=== PATIENT | male | born 1955 | race Caucasian/White ===

== ENCOUNTER 2023-01-27 01:03 | Outpatient (REF) | payer MEDICARE, MEDICAID, SELFPAY | END 2023-01-27 01:04 | LOC: LAB 01:03 | PROVIDERS: PCP Family Medicine | DX: E55.9 Vitamin D deficiency, unspecified (principal) | CPT/HCPCS: 36415; 82306 ==

== ENCOUNTER 2023-02-28 04:27 | Outpatient (REF) | payer MEDICARE, MEDICAID, SELFPAY | END 2023-02-28 04:28 | disposition home or self-care (01) | LOC: LAB 04:27 | PROVIDERS: PCP Family Medicine; Visit Provider Family Medicine | DX: A69.9 Spirochetal infection, unspecified (principal); A60.9 Anogenital herpesviral infection, unspecified | CPT/HCPCS: 36415; 82746 ==

== ENCOUNTER 2023-02-28 13:07 | Outpatient (OUT) | payer MEDICARE, MEDICAID, SELFPAY ==
--- NOTE | 2023-02-28 13:17 | XR_ITS ---
The [address] [address] Patient Name: LENORA TILLMAN MRN: [id number] date: 1955 Sex: M Assigned Patient Location: [facility] Current Patient Location: [facility] Accession/Order Number: [id number] Exam Date: 02/28/2023 13:18 Report Date: 02/28/2023 13:58 At the request of: YVES ORNELAS Procedure: XR lumbar spine 6V w bending EXAMINATION: XR lumbar spine 6V w bending HISTORY: Low back pain M54.5 COMPARISON: No relevant comparison available. FINDINGS: BONES: Normal alignment with no acute fracture or spondylolisthesis. Mild to moderate degenerative spondylosis and facet osteoarthropathy DISC SPACES: Normal. No significant disc height narrowing, subluxation, or endplate abnormality. PARASPINOUS: Negative. No paraspinous abnormality is seen. OTHER: No transient spondylolisthesis with flexion or extension XR/XR lumbar spine 6V w bending IMPRESSION: [id number] degenerative changes with no dynamic instability Electronically authenticated by: LAY HOPPER Date: 02/28/2023 13:58
== END 2023-02-28 13:08 | disposition home or self-care (01) ==
LOC: RAD 13:09
PROVIDERS: PCP Family Medicine; Visit Provider Psychiatry & Neurology Neurology
DX: M54.50 Low back pain, unspecified (principal); I63.50 Cerebral infarction due to unspecified occlusion or stenosis of unspecified cerebral artery; G45.8 Other transient cerebral ischemic attacks and related syndromes; Q21.12 Patent foramen ovale; I65.23 Occlusion and stenosis of bilateral carotid arteries
CPT/HCPCS: 72114

== ENCOUNTER 2023-06-11 03:52 | Outpatient (REF) | payer MEDICARE, MEDICAID, SELFPAY ==
[2023-06-11 07:41] LABS: Basophils Percent Auto 0.5 % (0.2-2.0); Eosinophils Absolute Auto 0.2 10^3/uL (0.0-0.7); Hematocrit 35.9 % (42.0-54.0); Immature Granulocytes Abs Auto 0.02 10^3/uL (0.00-0.03); Immature Granulocytes Pct Auto 0.3 % (0.0-0.5); Lymphocytes Absolute Auto 1.6 10^3/uL (1.2-3.8); Lymphocytes Percent Auto 20.6 % (20.5-60.0); Mean Corpuscular HGB Conc 33.4 g/dL (29.9-35.2); Mean Corpuscular Hemoglobin 29.8 pg (25.9-34.0); Mean Corpuscular Volume 89.1 fL (80.0-94.0); Mean Platelet Volume 9.1 fL (9.5-13.5); Monocytes Absolute Auto 0.6 10^3/uL (0.3-0.8); Monocytes Percent Auto 8.1 % (1.7-12.0); Neutrophils Absolute Auto 5.4 10^3/uL (1.4-6.5); Neutrophils Percent Auto 67.5 % (43.0-75.0); Platelet Count 230 10^3/uL (150-450); Red Blood Count 4.03 10^6/uL (4.70-6.10); Red Cell Distribution Width 12.3 % (11.0-15.0); White Blood Count 7.9 10^3/uL (4.0-11.0)
[2023-06-11 08:16] LABS: Alanine Aminotransferase 50 U/L (16-63); Albumin Globulin Ratio 0.9; Albumin Level 3.5 g/dL (3.4-5.0); Alkaline Phosphatase 72 U/L (46-116); Anion Gap 11.7; Aspartate Amino Transferase 41 U/L (15-37); BUN Creatinine Ratio 11.5; Bilirubin Total 0.5 mg/dL (0.2-1.0); Calcium 8.6 mg/dL (8.5-10.1); Chloride 103 mmol/L (98-107); Estimated GFR (African America 37 (>=60); Estimated GFR (Non-African Ame 31 (>=60); Glucose 118 mg/dL (74-106); Potassium 3.7 mmol/L (3.5-5.1); Sodium 139 mmol/L (136-145); Total Protein 7.5 g/dL (6.4-8.2)
[2023-06-11 08:38] LABS: Estimated Average Glucose 134 mg/dL; Glycohemoglobin A1C 6.3 % (4.5-6.2)
== END 2023-06-11 03:53 | disposition home or self-care (01) ==
LOC: LAB 03:52
PROVIDERS: PCP Family Medicine; Visit Provider Family Medicine
DX: E11.22 Type 2 diabetes mellitus with diabetic chronic kidney disease (principal)
CPT/HCPCS: 36415; 80053; 83036; 85025

== ENCOUNTER 2023-06-18 04:16 | Outpatient (REF) | payer MEDICARE, MEDICAID, SELFPAY ==
[2023-06-20 14:11] LABS: Alpha-1-Globulin, U 0.3 % (.); Alpha-2-Globulin, U 4.9 % (.); Beta Globulin, U 11.1 % (.); Gamma Globulin, U 16.8 % (.); M-Spike, % Not Observed % (Not Observed); Protein,Total,Urine 9.8 mg/dL (Not Estab.)
== END 2023-06-18 04:17 | disposition home or self-care (01) ==
LOC: LAB 04:16
PROVIDERS: PCP Family Medicine; Visit Provider Family Medicine
DX: G62.9 Polyneuropathy, unspecified (principal); G60.9 Hereditary and idiopathic neuropathy, unspecified
CPT/HCPCS: 36415; 83521; 84156; 84166

== ENCOUNTER 2023-06-20 00:35 | Outpatient (REF) | payer MEDICARE, MEDICAID, SELFPAY | END 2023-06-20 00:36 | disposition home or self-care (01) | LOC: LAB 00:35 | PROVIDERS: PCP Family Medicine; Visit Provider Family Medicine | DX: G62.9 Polyneuropathy, unspecified (principal); G60.9 Hereditary and idiopathic neuropathy, unspecified | CPT/HCPCS: 36415; 82746 ==

== ENCOUNTER 2023-06-22 08:10 | Outpatient (REF) | payer MEDICARE, MEDICAID, SELFPAY ==
[2023-06-23 08:43] LABS: Bilirubin Urine NEGATIVE (NEGATIVE); Blood Urine LARGE (NEGATIVE); Clarity Urine CLOUDY (CLEAR); Color Urine YELLOW (YELLOW); Glucose Urine UA 100 mg/dL (NEGATIVE); Ketones Urine NEGATIVE (NEGATIVE); Leukocyte Esterase Urine LARGE (NEGATIVE); Nitrite Urine NEGATIVE (NEGATIVE); Protein Urine >=300 mg/dL (NEG/TRACE); pH Urine >=9.0 (5.0-9.0)
[2023-06-23 08:51] LABS: Urine Microscopic Indicated YES
[2023-06-23 09:06] LABS: Bacteria Urine LARGE #/HPF (NONE SEEN); Cast Seen? NONE SEEN #/LPF (NONE SEEN); Crystals Seen? None Seen #/HPF (None Seen); Mucus Urine NONE SEEN (NONE SEEN); RBC Urine 20-50 #/HPF (0-2); Squamous Epithelial Cell Urine NONE SEEN #/LPF (NONE/RARE); Urine Culture Indicated YES; WBC Urine 20-50 #/HPF (NONE SEEN)
--- OUTSIDE RECORDS SUMMARY | 2023-07-29 17:07 | XMS_ITS | CCD ---
Author Name Unknown Address [address] [place] [address] Organization [facility] Care Team Providers Care Oleomargarine Maker Name Role Phone Antione DO Lay Wagenr Attending Provider [phone] CINDY Dow Primary Care Provider YVES ORNELAS Admitting Unavailable BERere, YVES Attending Unavailable MISC, DR FRAZIER Primary Care Unavailable REGAN, DR MCELROY Admitting Unavailable REGAN, DR MCELROY Attending Unavailable REGAN, DR MCELROY Primary Care Unavailable REGAN, DR MCELROY Consulting Unavailable REGAN, DR MCELROY Admitting Unavailable REGAN, DR MCELROY Attending Unavailable REGAN, DR MCELROY Primary Care Unavailable REGAN, DR MCELROY Consulting Unavailable TIA MERA Admitting Unavailable TIA MERA Attending Unavailable REGAN, DR MCELROY Primary Care Unavailable ZIEBER, DR RUFUS Morales Consulting Unavailable GRECHCLAUDIA .GARFIELD Consulting UnavailTIA Melendez Consulting Unavailable REGAN, DR MCELROY Primary Care Unavailable TIA MERA Admitting Unavailable TIA MERA Attending Unavailable TIA MERA Consulting Unavailable KARIME MAYES Consulting Unavailable JAC GILL Consulting Unavailable REGAN, DR MCELROY Primary Care Unavailable GRECHCLAUDIA ., GARFIELD ONAEL Consulting UnavailHERRERA Stafford Admitting Unavailable KRISTEN .HERRERA Attending Unavailable JAC GILL Consulting Unavailable LAY ROQUE Consulting Unavailable Medications Current Medications Medication Drug Class(es) Dates Sig (Normalized) Sig (Original) acetaminophen 325 mg oral tablet (1 source) Start: 03-15-2022 take 650 mg by mouth every four hours Acetaminophen Active 650 MG PO Q4H March 15, 2022 12:00am [id number] 200 actuat albuterol 0.09 mg/actuat metered dose inhaler (1 source) beta2-Adrenergic Agonist Start: 03-15-2022 take 1 puff(s) by inhalation every four hours Albuterol Sulfate Active 2 PUFF INHALATION Q4H March 15, 2022 12:00am amLODIPine 5 mg oral tablet (1 source) Dihydropyridine Calcium Channel Brenton Start: 01-21-2020 take 5 mg by mouth once daily in the morning Amlodipine Active 5 MG PO Every morning January 21, 2020 12:00am aspirin 81 mg delayed release oral tablet (1 source) Platelet Aggregation Inhibitor, Nonsteroidal Anti-inflammatory Drug Start: 03-15-2022 take 81 mg by mouth once daily Aspirin Active 81 MG PO Daily March 15, 2022 12:00am atorvastatin 10 mg oral tablet (1 source) HMG-CoA Reductase Inhibitor Start: 01-21-2020 take 10 mg by mouth once daily in the morning Atorvastatin Active 10 MG PO Every morning January 21, 2020 12:00am 24 hr buPROPion hydrochloride 300 mg extended release oral tablet (1 source) Aminoketone Start: 01-21-2020 take 300 mg by mouth once daily in the morning Bupropion Hcl Active 300 MG PO Every morning January 21, 2020 12:00am cholecalciferol 0.125 mg oral tablet (1 source) Vitamin D Start: 03-15-2022 take 1 tablet by mouth once daily Cholecalciferol (Vitamin D3) (Vitamin D3) 125 mcg (5,000 unit) Tablet Active 125 MCG PO Daily March 15, 2022 12:00am docusate sodium 100 mg oral capsule (1 source) Start: 03-15-2022 take 100 mg by mouth twice daily Docusate Sodium Active 100 MG PO Twice daily March 15, 2022 12:00am escitalopram 20 mg oral tablet (1 source) Serotonin Reuptake Inhibitor Start: 01-21-2020 take 20 mg by mouth once daily in the morning Escitalopram Oxalate Active 20 MG PO Every morning January 21, 2020 12:00am guaiFENesin 20 mg/ml oral solution (1 source) Start: 03-15-2022 take 200 mg by mouth every four hours Guaifenesin Active 200 MG PO Q4H March 15, 2022 12:00am lisinopril 10 mg oral tablet (1 source) Angiotensin Converting Enzyme Inhibitor Start: 01-21-2020 take 10 mg by mouth once daily in the morning Lisinopril Active 10 MG PO Every morning January 21, 2020 12:00am loperamide hydrochloride 2 mg oral capsule (1 source) Opioid Agonist Start: 03-15-2022 take 8 mg by mouth every twenty-four hours Loperamide Active 2 MG PO Q4H March 15, 2022 12:00am administer after each loose stool until symptoms controlled; do not exceed 8 mg per 24 hrs 24 hr metFORMIN hydrochloride 500 mg extended release oral tablet (2 sources) Biguanide Start: 01-21-2020 take 1000 mg by mouth twice daily Metformin Active 1000 MG PO Twice daily January 21, 2020 12:00am Start: 01-21-2020 End: 01-21-2020 Metformin Discontinued MG TA BLET January 21, 2020 12:00am January 21, 2020 2:59pm metoprolol tartrate 50 mg oral tablet (1 source) beta-Adrenergic Brenton Start: 01-21-2020 take 50 mg by mouth once daily in the morning Metoprolol Tartrate Active 50 MG PO Every morning January 21, 2020 12:00am polyethylene glycol 3350 17785 mg powder for oral solution (1 source) Osmotic Laxative Start: 03-15-2022 Polyethylene Glycol 3350 (Miralax) 17 gram Powder In Packet Active 17 GM PO Daily March 15, 2022 12:00am tamsulosin hydrochloride 0.4 mg oral capsule (2 sources) alpha-Adrenergic Brenton Start: 03-15-2022 take 0.4 mg by mouth once daily Tamsulosin Active 0.4 MG PO Daily March 15, 2022 12:00am Start: 01-21-2020 End: 01-21-2020 Tamsulosin Discontinued MG P O January 21, 2020 12:00am January 21, 2020 2:59pm traZODone hydrochloride 50 mg oral tablet (1 source) Serotonin Reuptake Inhibitor Start: 01-21-2020 take 50 mg by mouth once daily at bedtime Trazodone Active 50 MG PO Daily at bedtime January 21, 2020 12:00am Completed/Discontinued Medications Medication Drug Class(es) Dates Sig (Normalized) Sig (Original) SITagliptin 100 mg oral tablet (1 source) Dipeptidyl Peptidase 4 Inhibitor Start: 01-21-2020 End: 03-15-2022 take 1 tablet by mouth once daily in the morning Sitagliptin (Januvia) 100 mg tablet Discontinued 100 MG PO Every morning January 21, 2020 12:00am March 15, 2022 7:04am Problems Active Problems Problem Classification Problem Date Documented Da te Episodic/Chronic Chronic kidney disease (1 source) Chronic kidney disease, stage 2 (mild); Translations: [CHRONIC KIDNEY DISEASE STAGE 2 MILD] Onset: 12-12-2022 Chronic Diabetes mellitus with complications (4 sources) Type 2 diabetes mellitus with diabetic chronic kidney disease; Translations: [TYPE 2 DM W/DIABETIC CKD] Onset: 12-09-2022 Chronic E Codes: Fall (2 sources) Fall on same level, unspecified, initial encounter; Translations: [Unspecified fall, initial encounter] Onset: 10-04-2022 Episodic Essential hypertension (1 source) Essential (primary) hypertension; Translations: [ESSENTIAL PRIMARY HYPERTENSION] Onset: 12-12-2022 Chronic Immunizations and screening for infectious disease (1 source) Encounter for immunization; Translations: [ENCOUNTER FOR IMMUNIZATION] Onset: 10-04-2022 Episodic Open wounds of extremities (1 source) Laceration without foreign body of right wrist, initial encounter; Translations: [LACERATION W/O FB RT WRIST INITIAL] Onset: 11-05-2022 Episodic Other aftercare (1 source) lens engraver (current) use of aspirin; Translations: [FDC CURRENT USE OF ASPIRIN] Onset: 11-05-2022 Episodic Other aftercare (1 source) lens engraver (current) use of oral hypoglycemic drugs; Translations: [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 FABRICATION SUPERVISOR USE ORAL HYPOGLYCEMIC DX] Onset: 11-05-2022 Episodic Other aftercare (1 source) Other material assistant (current) drug therapy; Translations: [OTH FDC CURRENT DRUG THERAPY] Onset: 11-05-2022 Episodic Other connective tissue disease (3 sources) Other specified soft tissue disorders; Translations: [OTHER SPEC SOFT TISSUE DISORDERS] Onset: 10-02-2022 Episodic Other injuries and conditions due to external causes (4 sources) Other specified injuries of head, initial encounter; Translations: [OTH SPEC INJURIES HEAD INITIAL ENC] Onset: 11-04-2022 Episodic Other liver diseases (1 source) Unspecified cirrhosis of liver; Translations: [UNSPECIFIED CIRRHOSIS OF LIVER] Onset: 12-12-2022 Chronic Other nervous system disorders (4 sources) Polyneuropathy, unspecified; Translations: [POLYNEUROPATHY UNSPECIFIED] Onset: 11-13-2022 Chronic Other nervous system disorders (4 sources) Carpal tunnel syndrome, bilateral upper limbs; Translations: [CARPAL TUNNEL SYND MARCUS UPPER LIMBS] Onset: 06-12-2022 Chronic Other screening for suspected conditions (not mental disorders or infectious disease) (2 sources) Patient encounter status; Translations: [Encounter for screening for malignant neoplasm of colon] 03-15-2022 Episodic Skin and subcutaneous tissue infections (2 sources) Cellulitis of right finger; Translations: [Cellulitis of right upper limb] Onset: 10-04-2022 Episodic Superficial injury; contusion (3 sources) Contusion of lower back and pelvis, initial encounter; Translations: [Abrasion, right knee, initial encounter] Onset: 10-04-2022 Episodic Unclassified (3 sources) LOW BACK PAIN, UNSPECIFIED; Translations: [LOW BACK PAIN, UNSPECIFIED] Onset: 10-04-2022 Urinary tract infections (1 source) Urinary tract infection, site not specified; Translations: [UTI SITE NOT SPECIFIED] Onset: 10-04-2022 Episodic Past or Other Problems Problem Classification Problem Date Documented Da te Episodic/Chronic Unclassified (1 source) LOW BACK PAIN, UNSPECIFIED; Translations: [LOW BACK PAIN, UNSPECIFIED] Onset: 10-02-2022 Results Test Name Value Interpretation Reference Range Facil ity CBC AUTO DIFFon 12-09-2022 BASO # 0.0 103/ul Normal 0.0-0.1 [facility] Comment on above: Performed By: #### C BC ####[facility] [place] [address] [place], [place] [address]Dr. Kathya Ryan Basophils/100 WBC (Bld) 0.5 % Normal 0.2-2.0 [facility] Comment on above: Performed By: #### C BC ####[facility] [place] [address] [place] [id number]. Kathya Ryan EO # 0.3 103/ul Normal 0.0-0.7 [facility] Comment on above: Performed By: #### C BC ####[facility] [place] [address] [place], [place] [address]Dr. Kathya Ryan Eosinophils/100 WBC (Bld) 5.4 % Normal 0.9-7.0 [facility] Comment on above: Performed By: #### C BC ####[facility] [place] [address] [place] [address]Dr. Kathya Ryan Erythrocyte distribution wid th (RBC) [Ratio] 12.5 % Normal 11.0-15.0 [facility] Comment on above: Performed By: #### C BC ####[facility] [place] [address] [place], [place] [address]Dr. Kathya Ryan Hematocrit (Bld) [Volume fraction] 42.4 % Normal 4 2.0-54.0 [facility] [place] Comment on above: Performed By: #### C BC ####[facility] [place] [address] [place], [place] [address]Dr. Kathya Ryan Hemoglobin (Bld) [Mass/Vol] 14.1 g/dL Normal 14.0-18. 0 [facility] Comment on above: Performed By: #### C BC ####[facility] [place] [address] [place], [place] [address]Dr. Kathya Ryan IG # 0.02 10e3/ul Normal 0.00-0.03 [facility] Comment on above: Performed By: #### C BC ####[facility] [place] [address] [place], [place] [address]Dr. Kathay Ryan IG % 0.3 % Normal 0.0-0.5 [facility] Comment on above: Performed By: #### C BC ####[facility] [place] [address] [place], [place] [address]Dr. Kathya Ryan LYMPH # 1.3 103/ul Normal 1.2-3.8 [facility] Comment on above: Performed By: #### C BC ####[facility] [place] [address] [place], [place] [address]Dr. Kathya Ryan Lymphocytes/100 WBC (Bld) 22.4 % Normal 20.5-60.0 [facility] Comment on above: Performed By: #### C BC ####[facility] [place] [address] [place], [place] [address]Dr. Mireyajack Ryan MANUAL DIFF REQ NO Normal [facility] Comment on above: Performed By: #### C BC ####[facility] [place] [address] [place] [address]Dr. Kathya Ryan MCH (RBC) [Entitic mass] 30.5 pg Normal 25.9-34.0 [facility] Comment on above: Performed By: #### C BC ####[facility] [place] [address] [place] [address]Dr. Kathya Ryan MCHC (RBC) [Mass/Vol] 33.3 g/dL Normal 29.9-35.2 [facility] Comment on above: Performed By: #### C BC ####[facility] [place] [address] [place] [address]Dr. Kathya Ryan MCV (RBC) [Entitic vol] 91.8 fL Normal 80.0-94.0 [facility] Comment on above: Performed By: #### C BC ####[facility] [place] [address] [place], [place] [address]DrBriseyda Ryan MONO # 0.7 103/ul Normal 0.3-0.8 [facility] Comment on above: Performed By: #### C BC ####[facility] [place] [address] [place], [place] [address]DrBriseyda Ryan Monocytes/100 WBC (Bld) 12.2 % Critically high 1.7-12. 0 [facility] Comment on above: Performed By: #### C BC ####[facility] [place] [address] [place], [place] [address]DrBriseyda Ryan NEUT # 3.5 103/ul Normal 1.4-6.5 [facility] Comment on above: Performed By: #### C BC ####[facility] [place] [address] [place], [place] [address]DrBriseyda Ryan Neutrophils/100 WBC (Bld) 59.2 % Normal 43.0-75.0 [facility] [place] Comment on above: Performed By: #### C BC ####[facility] [place] [address] [place], [place] [address]DrBriseyda Ryan Platelet mean volume (Bld) [Entitic vol] 9.1 fL Critically low 9.5-13.5 The [facility] Comment on above: Performed By: #### C BC ####[facility] [place] [address] [place] [id number]. Kathya Ryan PLT 211 103/ul Normal 150-450 [facility] Comment on above: Performed By: #### C BC ####[facility] [place] [address] [place] [id number] Ryan RBC 4.62 106/ul Critically low 4.70-6.10 [facility] Comment on above: Performed By: #### C BC ####[facility] [place] [address] [place] [address]Dr. Kathya Ryan WBC 5.9 103/ul Normal 4.0-11.[address] [facility] Comment on above: Performed By: #### C BC ####[facility] [place] [address] [place] [address]Dr. Kathya Ryan GLYCOHEMOGLOBIN A1Con 2022 ADA RECOMMENDATION SEE BELOW Normal [facility] Comment on above: Result Comment: ADA RECOMMENDED LIMIT 4.0 - 6.0 ADA THERAPEUTIC TARGET < 7.0 ACTION SUGGESTED > 7.0 Performed By: #### A 1C #### [facility] [place] [facility] [address] [address] [address] Kathya Ryan Glucose [Mass/Vol] 123 mg/dL Normal [facility] Comment on above: Performed By: #### A 1C #### [facility] [place] [facility] [address] [address] [address] Kathya Ryan HbA1c (Bld) [Mass fraction] 5.9 % Normal 4.5-6.2 [facility] Comment on above: Performed By: #### A 1C #### [facility] [place] [facility] [address] [address] [address] Kathya Ryan LIPID PROFILEon 12-09-2022 CHOL-HDL RATIO NORM SEE BELOW Normal [facility] Comment on above: Result Comment: 3.3 - 4.4 LOW RISK 4.4 - 7.1 AVERAGE RISK 7.1 - 11.0 MODERATE RISK >11.0 HIGH RISK Performed By: #### L IPID, CMP #### [facility] [place] [facility] [address] [address] [address] Kathya Ryan Cholesterol [Mass/Vol] 132 mg/dL Normal <=200 [facility] Comment on above: Performed By: #### L IPID, CMP #### [facility] [place] [facility] [address] [address] [address] Kathya Ryan Cholesterol in HDL [Mass/Vol] 29 mg/dL Critically low 40 -60 [facility] Comment on above: Performed By: #### L IPID, CMP #### [facility] [place] [facility] [address] [address] [address] Kathya Ryan Cholesterol in LDL [Mass/Vol] 83.0 mg/dL Normal [facility] Comment on above: Performed By: #### L IPID, CMP #### [facility] [place] [facility] [address] [place] [address] Dr. Kathya Ryan Cholesterol.total/Cholestero l in HDL [Mass ratio] 4.6 {ratio} Normal [facility] Comment on above: Performed By: #### L IPID, CMP #### [facility] [place] [facility] [address] [place] [address] Dr. Kathya Ryan HDL NORMAL > or = 60 mg/dl - LO W CARDIOVASCULAR RISK <40 mg/dl - HIGH CARDIOVASCULAR RISK Normal [facility] Comment on above: Performed By: #### L IPID, CMP #### [facility] [place] [facility] [address] [address] [address] Kathya Ryan LDL CALC NORMAL SEE BELOW Normal [facility] Comment on above: Result Comment: <100 mg/dl OPTIMAL 100 - 129 mg/dl NEAR OR ABOVE OPTIMAL 130 - 159 mg/dl BORDERLINE HIGH 160 - 189 mg/dl HIGH >190 mg/dl VERY HIGH Performed By: #### L IPID, CMP #### [facility] [place] [facility] [address] [address] [address] Kathya Ryan Triglyceride [Mass/Vol] 102 mg/dL Normal <=150 T [facility] Comment on above: Performed By: #### L IPID, CMP #### [facility] [place] [facility] [address] [address] [address] Kathya Ryan VLDL CALC 20.4 mg/dL Normal [facility] Comment on above: Performed By: #### L IPID, CMP #### [facility] [place] [facility] [address] [address] [address] Kathya Ryan PROF 14(COMP METB)on 023 Albumin [Mass/Vol] 3.3 g/dL Critically low 3.4-5.0 [facility] Comment on above: Performed By: #### L IPID, CMP #### [facility] [place] [facility] [address] [address] [address] Kathya Ryan Albumin/Globulin [Mass ratio] 0.9 {ratio} Normal [facility] Comment on above: Performed By: #### L IPID, CMP #### [facility] [place] [facility] [address] [place] [address] Dr. Kathya Ryan ALP [Catalytic activity/Vol] 71 U/L Normal 46-116 [facility] Comment on above: Performed By: #### L IPID, CMP #### [facility] [place] [facility] [address] [address] [address] Kathya Ryan ALT [Catalytic activity/Vol] 50 U/L Normal 16-63 [facility] Comment on above: Performed By: #### L IPID, CMP #### [facility] [place] [facility] [address] [address] [address] Kathya Ryan Anion gap [Moles/Vol] 12.6 mmol/L Normal [facility] Comment on above: Performed By: #### L IPID, CMP #### [facility] [place] [facility] [address] [address] [address] Kathya Ryan AST [Catalytic activity/Vol] 34 U/L Normal 15-37 [facility] Comment on above: Performed By: #### L IPID, CMP #### [facility] [place] [facility] [address] [address] [address] Kathya Ryan Bilirubin [Mass/Vol] 0.4 mg/dL Normal 0.2-1.0 [facility] Comment on above: Performed By: #### L IPID, CMP #### [facility] [place] [facility] [address] [address] [address] Kathya Ryan Calcium [Mass/Vol] 8.9 mg/dL Normal 8.5-10.1 [facility] Comment on above: Performed By: #### L IPID, CMP #### [facility] [place] [facility] [address] [address] [address] Kathya Ryan Chloride [Moles/Vol] 106 mmol/L Normal 98-107 [facility] Comment on above: Performed By: #### L IPID, CMP #### [facility] [place] [facility] [address] [place] [address] Dr. Kathya Ryan CO2 [Moles/Vol] 27.4 mmol/L Normal 21.0-32.0 [facility] Comment on above: Performed By: #### L IPID, CMP #### [facility] [place] [facility] [address] [place] [address] Dr. Kathya Ryna Creatinine [Mass/Vol] 1.45 mg/dL Critically high 0.70-1.30 [facility] Comment on above: Performed By: #### L IPID, CMP #### [facility] [place] [facility] [address] [place] [address] Dr. Kathya Ryan EGFR-AF PARAGUAYAN 59 mL/min/1.73m2 Critically low >=60 [facility] Comment on above: Performed By: #### L IPID, CMP #### [facility] [place] [facility] [address] [place] [address] Dr. Kathya Ryan EGFR-NON AF PARAGUAYAN 49 mL/min/1.73m2 Critically low >=60 [facility] Comment on above: Performed By: #### L IPID, CMP #### [facility] [place] [facility] [address] [place] [address] Dr. Kathya Ryan Globulin (S) [Mass/Vol] 3.8 g/dL Normal [facility] Comment on above: Performed By: #### L IPID, CMP #### [facility] [place] [facility] [address] [place] [address] Dr. Kathya Ryan Glucose [Mass/Vol] 109 mg/dL Critically high 74-106 [facility] Comment on above: Performed By: #### L IPID, CMP #### [facility] [place] [facility] [address] [address] [address] Kathya Ryan Potassium [Moles/Vol] 3.9 mmol/L Normal 3.5-5.1 [facility] Comment on above: Performed By: #### L IPID, CMP #### [facility] [place] [facility] [address] [address] [address] Kathya Ryan Protein [Mass/Vol] 7.1 g/dL Normal 6.4-8.2 [facility] Comment on above: Performed By: #### L IPID, CMP #### [facility] [place] [facility] [address] [place] [address] Dr. Kathya Ryan Sodium [Moles/Vol] 142 mmol/L Normal 136-145 [facility] Comment on above: Performed By: #### L IPID, CMP #### [facility] [place] [facility] [address] [place] [address] Dr. Kathya Ryan Urea nitrogen [Mass/Vol] 17.0 mg/dL Normal 7.0-18.0 [facility] Comment on above: Performed By: #### L DANTEID, CMP #### [facility] [place] [facility] [address] [place] [address] Dr. Kathya Ryan Urea nitrogen/Creatinine [Mass ratio] 11.7 mg/mg Normal [facility] Comment on above: Performed By: #### L DANTEID, CMP #### [facility] [place] [facility] [address] [address] [address] Kathya Ryan FREE LIGHT CHAINS PLUS RATIO , URINEon 11-14-2022 Free Pierre Lt Chains,Ur 86.11 mg/L Normal 1.17-86.46 [facility] Comment on above: Performed By: #### F FIDEL ####[facility] [place] [address] [place] [address]Dr. Kathya Ryan Free Lambda Lt Chains,Ur 11.37 mg/L Normal 0.27-15.21 [facility] Comment on above: Performed By: #### F FIDEL ####[facility] [place] [address] [place], [place] [address]Ea. Kathya Ryan Pierre/ Lambda Urine Ratio 7.57 Normal 1.83-14.26 [facility] Comment on above: Performed By: #### F FIDEL ####[facility] [place] [address] [place], [place] [address]Hl. Kathya Ryan CT CSPINE WO CONon CT CSPINE WO CON EXAM: CT CSPINE WO C ON 11/03/2022 11:28 PM EDT [id number] CLINICAL STATEMENT: UNSPECIFIED INJURY OF HEAD, INITIAL ENCOUNTER COMPARISON: No prior studies are available at the time of dictation. TECHNIQUE: Helically acquired images were obtained of the cervical spine without contrast. AEC is utilized. 2D reformatted images were reviewed FINDINGS: Multilevel degenerative changes are noted. Bilateral uncovertebral hypertrophy at C3-C4, C4-C5 and C5-C6. There is no acute fracture or subluxation. There is normal anatomic alignment. There is no prevertebral soft tissue swelling. Luschka joint and facet joint hypertrophy is noted. The visualized portions of the lung apices are clear. The visualized portions of the skull base are intact. IMPRESSION: Multilevel degenerative changes without evidence of acute fracture or subluxation. Electronically authenticated by: KARIME MAYES Date: 2022-11-04 00:29 Normal [facility] CT HEAD WO CONon 11-04-2022 CT HEAD WO CON NONCONTRAST CT SCAN OF THE HEAD CT HEAD WO CON HISTORY:: UNSPECIFIED INJURY OF HEAD, INITIAL ENCOUNTER TECHNIQUE: Multiple axial images are taken from the level the vertex down to the base of the skull without the use of IV contrast. Images were then reconstructed in the sagittal and coronal planes. This exam was performed according to our departmental dose-optimization program which includes use of Automated Exposure Control, adjustment of the mA and/or kV according to patient size and/or use of iterative reconstruction technique. COMPARISON: CT head 09/14/2021 CT head 10/02/2022 FINDINGS: Brain Parenchyma: There is global, diffuse atrophy with periventricular decreased white matter attenuation.No intracranial mass. No intracranial hemorrhage. Posterior fossa: Normal. Midline shift: None Extra-axial fluid collection: None Ventricles: Normal. Mastoid air cells: Normal. Sinuses: Normal. Cranium: No depressed skull fracture. Soft tissues: Normal. Orbits: Orbits demonstrate postoperative changes from prior cataract resection with prosthetic lens implant. IMPRESSION: 1. No acute intracranial bleed, nor mass nor shift. 2. In the setting of hyperacute stroke, findings may not be readily visualized on a noncontrast CT. Please correlate clinically. If there is any clinical concern for hyperacute stroke, MRI with diffusion-weighted imaging would help better delineate. Electronically authenticated by: JAC GILL Date: 2022-11-04 00:28 Normal The [facility] CBC AUTO DIFFon 10-02-2022 BASO # 0.1 103/ul Normal 0.0-0.1 The [facility]ital Comment on above: Performed By: #### C BC ####[facility] [place] [address] [place] [address]Dr. Kathya Ryan Basophils/100 WBC (Bld) 0.5 % Normal 0.2-2.0 [facility] Comment on above: Performed By: #### C BC ####[facility] [place] [address] [place] [address]Dr. Kathya Ryan EO # 0.8 103/ul Critically high 0.0-0.7 The [facility] Comment on above: Performed By: #### C BC ####[facility] [place] [address] [place] [address]Dr. Kathya Ryan Eosinophils/100 WBC (Bld) 7.6 % Critically high 0.9-7 .0 The [facility] [place] Comment on above: Performed By: #### C BC ####[facility] [place] [address] [place] [address]Dr. Kathya Ryan Erythrocyte distribution wid th (RBC) [Ratio] 13.3 % Normal 11.0-15.0 The [facility] pithi Comment on above: Performed By: #### C BC ####[facility] [place] [address] [place] [address]Dr. Kathya Ryan Hematocrit (Bld) [Volume fraction] 39.7 % Critically low 42.0-54.0 The [facility] Comment on above: Performed By: #### C BC ####[facility] [place] [address] [place] [id number]. Kathya Ryan Hemoglobin (Bld) [Mass/Vol] 13.4 g/dL Critically low 14.0 -18.0 The [facility] [place] Comment on above: Performed By: #### C BC ####[facility] [place] [address] [place] [id number]. Kathya Ryan IG # 0.04 10e3/ul Critically high 0.00-0.03 The [facility] Comment on above: Performed By: #### C BC ####[facility] [place] [address] [place], [place] [address]Dr. Kathya Ryan IG % 0.4 % Normal 0.0-0.[address] [facility] Comment on above: Performed By: #### C BC ####[facility] [place] [address] [place], [place] [address]Dr. Kathya Ryan LYMPH # 1.6 103/ul Normal 1.2-3.[address] [facility] Comment on above: Performed By: #### C BC ####[facility] [place] [address] [place], [place] [address]Dr. Kathya Ryan Lymphocytes/100 WBC (Bld) 15.8 % Critically low 20.5-6 0.0 The [facility] [place] Comment on above: Performed By: #### C BC ####[facility] [place] [address] [place] [address]Dr. Kathya Ryan MANUAL DIFF REQ NO Normal The [facility] Comment on above: Performed By: #### C BC ####[facility] [place] [address] [place], [place] [address]Dr. Kathya Ryan MCH (RBC) [Entitic mass] 29.8 pg Normal 25.9-34.0 The [facility] [place] Comment on above: Performed By: #### C BC ####[facility] [place] [address] [place], [place] [address]Dr. Kathya Ryan MCHC (RBC) [Mass/Vol] 33.8 g/dL Normal 29.9-35.2 The [facility] [place] Comment on above: Performed By: #### C BC ####[facility] [place] [address] [place] [id number]. Kathya Ryan MCV (RBC) [Entitic vol] 88.4 fL Normal 80.0-94.0 [facility] Comment on above: Performed By: #### C BC ####[facility] [place] [address] [place] [id number]. Kathya Ryan MONO # 1.2 103/ul Critically high 0.3-0.8 The [facility] Comment on above: Performed By: #### C BC ####[facility] [place] [address] [place] [id number]. Kathya Ryan Monocytes/100 WBC (Bld) 12.1 % Critically high 1.7-12. 0 [facility] Comment on above: Performed By: #### C BC ####[facility] [place] [address] [place], [place] [address]Dr. Kathya Ryan NEUT # 6.4 103/ul Normal 1.4-6.[address] [facility] Comment on above: Performed By: #### C BC ####[facility] [place] [address] [place], [place] [address]Dr. Kathya Ryan Neutrophils/100 WBC (Bld) 63.6 % Normal 43.0-75.0 [facility] Comment on above: Performed By: #### C BC ####[facility] [place] [address] [place] [id number]. Kathya Ryan Platelet mean volume (Bld) [Entitic vol] 8.8 fL Critically low 9.5-13.5 The [facility] Comment on above: Performed By: #### C BC ####[facility] [place] [address] [place] [id number]. Kathya Ryan PLT 237 103/ul Normal 150-[address] [facility] Comment on above: Performed By: #### C BC ####[facility] [place] [address] [place], [place] [address]Dr. Kathya Ryan RBC 4.49 106/ul Critically low 4.70-6.10 The [facility] Comment on above: Performed By: #### C BC ####[facility] [place] [address] [place], [place] [address]Mr. Kathya Ryan WBC 10.1 103/ul Normal 4.0-11.0 The [facility] [place] Comment on above: Performed By: #### C BC ####[facility] [place] [address] [place], [place] [address]. [address] CT CSPINE WO CONon 3 CT CSPINE WO CON EXAMINATION: CT CSPI NE WO CON HISTORY: Unwitnessed fall COMPARISON: None. TECHNIQUE: CT Cervical spine without IV contrast. Coronal and sagittal reformations were performed. Dose reduction techniques were achieved by using automated exposure control and/or adjustment of mA and/or kV according to patient size and/or use of iterative reconstruction technique. FINDINGS: Age-indeterminate straightening of the cervical lordosis beginning at C5-C6. Vertebral body heights and alignments exhibit no fracture or listhesis. Multilevel intervertebral disc space narrowing, endplate, uncovertebral and facet arthrosis. The dens and lateral masses of C1 are symmetric. No prevertebral soft tissue edema. No gross visualized irregularity of the skull base. Moderate atherosclerosis of the left carotid bulb. The visualized airway, thoracic inlet and pulmonary apices are unremarkable IMPRESSION: Age-indeterminate straightening of the upper cervical lordosis Electronically authenticated by: LAY ROQUE Date: 2022-10-02 20:33 Normal The [facility] [place] CT HEAD WO CONon 10-02-2022 CT HEAD WO CON NONCONTRAST CT SCAN OF THE HEAD CT HEAD WO CON HISTORY:: Unspecified fall TECHNIQUE: Multiple axial images are taken from the level the vertex down to the base of the skull without the use of IV contrast. Images were then reconstructed in the sagittal and coronal planes. This exam was performed according to our departmental dose-optimization program which includes use of Automated Exposure Control, adjustment of the mA and/or kV according to patient size and/or use of iterative reconstruction technique. COMPARISON: 09/14/2021 FINDINGS: Brain Parenchyma: There is global, diffuse atrophy with periventricular decreased white matter attenuation. No intracranial mass. No intracranial hemorrhage. Posterior fossa: Normal. Midline shift: None Extra-axial fluid collection: None Ventricles: Normal. Mastoid air cells: Normal. Sinuses: Normal. Cranium: No depressed skull fracture. Soft tissues: Normal. Orbits: Orbits demonstrate postoperative changes from prior cataract resection with prosthetic lens implant. IMPRESSION: 1. Chronic small vessel ischemic change. 2. Otherwise, no CT evidence for acute pathology. 3. If symptoms continue, MRI may help better delineate. Electronically authenticated by: JAC GILL Date: 2022-10-02 20:41 Normal [facility] CULTURE URINEon 10-02-2022 CULTURE URINE Culture Observations : LIGHT GROWTH OF MIXED SKIN LUKASZ. NO POTENTIAL PATHOGENS SEEN. Normal The [facility] Comment on above: Performed By: #### U RCX ####[facility] [place] [address] [place] [address]Dr. Kathya Ryan ER URINE PROFILEon 3 Bilirubin Ql (U) Negative Normal NEGATIVE [facility] Comment on above: Performed By: #### U MICRO, ERUR #### [facility] [place] [facility] [address] [address] [address] Kathya Ryan Clarity (U) CLEAR Normal CLEAR The [facility] [place] Comment on above: Performed By: #### U MICRO, ERUR #### [facility] [place] [facility] [address] [address] [address] Kathya Ryan Color (U) YELLOW Normal YELLOW The [facility] Comment on above: Performed By: #### U MICRO, ERUR #### [facility] [place] [facility] [address] [address] [address] Kathya Ryan ERUAHD A micrscopic examina tion will be performed if indicated. Normal The [facility] l Comment on above: Performed By: #### U MICRO, ERUR #### [facility] [place] [facility] [address] [address] [address] Kathya Ryan Glucose Ql (U) 500 mg/dl Abnormal NEGATIVE The [facility] Comment on above: Performed By: #### U MICRO, ERUR #### [facility] [place] [facility] [address] [address] [address] Kathya Ryan Hemoglobin Ql (U) SMALL Abnormal NEGATIVE The [facility] Comment on above: Performed By: #### U MICRO, ERUR #### [facility] [place] [facility] [address] [address] [address] Kathya Ryan Ketones Ql (U) TRACE Abnormal NEGATIVE The [facility] Comment on above: Performed By: #### U MICRO, ERUR #### [facility] [place] [facility] [address] [place] [address] Dr. Kathya Ryan LEUKOCYTES TRACE Abnormal NEGATIVE The [facility] Comment on above: Performed By: #### U MICRO, ERUR #### [facility] [place] [facility] [address] [place] [address] Dr. Kathya Ryan Nitrite Ql (U) Negative Normal NEGATIVE The [facility] Comment on above: Performed By: #### U MICRO, ERUR #### [facility] [place] [facility] [address] [place] [address] Dr. Kathya Ryan pH (U) 5.5 [pH] Normal 5-[address] [facility] Comment on above: Performed By: #### U MICRO, ERUR #### [facility] [place] [facility] [address] [place] [address] Dr. Kathya Ryan SPEC GRAVITY >=1.030 Abnormal 1.005-<=1.025 [facility] Comment on above: Performed By: #### U MICRO, ERUR #### [facility] [place] [facility] [address] [place] [address] Dr. Kathya Ryan UA PROTEIN TRACE Normal NEGATIVE/ TRACE The [facility] Comment on above: Performed By: #### U MICRO, ERUR #### [facility] [place] [facility] [address] [place] [address] Dr. Kathya Ryan UR MICRO IND INDICATED Normal The [facility] [place] Comment on above: Performed By: #### U MICRO, ERUR #### [facility] [place] [facility] [address] [place] [address] Dr. Kathya Ryan Urobilinogen Qn (U) 2.0 {Luanne'U}/dL Abnormal 0.2 - 1. 0 [facility] Comment on above: Performed By: #### U MICRO, ERUR #### [facility] [place] [facility] [address] [place] [address] Dr. Kathya Ryan PROF 14(COMP METB)on 023 Albumin [Mass/Vol] 3.5 g/dL Normal 3.4-5.0 [facility] Comment on above: Performed By: #### H STROPN, CMP, TSH #### [facility] [place] [facility] [address] [address] [address] Kathya Ryan Albumin/Globulin [Mass ratio] 0.9 {ratio} Normal [facility] Comment on above: Performed By: #### H STROPN, CMP, TSH #### [facility] [place] [facility] [address] [address] [address] Kathya Ryan ALP [Catalytic activity/Vol] 108 U/L Normal 46-116 [facility] Comment on above: Performed By: #### H STROPN, CMP, TSH #### [facility] [place] [facility] [address] [place] [address] Dr. Kathya Ryan ALT [Catalytic activity/Vol] 38 U/L Normal 16-63 [facility] Comment on above: Performed By: #### H STROPN, CMP, TSH #### [facility] [place] [facility] [address] [address] [address] Kathya Ryan Anion gap [Moles/Vol] 11.4 mmol/L Normal [facility] Comment on above: Performed By: #### H STROPN, CMP, TSH #### [facility] [place] [facility] [address] [place] [address] Dr. Kathya Ryan AST [Catalytic activity/Vol] 28 U/L Normal 15-37 [facility] Comment on above: Performed By: #### H STROPN, CMP, TSH #### [facility] [place] [facility] [address] [address] [address] Kathya Ryan Bilirubin [Mass/Vol] 0.9 mg/dL Normal 0.2-1.0 [facility] Comment on above: Performed By: #### H STROPN, CMP, TSH #### [facility] [place] [facility] [address] [place] [address] Dr. Kathya Ryan Calcium [Mass/Vol] 9.1 mg/dL Normal 8.5-10.1 [facility] Comment on above: Performed By: #### H STROPN, CMP, TSH #### [facility] [place] [facility] [address] [address] [address] Kathya Ryan Chloride [Moles/Vol] 100 mmol/L Normal 98-107 [facility] Comment on above: Performed By: #### H STROPN, CMP, TSH #### [facility] [place] [facility] [address] [place] [address] Dr. Kathya Ryan CO2 [Moles/Vol] 27.7 mmol/L Normal 21.0-32.0 [facility] Comment on above: Performed By: #### H STROPN, CMP, TSH #### [facility] [place] [facility] [address] [place] [address] Dr. Kathya Ryan Creatinine [Mass/Vol] 1.69 mg/dL Critically high 0.70-1.30 [facility] Comment on above: Performed By: #### H STROPN, CMP, TSH #### [facility] [place] [facility] [address] [place] [address] Dr. Kathya Ryan EGFR-AF PARAGUAYAN 50 mL/min/1.73m2 Critically low >=60 [facility] Comment on above: Performed By: #### H STROPN, CMP, TSH #### [facility] [place] [facility] [address] [place] [address] Dr. Kathya Ryan EGFR-NON AF PARAGUAYAN 41 mL/min/1.73m2 Critically low >=60 [facility] Comment on above: Performed By: #### H STROPN, CMP, TSH #### [facility] [place] [facility] [address] [place] [address] Dr. Kathya Ryan Globulin (S) [Mass/Vol] 3.8 g/dL Normal [facility] Comment on above: Performed By: #### H STROPN, CMP, TSH #### [facility] [place] [facility] [address] [place] [address] Dr. Kathya Ryan Glucose [Mass/Vol] 259 mg/dL Critically high 74-106 [facility] Comment on above: Performed By: #### H STROPN, CMP, TSH #### [facility] [place] [facility] [address] [place] [address] Dr. Kathya Ryan Potassium [Moles/Vol] 4.1 mmol/L Normal 3.5-5.1 [facility] Comment on above: Performed By: #### H GILBERTO CMP, TSH #### [facility] [place] [facility] [address] [address] [address] Kathya Ryan Protein [Mass/Vol] 7.3 g/dL Normal 6.4-8.2 [facility] Comment on above: Performed By: #### H GILBERTO CMP, TSH #### [facility] [place] [facility] [address] [address] [address] Kathya Ryan Sodium [Moles/Vol] 135 mmol/L Critically low 136-145 [facility] Comment on above: Performed By: #### H GILBERTO CMP, TSH #### [facility] [place] [facility] [address] [address] [address] Kathya Ryan Urea nitrogen [Mass/Vol] 15.0 mg/dL Normal 7.0-18.0 [facility] Comment on above: Performed By: #### H GILBERTO CMP, TSH #### [facility] [place] [facility] [address] [address] [address] Kathya Ryan Urea nitrogen/Creatinine [Mass ratio] 8.9 mg/mg Normal [facility] Comment on above: Performed By: #### H FARAZ MACIAS, TSH #### [facility] [place] [facility] [address] [address] [address] Kathya Ryan PROTIMEon 10-02-2022 INR Coag (PPP) [Relative time] 1.00 {INR} Normal [facility] Comment on above: Performed By: #### P T, PTT ####[facility] [place] [address] [place] [address]Dr. Kathya Ryan INR GUIDELINES SEE BELOW Normal The [facility] Comment on above: Result Comment: JONI RED INR: 2.0 - 3.0 CONDITIONS NOT LISTED BELOW 2.5 - 3.5 FOR PROSTHETIC HEART VALVE REPLACEMENT 2.5 - 3.5 RECURRENT THROMBOSIS Performed By: #### P T, PTT ####[facility] [place] [address] [place] [address]Dr. Kathya Ryan PT Coag (PPP) [Time] 10.6 s Normal 9.0-11.6 [facility] Comment on above: Performed By: #### P T, PTT ####[facility] [place] [address] [place] [address]Dr. Kathya Ryan PTTon 10-02-2022 aPTT Coag (Bld) [Time] 26.9 s Normal 22.3-36.2 [facility] Comment on above: Performed By: #### P T, PTT ####[facility] [place] [address] [place] [address]Dr. Kathya Ryan TROPONIN, HIGH SENSITIVITYon 10-02-2022 HSTROP 4.2 pg/mL Normal 4.0-76.1 [facility] Comment on above: Result Comment: CUT- OFF POINTS HAVE BEEN ESTABLISHED BASED ON THE FOURTH UNIVERSAL DEFINITIONS OF MYOCARDIAL INFARCTION. THE UPPER REFERENCE LIMIT (URL) OF TROPONIN, DEFINED THE 99TH PERCENTILE OF cTnI DISTRIBUTION IN A REFERENCE POPULATION, HAS BEEN CONFIRMED THE DECISION THRESHOLD FOR CT DIAGNOSIS. Performed By: #### H FARAZ MACIAS, TSH ####[facility] [place] [address] [place] [address]Dr. aKthya Ryan TSHon 10-02-2022 TSH 2.502 uIU/mL Normal 0.358-3.740 [facility] Comment on above: Performed By: #### H FARAZ MACIAS, TSH ####[facility] [place] [address] [place] [address]DrBriseyda Ryan URINE MICROSCOPIC ONLYon BACTERIA MODERATE Abnormal NONE SEEN [facility] Comment on above: Performed By: #### U MICRO, ERUR #### [facility] [place] [facility] [address] [place] [address] Dr. Kathya Ryan Bacteria identified Cx Nom (U) INDICATED Normal The [facility] [place] Comment on above: Performed By: #### U MICRO, ERUR #### [facility] [place] [facility] [address] [place] [address] Dr. Kathya Ryan CAST NONE SEEN Normal NONE SEEN The [facility] Comment on above: Performed By: #### U MICRO, ERUR #### [facility] [place] [facility] [address] [place] [address] Dr. Kathya Ryan Crystals LM Nom (Urine sed) NONE SEEN Normal NONE SEE N The [facility] [place] Comment on above: Performed By: #### U MICRO, ERUR #### [facility] [place] [facility] [address] [address] [address] Kathya Ryan Epithelial cells LM Ql (Urine sed) RARE Normal N ONE SEEN /RARE The [facility] [place] Comment on above: Performed By: #### U MICRO, ERUR #### [facility] [place] [facility] [address] [address] [address] Kathya Ryan HYALINE CAST FEW Normal The [facility] [place] Comment on above: Performed By: #### U MICRO, ERUR #### [facility] [place] [facility] [address] [address] [address] Kathya Ryan MUCOUS NONE SEEN Normal NONE SEEN [facility] Comment on above: Performed By: #### U MICRO, ERUR #### [facility] [place] [facility] [address] [place] [address] Dr. Kathya Ryan RBC 10-20 Abnormal 0-2 [facility] Comment on above: Performed By: #### U MICRO, ERUR #### [facility] [place] [facility] [address] [address] [address] Kathya Ryan WBC 5-10 Abnormal NONE SEEN [facility] Comment on above: Performed By: #### U MICRO, ERUR #### [facility] [place] [facility] [address] [place] [address] Dr. Kathya Ryan XR CHEST 1 Von 10-02-2022 XR CHEST 1 V EXAMINATION: XR CHES T 1 V HISTORY: Unwitnessed fall COMPARISON: Portable chest 09/14/2021 TECHNIQUE: Portable chest FINDINGS: The lung parenchyma is free of consolidation or infiltrate. No pneumothorax or pleural effusion. The cardiac, mediastinal and hilar contours are normal. The visualized osseous structures exhibit no gross abnormality. IMPRESSION: No acute cardiopulmonary abnormality. Electronically authenticated by: LAY ROQUE Date: 2022-10-02 20:56 Normal The [facility] XR KNEE RT 4V or >on 023 XR KNEE RT 4V or > EXAM: XR KNEE RT 4V or > HISTORY: Unwitnessed fall COMPARISON: None. TECHNIQUE: 4 views FINDINGS: IMPRESSION: Poorly evaluated lucency of the lateral aspect of the patella that most likely represents bipartite morphology. The remainder of the osseous structures are normal. No visualized knee effusion or soft tissue edema. The tricompartmental joint spaces are normal. Electronically authenticated by: LAY ROQUE Date: 2022-10-02 20:59 Normal [facility] XR LSPINE 2_3 VIEWSon 2022 XR LSPINE 2_3 VIEWS EXAM: XR LSPINE 2_3 VIEWS HISTORY: Pain following fall COMPARISON: None. TECHNIQUE: 3 views of the lumbar spine and AP pelvis FINDINGS: Maintenance of the normal lumbar lordosis. Vertebral body heights and alignments exhibit no fracture or listhesis. Age-related intervertebral disc space narrowing, endplate and facet arthrosis. The sacroiliac joints, pubic symphysis and hip joints are unremarkable for patient's age. No fracture, dislocation or subluxation. IMPRESSION: No visualized acute abnormality Electronically authenticated by: LAY ROQUE Date: 2022-10-02 20:55 Normal The [facility] XR PELVIS 1_2 VIEWSon 2022 XR PELVIS 1_2 VIEWS EXAM: XR PELVIS 1_2 VIEWS HISTORY: Fall COMPARISON: None. TECHNIQUE: Single view FINDINGS: No osseous lesion, fracture, dislocation or subluxation. Joint spaces are unremarkable for patient's age. No visualized effusion. No visualized soft tissue edema. IMPRESSION: Normal x-rays Electronically authenticated by: LAY ROQUE Date: 2022-10-02 21:04 Normal The [facility] Glucose Glucometer (dC) [M ass/Vol]Ordered By: Lay Talbot on 03-15-2022 Glucose [Mass/Vol] 131 mg/dL [facility] Comment on above: Random Glucose Refer ence Range is dependent on time and content of last meal. Glucose of more than 200 mg/dL in a nonstressed, ambulatory subject supports the diagnosis of Diabetes Mellitus. Glucose Poct Glucometerson 0 03-15-2022 Glucose [Mass/Vol] 131 mg/dL Normal [facility] Comment on above: Result Comment: [place] Glucose Reference Range is dependent on time and content of last meal. Glucose of more than 200 mg/dL in a nonstressed, ambulatory subject supports the diagnosis of Diabetes Mellitus. PERFORMED BY: [facility] [place] [address] PATHOLOGIST STUDENT OUTREACH COORDINATOR CARINA HASSAN M.D. Performed By: #### G BALJIT #### Point of Care testing , PSA SCREEN (MEDICARE)on 11-09 TPSA 3.110 ng/mL Normal <4.000 [facility] Comment on above: Result Comment: PSA Test Method: ECLIA/Urvashi e 601 Performed By: #### P SA #### [facility] [address] [place], [place] [id number] Complete Blood Counton 09-20 Erythrocyte distribution wid th (RBC) [Ratio] 12.6 % Normal 11.0-15.0 [facility] Comment on above: Performed By: #### C MP, CBC, MG #### [facility] [address], [place] [id number] Hematocrit (Bld) [Volume fraction] 47.3 % Normal 38.5-50.0 [facility] Specialist Comment on above: Performed By: #### C MP, CBC, MG #### [facility] [address], [place] [id number] Hemoglobin (Bld) [Mass/Vol] 15.8 g/dL Normal 13.0-17. 1 [facility] Specialist Comment on above: Performed By: #### C MP, CBC, MG #### [facility] [address], [place] [id number] MCH (RBC) [Entitic mass] 28.6 pg Normal 27.0-33.0 [facility] Specialist Comment on above: Performed By: #### C MP, CBC, MG #### [facility] [address], [place] [id number] MCHC (RBC) [Mass/Vol] 33.4 g/dL Normal 32.0-36.0 [facility] Specialist Comment on above: Performed By: #### C MP, CBC, MG #### [facility] [address], [place] [id number] MCV (RBC) [Entitic vol] 86 fL Normal 80-100 [facility] Comment on above: Performed By: #### C MP, CBC, MG #### [facility] [address], [place] [id number] Platelet mean volume (Bld) [Entitic vol] 8.90 fL Normal 7.50-12.50 [facility] Specialist Comment on above: Performed By: #### C MP, CBC, MG #### [facility] [address], [place] [id number] Platelets (Bld) [#/Vol] 258 10*3/uL Normal 140-400 [facility] Specialist Comment on above: Performed By: #### C MP, CBC, MG #### [facility] [address], [place] [id number] RBC (Bld) [#/Vol] 5.53 10*6/uL Normal 4.20-5.[address] [facility] Specialist Comment on above: Performed By: #### C MP, CBC, MG #### [facility] [address], [place] [id number] RDW-SD 39.1 fL Normal 37.0-50.0 [facility] Specialist Comment on above: Performed By: #### C MP, CBC, MG #### [facility] [address], [place] [id number] WBC (Bld) [#/Vol] 8.2 10*3/uL Normal 3.8-11.0 [facility] Seed Expert Comment on above: Performed By: #### C MP, CBC, MG #### [facility] [address], [place] [id number] Comprehensive Metabolic Pane yun 09-20-2021 Albumin [Mass/Vol] 4.5 g/dL Normal 3.6-5.1 [facility] Seed Expert Comment on above: Performed By: #### C MP, CBC, MG #### [facility] [address], [place] [id number] Albumin/Globulin [Mass ratio] 1.6 {ratio} Normal 1.0-2 .5 [facility] Seed Expert Comment on above: Performed By: #### C MP, CBC, MG #### [facility] [address], [place] [id number] ALP [Catalytic activity/Vol] 86 U/L Normal 40-129 [facility] Comment on above: Performed By: #### C MP, CBC, MG #### [facility] [address], [place] [id number] ALT [Catalytic activity/Vol] 58 U/L High 9-46 [facility] Comment on above: Result Comment: 07/11 Female reference range changed. Performed By: #### C MP, CBC, MG #### [facility] [address], [place] [id number] Anion gap [Moles/Vol] 17 mmol/L Normal 12-20 [facility] Comment on above: Result Comment: Effe ctive 08/16/2019 reference range changed. Performed By: #### C MP, CBC, MG #### [facility] [address], [place] [id number] AST [Catalytic activity/Vol] 51 U/L High 10-40 [facility] Comment on above: Performed By: #### C MP, CBC, MG #### [facility] [address], [place] [id number] Bilirubin [Mass/Vol] 0.52 mg/dL Normal 0.30-1.20 [facility] Comment on above: Performed By: #### C MP, CBC, MG #### [facility] [address], [place] [id number] BUN/CREA 12 Ratio Normal 6-22 [facility] Comment on above: Performed By: #### C MP, CBC, MG #### [facility] [address], [place] [id number] Calcium [Mass/Vol] 9.9 mg/dL Normal 8.6-10.2 [facility] Comment on above: Performed By: #### C MP, CBC, MG #### [facility] [address], [place] [id number] Chloride [Moles/Vol] 102 mmol/L Normal 98-107 [facility] Comment on above: Performed By: #### C MP, CBC, MG #### [facility] [address], [place] [id number] CO2 [Moles/Vol] 22 mmol/L Normal 20-31 [facility] Specialist Comment on above: Performed By: #### C MP, CBC, MG #### [facility] [address], [place] [id number] Creatinine [Mass/Vol] 1.2 mg/dL Normal 0.7-1.4 [facility] Specialist Comment on above: Performed By: #### C MP, CBC, MG #### [facility] [address], [place] [id number] eGFRAA 72 mL/min/1.73m2 Normal >60 [facility] Specialist Comment on above: Performed By: #### C MP, CBC, MG #### [facility] [address], [place] [id number] eGFRNAA 59 mL/min/1.73m2 Low >60 [facility] Specialist Comment on above: Performed By: #### C MP, CBC, MG #### [facility] [address], [place] [id number] Globulin (S) [Mass/Vol] 2.9 g/dL Normal 1.9-3.7 N [facility] Specialist Comment on above: Performed By: #### C MP, CBC, MG #### [facility] [address], [place] [id number] Glucose [Mass/Vol] 117 mg/dL High 65-99 [facility] Expert Comment on above: Result Comment: For FASTING Glucose --- ADA reference ranges: Normal 65-99 mg/dl Prediabetes 100-125 Diabetes >/= 126 Performed By: #### C MP, CBC, MG #### [facility] [address], [place] [id number] Potassium [Moles/Vol] 4.5 mmol/L Normal 3.5-5.5 [facility] Specialist Comment on above: Performed By: #### C MP, CBC, MG #### [facility] [address], [place] [id number] Protein [Mass/Vol] 7.4 g/dL Normal 6.1-8.1 [facility] Comment on above: Performed By: #### C MP, CBC, MG #### [facility] [address], [place] [id number] Sodium [Moles/Vol] 137 mmol/L Normal 135-146 [facility] Comment on above: Performed By: #### C MP, CBC, MG #### [facility] [address], [place] [id number] Urea nitrogen [Mass/Vol] 15 mg/dL Normal 7-25 [facility] Specialist Comment on above: Performed By: #### C MP, CBC, MG #### [facility] [address], [place] [id number] Hemoglobin A1Con 09-20-2021 EAG 142.72 Normal [facility] Comment on above: Performed By: #### A 1C #### [facility] [address], [place] [id number] HbA1c (Bld) [Mass fraction] 6.6 % High 4.0-6.0 [facility] Comment on above: Performed By: #### A 1C #### [facility] [address], [place] [id number] Magnesiumon 09-20-2021 Magnesium [Mass/Vol] 2.0 mg/dL Normal 1.5-2.3 [facility] Comment on above: Performed By: #### C MP, CBC, MG #### [facility] [address], [place] [id number] Vital Signs Date Time Vital Sign Value Performing Clinician Anne-Marie lackey 03-15-2022 09:24-0400 Diastolic blood pressure 82 mm[Hg] DO Lay Talbot Work Phone: [facility] 03-15-2022 09:24-0400 Heart rate 72 /min DO Lay Talbot Work Phone: [facility] 03-15-2022 09:24-0400 Respiratory rate 18 /min DO Lay Talbot Work Phone: [facility] 03-15-2022 09:24-0400 SaO2% (BldA) [Mass fraction] 97 % DO Lay Talbot Work Phone: [facility] 03-15-2022 09:24-0400 Systolic blood pressure 115 mm[Hg] DO Lay Talbot Work Phone: [facility] 03-15-2022 [id number]:210400 Body height 171.45 cm DO Lay Talbot Work Phone: [facility] 03-15-2022 07:21040 Body temperature 98.5 [degF] DO Lay Talbot Work Phone: [facility] 03-15-2022 07:210400 Body weight 86.18 kg DO Lay Talbot Work Phone: [facility] Encounters Encounter Date Encounter Type Care Provider Facility Start: 12-09-2022 End: 12-09-[address] LILIBETH SPEARS Facility:[facility] Start: 11-13-2022 End: 11-13-[address] LILIBETH SPEARS Facility:[facility] Start: 11-04-2022 End: 11-04-[address] LILIBETH SPEARS Facility:[facility] Start: 10-02-2022 End: 10-03-[address] LILIBETH SPEARS Facility:[facility] Start: 10-02-2022 End: 10-02-2022 ambulatory TIA MERA Facility:[facility] Start: 06-12-2022 End: 06-13-2022 ambulatory YVES ORNELAS Facility:[facility] Start: 03-15-2022 End: 03-15-2022 Admission to same day surgery center DO Lay Talbot Work Phone: [facility] Procedures Date Procedure Procedure Detail Performing Clinician Start: 03-15-2022 Screening colonoscopy D O Lay Talbot Work Phone: Plan of Treatment Date Care Activity Detail Author Start: 03-15-2022 [facility] Work Phone: Payers Date Payer Category Payer Medicaid [id number] 1958 Medicare [id number] 1958 Medicare [id number] 1955 Unknown [id number] 2.16.84 [id number] 1955 Unknown [id number] 2.16.84 [id number] 1955 Unknown [id number] 2.16.84 [id number] 1955 Unknown [id number] 2.16.84 [id number] 1955 Unknown [id number] 2.16.84 [id number] 1955 Unknown [id number] 2.16.84 [id number] Medicaid [id number] Self-pay Self Pay [id number] Unknown [employer] [id number] Social History Date Type Detail Facility Start: 03-15-2022 Tobacco smoking stat [facility] Never smoked tobacco (finding) [facility] Start: 1955 Sex Assigned At Male F [facility] Medical Equipment Procedure Code Equipment Code Equipment Origin al Text Equipment Identifier Dates Phacoemulsification of cataract with intraocular lens implantation Posterior-chamber intraocular lens, pseudophakic ()[id number] FDA Start: 01-27-2020 Phacoemulsification of cataract with intraocular lens implantation Posterior-chamber intraocular lens, pseudophakic ()[id number] FDA Start: 02-24-2020 Goals Date Patient Goal Desired Activity /State Clinical Note 10-02-2022 Note Date & Type Note Facility 10-02-2022 Note PROCEDURE: XR FINGER MIN 2 VIEWS HISTORY: Swelling ; right hand index finger pain, swelling, and redness COMPARISON: None. FINDINGS: BONES:No fracture, acute abnormality, or significant arthropathy. SOFT TISSUES:Prominent soft tissue swelling dorsal medial to the distal interphalangeal joints, just proximal to the nail bed. No radiopaque foreign body. EFFUSION:None visible. OTHER: Negative. IMPRESSION: 1. Soft tissue swelling of distal first digit consistent with patient history. No radiopaque foreign body or bone involvement. Electronically authenticated by: RUFUS VALDEZ Date: 2022-10-02 11:10 [facility] History and physical note 03-15-2022 Note Date & Type Note Facility 03-15-2022 History and physi tara note Note Date/Time March 15, 2022 8:20am [facility] [address] [place] [address] Gastroenterology H&P Signed Patient: Lenora Tillman MR#: [id number] : 1955 Acct:[id number] Age/Sex: 66 / M Adm Date: 2 Loc: Room: Type: [facility] Attending Dr: Lay Talbot DO Copies to: Lay Talbot Jr, DO Amie Dow NP-C~ Date of Service: 03/15/2022 Gastroenterology HPI History of Present Illness HPI: Mr. Tillman is a 66 year old male for colorectal cancer screening, negative symptoms, negative family history, never had colonoscopy before. Review of Systems Review of Systems All other systems reviewed & are negative unless noted below or in HPI PMFSH Vaccinated for COVID-19?: Yes Medical History Cirrhosis Depression Diabetes mellitus, type 2 History of ETOH abuse Hypertension Mental disability Surgical History History of liver biopsy Family History Mother Stroke Diabetes mellitus, type 2 Father COPD (chronic obstructive pulmonary disease) Social History Smoking Status: Never smoker Substance Use Type: None Meds Home and Active Medications Home and Active Medications: Home Medications amlodipine 5 mg tablet 5 mg PO QAM htn 01/21/20 [History Confirmed 03/15/22] atorvastatin 10 mg tablet 10 mg PO QAM hyperlipidemia 01/21/20 [History Confirmed 03/15/22] bupropion HCl 300 mg 24 hr tablet, extended release 300 mg PO QAM depression 01/21/20 [History Confirmed 03/15/22] escitalopram oxalate 20 mg tablet 20 mg PO QAM depression 01/21/20 [History Confirmed 03/15/22] lisinopril 10 mg tablet 10 mg PO QAM htn 01/21/20 [History Confirmed 03/15/22] metformin 500 mg tablet,extended release 24 hr 1,000 mg PO BID diabetes 01/21/20[History Confirmed 03/15/22] metoprolol tartrate 50 mg tablet 50 mg PO QAM 01/21/20 [History Confirmed 03/15/22] trazodone 50 mg tablet 50 mg PO QHS insomnia 01/21/20 [History Confirmed 03/15/22] acetaminophen 325 mg tablet 650 mg PO Q4H PRN Pain 03/15/22 [History Confirmed 03/15/22] albuterol sulfate 90 mcg/actuation aerosol inhaler 2 puff inhalation Q4H PRN Shortness Of Breath 03/15/22 [History Confirmed 03/15/22] aspirin 81 mg tablet,delayed release 81 mg PO DAILY 03/15/22 [History Confirmed 03/15/22] cholecalciferol (vitamin D3) 125 mcg (5,000 unit) tablet (Vitamin D3) 125 mcg PODAILY 03/15/22 [History Confirmed 03/15/22] docusate sodium 100 mg capsule 100 mg PO BID 03/15/22 [History Confirmed 03/15/22] guaifenesin 100 mg/5 mL oral liquid 200 mg PO Q4H PRN Cough 03/15/22 [History Confirmed 03/15/22] loperamide 2 mg capsule 2 mg PO Q4H PRN Diarrhea 03/15/22 [History Confirmed 03/15/22] polyethylene glycol 3350 17 gram oral powder packet (Miralax) 17 g PO DAILY PRN Constipation 03/15/22 [History Confirmed 03/15/22] tamsulosin 0.4 mg capsule 0.4 mg PO DAILY 03/15/22 [History Confirmed 03/15/22] Active Medications Sodium Chloride (0.9% Sodium Chloride 1,000 Ml) 1,000 mls @ 20 mls/hr IV .Q24H JOAQUIM Stop: 03/15/23 07:14 Last Admin: 03/15/22 07:20 Dose: 20 mls/hr Sodium Chloride (Sodium Chloride 0.9 % 10 Ml Syringe) 0 ml IV-PUSH PRN PRN PRN Reason: Flush Stop: 03/15/23 07:11 Exam Physical Exam Vital Signs: Temp Pulse Resp BP Pulse Ox O2 Del Method 98.5 F 74 16 156/105 H 98 Room Air 03/15/22 07:21 03/15/22 07:21 03/15/22 07:21 03/15/22 07:21 03/15/22 07:21 03/15/22 07:21 Const General: no acute distress Orientation: alert and oriented x3 Resp Effort & Inspection: normal respiratory effort Auscultation: clear to auscultation bilaterally Cardio Rate: regular rate Rhythm: regular rhythm GI Palpation: soft and nontender Auscultation: normal bowel sounds Extrem General: no edema Results Labs Labs: Laboratory Results - last 24 hr 03/15/22 07:11 POC Glucose 131 A&P - Gastroenterology Assessment/Plan (1) Screening for colorectal cancer: Code(s): Z12.11 - Encounter for screening for malignant neoplasm of colon; Z12.12 - Encounter for screening for malignant neoplasm of rectum Status: Acute Plan colonoscopy for evaluation Documented By: Lay Talbot Jr, DO 03/15/22 [phone] Signed By: <Electronically signed by Lay Talbot Jr, DO> 03/15/22 0832 [facility] Work Phone: Procedure note 03-15-2022 Note Date & Type Note Facility 03-15-2022 Procedure note [facility] Evaluation note Note Date & Type Note Facility Evaluation note Diagnosis Onset Date Screening for colorectal cancer acute [facility] Work Phone: Hospital Discharge instructions Note Date & Type Note Facility Hospital Discharge instructions Additional Instructions DISCHARGE INSTRUCTIONS FOR ENDOSCOPY FOR COLONOSCOPY: -Expect a gassy or full feeling after a colonoscopy. Report any NEW abdominal pain or vomiting. -It is important to keep your appointments for follow up examinations because polyps can grow back. FOR SEDATION FOR 24 HOURS: -NO driving -Do NOT operate machinery such as power tools, lawn mowers, snow blowers, sewing machines, etc. -Avoid alcoholic beverages and drugs for allergies, nerves, or sleep. -Do NOT stay alone. Do NOT leave your child unattended. -Do NOT make important personal or business decisions or sign any legal documents. -Eat solid foods and drink liquids in smaller amounts than usual until normal appetite returns. If you should experience an upset stomach, liquids high in sugar content (soda, Eric-aid, non-acid juices) are recommended. -You can resume normal activities tomorrow. FOLLOW UP -colonoscopy recommended in 10 yrs -Notify the doctor if you have any problems. -Office number [phone] [facility] Work Phone: Summary Purpose Family History No Family History Records Found Relationship Condition Age at Onset Recorded Date/T nile Not Specified Cerebrovascular accident (CVA) Unknown Type 2 diabetes mellitus Unknown father Chronic obstructive pulmonary disease Unk nown Advance Directives No Advanced Directives Records Found Advance Directive Response Recorded Date/ Time Advance Directives No January 20 3:32pm Chief Complaint and Reason for Visit Chief Complaint Screening Reason for Visit Screening for colore ctal cancer Additional Source Comments (unrecognized sect ion and content) No Status Records FoundNo Status Records FoundNo Status Records Found INFORMATION SOURCE (unrecogn ized section and content) DATE CREATED AUTHOR 11/21/2021 [facility] dical Specialist DATE CREATED AUTHOR AUTHOR'S ORGANIZ ATION 03/16/2022 [facility] DATE CREATED AUTHOR AUTHOR'S ORGANIZ ATION 12/14/2022 [facility] Care Teams (unrecognized sec tion and content) Team Status: Inactive Member Role Status Dates Lay Talbot DO Attending Provider Active CINDY Santiago Primary Care Provider Active Team Status: Active Member Role Status Dates CINDY Santiago Primary Care Provider Active FOR RECORDS PERTAINING TO PATIENTS WHO ARE OR HAVE BEEN ENROLLED IN A CHEMICAL DEPENDENCY/SUBSTANCEABUSE PROGRAM, SOME INFORMATION MAY BE OMITTED. This clinical summary was aggregated from multiple sources. Caution should be exercised in using it in the provision of clinical care. This summary normalizes information from multiple sources, and as a consequence, information in this document may materially change the coding, format and clinical context of patient data. In addition, data may be omitted in some cases. CLINICAL DECISIONS SHOULD BE BASED ON THE PRIMARY CLINICAL RECORDS. [facility]. provides no warranty or guarantee of the accuracy or completeness of information in this document.
== END 2023-06-23 05:41 | disposition home or self-care (01) ==
LOC: LAB 08:10
PROVIDERS: PCP Family Medicine; Visit Provider Family Medicine
DX: R31.9 Hematuria, unspecified (principal)
CPT/HCPCS: 81001; 87086; 87186

== ENCOUNTER 2023-06-24 21:48 | Emergency (ER) | payer MEDICARE, MEDICAID, SELFPAY ==
[2023-06-24] VITALS (14 sets, daily range): BP systolic 157; BP diastolic 108; PULSE 49–123; RESP 13–24; TEMP 36.9; O2SAT 96–97; BMI 28.2
--- NOTE | 2023-06-24 21:54 | ECG_ITS ---
The [facility] Test Date: 2023-06-24 Pat Name: LENORA TILLMAN Department: Room: - Gender: Male [employer]: : 1955 Requested By: [id number] Order Number: [id number] Reading MD: DANIEL TOBIN Measurements Intervals [place] Rate: 106 P: 44 [place]: 172 QRS: -3 QRSD: 98 T: 14 QT: 332 QTc: 394 Interpretive Statements 1120 Sinus tachycardia 9140 abnormal rhythm ECG No previous ECG available for comparison Electronically Signed On 06-25-2023 6:58:03 EST by DANIEL TOBIN
--- NOTE | 2023-06-24 22:09 | ED.GENADUL1 ---
HPI - General Adult General Chief complaint: Altered Mental Status Stated complaint: Altered Mental Status Time Seen by Provider: 06/24/23 22:04 Source: patient Mode of arrival: ambulance Limitations: no limitations History of Present Illness HPI narrative: patient transferred from [facility]. reportedly confused at the home. States he is there because he always falls. Denies any injury. He believes he has a UTI. denies headache, abdominal pain or nausea Related Data Allergies Allergy/AdvReac Type Severity Reaction Status Date / Time No Known Drug Allergies Allergy Verified 06/24/23 21:54 Review of Systems ROS Status of ROS 10 or more systems reviewed and unremarkable except as noted in history and below Exam Constitutional Vital Signs, click to edit/add: Last Vital Signs Temp 98.4 F 06/24/23 21:50 Pulse 96 H 06/25/23 02:55 Resp 24 06/24/23 22:20 BP 160/97 H 06/25/23 02:52 Pulse Ox 94 L 06/25/23 02:55 O2 Del Method Room Air 06/24/23 21:50 Common normals: no apparent distress, average body habitus, oriented x3, no limitations, healthy appearing, alert and well nourished Eye Common normals: EOMs intact bilaterally and conjunctivae normal Respiratory Common normals: normal respiratory effort, no retractions, no use of accessory muscles and clear to auscultation bilaterally Cardio Common normals: regular rate, regular rhythm, S1 normal heart sound and S2 normal heart sound GI Common normals: Normal to inspection, nondistended, normoactive bowel sounds present, soft to palpation and non-tender Extremity Common normals: normal to inspection and full ROM Neuro Common normals: oriented x3, moves all extremities, no focal motor deficits and no sensory deficits noted Psych Appearance: grossly normal Course Vital Signs Vital signs: Vital Signs Temperature 98.4 F 06/24/23 21:50 Pulse Rate 110 H 06/24/23 21:50 Respiratory Rate 18 06/24/23 21:50 Blood Pressure 157/108 H 06/24/23 21:50 Pulse Oximetry 97 06/24/23 21:50 Oxygen Delivery Method Room Air 06/24/23 21:50 Temperature 98.4 F 06/24/23 21:50 Pulse Rate 96 H 06/25/23 02:55 Respiratory Rate 24 06/24/23 22:20 Blood Pressure 160/97 H 11/15/23 02:52 Pulse Oximetry 94 L 06/25/23 02:55 Oxygen Delivery Method Room Air 06/24/23 21:50 Medical Decision Making MDM Narrative Medical decision making narrative: patient presents from correction with reported change in mental status. Arrives to the ER AxOx3. workup finds that he does have UTI and dehydration with elevated BUN and creat. medicated and hydrated in the department. Given dose of Rocephin IVPB and then discharged back to the correction with a prescription of Bactrim ds Lab Data Labs: Lab Results 06/24/23 06/24/23 06/24/23 Range/Units 01:35 21:59 23:40 WBC 12.8 H (4.0-11.0) 10^3/uL RBC 3.93 L (4.70-6.10) 10^6/uL Hgb 11.8 L (14.0-18.0) g/dL Hct 34.7 L (42.0-54.0) % MCV 88.3 (80.0-94.0) fL MCH 30.0 (25.9-34.0) pg MCHC 34.0 (29.9-35.2) g/dL RDW 12.8 (11.0-15.0) % Plt Count 325 (150-450) 10^3/uL MPV 9.3 L (9.5-13.5) fL Neut % (Auto) 75.2 H (43.0-75.0) % Lymph % (Auto) 8.9 L (20.5-60.0) % [place] % (Auto) 14.7 H (1.7-12.0) % Eos % (Auto) 0.7 L (0.9-7.0) % Baso % (Auto) 0.2 (0.2-2.0) % Neut # (Auto) 9.6 H (1.4-6.5) 10^3/uL Lymph # (Auto) 1.1 L (1.2-3.8) 10^3/uL [place] # (Auto) 1.9 H (0.3-0.8) 10^3/uL Eos # (Auto) 0.1 (0.0-0.7) 10^3/uL Baso # (Auto) 0.0 (0.0-0.1) 10^3/uL Abs Immat Gran (auto) 0.04 H (0.00-0.03) 10^3/uL Imm/Tot Granulo (auto) 0.3 (0.0-0.5) % Sodium 136 (136-145) mmol/L Potassium 4.1 (3.5-5.1) mmol/L Chloride 98 (98-107) mmol/L Carbon Dioxide 21.4 (21.0-32.0) mmol/L Anion Gap 20.7 BUN 40.0 H (7.0-18.0) mg/dL Creatinine 2.96 H (0.70-1.30) mg/dL Est GFR ( Amer) 26 L (>=60) Est GFR (Non-Af Amer) 21 L (>=60) BUN/Creatinine Ratio 13.5 Glucose 241 H (74-106) mg/dL Lactate 3.6 H* 4.3 H* (0.4-2.0) mmol/L Calcium 8.8 (8.5-10.1) mg/dL Total Bilirubin 0.5 (0.2-1.0) mg/dL AST 33 (15-37) U/L ALT 37 (16-63) U/L Alkaline Phosphatase 80 (46-116) U/L Total Protein 7.7 (6.4-8.2) g/dL Albumin 3.1 L (3.4-5.0) g/dL Globulin 4.6 g/dL Albumin/Globulin Ratio 0.7 Urine Color Yellow (YELLOW) Urine Clarity Cloudy A (CLEAR) Urine pH >=9.0 A (5.0-9.0) Ur Specific [place] <=1.005 A (1.005-1.025) Urine Protein 100 A (NEG/TRACE) mg/dL Urine Glucose (UA) 100 A (NEGATIVE) mg/dL Urine Ketones Negative (NEGATIVE) mg/dL Urine Occult Blood Moderate A (NEGATIVE) Urine Nitrite Negative (NEGATIVE) Urine Bilirubin Negative (NEGATIVE) Urine Urobilinogen 1.0 (0.2-1.0) EU/dL Ur Leukocyte Esterase Large A (NEGATIVE) Urine RBC 10-20 A (0-2) #/HPF Urine WBC 10-20 A (NONE SEEN) #/HPF Ur Squamous Epith Cells None seen (NONE/RARE) #/LPF Urine Crystals None seen (None Seen) #/HPF Urine Bacteria Large A (NONE SEEN) #/HPF Urine Casts None seen (NONE SEEN) #/LPF Urine Mucus Large A (NONE SEEN) Ur Culture Indicated? Yes Discharge Plan Discharge Chief Complaint: Altered Mental Status Clinical Impression: Urinary tract infection, Volume depletion Patient Disposition: Home, Self-Care Instructions: Urinary Tract Infection in Men (ED) Stand Alone Forms: Portal Instructions Referrals: LILIBETH SPEARS [Primary Care Provider] - 1 week Discharge Date/Time: 06/25/23 05:20
--- NOTE | 2023-06-24 22:11 | XR_ITS ---
[address] [address] Patient Name: LENORA TILLMAN MRN: [id number] date: 1955 Sex: M Assigned Patient Location: ER Current Patient Location: ER Accession/Order Number: [id number] Exam Date: 06/24/2023 22:30 Report Date: 06/24/2023 22:49 At the request of: ABELINO WALLACE Procedure: XR chest 1V EXAMINATION: CHEST RADIOGRAPH (PORTABLE SINGLE VIEW AP) Exam Date/Time: 06/24/2023 10:30 PM EST Clinical History: cough Comparison: 10/02/2022 RESULT: Lines, tubes, and devices: None. Lungs and pleura: No focal consolidation. No pneumothorax. No pleural effusion. Cardiomediastinal silhouette: Stable cardiomediastinal silhouette. No significant atherosclerotic calcification. Other: No acute osseous process. XR/XR chest 1V IMPRESSION: No acute cardiopulmonary abnormality. Electronically authenticated by: BERTRAM WITT Date: 06/24/2023 22:49
[2023-06-24 22:18] LABS: Basophils Percent Auto 0.2 % (0.2-2.0); Eosinophils Absolute Auto 0.1 10^3/uL (0.0-0.7); Eosinophils Percent Auto 0.7 % (0.9-7.0); Hematocrit 34.7 % (42.0-54.0); Hemoglobin 11.8 g/dL (14.0-18.0); Immature Granulocytes Abs Auto 0.04 10^3/uL (0.00-0.03); Immature Granulocytes Pct Auto 0.3 % (0.0-0.5); Lymphocytes Absolute Auto 1.1 10^3/uL (1.2-3.8); Lymphocytes Percent Auto 8.9 % (20.5-60.0); Mean Corpuscular Volume 88.3 fL (80.0-94.0); Mean Platelet Volume 9.3 fL (9.5-13.5); Monocytes Absolute Auto 1.9 10^3/uL (0.3-0.8); Monocytes Percent Auto 14.7 % (1.7-12.0); Neutrophils Absolute Auto 9.6 10^3/uL (1.4-6.5); Neutrophils Percent Auto 75.2 % (43.0-75.0); Platelet Count 325 10^3/uL (150-450); Red Blood Count 3.93 10^6/uL (4.70-6.10); Red Cell Distribution Width 12.8 % (11.0-15.0); White Blood Count 12.8 10^3/uL (4.0-11.0)
[2023-06-24 22:41] LABS: Lactate/Lactic Acid 4.3 mmol/L (0.4-2.0)
[2023-06-24] MEDS: 0.9 % SODIUM CHLORIDE 1,000 ML 999 ML IV ×2 (22:43→23:55)
[2023-06-24 22:53] LABS: Alanine Aminotransferase 37 U/L (16-63); Albumin Globulin Ratio 0.7; Albumin Level 3.1 g/dL (3.4-5.0); Alkaline Phosphatase 80 U/L (46-116); Anion Gap 20.7; Aspartate Amino Transferase 33 U/L (15-37); BUN Creatinine Ratio 13.5; Bilirubin Total 0.5 mg/dL (0.2-1.0); Calcium 8.8 mg/dL (8.5-10.1); Carbon Dioxide 21.4 mmol/L (21.0-32.0); Chloride 98 mmol/L (98-107); Estimated GFR (African America 26 (>=60); Estimated GFR (Non-African Ame 21 (>=60); Globulin 4.6 g/dL; Glucose 241 mg/dL (74-106); Potassium 4.1 mmol/L (3.5-5.1); Sodium 136 mmol/L (136-145); Total Protein 7.7 g/dL (6.4-8.2)
[2023-06-25] VITALS (8 sets, daily range): BP systolic 160; BP diastolic 97; PULSE 96–119; O2SAT 94–98
[2023-06-25 00:36] LABS: Bilirubin Urine NEGATIVE (NEGATIVE); Blood Urine MODERATE (NEGATIVE); Color Urine YELLOW (YELLOW); Glucose Urine UA 100 mg/dL (NEGATIVE); Ketones Urine NEGATIVE (NEGATIVE); Leukocyte Esterase Urine LARGE (NEGATIVE); Nitrite Urine NEGATIVE (NEGATIVE); Protein Urine 100 mg/dL (NEG/TRACE); Specific Gravity Urine <=1.005 (1.005-1.025); pH Urine >=9.0 (5.0-9.0)
[2023-06-25 00:37] LABS: Urine Microscopic Indicated YES
[2023-06-25 00:38] LABS: Clarity Urine CLOUDY (CLEAR)
[2023-06-25 00:40] LABS: Bacteria Urine LARGE #/HPF (NONE SEEN); Cast Seen? NONE SEEN #/LPF (NONE SEEN); Crystals Seen? None Seen #/HPF (None Seen); Mucus Urine LARGE (NONE SEEN); Squamous Epithelial Cell Urine NONE SEEN #/LPF (NONE/RARE); Urine Culture Indicated YES
[2023-06-25] MEDS: CEFTRIAXONE 1,000 MG in 0.9 % SODIUM CHLORIDE 50 ML 100 MG IV (01:40)
[2023-06-25 02:13] LABS: Lactate/Lactic Acid 3.6 mmol/L (0.4-2.0)
--- NOTE | 2023-06-25 04:53 | PC.NURSE ---
Patient is found sitting on the floor by Dr Marquez. He is not complaining of any injuries, he is denying that he fell. He states that he scooted to the end of the bed and sat on the floor. There are no new injuries, only an abrasion to the right knee and left elbow that were present when he arrived to the ED. He is denying pain.
== END 2023-06-25 05:20 ==
PROVIDERS: Emergency Provider Internal Medicine; PCP Family Medicine
DX: N39.0 Urinary tract infection, site not specified (principal); E86.0 Dehydration; Z91.81 History of falling
CPT/HCPCS: 36415; 71045; 80053; 81001; 83605; 85025; 87086; 87186; 93005; 96361; 96365; 99285

== ENCOUNTER 2023-07-30 03:37 | Outpatient (REF) | payer MEDICARE, MEDICAID, SELFPAY ==
[2023-07-30 09:28] LABS: Estimated Average Glucose 157 mg/dL; Glycohemoglobin A1C 7.1 % (4.5-6.2)
[2023-07-30 09:32] LABS: Hematocrit 35.2 % (42.0-54.0); Hemoglobin 11.2 g/dL (14.0-18.0); Mean Corpuscular HGB Conc 31.8 g/dL (29.9-35.2); Mean Corpuscular Hemoglobin 29.9 pg (25.9-34.0); Mean Corpuscular Volume 94.1 fL (80.0-94.0); Mean Platelet Volume 9.2 fL (9.5-13.5); Platelet Count 228 10^3/uL (150-450); Red Blood Count 3.74 10^6/uL (4.70-6.10); Red Cell Distribution Width 14.8 % (11.0-15.0); White Blood Count 10.3 10^3/uL (4.0-11.0)
[2023-07-30 09:58] LABS: Alanine Aminotransferase 46 U/L (16-63); Albumin Globulin Ratio 0.7; Albumin Level 2.8 g/dL (3.4-5.0); Alkaline Phosphatase 104 U/L (46-116); Anion Gap 13.4; Aspartate Amino Transferase 34 U/L (15-37); BUN Creatinine Ratio 8.4; Bilirubin Total 0.3 mg/dL (0.2-1.0); Calcium 9.8 mg/dL (8.5-10.1); Carbon Dioxide 30.8 mmol/L (21.0-32.0); Chloride 100 mmol/L (98-107); Estimated GFR (African America 40 (>=60); Estimated GFR (Non-African Ame 33 (>=60); Globulin 3.9 g/dL; Glucose 201 mg/dL (74-106); Potassium 4.2 mmol/L (3.5-5.1); Sodium 140 mmol/L (136-145); Thyroid Stimulating Hormone 2.349 uIU/mL (0.358-3.740); Total Protein 6.7 g/dL (6.4-8.2)
[2023-07-30 10:36] LABS: Prostate Specific Antigen Dx 2.96 ng/mL (<=4.00)
[2023-07-30 11:28] LABS: Eosinophils Absolute Manual 2.06 10^3/uL (0.00-0.70); Lymphocytes Absolute Manual 2.06 10^3/uL (1.20-3.80); Monocytes Absolute Manual 0.72 10^3/uL (0.30-0.80); Segmented Neut Absolute Manual 5.56 10^3/uL (1.4-6.5)
== END 2023-07-30 03:38 | disposition home or self-care (01) ==
LOC: LAB 03:37
PROVIDERS: PCP Family Medicine; Visit Provider Nurse Practitioner Family
DX: E11.22 Type 2 diabetes mellitus with diabetic chronic kidney disease (principal); E78.5 Hyperlipidemia, unspecified
CPT/HCPCS: 36415; 80053; 83036; 83880; 84153; 84443; 85027

== ENCOUNTER 2023-08-20 01:37 | Outpatient (REF) | payer MEDICARE, MEDICAID, SELFPAY ==
--- OUTSIDE RECORDS SUMMARY | 2023-08-20 01:40 | XMS_ITS | CCD ---
Author Name Unknown Address [address] [place] [address] Organization [facility] Care Team Providers Care [address] Deputy Clerk Name Role Phone Antione DO Lay Wagner Attending Provider [phone] CINDY Dow Primary Care Provider YVES [...] Unavailable REGAN, DR MCELROY Primary Care Unavailable GIGICHCLAUDIA ., GARFIELD ONEAL Consulting UnavailHERRERA Stafford Admitting Unavailable KRISTEN .HERRERA Attending Unavailable JAC GILL Consulting Unavailable LAY ROQUE Consulting Unavailable Medications Current Medications Medication Drug Class(es) Dates Sig (Normalized) Sig (Original) acetaminophen 325 mg oral tablet (1 source) Start: 03-15-2022 take 650 mg by mouth every four hours Acetaminophen Active 650 MG PO Q4H March 15, 2022 12:00am [id number] 200 actuat albuterol 0.09 mg/actuat metered dose [...] January 21, 2020 12:00am polyethylene glycol 3350 83230 mg powder for oral solution (1 source) [...] Onset: 11-05-2022 Episodic Other aftercare (1 source) half-way (current) use of aspirin; Translations: [HALF-WAY CURRENT USE OF ASPIRIN] Onset: 11-05-2022 Episodic Other aftercare (1 source) 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 Kathya Ryan Basophils/100 WBC (Bld) 0.5 % Normal 0.2-2.0 [facility] Comment on above: Performed By: #### C BC ####[facility] [address] [place] [id number]. Kathya Ryan EO # 0.3 103/ul Normal 0.0-0.7 [facility] Comment on above: Performed By: #### C BC ####[facility] [address] [place] [address]Dr. Kathya Ryan Eosinophils/100 WBC (Bld) 5.4 % Normal 0.9-7.0 [facility] Comment on above: Performed By: #### C BC ####[facility] [address] [place] [id number]. Kathya Ryan Erythrocyte distribution width (RBC) [Ratio] 12.5 % Normal 11.0-15.0 [facility] [place] Comment on above: Performed By: #### C BC ####[facility] [address] [place] [id number]. Kathya Ryan Hematocrit (Bld) [Volume fraction] 42.4 % Normal 42.0-54.0 [facility] [place] Comment on above: Performed By: #### C BC ####[facility] [address] [place], [place] [address]Dr. Kathya Ryan Hemoglobin (Bld) [Mass/Vol] 14.1 g/dL Normal 14.0-18.0 [facility] Comment on above: Performed By: #### C BC ####[facility] [address] [place], [place] [address]Dr. Kathya Ryan IG # 0.02 10e3/ul Normal 0.00-0.03 [facility] Comment on above: Performed By: #### C BC ####[facility] [address] [place], [place] [address]Dr. Kathya Ryan IG % 0.3 % Normal 0.0-0.5 [facility] [place] Comment on above: Performed By: #### C BC ####[facility] [address] [place], [place] [address]Dr. Kathya Ryan LYMPH # 1.3 103/ul Normal 1.2-3.8 [facility] Comment on above: Performed By: #### C BC ####[facility] [address] [place], [place] [address]Dr. Kathya Ryan Lymphocytes/100 WBC (Bld) 22.4 % Normal 20.5-60.0 [facility] Comment on above: Performed By: #### C BC ####[facility] [address] [place] [id number]. Kathya Ryan MANUAL DIFF REQ NO Normal [facility] Comment on above: Performed By: #### C BC ####[facility] [address] [place] [id number]. Kathya Ryan MCH (RBC) [Entitic mass] 30.5 pg Normal 25.9-34.0 [facility] Comment on above: Performed By: #### C BC ####[facility] [address] [place] [id number]. Kathya Ryan MCHC (RBC) [Mass/Vol] 33.3 g/dL Normal 29.9-35.2 [facility] Comment on above: Performed By: #### C BC ####[facility] [address] [place] [id number]. Kathya Ryan MCV (RBC) [Entitic vol] 91.8 fL Normal 80.0-94.0 [facility] Comment on above: Performed By: #### C BC ####[facility] R[address] [place], [place] [address]Dr. Kathya Ryan MONO # 0.7 103/ul Normal 0.3-0.8 [facility] Comment on above: Performed By: #### C BC ####[facility] [address] [place] [address]Dr. Mireyajack Ryan Monocytes/100 WBC (Bld) 12.2 % Critically high 1.7-12.0 [facility] Comment on above: Performed By: #### C BC ####[facility] [address] [place], [place] [address]Dr. Kathya Ryan NEUT # 3.5 103/ul Normal 1.4-6.5 [facility] Comment on above: Performed By: #### C BC ####[facility] [address] [place], [place] [address]Dr. Mireyajack Ryan Neutrophils/100 WBC (Bld) 59.2 % Normal 43.0-75.0 [facility] Comment on above: Performed By: #### C BC ####[facility] [address] [place], [place] [address]Dr. Mireyajack Ryan Platelet mean volume (Bld) [Entitic vol] 9.1 fL Critically low 9.5-13.5 [facility] Comment on above: Performed By: #### C BC ####[facility] [address] [place], [place] [address]Vb. Kathya Ryan PLT 211 103/ul Normal 150-450 [facility] [place] Comment on above: Performed By: #### C BC ####[facility] [address] [place], [place] [address]Yv. Kathya Ryan RBC 4.62 106/ul Critically low 4.70-6.10 [facility] Comment on above: Performed By: #### C BC ####[facility] [address] [place], [place] [address]Dj. Kathya Ryan WBC 5.9 103/ul Normal 4.0-11.0 [facility] [place] Comment on above: Performed By: #### C BC ####[facility] [address] [place], [place] [address]VzBriseyda Ryan GLYCOHEMOGLOBIN A1Con 2022 ADA RECOMMENDATION SEE BELOW Normal [facility] Comment on above: Result Comment: ADA RECOMMENDED LIMIT 4.0 - 6.0 ADA THERAPEUTIC TARGET < 7.0 ACTION SUGGESTED > 7.0 Performed By: #### A 1C #### [facility] [address] [place] [address] [address] Kathya Ryan Glucose [Mass/Vol] 123 mg/dL Normal [facility] Comment on above: Performed By: #### A 1C #### [facility] [address] [place] [address] [address] Kathya Ryan HbA1c (Bld) [Mass fraction] 5.9 % Normal 4.5-6.2 [facility] [place] Comment on above: Performed By: #### A 1C #### [facility] [address] [address] [address] Kathya Ryan LIPID PROFILEon 12-09-2022 CHOL-HDL RATIO NORM SEE BELOW Normal [facility] Comment on above: Result Comment: 3.3 - 4.4 LOW RISK 4.4 - 7.1 AVERAGE RISK 7.1 - 11.0 MODERATE RISK >11.0 HIGH RISK Performed By: #### L IPID, CMP #### [facility] [address] [address] [address] Kathya Ryan Cholesterol [Mass/Vol] 132 mg/dL Normal <=200 [facility] [place] Comment on above: Performed By: #### L IPID, CMP #### [facility] [address] [address] [address] Kathya Ryan Cholesterol in HDL [Mass/Vol] 29 mg/dL Critically low 40-60 [facility] [place] Comment on above: Performed By: #### L IPID, CMP #### [facility] [address] [address] [address] Kathya Ryan Cholesterol in LDL [Mass/Vol] 83.0 mg/dL Normal [facility] [place] Comment on above: Performed By: #### L IPID, CMP #### [facility] [address] [address] [address] Kathya Ryan Cholesterol.total/Ch olesterol in HDL [Mass ratio] 4.6 {ratio} Normal [facility] [place] Comment on above: Performed By: #### L IPID, CMP #### [facility] [address] [address] [address] Kathya Ryan HDL NORMAL > or = 60 mg/dl - LO W CARDIOVASCULAR RISK <40 mg/dl - HIGH CARDIOVASCULAR RISK Normal [facility] [place] Comment on above: Performed By: #### L IPID, CMP #### [facility] [address] [address] [address] Kathya Ryan LDL CALC NORMAL SEE BELOW Normal [facility] Comment on above: Result Comment: <100 mg/dl OPTIMAL 100 - 129 mg/dl NEAR OR ABOVE OPTIMAL 130 - 159 mg/dl BORDERLINE HIGH 160 - 189 mg/dl HIGH >190 mg/dl VERY HIGH Performed By: #### L IPID, CMP #### [facility] [address] [address] [address] Kathya Ryan Triglyceride [Mass/Vol] 102 mg/dL Normal <=150 [facility] Comment on above: Performed By: #### L IPID, CMP #### [facility] [address] [address] [address] Kathya Ryan VLDL CALC 20.4 mg/dL Normal [facility] Comment on above: Performed By: #### L IPID, CMP #### [facility] [address] [address] [address] Kathya Ryan PROF 14(COMP METB)on 023 Albumin [Mass/Vol] 3.3 g/dL Critically low 3.4-5.0 [facility] Comment on above: Performed By: #### L IPID, CMP #### [facility] [address] [address] [address] Kathya Ryan Albumin/Globulin [Mass ratio] 0.9 {ratio} Normal [facility] [place] Comment on above: Performed By: #### L IPID, CMP #### [facility] [address] [place] [address] Dr. Kathya Ryan ALP [Catalytic activity/Vol] 71 U/L Normal 46-116 [facility] [place] Comment on above: Performed By: #### L IPID, CMP #### [facility] [address] [place] [address] Dr. Kathya Ryan ALT [Catalytic activity/Vol] 50 U/L Normal 16-63 [facility] [place] Comment on above: Performed By: #### L IPID, CMP #### [facility] [address] [place] [address] Dr. Kathya Ryan Anion gap [Moles/Vol] 12.6 mmol/L Normal [facility] [place] Comment on above: Performed By: #### L IPID, CMP #### [facility] [address] [address] [address] Kathya Ryan AST [Catalytic activity/Vol] 34 U/L Normal 15-37 [facility] [place] Comment on above: Performed By: #### L IPID, CMP #### [facility] [address] [place] [address] Dr. Kathya Ryan Bilirubin [Mass/Vol] 0.4 mg/dL Normal 0.2-1.0 [facility] [place] Comment on above: Performed By: #### L IPID, CMP #### [facility] [address] [place] [address] Dr. Kathya Ryan Calcium [Mass/Vol] 8.9 mg/dL Normal 8.5-10.1 [facility] Comment on above: Performed By: #### L IPID, CMP #### [facility] [address] [place] [address] Dr. Kathya Ryan Chloride [Moles/Vol] 106 mmol/L Normal 98-107 [facility] [place] Comment on above: Performed By: #### L IPID, CMP #### [facility] [address] [place] [address] Dr. Kathya Ryan CO2 [Moles/Vol] 27.4 mmol/L Normal 21.0-32.0 [facility] Comment on above: Performed By: #### L IPID, CMP #### [facility] [address] [place] [address] Dr. Kathya Ryan Creatinine [Mass/Vol] 1.45 mg/dL Critically high 0.70-1.30 [facility] [place] Comment on above: Performed By: #### L IPID, CMP #### [facility] [address] [place] [address] Dr. Kathya Ryan EGFR-AF MAURITIAN 59 mL/min/1.73m2 Critically low >=60 [facility] [place] Comment on above: Performed By: #### L IPID, CMP #### [facility] [address] [place] [address] Dr. Kathya Ryan EGFR-NON AF MAURITIAN 49 mL/min/1.73m2 Critically low >=60 [facility] [place] Comment on above: Performed By: #### L IPID, CMP #### [facility] [address] [place] [address] Dr. Kathya Ryan Globulin (S) [Mass/Vol] 3.8 g/dL Normal [facility] [place] Comment on above: Performed By: #### L IPID, CMP #### [facility] [address] [place] [address] Dr. Kathya Ryan Glucose [Mass/Vol] 109 mg/dL Critically high 74-106 [facility] Comment on above: Performed By: #### L IPID, CMP #### [facility] [address] [place] [address] [address] Kathya Ryan Potassium [Moles/Vol] 3.9 mmol/L Normal 3.5-5.1 [facility] Comment on above: Performed By: #### L IPID, CMP #### [facility] [address] [place] [address] [address] Kathya Ryan Protein [Mass/Vol] 7.1 g/dL Normal 6.4-8.2 [facility] [place] [facility] Comment on above: Performed By: #### L IPID, CMP #### [facility] [address] [place] [address] [address] Kathya Ryan Sodium [Moles/Vol] 142 mmol/L Normal 136-145 [facility] [place] [facility] Comment on above: Performed By: #### L IPID, CMP #### [facility] [address] [place] [address] [address] Kathya Ryan Urea nitrogen [Mass/Vol] 17.0 mg/dL Normal 7.0-18.0 [facility] [place] Comment on above: Performed By: #### L IPID, CMP #### [facility] [address] [place] [address] [address] Kathya Ryan Urea nitrogen/Creatinine [Mass ratio] 11.7 mg/mg Normal [facility] [place] Comment on above: Performed By: #### L IPID, CMP #### [facility] [address] [place] [address] [address] Kathya Ryan FREE LIGHT CHAINS PLUS RATIO , URINEon 11-14-2022 Free [place] Lt Chains,Ur 86.11 mg/L Normal 1.17-86.46 [facility] Comment on above: Performed By: #### F FIDEL ####[facility] [address] [place] [address]Dr. Kathya Ryan Free Lambda Lt Chains,Ur 11.37 mg/L Normal 0.27-15.21 [facility] Comment on above: Performed By: #### F FIDEL ####[facility] [address] [place] [address]Dr. Kathya Ryan [place]/ Lambda Urine Ratio 7.57 Normal 1.83-14.26 [facility] Comment on above: Performed By: #### F FIDEL ####[facility] [address] [place], [place] [address]Rt. [address] CSPINE WO CONon CT CSPINE WO CON EXAM: CT CSPINE WO CON 11/03/2022 11:28 PM EDT [place]001 CLINICAL STATEMENT: [...] KARIME MAYES Date: 2022-11-04 00:29 Normal [facility] CT HEAD WO CONon 11-04-2022 CT HEAD [...] JAC GILL Date: 2022-11-04 00:28 Normal [facility] CBC AUTO DIFFon 10-02-2022 BASO # 0.1 103/ul Normal 0.0-0.1 [facility] Comment on above: Performed By: #### C BC ####[facility] [address] [place] [id number]. Kathya Ryan Basophils/100 WBC (Bld) 0.5 % Normal 0.2-2.0 [facility] Comment on above: Performed By: #### C BC ####[facility] [address] [place], [place] [address]Dr. Kathya Ryan EO # 0.8 103/ul Critically high 0.0-0.7 [facility] Comment on above: Performed By: #### C BC ####[facility] [address] [place] [address]Dr. Kathya Ryan Eosinophils/100 WBC (Bld) 7.6 % Critically high 0.9-7.0 [facility] Comment on above: Performed By: #### C BC ####[facility] [address] [place] [id number]. Kathya Ryan Erythrocyte distribution width (RBC) [Ratio] 13.3 % Normal 11.0-15.0 [facility] Comment on above: Performed By: #### C BC ####[facility] [address] [place], [place] [address]Dr. Kathya Ryan Hematocrit (Bld) [Volume fraction] 39.7 % Critically low 42.0-54.0 [facility] Comment on above: Performed By: #### C BC ####[facility] [address] [place], [place] [address]Dr. Kathya Ryan Hemoglobin (Bld) [Mass/Vol] 13.4 g/dL Critically low 14.0-18.0 [facility] Comment on above: Performed By: #### C BC ####[facility] [address] [place] [id number]. Kathya Ryan IG # 0.04 10e3/ul Critically high 0.00-0.03 [facility] Comment on above: Performed By: #### C BC ####[facility] [address] [place] [id number]. Kathya Ryan IG % 0.4 % Normal 0.0-0.5 [facility] [place] Comment on above: Performed By: #### C BC ####[facility] [address] [place] [address]Dr. Kathya Connor LYMPH # 1.6 103/ul Normal 1.2-3.8 [facility] [place] Comment on above: Performed By: #### C BC ####[facility] [address] [place] [address]Dr. Kathya Ryan Lymphocytes/100 WBC (Bld) 15.8 % Critically low 20.5-60.0 [facility] [place] Comment on above: Performed By: #### C BC ####[facility] [address] [place] [address]Dr. Mireyajack Ryan MANUAL DIFF REQ NO Normal [facility] Comment on above: Performed By: #### C BC ####[facility] [address] [place] [address]Dr. Kathya Ryan MCH (RBC) [Entitic mass] 29.8 pg Normal 25.9-34.0 [facility] [place] Comment on above: Performed By: #### C BC ####[facility] [address] [place], [place] [address]Dr. Kathya Ryan MCHC (RBC) [Mass/Vol] 33.8 g/dL Normal 29.9-35.2 [facility] Comment on above: Performed By: #### C BC ####[facility] [address] [place] [address]Dr. Kathya Ryan MCV (RBC) [Entitic vol] 88.4 fL Normal 80.0-94.0 [facility] Comment on above: Performed By: #### C BC ####[facility] [address] [place] [id number]. Kathya Ryan MONO # 1.2 103/ul Critically high 0.3-0.8 [facility] Comment on above: Performed By: #### C BC ####[facility] [address] [place] [id number]. Kathya Ryan Monocytes/100 WBC (Bld) 12.1 % Critically high 1.7-12.0 [facility] Comment on above: Performed By: #### C BC ####[facility] [address] [place] [id number]. Kathya Ryan NEUT # 6.4 103/ul Normal 1.4-6.5 [facility] Comment on above: Performed By: #### C BC ####[facility] [address] [place] [address]Dr. Kathya Ryan Neutrophils/100 WBC (Bld) 63.6 % Normal 43.0-75.0 [facility] Comment on above: Performed By: #### C BC ####[facility] [address] [place] [id number]. Kathya Ryan Platelet mean volume (Bld) [Entitic vol] 8.8 fL Critically low 9.5-13.5 [facility] Comment on above: Performed By: #### C BC ####[facility] [address] [place] [id number]. Kathya Ryan PLT 237 103/ul Normal 150-450 [facility] Comment on above: Performed By: #### C BC ####[facility] [address] [place] [id number]. Kathya Ryan RBC 4.49 106/ul Critically low 4.70-6.10 [facility] Comment on above: Performed By: #### C BC ####[facility] [address] [place] [id number]. Kathya Ryan WBC 10.1 103/ul Normal 4.0-11.0 [facility] Comment on above: Performed By: #### C BC ####[facility] [address] [place], [place] [address]Oi. Kathya Ryan CT CSPINE WO CONon CT CSPINE WO CON EXAMINATION: CT CSPINE WO CON HISTORY: Unwitnessed fall COMPARISON: None. [...] LAY ROQUE Date: 2022-10-02 20:33 Normal [facility] CT HEAD WO CONon 10-02-2022 CT HEAD [...] JAC GILL Date: 2022-10-02 20:41 Normal [facility] CULTURE URINEon 10-02-2022 CULTURE URINE Culture Observations : LIGHT GROWTH OF MIXED SKIN LUKASZ. NO POTENTIAL PATHOGENS SEEN. Normal [facility] Comment on above: Performed By: #### U RCX ####[facility] [address] [place] [address]Dr. Kathya Ryan ER URINE PROFILEon 3 Bilirubin Ql (U) Negative Normal NEGATIVE [facility] Comment on above: Performed By: #### U MICRO, ERUR #### [facility] [address] [address] [address] Kathya Ryan Clarity (U) CLEAR Normal CLEAR [facility] [place] Comment on above: Performed By: #### U MICRO, ERUR #### [facility] [address] [place] [address] Dr. Kathya Ryan Color (U) YELLOW Normal YELLOW [facility] [place] Comment on above: Performed By: #### U MICRO, ERUR #### [facility] [address] [address] [address] Kathya MARQUEZD A micrscopic examination will be performed if indicated. Normal [facility] Comment on above: Performed By: #### U MICRO, ERUR #### [facility] [address] [address] [address] Kathya Ryan Glucose Ql (U) 500 mg/dl Abnormal NEGATIVE [facility] Comment on above: Performed By: #### U MICRO, ERUR #### [facility] [address] [address] [address] Kathya Ryan Hemoglobin Ql (U) SMALL Abnormal NEGATIVE [facility] Comment on above: Performed By: #### U MICRO, ERUR #### [facility] [address] [address] [address] Kathya Ryan Ketones Ql (U) TRACE Abnormal NEGATIVE [facility] Comment on above: Performed By: #### U MICRO, ERUR #### [facility] [address] [address] [address] Kathya Ryan LEUKOCYTES TRACE Abnormal NEGATIVE [facility] Comment on above: Performed By: #### U MICRO, ERUR #### [facility] [address] [place] [address] Dr. Kathya Ryan Nitrite Ql (U) Negative Normal NEGATIVE [facility] Comment on above: Performed By: #### U MICRO, ERUR #### [facility] [address] [address] [address] Kathya Ryan pH (U) 5.5 [pH] Normal 5-9 [facility] [place] Comment on above: Performed By: #### U MICRO, ERUR #### [facility] [address] [place] [address] Dr. Kathya Ryan SPEC GRAVITY >=1.030 Abnormal 1.005-<=1.025 [facility] Comment on above: Performed By: #### U MICRO, ERUR #### [facility] [address] [place] [address] Dr. Kathya Ryan UA PROTEIN TRACE Normal NEGATIVE/ TRACE [facility] [place] Comment on above: Performed By: #### U MICRO, ERUR #### [facility] [address] [place] [address] Dr. Kathya Ryan UR MICRO IND INDICATED Normal [facility] [place] Comment on above: Performed By: #### U MICRO, ERUR #### [facility] [address] [place] [address] Dr. Kathya Ryan Urobilinogen Qn (U) 2.0 {Luanne'U}/dL Abnormal 0.2 - 1. 0 [facility] [place] Comment on above: Performed By: #### U MICRO, ERUR #### [facility] [address] [place] [address] Dr. Kathya Ryan PROF 14(COMP METB)on 023 Albumin [Mass/Vol] 3.5 g/dL Normal 3.4-5.0 [facility] Comment on above: Performed By: #### H STROPN, CMP, TSH #### [facility] [address] [place] [address] Dr. Kathya Ryan Albumin/Globulin [Mass ratio] 0.9 {ratio} Normal [facility] [place] Comment on above: Performed By: #### H STROPN, CMP, TSH #### [facility] [address] [address] [address] Kathya Ryan ALP [Catalytic activity/Vol] 108 U/L Normal 46-116 [facility] [place] Comment on above: Performed By: #### H STROPN, CMP, TSH #### [facility] [address] [address] Dr. Kathya Ryan ALT [Catalytic activity/Vol] 38 U/L Normal 16-63 [facility] Comment on above: Performed By: #### H STROPN, CMP, TSH #### [facility] [address] [address] [address] Kathya Ryan Anion gap [Moles/Vol] 11.4 mmol/L Normal [facility] Comment on above: Performed By: #### H STROPN, CMP, TSH #### [facility] [address] [address] [address] Kathya Ryan AST [Catalytic activity/Vol] 28 U/L Normal 15-37 [facility] Comment on above: Performed By: #### H STROPN, CMP, TSH #### [facility] [address] [address] [address] Kathya Ryan Bilirubin [Mass/Vol] 0.9 mg/dL Normal 0.2-1.0 [facility] Comment on above: Performed By: #### H STROPN, CMP, TSH #### [facility] [address] [address] [address] Kathya Ryan Calcium [Mass/Vol] 9.1 mg/dL Normal 8.5-10.1 [facility] Comment on above: Performed By: #### H STROPN, CMP, TSH #### [facility] [address] [address] [address] Kathya Ryan Chloride [Moles/Vol] 100 mmol/L Normal 98-107 [facility] Comment on above: Performed By: #### H STROPN, CMP, TSH #### [facility] [address] [address] [address] Kathya Ryan CO2 [Moles/Vol] 27.7 mmol/L Normal 21.0-32.0 [facility] Comment on above: Performed By: #### H STROPN, CMP, TSH #### [facility] [address] [place] [address] Dr. Kathya Ryan Creatinine [Mass/Vol] 1.69 mg/dL Critically high 0.70-1.30 [facility] Comment on above: Performed By: #### H STROPN, CMP, TSH #### [facility] [address] [place] [address] Dr. Kathya Ryan EGFR-AF MAURITIAN 50 mL/min/1.73m2 Critically low >=60 [facility] Comment on above: Performed By: #### H STROPN, CMP, TSH #### [facility] [address] [place] [address] Dr. Kathya Ryan EGFR-NON AF MAURITIAN 41 mL/min/1.73m2 Critically low >=60 [facility] Comment on above: Performed By: #### H STROPN, CMP, TSH #### [facility] [address] [place] [address] Dr. Kathya Ryan Globulin (S) [Mass/Vol] 3.8 g/dL Normal [facility] Comment on above: Performed By: #### H STROPN, CMP, TSH #### [facility] [address] [place] [address] Dr. Kathya Ryan Glucose [Mass/Vol] 259 mg/dL Critically high 74-106 [facility] Comment on above: Performed By: #### H STROPN, CMP, TSH #### [facility] [address] [place] [address] Dr. Kathya Ryan Potassium [Moles/Vol] 4.1 mmol/L Normal 3.5-5.1 [facility] Comment on above: Performed By: #### H STROPN, CMP, TSH #### [facility] [address] [place] [address] Dr. Kathya Ryan Protein [Mass/Vol] 7.3 g/dL Normal 6.4-8.2 [facility] Comment on above: Performed By: #### H STROPN, CMP, TSH #### [facility] [address] [address] [address] Kathya Ryan Sodium [Moles/Vol] 135 mmol/L Critically low 136-145 [facility] Comment on above: Performed By: #### H FARAZ MACIAS, TSH #### [facility] [address] [address] [address] Kathya Ryan Urea nitrogen [Mass/Vol] 15.0 mg/dL Normal 7.0-18.0 [facility] Comment on above: Performed By: #### H FARAZ MACIAS, TSH #### [facility] [address] [address] [address] Kathya Ryan Urea nitrogen/Creatinine [Mass ratio] 8.9 mg/mg Normal [facility] Comment on above: Performed By: #### H FARAZ MACIAS, TSH #### [facility] [address] [address] [address] Kathya Ryan PROTIMEon 10-02-2022 INR Coag (PPP) [Relative time] 1.00 {INR} Normal [facility] Comment on above: Performed By: #### P T, PTT ####[facility] [id number] [address]Dr. Kathya Ryan INR GUIDELINES SEE BELOW Normal [facility] Comment on above: Result Comment: JONI RED INR: 2.0 - 3.0 CONDITIONS NOT LISTED BELOW 2.5 - 3.5 FOR PROSTHETIC HEART VALVE REPLACEMENT 2.5 - 3.5 RECURRENT THROMBOSIS Performed By: #### P T, PTT ####[facility] [address] [address]DrBriseyda Ryan PT Coag (PPP) [Time] 10.6 s Normal 9.0-11.6 [facility] Comment on above: Performed By: #### P T, PTT ####[facility] [address] [address]Dr. Kathya Ryan PTTon 10-02-2022 aPTT Coag (Bld) [Time] 26.9 s Normal 22.3-36.2 [facility] Comment on above: Performed By: #### P T, PTT ####[facility] [address] [address]Dr. Kathya Ryan TROPONIN, HIGH SENSITIVITYon 10-02-2022 HSTROP 4.2 pg/mL Normal 4.0-76.1 [facility] Comment on above: Result Comment: CUT- OFF POINTS HAVE BEEN ESTABLISHED BASED ON THE FOURTH UNIVERSAL DEFINITIONS OF MYOCARDIAL INFARCTION. THE UPPER REFERENCE LIMIT (URL) OF TROPONIN, DEFINED THE 99TH PERCENTILE OF cTnI DISTRIBUTION IN A REFERENCE POPULATION, HAS BEEN CONFIRMED THE DECISION THRESHOLD FOR [place] DIAGNOSIS. Performed By: #### H STROJIMI, CMP, TSH ####[facility] [id number] [address]Dr. Kathya Ryan TSHon 10-02-2022 TSH 2.502 uIU/mL Normal 0.358-3.740 [facility] Comment on above: Performed By: #### H STROJIMI, CMP, TSH ####[facility] [address] [address]Dr. Kathya Ryan URINE MICROSCOPIC ONLYon BACTERIA MODERATE Abnormal NONE SEEN [facility] Comment on above: Performed By: #### U MICRO, ERUR #### [facility] [address] [place] [address] Dr. Kathya Ryan Bacteria identified Cx Nom (U) INDICATED Normal [facility] Comment on above: Performed By: #### U MICRO, ERUR #### [facility] [address] [address] [address] Kathya Ryan CAST NONE SEEN Normal NONE SEEN [facility] Comment on above: Performed By: #### U MICRO, ERUR #### [facility] [address] [address] [address] Kathya Ryan Crystals LM Nom (Urine sed) NONE SEEN Normal NONE SEEN [facility] Comment on above: Performed By: #### U MICRO, ERUR #### [facility] [address] [place] [address] Dr. Kathya Ryan Epithelial cells LM Ql (Urine sed) RARE Normal NONE SEEN /RARE [facility] Comment on above: Performed By: #### U MICRO, ERUR #### [facility] [address] [address] [address] Kathya Ryan HYALINE CAST FEW Normal [facility] Comment on above: Performed By: #### U MICRO, ERUR #### [facility] [address] [address] [address] Kathya Ryan MUCOUS NONE SEEN Normal NONE SEEN [facility] Comment on above: Performed By: #### U MICRO, ERUR #### [facility] [address] [address] [address] Kathya Ryan RBC 10-20 Abnormal 0-2 [facility] Comment on above: Performed By: #### U MICRO, ERUR #### [facility] [address] [address] [address] Kathya Ryan WBC 5-10 Abnormal NONE SEEN [facility] Comment on above: Performed By: #### U MICRO, ERUR #### [facility] [address] [address] [address] Kathya Ryan XR CHEST 1 Von [...] by: LAY ROQUE Date: 2022-10-02 20:56 Normal [facility] XR KNEE RT 4V or >on 023 [...] by: LAY ROQUE Date: 2022-10-02 20:59 Normal [facility] XR LSPINE 2_3 VIEWSon 2022 XR LSPINE [...] LAY ROQUE Date: 2022-10-02 20:55 Normal [facility] XR PELVIS 1_2 VIEWSon 2022 XR PELVIS 1_2 VIEWS EXAM: XR PELVIS 1_2 VIEWS HISTORY: Fall COMPARISON: None. TECHNIQUE: Single view FINDINGS: No osseous lesion, fracture, dislocation or subluxation. Joint spaces are unremarkable for patient's age. No visualized effusion. No visualized soft tissue edema. IMPRESSION: Normal x-rays Electronically authenticated by: LAY ROQUE Date: 2022-10-02 21:04 Normal [facility] Glucose Glucometer (dC) [M ass/Vol]Ordered By: Lay Talbot on 03-15-2022 Glucose [Mass/Vol] 131 mg/dL [facility] Comment on above: Random Glucose Refer ence Range is dependent on time and content of last meal. Glucose of more than 200 mg/dL in a nonstressed, ambulatory subject supports the diagnosis of Diabetes Mellitus. Glucose Poct Glucometerson 0 03-15-2022 Glucose [Mass/Vol] 131 mg/dL Normal [facility] Comment on above: Result Comment: Dailey Glucose Reference Range is dependent on time and content of last meal. Glucose of more than 200 mg/dL in a nonstressed, ambulatory subject supports the diagnosis of Diabetes Mellitus. PERFORMED BY: [facility] [address] [place] [address] PATHOLOGIST [employer]IONAL [employer]ACILITIES MANAGER CARINA HASSAN M.D. Performed By: #### G LUMIRANDA #### Point of Care testing , PSA SCREEN (MEDICARE)on 11-09 TPSA 3.110 ng/mL Normal <4.000 [facility] [employer] Comment on above: Result Comment: PSA Test Method: ECLIA/Urvashi e 601 Performed By: #### P MC #### [facility] [address], [place] [id number] Complete Blood Counton 09-20 Erythrocyte distribution width (RBC) [Ratio] 12.6 % Normal 11.0-15.0 [facility] Specialist Comment on above: Performed By: #### C MP, CBC, MG #### [facility] [address], [place] [id number] Hematocrit (Bld) [Volume fraction] 47.3 % Normal 38.5-50.0 [facility] Specialist Comment on above: Performed By: #### C MP, CBC, MG #### [facility] [address], [place] [id number] Hemoglobin (Bld) [Mass/Vol] 15.8 g/dL Normal 13.0-17.1 [facility] Specialist Comment on above: Performed By: #### C MP, CBC, MG #### [facility] [address], [place] [id number] MCH (RBC) [Entitic mass] 28.6 pg Normal 27.0-33.0 [facility] Specialist Comment on above: Performed By: #### C MP, CBC, MG #### [facility] [address], [place] [id number] MCHC (RBC) [Mass/Vol] 33.4 g/dL Normal 32.0-36.0 [facility] Specialist Comment on above: Performed By: #### C MP, CBC, MG #### [facility] [address], [place] [id number] MCV (RBC) [Entitic vol] 86 fL Normal 80-100 [facility] Specialist Comment on above: Performed By: #### C MP, CBC, MG #### [facility] [address], [place] [id number] Platelet mean volume (Bld) [Entitic vol] 8.90 fL Normal 7.50-12.50 [facility] Specialist Comment on above: Performed By: #### C MP, CBC, MG #### [facility] [address], [place] [id number] Platelets (Bld) [#/Vol] 258 10*3/uL Normal 140-400 [facility] Specialist Comment on above: Performed By: #### C MP, CBC, MG #### [facility] [address], [place] [id number] RBC (Bld) [#/Vol] 5.53 10*6/uL Normal 4.20-5.80 [facility] Specialist Comment on above: Performed By: #### C MP, CBC, MG #### [facility] [address], [place] [id number] RDW-SD 39.1 fL Normal 37.0-50.0 [facility] Specialist Comment on above: Performed By: #### C MP, CBC, MG #### [facility] [address], [place] [id number] WBC (Bld) [#/Vol] 8.2 10*3/uL Normal 3.8-11.0 [facility] [employer] Comment on above: Performed By: #### C MP, CBC, MG #### [facility] [address], [place] [id number] [facility] 09-20-2021 Albumin [Mass/Vol] 4.5 g/dL Normal 3.6-5.1 [facility] [employer] Comment on above: Performed By: #### C MP, CBC, MG #### [facility] [address], [place] [id number] Albumin/Globulin [Mass ratio] 1.6 {ratio} Normal 1.0-2.5 [facility] Specialist Comment on above: Performed By: #### C MP, CBC, MG #### [facility] [address], [place] [id number] ALP [Catalytic activity/Vol] 86 U/L Normal 40-129 [facility] Specialist Comment on above: Performed By: #### C MP, CBC, MG #### [facility] [address], [place] [id number] ALT [Catalytic activity/Vol] 58 U/L High 9-46 [facility] Specialist Comment on above: Result Comment: 07/11 Female reference range changed. Performed By: #### C MP, CBC, MG #### [facility] [address], [place] [id number] Anion gap [Moles/Vol] 17 mmol/L Normal 12-20 [facility] Comment on above: Result Comment: Haydee ctive 08/16/2019 reference range changed. Performed By: #### C MP, CBC, MG #### [facility] [address], [place] [id number] AST [Catalytic activity/Vol] 51 U/L High 10-40 [facility] Comment on above: Performed By: #### C MP, CBC, MG #### [facility] [address], [place] [id number] Bilirubin [Mass/Vol] 0.52 mg/dL Normal 0.30-1.20 [facility] Comment on above: Performed By: #### C MP, CBC, MG #### [facility] [address], [place] [id number] BUN/CREA 12 Ratio Normal 6-22 [facility] Comment on above: Performed By: #### C MP, CBC, MG #### [facility] [address], [place] [id number] Calcium [Mass/Vol] 9.9 mg/dL Normal 8.6-10.2 [facility] Comment on above: Performed By: #### C MP, CBC, MG #### [facility] [address], [place] [id number] Chloride [Moles/Vol] 102 mmol/L Normal 98-107 [facility] Comment on above: Performed By: #### C MP, CBC, MG #### [facility] [address], [place] [id number] CO2 [Moles/Vol] 22 mmol/L Normal 20-31 [facility] Comment on above: Performed By: #### C MP, CBC, MG #### [facility] [address], [place] [id number] Creatinine [Mass/Vol] 1.2 mg/dL Normal 0.7-1.4 [facility] Comment on above: Performed By: #### C MP, CBC, MG #### [facility] [address], [place] [id number] eGFRAA 72 mL/min/1.73m2 Normal >60 [facility] [employer] Comment on above: Performed By: #### C MP, CBC, MG #### [facility] [address], [place] [id number] eGFRNAA 59 mL/min/1.73m2 Low >60 [facility] Specialist Comment on above: Performed By: #### C MP, CBC, MG #### [facility] [address], [place] [id number] Globulin (S) [Mass/Vol] 2.9 g/dL Normal 1.9-3.7 [facility] [employer] Comment on above: Performed By: #### C MP, CBC, MG #### [facility] [address], [place] [id number] Glucose [Mass/Vol] 117 mg/dL High 65-99 [facility] [employer] Comment on above: Result Comment: For FASTING Glucose --- ADA reference ranges: Normal 65-99 mg/dl Prediabetes 100-125 Diabetes >/= 126 Performed By: #### C MP, CBC, MG #### [facility] [address], [place] [id number] Potassium [Moles/Vol] 4.5 mmol/L Normal 3.5-5.5 [facility] [employer] Comment on above: Performed By: #### C MP, CBC, MG #### [facility] [address], [place] [id number] Protein [Mass/Vol] 7.4 g/dL Normal 6.1-8.1 [facility] [employer] Comment on above: Performed By: #### C MP, CBC, MG #### [facility] [address], [place] [id number] Sodium [Moles/Vol] 137 mmol/L Normal 135-146 [facility] [employer] Comment on above: Performed By: #### C MP, CBC, MG #### [facility] [address], [place] [id number] Urea nitrogen [Mass/Vol] 15 mg/dL Normal 7-25 [facility] [employer] Comment on above: Performed By: #### C MP, CBC, MG #### [facility] [address], [place] [id number] Hemoglobin A1Con 09-20-2021 EAG 142.72 Normal [facility] [employer] Comment on above: Performed By: #### A 1C #### [facility] [address], [place] [id number] HbA1c (Bld) [Mass fraction] 6.6 % High 4.0-6.0 [facility] [employer] Comment on above: Performed By: #### A 1C #### [facility] [address], [place] [id number] Magnesiumon 09-20-2021 Magnesium [Mass/Vol] 2.0 mg/dL Normal 1.5-2.3 [facility] [employer] Comment on above: Performed By: #### C MP, CBC, MG #### [facility] [address], [place] [id number] Vital Signs Date Time Vital Sign Value Performing Clinician Anne-Marie lackey 03-15-2022 09:24-0400 Diastolic blood pressure 82 mm[Hg] DO Lay Talbot Work Phone: [facility] 03-15-2022 09:24-0400 Heart rate 72 /min DO Lay Hykes Work Phone: [facility] 03-15-2022 09:24-0400 Respiratory rate 18 /min DO Lay Hykes Work Phone: [facility] 03-15-2022 09:24-0400 SaO2% (BldA) [Mass fraction] 97 % DO Lay Carmenkes Work Phone: [facility] 03-15-2022 09:24-0400 Systolic blood pressure 115 mm[Hg] DO Lay Hykes Work Phone: [facility] 03-15-2022 07:21-0400 Body height 171.45 cm DO Lay Hykes Work Phone: [facility] 03-15-2022 07:21-0400 Body temperature 98.5 [degF] DO Lay Carmenkes Work Phone: [facility] 03-15-2022 07:21-0400 Body weight 86.18 kg DO Lay Talbot Work Phone: [facility] Encounters Encounter Date Encounter Type Care [...] surgery center DO Lay Talbot Work Phone: [facility] Procedures Date Procedure Procedure Detail Performing Clinician Start: 03-15-2022 Screening colonoscopy D O Lay Talbot Work Phone: Plan of Treatment Date Care Activity Detail Author Start: 03-15-2022 [facility] Work Phone: Payers Date Payer Category Payer Medicaid [id number] 1958 Medicare [id number] 1958 Medicare [id number] 1955 Unknown [id number] 2.16.84 [id number] 1955 Unknown [id number] 2.16.84 [id number] 1955 Unknown [id number] 2.16.84 [id number] 1955 Unknown [id number] 2.16.84 [id number] 1955 Unknown [id number] 2.16.84 [id number] 1955 Unknown [id number] 2.16.84 [id number] Medicaid [id number] Self-pay Self Pay [id number] Unknown [employer] [id number] Social History Date Type Detail Facility Start: 03-15-2022 Tobacco smoking stat [facility] Never smoked tobacco (finding) [facility] Start: 1955 Sex Assigned At Male F [facility] Medical Equipment Procedure Code Equipment Code Equipment Origin al Text Equipment Identifier Dates Phacoemulsification of cataract with intraocular lens implantation Posterior-chamber intraocular lens, pseudophakic [id number] FDA Start: 01-27-2020 Phacoemulsification of cataract with intraocular lens implantation Posterior-chamber intraocular lens, pseudophakic [id number] FDA Start: 02-24-2020 Goals Date Patient Goal [...] authenticated by: RUFUS VALDEZ Date: 2022-10-02 11:10 [facility] History and physical note 03-15-2022 Note Date & Type Note Facility 03-15-2022 History and physi tara note Note Date/Time March 15, 2022 8:20am [facility] [address] [place] [address] Gastroenterology H&P Signed Patient: Lenora Tillman MR#: [id number] : 1955 Acct:[id number] Age/Sex: 66 / M Adm Date: 2 Loc: Room: Type: [facility] Attending Dr: Lay Talbot DO Copies to: DO Amie Garcia Jr, NP-C~ Date of Service: 03/15/2022 Gastroenterology HPI [...] for evaluation Documented By: Lay Talbot Jr, 03/15/22 081 7 Signed By: <Electronically signed by Lay Talbot Jr, DO> 03/15/[address] [facility] Work Phone: Procedure note 03-15-2022 Note Date & Type Note Facility 03-15-2022 Procedure note [facility] Evaluation note Note Date & Type Note Facility Evaluation note Diagnosis Onset Date Screening for colorectal cancer acute [facility] Work Phone: Hospital Discharge instructions Note Date [...] if you have any problems. -Office number [phone] [facility] Work Phone: Summary Purpose Family History No [...] section and content) DATE CREATED AUTHOR 11/21/2021 [facility] dical Specialist DATE CREATED AUTHOR AUTHOR'S ORGANIZ ATION 03/16/2022 [facility] DATE CREATED AUTHOR AUTHOR'S ORGANIZ ATION 12/14/2022 [facility] Care Teams (unrecognized sec tion and content) Team Status: Inactive Member Role Status Dates Lay Talbot DO Attending Provider Active Amie Dow NP-C Primary Care Provider Active Team Status: Active Member Role Status Dates Amie Dow NP-C Primary Care Provider Active FOR RECORDS PERTAINING [...] BE BASED ON THE PRIMARY CLINICAL RECORDS. Comic Reply [facility]. provides no warranty or guarantee of the accuracy or completeness of information in this document.
--- OUTSIDE RECORDS SUMMARY | 2023-08-20 01:45 | XMS_ITS | CCD ---
Author Name Unknown Address [id number] [place] [address] Organization [facility] Care Team Providers Care Multimedia Programmer Name Role Phone Antione DO Lay Wagner Attending Provider CINDY Dow Primary Care Provider YVES ORNELAS [...] MG PO Q4H March 15, 2022 12:00am [id number] 200 actuat albuterol 0.09 mg/actuat metered dose [...] January 21, 2020 12:00am polyethylene glycol 3350 80210 mg powder for oral solution (1 source) [...] Onset: 11-05-2022 Episodic Other aftercare (1 source) shelter (current) use of aspirin; Translations: [SENIOR CARE CURRENT USE OF ASPIRIN] Onset: 11-05-2022 Episodic 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 Kathya Ryan Basophils/100 WBC (Bld) 0.5 % Normal 0.2-2.0 [facility] Comment on above: Performed By: #### C BC ####[facility] [address] [place] [id number]. Kathya Ryan EO # 0.3 103/ul Normal 0.0-0.7 [facility] Comment on above: Performed By: #### C BC ####[facility] [address] [place] [address]Dr. Kathya Ryan Eosinophils/100 WBC (Bld) 5.4 % Normal 0.9-7.0 [facility] Comment on above: Performed By: #### C BC ####[facility] [address] [place] [id number]. Kathya Ryan Erythrocyte distribution width (RBC) [Ratio] 12.5 % Normal 11.0-15.0 [facility] Comment on above: Performed By: #### C BC ####[facility] [address]fw[address] [place] [id number]. Kathya Ryan Hematocrit (Bld) [Volume fraction] 42.4 % Normal 42.0-54.0 [facility] Comment on above: Performed By: #### C BC ####[facility] [address] [place], [place] [address]Dr. Kathya Ryan Hemoglobin (Bld) [Mass/Vol] 14.1 g/dL Normal 14.0-18.0 [facility] Comment on above: Performed By: #### C BC ####[facility] [address] [place], [place] [address]Dr. Kathya Ryan IG # 0.02 10e3/ul Normal 0.00-0.03 [facility] Comment on above: Performed By: #### C BC ####[facility] [address] [place], [place] [address]Dr. Kathya Ryan IG % 0.3 % Normal 0.0-0.5 [facility] Comment on above: Performed By: #### C BC ####[facility] [address] [place], [place] [address]Dr. Kathya Ryan LYMPH # 1.3 103/ul Normal 1.2-3.8 [facility] Comment on above: Performed By: #### C BC ####[facility] [address] [place], [place] [address]Dr. Kathya Ryan Lymphocytes/100 WBC (Bld) 22.4 % Normal 20.5-60.0 [facility] Comment on above: Performed By: #### C BC ####[facility] [address] [place] [id number]. Kathya Ryan MANUAL DIFF REQ NO Normal [facility] Comment on above: Performed By: #### C BC ####[facility] R[address]wwcylz[address] [place] [id number]. Kathya Ryan MCH (RBC) [Entitic mass] 30.5 pg Normal 25.9-34.0 [facility] Comment on above: Performed By: #### C BC ####[facility] [address] [place] [id number]. Kathya Ryan MCHC (RBC) [Mass/Vol] 33.3 g/dL Normal 29.9-35.2 [facility] Comment on above: Performed By: #### C BC ####[facility] [address] [place] [id number]. Kathya Ryan MCV (RBC) [Entitic vol] 91.8 fL Normal 80.0-94.0 [facility] Comment on above: Performed By: #### C BC ####[facility] [address] [place], [place] [address]Dr. Kathya Ryan MONO # 0.7 103/ul Normal 0.3-0.8 [facility] Comment on above: Performed By: #### C BC ####[facility] [address]hha[address] [place] [address]Dr. Mireyajack Ryan Monocytes/100 WBC (Bld) 12.2 % Critically high 1.7-12.0 [facility] Comment on above: Performed By: #### C BC ####[facility] [address] [place], [place] [address]Dr. Kathya Ryan NEUT # 3.5 103/ul Normal 1.4-6.5 [facility] Comment on above: Performed By: #### C BC ####[facility] [address] [place], [place] [address]Dr. Mireyajack Ryan Neutrophils/100 WBC (Bld) 59.2 % Normal 43.0-75.0 [facility] Comment on above: Performed By: #### C BC ####[facility] [address] [place], [place] [address]Dr. Mireyajack Ryan Platelet mean volume (Bld) [Entitic vol] 9.1 fL Critically low 9.5-13.5 [facility] Comment on above: Performed By: #### C BC ####[facility] [address] [place], [place] [address]Qq. Kathya Ryan PLT 211 103/ul Normal 150-450 [facility] Comment on above: Performed By: #### C BC ####[facility] [address] [place], [place] [address]Dq. Kathya Ryan RBC 4.62 106/ul Critically low 4.70-6.10 [facility] Comment on above: Performed By: #### C BC ####[facility] [address] [place], [place] [address]Un. Kathya Ryan WBC 5.9 103/ul Normal 4.0-11.0 [facility] Comment on above: Performed By: #### C BC ####[facility] [address] [place], [place] [address]SoBriseyda Ryan GLYCOHEMOGLOBIN A1Con 2022 ADA RECOMMENDATION SEE BELOW Normal [facility] Comment on above: Result Comment: ADA RECOMMENDED LIMIT 4.0 - 6.0 ADA THERAPEUTIC TARGET < 7.0 ACTION SUGGESTED > 7.0 Performed By: #### A 1C #### [facility] [address] [place] [address] [address] Kathya Ryna Glucose [Mass/Vol] 123 mg/dL Normal [facility] Comment on above: Performed By: #### A 1C #### [facility] [address] [place] [address] [address] Kathya Ryan HbA1c (Bld) [Mass fraction] 5.9 % Normal 4.5-6.2 [facility] Comment on above: Performed By: #### A 1C #### [facility] [address] [place] [address] [address] Kathya Ryan LIPID PROFILEon 12-09-2022 CHOL-HDL RATIO NORM SEE BELOW Normal [facility] Comment on above: Result Comment: 3.3 - 4.4 LOW RISK 4.4 - 7.1 AVERAGE RISK 7.1 - 11.0 MODERATE RISK >11.0 HIGH RISK Performed By: #### L IPID, CMP #### [facility] [address] [place] [address] [address] Kathya Ryan Cholesterol [Mass/Vol] 132 mg/dL Normal <=200 [facility] Comment on above: Performed By: #### L IPID, CMP #### [facility] [address] [place] [address] [address] Kathya Ryan Cholesterol in HDL [Mass/Vol] 29 mg/dL Critically low 40-60 [facility] Comment on above: Performed By: #### L IPID, CMP #### [facility] [address] [place] [address] [address] Kathya Ryan Cholesterol in LDL [Mass/Vol] 83.0 mg/dL Normal [facility] Comment on above: Performed By: #### L IPID, CMP #### [facility] [address] [place] [address] [address] Kathya Ryan Cholesterol.total/Ch olesterol in HDL [Mass ratio] 4.6 {ratio} Normal [facility] Comment on above: Performed By: #### L IPID, CMP #### [facility] [address] [place] [address] [address] Kathya Ryan HDL NORMAL > or = 60 mg/dl - LO W CARDIOVASCULAR RISK <40 mg/dl - HIGH CARDIOVASCULAR RISK Normal [facility] Comment on above: Performed By: #### L IPID, CMP #### [facility] [address] [place] [address] [address] Kathya Ryan LDL CALC NORMAL SEE BELOW Normal [facility] Comment on above: Result Comment: <100 mg/dl OPTIMAL 100 - 129 mg/dl NEAR OR ABOVE OPTIMAL 130 - 159 mg/dl BORDERLINE HIGH 160 - 189 mg/dl HIGH >190 mg/dl VERY HIGH Performed By: #### L IPID, CMP #### [facility] [address] [place] [address] [address] Kathya Ryan Triglyceride [Mass/Vol] 102 mg/dL Normal <=150 [facility] Comment on above: Performed By: #### L IPID, CMP #### [facility] [address] [place] [address] [address] Kathya Ryan VLDL CALC 20.4 mg/dL Normal [facility] Comment on above: Performed By: #### L IPID, CMP #### [facility] [address] [place] [address] [address] Kathya Ryan PROF 14(COMP METB)on 023 Albumin [Mass/Vol] 3.3 g/dL Critically low 3.4-5.0 [facility] Comment on above: Performed By: #### L IPID, CMP #### [facility] [address] [place] [address] [address] Kathya Ryan Albumin/Globulin [Mass ratio] 0.9 {ratio} Normal [facility] Comment on above: Performed By: #### L IPID, CMP #### [facility] [address] [place] [address] Dr. Kathya Ryan ALP [Catalytic activity/Vol] 71 U/L Normal 46-116 [facility] Comment on above: Performed By: #### L IPID, CMP #### [facility] [address] [place] [address] Dr. Kathya Ryan ALT [Catalytic activity/Vol] 50 U/L Normal 16-63 [facility] Comment on above: Performed By: #### L IPID, CMP #### [facility] [address] [place] [address] Dr. Kathya Ryan Anion gap [Moles/Vol] 12.6 mmol/L Normal [facility] Comment on above: Performed By: #### L IPID, CMP #### [facility] [address] [place] [address] [address] Kathya Ryan AST [Catalytic activity/Vol] 34 U/L Normal 15-37 [facility] Comment on above: Performed By: #### L IPID, CMP #### [facility] [address] [place] [address] Dr. Kathya Ryan Bilirubin [Mass/Vol] 0.4 mg/dL Normal 0.2-1.0 [facility] Comment on above: Performed By: #### L IPID, CMP #### [facility] [address] [place] [address] Dr. Kathya Ryan Calcium [Mass/Vol] 8.9 mg/dL Normal 8.5-10.1 [facility] Comment on above: Performed By: #### L IPID, CMP #### [facility] [address] [place] [address] Dr. Kathya Ryan Chloride [Moles/Vol] 106 mmol/L Normal 98-107 [facility] Comment on above: Performed By: #### L IPID, CMP #### [facility] [address] [place] [address] Dr. Kathya Ryan CO2 [Moles/Vol] 27.4 mmol/L Normal 21.0-32.0 [facility] Comment on above: Performed By: #### L IPID, CMP #### [facility] [address] [place] [address] Dr. Kathya Ryan Creatinine [Mass/Vol] 1.45 mg/dL Critically high 0.70-1.30 [facility] Comment on above: Performed By: #### L IPID, CMP #### [facility] [address] [place] [address] Dr. Kathya Ryan EGFR-AF TUVALUAN 59 mL/min/1.73m2 Critically low >=60 [facility] Comment on above: Performed By: #### L IPID, CMP #### [facility] [address] [place] [address] Dr. Kathya Ryan EGFR-NON AF TUVALUAN 49 mL/min/1.73m2 Critically low >=60 [facility] Comment on above: Performed By: #### L IPID, CMP #### [facility] [address] [place] [address] Dr. Kathya Ryan Globulin (S) [Mass/Vol] 3.8 g/dL Normal [facility] Comment on above: Performed By: #### L IPID, CMP #### [facility] [address] [place] [address] Dr. Kathya Ryan Glucose [Mass/Vol] 109 mg/dL Critically high 74-106 [facility] Comment on above: Performed By: #### L IPID, CMP #### [facility] [address] [place] [address] [address] Kathya Ryan Potassium [Moles/Vol] 3.9 mmol/L Normal 3.5-5.1 [facility] Comment on above: Performed By: #### L IPID, CMP #### [facility] [address] [place] [address] [address] Kathya Ryan Protein [Mass/Vol] 7.1 g/dL Normal 6.4-8.2 [facility] Comment on above: Performed By: #### L IPID, CMP #### [facility] [address] [place] [address] [address] Kathya Ryan Sodium [Moles/Vol] 142 mmol/L Normal 136-145 [facility] Comment on above: Performed By: #### L IPID, CMP #### [facility] [address] [place] [address] [address] Kathya Ryan Urea nitrogen [Mass/Vol] 17.0 mg/dL Normal 7.0-18.0 [facility] Comment on above: Performed By: #### L IPID, CMP #### [facility] [address] [place] [address] [address] Kathya Ryan Urea nitrogen/Creatinine [Mass ratio] 11.7 mg/mg Normal [facility] Comment on above: Performed By: #### L IPID, CMP #### [facility] [address] [place] [address] [address] Kathya Ryan FREE LIGHT CHAINS PLUS RATIO , URINEon 11-14-2022 Free [place] Lt Chains,Ur 86.11 mg/L Normal 1.17-86.46 [facility] Comment on above: Performed By: #### F FIDEL ####[facility] [address] [place] [address]Dr. Kathya Ryan Free [place] Lt Chains,Ur 11.37 mg/L Normal 0.27-15.21 [facility] Comment on above: Performed By: #### F FIDEL ####[facility] [address] [place] [address]Dr. Kathya Ryan [place]/ Lambda Urine Ratio 7.57 Normal 1.83-14.26 [facility] Comment on above: Performed By: #### F FIDEL ####[facility] [address] [place], [place] [address]Nn. Kathya Ryan CT CSPINE WO CONon CT [...] KARIME MAYES Date: 2022-11-04 00:29 Normal [facility] CT HEAD WO CONon 11-04-2022 CT HEAD [...] JAC GILL Date: 2022-11-04 00:28 Normal [facility] CBC AUTO DIFFon 10-02-2022 BASO # 0.1 103/ul Normal 0.0-0.1 [facility] Comment on above: Performed By: #### C BC ####[facility] T[address]fs[address] [place] [id number]. Kathya Ryan Basophils/100 WBC (Bld) 0.5 % Normal 0.2-2.0 [facility] Comment on above: Performed By: #### C BC ####[facility] [address] [place], [place] [address]Dr. Kathya Ryan EO # 0.8 103/ul Critically high 0.0-0.7 [facility] Comment on above: Performed By: #### C BC ####[facility] [address] [place] [address]Dr. Kathya Ryan Eosinophils/100 WBC (Bld) 7.6 % Critically high 0.9-7.0 [facility] Comment on above: Performed By: #### C BC ####[facility] [address] [place] [address]Dr. Kathya Ryan Erythrocyte distribution width (RBC) [Ratio] 13.3 % Normal 11.0-15.0 [facility] Comment on above: Performed By: #### C BC ####[facility] [address] [place], [place] [address]Dr. Kathya Ryan Hematocrit (Bld) [Volume fraction] 39.7 % Critically low 42.0-54.0 [facility] Comment on above: Performed By: #### C BC ####[facility] [address] [place], [place] [address]Dr. Kathya Ryan Hemoglobin (Bld) [Mass/Vol] 13.4 g/dL Critically low 14.0-18.0 [facility] Comment on above: Performed By: #### C BC ####[facility] [address] [place] [address]Dr. Kathya Ryan IG # 0.04 10e3/ul Critically high 0.00-0.03 [facility] Comment on above: Performed By: #### C BC ####[facility] [address] [place] [address]Dr. Kathya Ryan IG % 0.4 % Normal 0.0-0.5 [facility] Comment on above: Performed By: #### C BC ####[facility] [address] [place] [address]Dr. Kathya Connor LYMPH # 1.6 103/ul Normal 1.2-3.8 [facility] Comment on above: Performed By: #### C BC ####[facility] [address] [place] [address]Dr. Kathya Ryan Lymphocytes/100 WBC (Bld) 15.8 % Critically low 20.5-60.0 [facility] Comment on above: Performed By: #### C BC ####[facility] [address] [place] [address]Dr. Mireyajack Ryan MANUAL DIFF REQ NO Normal [facility] Comment on above: Performed By: #### C BC ####[facility] [address] [place] [address]Dr. Kathya Ryan MCH (RBC) [Entitic mass] 29.8 pg Normal 25.9-34.0 [facility] Comment on above: Performed By: #### C BC ####[facility] [address] [place], [place] [address]Dr. Kathya Ryan MCHC (RBC) [Mass/Vol] 33.8 g/dL Normal 29.9-35.2 [facility] Comment on above: Performed By: #### C BC ####[facility] [address] [place] [address]Dr. Kathya Ryan MCV (RBC) [Entitic vol] 88.4 fL Normal 80.0-94.0 [facility] Comment on above: Performed By: #### C BC ####[facility] [address] [place] [address]Dr. Kathya Ryan MONO # 1.2 103/ul Critically high 0.3-0.8 [facility] Comment on above: Performed By: #### C BC ####[facility] [address]unxx[address] [place] [address]Dr. Kathya Ryan Monocytes/100 WBC (Bld) 12.1 % Critically high 1.7-12.0 [facility] Comment on above: Performed By: #### C BC ####[facility] [address]zrd[address] [place] [address]Dr. Kathya Ryan NEUT # 6.4 103/ul Normal 1.4-6.5 [facility] Comment on above: Performed By: #### C BC ####[facility] [address]um[address] [place] [address]Dr. Kathya Ryan Neutrophils/100 WBC (Bld) 63.6 % Normal 43.0-75.0 [facility] Comment on above: Performed By: #### C BC ####[facility] [address]xp[address] [place] [address]Dr. Kathya Ryan Platelet mean volume (Bld) [Entitic vol] 8.8 fL Critically low 9.5-13.5 [facility] Comment on above: Performed By: #### C BC ####[facility] [address] [place] [address]Dr. Kathya Ryan PLT 237 103/ul Normal 150-450 [facility] Comment on above: Performed By: #### C BC ####[facility] [address] [place] [address]Dr. Kathya Ryan RBC 4.49 106/ul Critically low 4.70-6.10 [facility] Comment on above: Performed By: #### C BC ####[facility] [address] [place] [address]Dr. Kathya Ryan WBC 10.1 103/ul Normal 4.0-11.0 [facility] Comment on above: Performed By: #### C BC ####[facility] [address] [place], [place] [address]Ua. Kath[address] CT CSPINE WO CONon CT [...] LAY ROQUE Date: 2022-10-02 20:33 Normal [facility] CT HEAD WO CONon 10-02-2022 CT HEAD [...] JAC GILL Date: 2022-10-02 20:41 Normal [facility] CULTURE URINEon 10-02-2022 CULTURE URINE Culture Observations : LIGHT GROWTH OF MIXED SKIN LUKASZ. NO POTENTIAL PATHOGENS SEEN. Normal [facility] Comment on above: Performed By: #### U RCX ####[facility] [address] [place] [address]Dr. Kathya Ryan ER URINE PROFILEon 3 Bilirubin Ql (U) Negative Normal NEGATIVE The [facility] Comment on above: Performed By: #### U MICRO, ERUR #### [facility] [address] [place] [address] [address] Kathya Ryan Clarity (U) CLEAR Normal CLEAR [facility] Comment on above: Performed By: #### U MICRO, ERUR #### [facility] [address] [place] [address] Dr. Kathya Ryan Color (U) YELLOW Normal YELLOW [facility] Comment on above: Performed By: #### U MICRO, ERUR #### [facility] [address] [place] [address] [address] Kathya MARQUEZD A micrscopic examination will be performed if indicated. Normal [facility] Comment on above: Performed By: #### U MICRO, ERUR #### [facility] [address] [place] [address] [address] Kathya Ryan Glucose Ql (U) 500 mg/dl Abnormal NEGATIVE The [facility] Comment on above: Performed By: #### U MICRO, ERUR #### [facility] [address] [place] [address] [address] Kathya Ryan Hemoglobin Ql (U) SMALL Abnormal NEGATIVE The [facility] Comment on above: Performed By: #### U MICRO, ERUR #### [facility] [address] [place] [address] [address] Kathya Ryan Ketones Ql (U) TRACE Abnormal NEGATIVE The [facility] Comment on above: Performed By: #### U MICRO, ERUR #### [facility] [address] [place] [address] [address] Kathya Ryan LEUKOCYTES TRACE Abnormal NEGATIVE [facility] Comment on above: Performed By: #### U MICRO, ERUR #### [facility] [address] [place] [address] Dr. Kathya Ryan Nitrite Ql (U) Negative Normal NEGATIVE The [facility] Comment on above: Performed By: #### U MICRO, ERUR #### [facility] [address] [place] [address] [address] Kathya Ryan pH (U) 5.5 [pH] Normal 5-9 [facility] Comment on above: Performed By: #### U MICRO, ERUR #### [facility] [address] [place] [address] Dr. Kathya Ryan SPEC GRAVITY >=1.030 Abnormal 1.005-<=1.025 [facility] Comment on above: Performed By: #### U MICRO, ERUR #### [facility] [address] [place] [address] Dr. Kathya Ryan UA PROTEIN TRACE Normal NEGATIVE/ TRACE [facility] Comment on above: Performed By: #### U MICRO, ERUR #### [facility] [address] [place] [address] Dr. Kathya Ryan UR MICRO IND INDICATED Normal [facility] Comment on above: Performed By: #### U MICRO, ERUR #### [facility] [address] [place] [address] Dr. Kathya Ryan Urobilinogen Qn (U) 2.0 {Luanne'U}/dL Abnormal 0.2 - 1. 0 [facility] Comment on above: Performed By: #### U MICRO, ERUR #### [facility] [address] [place] [address] Dr. Kathya Ryan PROF 14(COMP METB)on 023 Albumin [Mass/Vol] 3.5 g/dL Normal 3.4-5.0 [facility] Comment on above: Performed By: #### H STROPN, CMP, TSH #### [facility] [address] [place] [address] Dr. Kathya Ryan Albumin/Globulin [Mass ratio] 0.9 {ratio} Normal [facility] Comment on above: Performed By: #### H STROPN, CMP, TSH #### [facility] [address] [place] [address] [address] Kathya Ryan ALP [Catalytic activity/Vol] 108 U/L Normal 46-116 [facility] Comment on above: Performed By: #### H STROPN, CMP, TSH #### [facility] [address] [place] [address] [address] Kathya Ryan ALT [Catalytic activity/Vol] 38 U/L Normal 16-63 [facility] Comment on above: Performed By: #### H STROPN, CMP, TSH #### [facility] [address] [place] [address] [address] Kathya Ryan Anion gap [Moles/Vol] 11.4 mmol/L Normal [facility] Comment on above: Performed By: #### H STROPN, CMP, TSH #### [facility] [address] [place] [address] [address] Kathya Ryan AST [Catalytic activity/Vol] 28 U/L Normal 15-37 [facility] Comment on above: Performed By: #### H STROPN, CMP, TSH #### [facility] [address] [place] [address] [address] Kathya Ryan Bilirubin [Mass/Vol] 0.9 mg/dL Normal 0.2-1.0 [facility] Comment on above: Performed By: #### H STROPN, CMP, TSH #### [facility] [address] [place] [address] [address] Kathya Ryan Calcium [Mass/Vol] 9.1 mg/dL Normal 8.5-10.1 [facility] Comment on above: Performed By: #### H STROPN, CMP, TSH #### [facility] [address] [place] [address] [address] Kathya Ryan Chloride [Moles/Vol] 100 mmol/L Normal 98-107 [facility] Comment on above: Performed By: #### H STROPN, CMP, TSH #### [facility] [address] [address] [address] Kathya Ryan CO2 [Moles/Vol] 27.7 mmol/L Normal 21.0-32.0 [facility] Comment on above: Performed By: #### H STROPN, CMP, TSH #### [facility] [address] [place] [address] Dr. Kathya Ryan Creatinine [Mass/Vol] 1.69 mg/dL Critically high 0.70-1.30 [facility] Comment on above: Performed By: #### H STROPN, CMP, TSH #### [facility] [address] [place] [address] Dr. Kathya Ryan EGFR-AF TUVALUAN 50 mL/min/1.73m2 Critically low >=60 [facility] Comment on above: Performed By: #### H STROPN, CMP, TSH #### [facility] [address] [place] [address] Dr. Kathya Ryan EGFR-NON AF TUVALUAN 41 mL/min/1.73m2 Critically low >=60 [facility] Comment on above: Performed By: #### H STROPN, CMP, TSH #### [facility] [address] [place] [address] Dr. Kathya Ryan Globulin (S) [Mass/Vol] 3.8 g/dL Normal [facility] Comment on above: Performed By: #### H STROPN, CMP, TSH #### [facility] [address] [place] [address] Dr. Kathya Ryan Glucose [Mass/Vol] 259 mg/dL Critically high 74-106 [facility] Comment on above: Performed By: #### H STROPN, CMP, TSH #### [facility] [address] [place] [address] Dr. Kathya Ryan Potassium [Moles/Vol] 4.1 mmol/L Normal 3.5-5.1 [facility] Comment on above: Performed By: #### H STROPN, CMP, TSH #### [facility] [address] [place] [address] Dr. Kathya Ryan Protein [Mass/Vol] 7.3 g/dL Normal 6.4-8.2 [facility] Comment on above: Performed By: #### H STROPN, CMP, TSH #### [facility] [address] [address] [address] Kathya Ryan Sodium [Moles/Vol] 135 mmol/L Critically low 136-145 [facility] Comment on above: Performed By: #### H FARAZ MACIAS, TSH #### [facility] [address] [address] [address] Kathya Ryan Urea nitrogen [Mass/Vol] 15.0 mg/dL Normal 7.0-18.0 [facility] Comment on above: Performed By: #### H FARAZ MACIAS, TSH #### [facility] [address] [address] [address] Kathya Ryan Urea nitrogen/Creatinine [Mass ratio] 8.9 mg/mg Normal [facility] Comment on above: Performed By: #### H FARAZ MACIAS, TSH #### [facility] [address] [address] [address] Kathya Ryan PROTIMEon 10-02-2022 INR Coag (PPP) [Relative time] 1.00 {INR} Normal [facility] Comment on above: Performed By: #### P T, PTT ####[facility] [address] [place] [address]Dr. Kathya Ryan INR GUIDELINES SEE BELOW Normal [facility] [facility] Comment on above: Result Comment: JONI RED INR: 2.0 - 3.0 CONDITIONS NOT LISTED BELOW 2.5 - 3.5 FOR PROSTHETIC HEART VALVE REPLACEMENT 2.5 - 3.5 RECURRENT THROMBOSIS Performed By: #### P T, PTT ####[facility] [address] [address]DrBriseyda Ryan PT Coag (PPP) [Time] 10.6 s Normal 9.0-11.6 [facility] Comment on above: Performed By: #### P T, PTT ####[facility] [address] [address]Dr. Kathya Ryan PTTon 10-02-2022 aPTT Coag (Bld) [Time] 26.9 s Normal 22.3-36.2 [facility] Comment on above: Performed By: #### P T, PTT ####[facility] [address] [address]Dr. Kathya Ryan TROPONIN, HIGH SENSITIVITYon 10-02-2022 HSTROP 4.2 pg/mL Normal 4.0-76.1 [facility] Comment on above: Result Comment: CUT- OFF POINTS HAVE BEEN ESTABLISHED BASED ON THE FOURTH UNIVERSAL DEFINITIONS OF MYOCARDIAL INFARCTION. THE UPPER REFERENCE LIMIT (URL) OF TROPONIN, DEFINED THE 99TH PERCENTILE OF cTnI DISTRIBUTION IN A REFERENCE POPULATION, HAS BEEN CONFIRMED THE DECISION THRESHOLD FOR AR DIAGNOSIS. Performed By: #### H STROJIMI, CMP, TSH ####[facility] [address] [address]Dr. Kathya Ryan TSHon 10-02-2022 TSH 2.502 uIU/mL Normal 0.358-3.740 [facility] Comment on above: Performed By: #### H STROJIMI, CMP, TSH ####[facility] [address] [address]Dr. Kathya Ryan URINE MICROSCOPIC ONLYon BACTERIA MODERATE Abnormal NONE SEEN [facility] Comment on above: Performed By: #### U MICRO, ERUR #### [facility] [address] [place] [address] Dr. Kathya Ryan Bacteria identified Cx Nom (U) INDICATED Normal [facility] Comment on above: Performed By: #### U MICRO, ERUR #### [facility] [address] [address] [address] Kathya Ryan CAST NONE SEEN Normal NONE SEEN [facility] Comment on above: Performed By: #### U MICRO, ERUR #### [facility] [address] [address] [address] Kathya Ryan Crystals LM Nom (Urine sed) NONE SEEN Normal NONE SEEN [facility] Comment on above: Performed By: #### U MICRO, ERUR #### [facility] [address] [place] [address] Dr. Kathya Ryan Epithelial cells LM Ql (Urine sed) RARE Normal NONE SEEN /RARE [facility] Comment on above: Performed By: #### U MICRO, ERUR #### [facility] [address] [address] [address] Kathya Ryan HYALINE CAST FEW Normal [facility] Comment on above: Performed By: #### U MICRO, ERUR #### [facility] [address] [address] [address] Kathya Ryan MUCOUS NONE SEEN Normal NONE SEEN [facility] Comment on above: Performed By: #### U MICRO, ERUR #### [facility] [address] [address] [address] Kathya Ryan RBC 10-20 Abnormal 0-2 [facility] Comment on above: Performed By: #### U MICRO, ERUR #### [facility] [address] [address] [address] Kathya Ryan WBC 5-10 Abnormal NONE SEEN [facility] Comment on above: Performed By: #### U MICRO, ERUR #### [facility] [address] [address] [address] Kathya Ryan XR CHEST 1 Von [...] by: LAY ROQUE Date: 2022-10-02 20:56 Normal [facility] XR KNEE RT 4V or [...] by: LAY ROQUE Date: 2022-10-02 20:59 Normal [facility] XR LSPINE 2_3 VIEWSon 2022 XR LSPINE [...] LAY ROQUE Date: 2022-10-02 20:55 Normal [facility] XR PELVIS 1_2 VIEWSon 2022 XR PELVIS 1_2 VIEWS EXAM: XR PELVIS 1_2 VIEWS HISTORY: Fall COMPARISON: None. TECHNIQUE: Single view FINDINGS: No osseous lesion, fracture, dislocation or subluxation. Joint spaces are unremarkable for patient's age. No visualized effusion. No visualized soft tissue edema. IMPRESSION: Normal x-rays Electronically authenticated by: LAY ROQUE Date: 2022-10-02 21:04 Normal [facility] Glucose Glucometer (dC) [M ass/Vol]Ordered By: Lay Talbot on 03-15-2022 Glucose [Mass/Vol] 131 mg/dL [facility] Comment on above: Random Glucose Refer ence Range is dependent on time and content of last meal. Glucose of more than 200 mg/dL in a nonstressed, ambulatory subject supports the diagnosis of Diabetes Mellitus. Glucose Poct Glucometerson 0 03-15-2022 Glucose [Mass/Vol] 131 mg/dL Normal [facility] Comment on above: Result Comment: [place] Glucose Reference Range is dependent on time and content of last meal. Glucose of more than 200 mg/dL in a nonstressed, ambulatory subject supports the diagnosis of Diabetes Mellitus. PERFORMED BY: [facility] [address] [place] [address] PATHOLOGIST STARTING SHEET TANK OPERATOR CARINA HASSAN M.D. Performed By: #### G LUMIRANDA #### Point of Care testing , PSA SCREEN (MEDICARE)on 11-09 TPSA 3.110 ng/mL Normal <4.000 [facility] [employer] Comment on above: Result Comment: PSA Test Method: ECLIA/Urvashi e 601 Performed By: #### P MC #### [facility] [address] [place], [place] [id number] Complete Blood Counton 09-20 Erythrocyte distribution width (RBC) [Ratio] 12.6 % Normal 11.0-15.0 [facility] Specialist Comment on above: Performed By: #### C MP, CBC, MG #### [facility] [address] [place], [place] [id number] Hematocrit (Bld) [Volume fraction] 47.3 % Normal 38.5-50.0 [facility] Specialist Comment on above: Performed By: #### C MP, CBC, MG #### [facility] [address] [place], [place] [id number] Hemoglobin (Bld) [Mass/Vol] 15.8 g/dL Normal 13.0-17.1 [facility] Specialist Comment on above: Performed By: #### C MP, CBC, MG #### [facility] [address] [place], [place] [id number] MCH (RBC) [Entitic mass] 28.6 pg Normal 27.0-33.0 [facility] Specialist Comment on above: Performed By: #### C MP, CBC, MG #### [facility] [address] [place], [place] [id number] MCHC (RBC) [Mass/Vol] 33.4 g/dL Normal 32.0-36.0 [facility] Specialist Comment on above: Performed By: #### C MP, CBC, MG #### [facility] [address] [place], [place] [id number] MCV (RBC) [Entitic vol] 86 fL Normal 80-100 [facility] Specialist Comment on above: Performed By: #### C MP, CBC, MG #### [facility] [address] [place], [place] [id number] Platelet mean volume (Bld) [Entitic vol] 8.90 fL Normal 7.50-12.50 [facility] Specialist Comment on above: Performed By: #### C MP, CBC, MG #### [facility] [address] [place], [place] [id number] Platelets (Bld) [#/Vol] 258 10*3/uL Normal 140-400 [facility] Specialist Comment on above: Performed By: #### C MP, CBC, MG #### [facility] [address] [place], [place] [id number] RBC (Bld) [#/Vol] 5.53 10*6/uL Normal 4.20-5.[address] [facility] Specialist Comment on above: Performed By: #### C MP, CBC, MG #### [facility] [address] [place], [place] [id number] RDW-SD 39.1 fL Normal 37.0-50.0 [facility] Specialist Comment on above: Performed By: #### C MP, CBC, MG #### [facility] [address] [place], [place] [id number] WBC (Bld) [#/Vol] 8.2 10*3/uL Normal 3.8-11.0 [facility] [employer] Comment on above: Performed By: #### C MP, CBC, MG #### [facility] [address] [place], [place] [id number] [facility] 09-20-2021 Albumin [Mass/Vol] 4.5 g/dL Normal 3.6-5.1 [facility] [employer] Comment on above: Performed By: #### C MP, CBC, MG #### [facility] [address] [place], [place] [id number] Albumin/Globulin [Mass ratio] 1.6 {ratio} Normal 1.0-2.5 [facility] Specialist Comment on above: Performed By: #### C MP, CBC, MG #### [facility] [address] [place], [place] [id number] ALP [Catalytic activity/Vol] 86 U/L Normal 40-129 [facility] Specialist Comment on above: Performed By: #### C MP, CBC, MG #### [facility] [address] [place], [place] [id number] ALT [Catalytic activity/Vol] 58 U/L High 9-46 [facility] Specialist Comment on above: Result Comment: 07/11 Female reference range changed. Performed By: #### C MP, CBC, MG #### [facility] [address] [place], [place] [id number] Anion gap [Moles/Vol] 17 mmol/L Normal 12-20 [facility] Comment on above: Result Comment: [place] ctive 08/16/2019 reference range changed. Performed By: #### C MP, CBC, MG #### [facility] [address] [place], [place] [id number] AST [Catalytic activity/Vol] 51 U/L High 10-40 [facility] Comment on above: Performed By: #### C MP, CBC, MG #### [facility] [address] [place], [place] [id number] Bilirubin [Mass/Vol] 0.52 mg/dL Normal 0.30-1.20 [facility] Comment on above: Performed By: #### C MP, CBC, MG #### [facility] [address] [place], [place] [id number] BUN/CREA 12 Ratio Normal 6-22 [facility] Comment on above: Performed By: #### C MP, CBC, MG #### [facility] [address] [place], [place] [id number] Calcium [Mass/Vol] 9.9 mg/dL Normal 8.6-10.[address] [facility] Comment on above: Performed By: #### C MP, CBC, MG #### [facility] [address] [place], [place] [id number] Chloride [Moles/Vol] 102 mmol/L Normal 98-107 [facility] Comment on above: Performed By: #### C MP, CBC, MG #### [facility] [address] [place], [place] [id number] CO2 [Moles/Vol] 22 mmol/L Normal 20-31 [facility] Comment on above: Performed By: #### C MP, CBC, MG #### [facility] [address] [place], [place] [id number] Creatinine [Mass/Vol] 1.2 mg/dL Normal 0.7-1.4 [facility] Comment on above: Performed By: #### C MP, CBC, MG #### [facility] [address] [place], [place] [id number] eGFRAA 72 mL/min/1.73m2 Normal >60 [facility] [employer] Comment on above: Performed By: #### C MP, CBC, MG #### [facility] [address] [place], [place] [id number] eGFRNAA 59 mL/min/1.73m2 Low >60 [facility] Specialist Comment on above: Performed By: #### C MP, CBC, MG #### [facility] [address] [place], [place] [id number] Globulin (S) [Mass/Vol] 2.9 g/dL Normal 1.9-3.7 [facility] [employer] Comment on above: Performed By: #### C MP, CBC, MG #### [facility] [address] [place], [place] [id number] Glucose [Mass/Vol] 117 mg/dL High 65-99 [facility] [employer] Comment on above: Result Comment: For FASTING Glucose --- ADA reference ranges: Normal 65-99 mg/dl Prediabetes 100-125 Diabetes >/= 126 Performed By: #### C MP, CBC, MG #### [facility] [address] [place], [place] [id number] Potassium [Moles/Vol] 4.5 mmol/L Normal 3.5-5.5 [facility] [employer] Comment on above: Performed By: #### C MP, CBC, MG #### [facility] [address] [place], [place] [id number] Protein [Mass/Vol] 7.4 g/dL Normal 6.1-8.1 [facility] [employer] Comment on above: Performed By: #### C MP, CBC, MG #### [facility] [address] [place], [place] [id number] Sodium [Moles/Vol] 137 mmol/L Normal 135-146 [facility] [employer] Comment on above: Performed By: #### C MP, CBC, MG #### [facility] [address] [place], [place] [id number] Urea nitrogen [Mass/Vol] 15 mg/dL Normal 7-25 [facility] [employer] [facility] Comment on above: Performed By: #### C MP, CBC, MG #### [facility] [address] [place], [place] [id number] Hemoglobin A1Con 09-20-2021 EAG 142.72 Normal [facility] [employer] [facility] Comment on above: Performed By: #### A 1C #### [facility] [address] [place], [place] [id number] HbA1c (Bld) [Mass fraction] 6.6 % High 4.0-6.0 [facility] [employer] [facility] Comment on above: Performed By: #### A 1C #### [facility] [address] [place], [place] [id number] Magnesiumon 09-20-2021 Magnesium [Mass/Vol] 2.0 mg/dL Normal 1.5-2.3 [facility] [employer] Operator Comment on above: Performed By: #### C MP, CBC, MG #### [facility] [address] [place], [place] [id number] Vital Signs Date Time Vital Sign Value Performing Clinician Anne-Marie lackey 03-15-2022 09:24-0400 Diastolic blood pressure 82 mm[Hg] DO Lay Talbot Work Phone: [facility] 03-15-2022 09:24-0400 Heart rate 72 /min DO Lay Hykes Work Phone: [facility] 03-15-2022 09:24-0400 Respiratory rate 18 /min DO Lay Hykes Work Phone: [facility] 03-15-2022 09:24-0400 SaO2% (BldA) [Mass fraction] 97 % DO Lay Carmenkes Work Phone: [facility] 03-15-2022 09:24-0400 Systolic blood pressure 115 mm[Hg] DO Lay Hykes Work Phone: [facility] 03-15-2022 07:21-0400 Body height 171.45 cm DO Lay Hykes Work Phone: [facility] 03-15-2022 07:21-0400 Body temperature 98.5 [degF] DO Lay Carmenkes Work Phone: [facility] 03-15-2022 07:21-0400 Body weight 86.18 kg DO Lay Talbot Work Phone: [facility] Encounters Encounter Date Encounter Type Care Provider [...] surgery center DO Lay Talbot Work Phone: [facility] Procedures Date Procedure Procedure Detail Performing Clinician Start: 03-15-2022 Screening colonoscopy D O Lay Talbot Work Phone: Plan of Treatment Date Care Activity Detail Author Start: 03-15-2022 [facility] Work Phone: Payers Date Payer Category Payer Medicaid [id number] 1958 Medicare [id number] 1958 Medicare [id number] 1955 Unknown [id number] 2.16.84 [id number] 1955 Unknown [id number] 2.16.84 [id number] 1955 Unknown [id number] 2.16.84 [id number] 1955 Unknown [id number] 2.16.84 [id number] 1955 Unknown [id number] 2.16.84 [id number] 1955 Unknown [id number] 2.16.84 [id number] Medicaid [id number] Self-pay Self Pay [id number] Unknown [employer] [id number] Social History Date Type Detail Facility Start: 03-15-2022 Tobacco smoking stat [facility] Never smoked tobacco (finding) [facility] Start: 1955 Sex Assigned At Male F [facility] Medical Equipment Procedure Code Equipment Code Equipment Origin al Text Equipment Identifier Dates Phacoemulsification of cataract with intraocular lens implantation Posterior-chamber intraocular lens, pseudophakic [id number] FDA Start: 01-27-2020 Phacoemulsification of cataract with intraocular lens implantation Posterior-chamber intraocular lens, pseudophakic [id number] FDA Start: 02-24-2020 Goals Date Patient Goal [...] authenticated by: RUFUS VALDEZ Date: 2022-10-02 11:10 [facility] History and physical note 03-15-2022 Note Date & Type Note Facility 03-15-2022 History and physi tara note Note Date/Time March 15, 2022 8:20am [facility] [address] [place] [address] Gastroenterology H&P Signed Patient: Lenora Tillman MR#: [id number] : 1955 Acct:[id number] Age/Sex: 66 / M Adm Date: 2 Loc: Room: Type: [facility] Attending Dr: Lay Talbot DO Copies to: [...] by Lay Talbot Jr, DO> 03/15/22 0832 [facility] Work Phone: Procedure note 03-15-2022 Note Date & Type Note Facility 03-15-2022 Procedure note [facility] Evaluation note Note Date & Type Note Facility Evaluation note Diagnosis Onset Date Screening for colorectal cancer acute [facility] Work Phone: Hospital Discharge instructions [...] if you have any problems. -Office number [phone] [facility] Work Phone: Summary Purpose Family [...] section and content) DATE CREATED AUTHOR 11/21/2021 [facility] dical Specialist DATE CREATED AUTHOR AUTHOR'S ORGANIZ ATION 03/16/2022 [facility] DATE CREATED AUTHOR AUTHOR'S ORGANIZ ATION 12/14/2022 [facility] Care Teams (unrecognized sec tion and [...] BE BASED ON THE PRIMARY CLINICAL RECORDS. [employer] [facility]. provides no warranty or guarantee of the accuracy or completeness of information in this document.
== END 2023-08-20 01:38 | disposition home or self-care (01) ==
LOC: LAB 01:37
PROVIDERS: PCP Family Medicine; Visit Provider Family Medicine
DX: N18.2 Chronic kidney disease, stage 2 (mild) (principal)
CPT/HCPCS: 36415; 82746

== ENCOUNTER 2023-09-15 01:58 | Outpatient (REF) | payer MEDICARE, MEDICAID, SELFPAY ==
--- OUTSIDE RECORDS SUMMARY | 2023-09-15 02:00 | XMS_ITS | CCD ---
Author Name Unknown Address [address] [place] [address] Organization [facility] Care Team Providers Care Criminal Records Technician Name Role Phone Antione DO Lay Wagner Attending Provider [phone] CINDY Dow Primary Care Provider YVES [...] MCELROY Primary Care Unavailable GRECHCLAUDIA ., GARFIELD ONEAL Consulting UnavailHERRERA Stafford Admitting Unavailable KRISTEN .HERRERA Attending Unavailable JAC GILL Consulting Unavailable LAY ROQUE Consulting Unavailable Medications Current Medications Medication Drug Class(es) Dates Sig (Normalized) Sig (Original) acetaminophen 325 mg oral tablet (1 source) Start: 03-15-2022 take 650 mg by mouth every four hours Acetaminophen Active 650 MG PO Q4H March 15, 2022 12:00am [id number] 200 actuat albuterol 0.09 mg/actuat metered dose [...] January 21, 2020 12:00am polyethylene glycol 3350 48080 mg powder for oral solution (1 source) [...] Onset: 11-05-2022 Episodic Other aftercare (1 source) longterm (current) use of aspirin; Translations: [JAIL CURRENT USE OF ASPIRIN] Onset: 11-05-2022 Episodic Other aftercare (1 source) 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 Kathya Ryan Basophils/100 WBC (Bld) 0.5 % Normal 0.2-2.0 [facility] Comment on above: Performed By: #### C BC ####[facility] [address] [place] [id number]. Kathya Ryan EO # 0.3 103/ul Normal 0.0-0.7 [facility] Comment on above: Performed By: #### C BC ####[facility] [address] [place] [address]Dr. Kathya Ryan Eosinophils/100 WBC (Bld) 5.4 % Normal 0.9-7.0 [facility] Comment on above: Performed By: #### C BC ####[facility] [address] [place] [id number]. Kathya Ryan Erythrocyte distribution width (RBC) [Ratio] 12.5 % Normal 11.0-15.0 [facility] Comment on above: Performed By: #### C BC ####[facility] [address] [place] [id number]. Kathya Ryan Hematocrit (Bld) [Volume fraction] 42.4 % Normal 42.0-54.0 [facility] Comment on above: Performed By: #### C BC ####[facility] [address] [place], [place] [address]Dr. Kathya Ryan Hemoglobin (Bld) [Mass/Vol] 14.1 g/dL Normal 14.0-18.0 [facility] Comment on above: Performed By: #### C BC ####[facility] [address] [place], [place] [address]Dr. Kathya Ryan IG # 0.02 10e3/ul Normal 0.00-0.03 [facility] Comment on above: Performed By: #### C BC ####[facility] [address] [place], [place] [address]Dr. Kathya Ryan IG % 0.3 % Normal 0.0-0.5 [facility] Comment on above: Performed By: #### C BC ####[facility] [address] [place], [place] [address]Dr. Kathya Ryan LYMPH # 1.3 103/ul Normal 1.2-3.8 [facility] Comment on above: Performed By: #### C BC ####[facility] [address] [place], [place] [address]Dr. Kathya Ryan Lymphocytes/100 WBC (Bld) 22.4 % Normal 20.5-60.0 [facility] Comment on above: Performed By: #### C BC ####[facility] [address] [place] [id number]. Kathya Ryan MANUAL DIFF REQ NO Normal [facility] Comment on above: Performed By: #### C BC ####[facility] [address] [place] [id number]. Kathya Ryan MCH (RBC) [Entitic mass] 30.5 pg Normal 25.9-34.0 [facility] Comment on above: Performed By: #### C BC ####[facility] [address] [place] [id number]. Kathya Ryan MCHC (RBC) [Mass/Vol] 33.3 g/dL Normal 29.9-35.2 [facility] Comment on above: Performed By: #### C BC ####[facility] [address] [place] [phone]. Kathya Ryan MCV (RBC) [Entitic vol] 91.8 fL Normal 80.0-94.0 [facility] Comment on above: Performed By: #### C BC ####[facility] [address] [place], [place] [address]Dr. Kathya Ryan MONO # 0.7 103/ul Normal 0.3-0.8 [facility] Comment on above: Performed By: #### C BC ####[facility] [address] [place] [address]Dr. Mireyajack Ryan Monocytes/100 WBC (Bld) 12.2 % Critically high 1.7-12.0 [facility] Comment on above: Performed By: #### C BC ####[facility] [address] [place], [place] [address]Dr. Kathya Ryan NEUT # 3.5 103/ul Normal 1.4-6.5 [facility] Comment on above: Performed By: #### C BC ####[facility] [address] [place], [place] [address]Dr. Mireyajack Ryan Neutrophils/100 WBC (Bld) 59.2 % Normal 43.0-75.0 [facility] Comment on above: Performed By: #### C BC ####[facility] [address] [place], [place] [address]Dr. Mireyajack Ryan Platelet mean volume (Bld) [Entitic vol] 9.1 fL Critically low 9.5-13.5 [facility] Comment on above: Performed By: #### C BC ####[facility] [address] [place], [place] [address]Vu. Kathya Ryan PLT 211 103/ul Normal 150-450 [facility] Comment on above: Performed By: #### C BC ####[facility] [address] [place], [place] [address]Nq. Kathya Ryan RBC 4.62 106/ul Critically low 4.70-6.10 [facility] Comment on above: Performed By: #### C BC ####[facility] [address] [place], [place] [address]Cy. Kathya Ryan WBC 5.9 103/ul Normal 4.0-11.0 [facility] Comment on above: Performed By: #### C BC ####[facility] [address] [place], [place] [address]KjBriseyda Ryan GLYCOHEMOGLOBIN A1Con 2022 ADA RECOMMENDATION SEE BELOW Normal [facility] Comment on above: Result Comment: ADA RECOMMENDED LIMIT 4.0 - 6.0 ADA THERAPEUTIC TARGET < 7.0 ACTION SUGGESTED > 7.0 Performed By: #### A 1C #### [facility] [address] [address] [address] Kathya Ryan Glucose [Mass/Vol] 123 mg/dL Normal [facility] Comment on above: Performed By: #### A 1C #### [facility] [address] [address] [address] Kathya Ryan HbA1c (Bld) [Mass fraction] 5.9 % Normal 4.5-6.2 [facility] Comment on above: Performed By: #### A 1C #### [facility] [address] [address] [address] Kathya Ryan LIPID PROFILEon 12-09-2022 CHOL-HDL RATIO NORM SEE BELOW Normal [facility] Comment on above: Result Comment: 3.3 - 4.4 LOW RISK 4.4 - 7.1 AVERAGE RISK 7.1 - 11.0 MODERATE RISK >11.0 HIGH RISK Performed By: #### L IPID, CMP #### [facility] [address] [address] [address] Kathya Ryan Cholesterol [Mass/Vol] 132 mg/dL Normal <=200 [facility] Comment on above: Performed By: #### L IPID, CMP #### [facility] [address] [address] [address] Kathya Ryan Cholesterol in HDL [Mass/Vol] 29 mg/dL Critically low 40-60 [facility] Comment on above: Performed By: #### L IPID, CMP #### [facility] [address] [address] [address] Kathya Ryan Cholesterol in LDL [Mass/Vol] 83.0 mg/dL Normal [facility] Comment on above: Performed By: #### L IPID, CMP #### [facility] [address] [address] [address] Kathya Ryan Cholesterol.total/Ch olesterol in HDL [Mass ratio] 4.6 {ratio} Normal [facility] Comment on above: Performed By: #### L IPID, CMP #### [facility] [address] [address] [address] Kathya Ryan HDL NORMAL > or = 60 mg/dl - LO W CARDIOVASCULAR RISK <40 mg/dl - HIGH CARDIOVASCULAR RISK Normal [facility] Comment on above: Performed By: #### L IPID, CMP #### [facility] [address] [address] [address] Kathya Ryan LDL CALC NORMAL SEE BELOW Normal [facility] Comment on above: Result Comment: <100 mg/dl OPTIMAL 100 - 129 mg/dl NEAR OR ABOVE OPTIMAL 130 - 159 mg/dl BORDERLINE HIGH 160 - 189 mg/dl HIGH >190 mg/dl VERY HIGH Performed By: #### L IPID, CMP #### [facility] [address] [address] [address] Kathya Ryan Triglyceride [Mass/Vol] 102 mg/dL Normal <=150 [facility] Comment on above: Performed By: #### L IPID, CMP #### [facility] [address] [address] [address] Kathya Ryan VLDL CALC 20.4 mg/dL Normal [facility] Comment on above: Performed By: #### L IPID, CMP #### [facility] [address] [address] [address] Kathya Ryan PROF 14(COMP METB)on 023 Albumin [Mass/Vol] 3.3 g/dL Critically low 3.4-5.0 Th e [facility] Comment on above: Performed By: #### L IPID, CMP #### [facility] [address] [address] [address] Kathya Ryan Albumin/Globulin [Mass ratio] 0.9 {ratio} Normal [facility] Comment on above: Performed By: #### L IPID, CMP #### [facility] [address] [place] [address] Dr. Kathya Ryan ALP [Catalytic activity/Vol] 71 U/L Normal 46-116 [facility] Comment on above: Performed By: #### L IPID, CMP #### [facility] [address] [place] [address] Dr. Kathya Ryan ALT [Catalytic activity/Vol] 50 U/L Normal 16-63 [facility] Comment on above: Performed By: #### L IPID, CMP #### [facility] [address] [place] [address] Dr. Kathya Ryan Anion gap [Moles/Vol] 12.6 mmol/L Normal [facility] Comment on above: Performed By: #### L IPID, CMP #### [facility] [address] [address] [address] Kathya Ryan AST [Catalytic activity/Vol] 34 U/L Normal 15-37 [facility] Comment on above: Performed By: #### L IPID, CMP #### [facility] [address] [place] [address] Dr. Kathya Ryan Bilirubin [Mass/Vol] 0.4 mg/dL Normal 0.2-1.0 [facility] Comment on above: Performed By: #### L IPID, CMP #### [facility] [address] [place] [address] Dr. Kathya Ryan Calcium [Mass/Vol] 8.9 mg/dL Normal 8.5-10.1 [facility] Comment on above: Performed By: #### L IPID, CMP #### [facility] [address] [place] [address] Dr. Kathya Ryan Chloride [Moles/Vol] 106 mmol/L Normal 98-107 [facility] Comment on above: Performed By: #### L IPID, CMP #### [facility] [address] [place] [address] Dr. Kathya Ryan CO2 [Moles/Vol] 27.4 mmol/L Normal 21.0-32.0 [facility] Comment on above: Performed By: #### L IPID, CMP #### [facility] [address] [place] [address] Dr. Kathya Ryan Creatinine [Mass/Vol] 1.45 mg/dL Critically high 0.70-1.30 [facility] Comment on above: Performed By: #### L IPID, CMP #### [facility] [address] [place] [address] Dr. Kathya Ryan EGFR-AF DJIBOUTIAN 59 mL/min/1.73m2 Critically low >=60 [facility] Comment on above: Performed By: #### L IPID, CMP #### [facility] [address] [place] [address] Dr. Kathya Ryan EGFR-NON AF DJIBOUTIAN 49 mL/min/1.73m2 Critically low >=60 [facility] Comment on above: Performed By: #### L IPID, CMP #### [facility] [address] [place] [address] Dr. Kathya Ryan Globulin (S) [Mass/Vol] 3.8 g/dL Normal [facility] Comment on above: Performed By: #### L IPID, CMP #### [facility] [address] [place] [address] Dr. Kathya Ryan Glucose [Mass/Vol] 109 mg/dL Critically high 74-106 [facility] Comment on above: Performed By: #### L IPID, CMP #### [facility] [address] [address] [address] Kathya Ryan Potassium [Moles/Vol] 3.9 mmol/L Normal 3.5-5.1 [facility] Comment on above: Performed By: #### L IPID, CMP #### [facility] [address] [address] [address] Kathya Ryan Protein [Mass/Vol] 7.1 g/dL Normal 6.4-8.2 [facility] Comment on above: Performed By: #### L IPID, CMP #### [facility] [address] [address] [address] Kathya Ryan Sodium [Moles/Vol] 142 mmol/L Normal 136-145 [facility] Comment on above: Performed By: #### L IPID, CMP #### [facility] [address] [address] [address] Kathya Ryan Urea nitrogen [Mass/Vol] 17.0 mg/dL Normal 7.0-18.0 [facility] Comment on above: Performed By: #### L IPID, CMP #### [facility] [address] [address] [address] Kathya Ryan Urea nitrogen/Creatinine [Mass ratio] 11.7 mg/mg Normal [facility] Comment on above: Performed By: #### L IPID, CMP #### [facility] [address] [address] [address] Kathya Ryan FREE LIGHT CHAINS PLUS RATIO , URINEon 11-14-2022 Free Lamoure Lt Chains,Ur 86.11 mg/L Normal 1.17-86.46 [facility] Comment on above: Performed By: #### F FIDEL ####[facility] [address] [place] [address]Dr. Kathya Ryan Free Lambda Lt Chains,Ur 11.37 mg/L Normal 0.27-15.21 [facility] Comment on above: Performed By: #### F FIDEL ####[facility] [address] [place] [address]Dr. Kathya Ryan Lamoure/ Lambda Urine Ratio 7.57 Normal 1.83-14.26 [facility] Comment on above: Performed By: #### F FIDEL ####[facility] [address] [place], [place] [address]Eb. Kathya Ryan CT CSPINE WO CONon CT [...] KARIME MAYES Date: 2022-11-04 00:29 Normal [facility] CT HEAD WO CONon 11-04-2022 CT [...] JAC GILL Date: 2022-11-04 00:28 Normal [facility] CBC AUTO DIFFon 10-02-2022 BASO # 0.1 103/ul Normal 0.0-0.1 [facility] Comment on above: Performed By: #### C BC ####[facility] [address] [place] [id number]. Kathya Ryan Basophils/100 WBC (Bld) 0.5 % Normal 0.2-2.0 [facility] Comment on above: Performed By: #### C BC ####[facility] [address] [place], [place] [address]Dr. Kathya Ryan EO # 0.8 103/ul Critically high 0.0-0.7 [facility] Comment on above: Performed By: #### C BC ####[facility] [address] [place] [address]Dr. Kathya Ryan Eosinophils/100 WBC (Bld) 7.6 % Critically high 0.9-7.0 [facility] Comment on above: Performed By: #### C BC ####[facility] [address] [place] [id number]. Kathya Ryan Erythrocyte distribution width (RBC) [Ratio] 13.3 % Normal 11.0-15.0 [facility] Comment on above: Performed By: #### C BC ####[facility] [address] [place], [place] [address]Dr. Kathya Ryan Hematocrit (Bld) [Volume fraction] 39.7 % Critically low 42.0-54.0 [facility] Comment on above: Performed By: #### C BC ####[facility] [address] [place], [place] [address]Dr. Kathya Ryan Hemoglobin (Bld) [Mass/Vol] 13.4 g/dL Critically low 14.0-18.0 [facility] Comment on above: Performed By: #### C BC ####[facility] [address] [place] [id number]. Kathya Ryan IG # 0.04 10e3/ul Critically high 0.00-0.03 [facility] Comment on above: Performed By: #### C BC ####[facility] [address] [place] [id number]. Kathya Ryan IG % 0.4 % Normal 0.0-0.5 [facility] Comment on above: Performed By: #### C BC ####[facility] [address] [place] [address]Dr. Kathya Connor LYMPH # 1.6 103/ul Normal 1.2-3.8 [facility] Comment on above: Performed By: #### C BC ####[facility] [address] [place] [address]Dr. Kathya Ryan Lymphocytes/100 WBC (Bld) 15.8 % Critically low 20.5-60.0 [facility] Comment on above: Performed By: #### C BC ####[facility] [address] [place] [address]Dr. Mireyajack Ryan MANUAL DIFF REQ NO Normal [facility] Comment on above: Performed By: #### C BC ####[facility] [address] [place] [address]Dr. Kathya Ryan MCH (RBC) [Entitic mass] 29.8 pg Normal 25.9-34.0 [facility] Comment on above: Performed By: #### C BC ####[facility] [address] [place], [place] [address]Dr. Kathya Ryan MCHC (RBC) [Mass/Vol] 33.8 g/dL Normal 29.9-35.2 [facility] Comment on above: Performed By: #### C BC ####[facility] [address] [place] [address]Dr. Kathya Ryan MCV (RBC) [Entitic vol] 88.4 fL Normal 80.0-94.0 [facility] Comment on above: Performed By: #### C BC ####[facility] [address] [place] [id number]. Kathya Ryan MONO # 1.2 103/ul Critically high 0.3-0.8 [facility] Comment on above: Performed By: #### C BC ####[facility] [address] [place] [address]Dr. Kathya Ryan Monocytes/100 WBC (Bld) 12.1 % Critically high 1.7-12.0 [facility] Comment on above: Performed By: #### C BC ####[facility] [address] [place] [id number]. Kathya Ryan NEUT # 6.4 103/ul Normal 1.4-6.5 [facility] Comment on above: Performed By: #### C BC ####[facility] [address] [place] [address]Dr. Kathya Ryan Neutrophils/100 WBC (Bld) 63.6 % Normal 43.0-75.0 [facility] Comment on above: Performed By: #### C BC ####[facility] [address] [place] [id number]. Kathya Ryan Platelet mean volume (Bld) [Entitic vol] 8.8 fL Critically low 9.5-13.5 [facility] Comment on above: Performed By: #### C BC ####[facility] [address] [place] [address]Dr. Kathya Ryan PLT 237 103/ul Normal 150-450 [facility] Comment on above: Performed By: #### C BC ####[facility] [address] [place] [id number]. Kathya Ryan RBC 4.49 106/ul Critically low 4.70-6.10 [facility] Comment on above: Performed By: #### C BC ####[facility] [address] [place] [id number]. Kathya Ryan WBC 10.1 103/ul Normal 4.0-11.0 [facility] Comment on above: Performed By: #### C BC ####[facility] [address] [place], [place] [address]Up. Kathya [address] CT CSPINE WO CONon CT [...] LAY ROQUE Date: 2022-10-02 20:33 Normal [facility] CT HEAD WO CONon 10-02-2022 CT [...] JAC GILL Date: 2022-10-02 20:41 Normal [facility] CULTURE URINEon 10-02-2022 CULTURE URINE Culture Observations : LIGHT GROWTH OF MIXED SKIN LUKASZ. NO POTENTIAL PATHOGENS SEEN. Normal [facility] Comment on above: Performed By: #### U RCX ####[facility] [address] [place] [address]Dr. Kathya Ryan ER URINE PROFILEon 3 Bilirubin Ql (U) Negative Normal NEGATIVE [facility] Comment on above: Performed By: #### U MICRO, ERUR #### [facility] [address] [address] [address] Kathya Ryan Clarity (U) CLEAR Normal CLEAR [facility] Comment on above: Performed By: #### U MICRO, ERUR #### [facility] [address] [place] [address] Dr. Kathya Ryan Color (U) YELLOW Normal YELLOW [facility] Comment on above: Performed By: #### U MICRO, ERUR #### [facility] [address] [address] [address] Kathya MARQUEZD A micrscopic examination will be performed if indicated. Normal [facility] Comment on above: Performed By: #### U MICRO, ERUR #### [facility] [address] [address] [address] Kathay Ryan Glucose Ql (U) 500 mg/dl Abnormal NEGATIVE [facility] Comment on above: Performed By: #### U MICRO, ERUR #### [facility] [address] [address] [address] Kathya Ryan Hemoglobin Ql (U) SMALL Abnormal NEGATIVE [facility] Comment on above: Performed By: #### U MICRO, ERUR #### [facility] [address] [address] [address] Kathya Ryan Ketones Ql (U) TRACE Abnormal NEGATIVE [facility] Comment on above: Performed By: #### U MICRO, ERUR #### [facility] [address] [address] [address] Kathya Ryan LEUKOCYTES TRACE Abnormal NEGATIVE [facility] Comment on above: Performed By: #### U MICRO, ERUR #### [facility] [address] [place] [address] Dr. Kathya Ryan Nitrite Ql (U) Negative Normal NEGATIVE [facility] Comment on above: Performed By: #### U MICRO, ERUR #### [facility] [address] [address] [address] Kathya Ryan pH (U) 5.5 [pH] Normal 5-9 [facility] Comment on above: Performed By: #### U MICRO, ERUR #### [facility] [address] [place] [address] Dr. Kathya Ryan SPEC GRAVITY >=1.030 Abnormal 1.005-<=1.025 [facility] Comment on above: Performed By: #### U MICRO, ERUR #### [facility] [address] [place] [address] Dr. Kathya Ryan UA PROTEIN TRACE Normal NEGATIVE/ TRACE [facility] Comment on above: Performed By: #### U MICRO, ERUR #### [facility] [address] [place] [address] Dr. Kathya Ryan UR MICRO IND INDICATED Normal [facility] Comment on above: Performed By: #### U MICRO, ERUR #### [facility] [address] [place] [address] Dr. Kathya Ryan Urobilinogen Qn (U) 2.0 {Luanne'U}/dL Abnormal 0.2 - 1. 0 [facility] Comment on above: Performed By: #### U MICRO, ERUR #### [facility] [address] [place] [address] Dr. Kathya Ryan PROF 14(COMP METB)on 023 Albumin [Mass/Vol] 3.5 g/dL Normal 3.4-5.0 [facility] Comment on above: Performed By: #### H STROPN, CMP, TSH #### [facility] [address] [place] [address] Dr. Kathya Ryan Albumin/Globulin [Mass ratio] 0.9 {ratio} Normal [facility] Comment on above: Performed By: #### H STROPN, CMP, TSH #### [facility] [address] [address] [address] Kathya Ryan ALP [Catalytic activity/Vol] 108 U/L Normal 46-116 [facility] Comment on above: Performed By: #### H STROPN, CMP, TSH #### [facility] [address] [address] [address] Kathya Ryan ALT [Catalytic activity/Vol] 38 U/L Normal 16-63 [facility] Comment on above: Performed By: #### H STROPN, CMP, TSH #### [facility] [address] [address] [address] Kathya Ryan Anion gap [Moles/Vol] 11.4 mmol/L Normal [facility] Comment on above: Performed By: #### H STROPN, CMP, TSH #### [facility] [address] [address] [address] Kathya Ryan AST [Catalytic activity/Vol] 28 U/L Normal 15-37 [facility] Comment on above: Performed By: #### H STROPN, CMP, TSH #### [facility] [address] [address] [address] Kathya Ryan Bilirubin [Mass/Vol] 0.9 mg/dL Normal 0.2-1.0 [facility] Comment on above: Performed By: #### H STROPN, CMP, TSH #### [facility] [address] [address] [address] Kathya Ryan Calcium [Mass/Vol] 9.1 mg/dL Normal 8.5-10.1 [facility] Comment on above: Performed By: #### H STROPN, CMP, TSH #### [facility] [address] [address] [address] Kathya Ryan Chloride [Moles/Vol] 100 mmol/L Normal 98-107 [facility] Comment on above: Performed By: #### H STROPN, CMP, TSH #### [facility] [address] [address] [address] Kathya Ryan CO2 [Moles/Vol] 27.7 mmol/L Normal 21.0-32.0 [facility] Comment on above: Performed By: #### H STROPN, CMP, TSH #### [facility] [address] [place] [address] Dr. Kathya Ryan Creatinine [Mass/Vol] 1.69 mg/dL Critically high 0.70-1.30 [facility] Comment on above: Performed By: #### H STROPN, CMP, TSH #### [facility] [address] [place] [address] Dr. Kathya Ryan EGFR-AF DJIBOUTIAN 50 mL/min/1.73m2 Critically low >=60 [facility] Comment on above: Performed By: #### H STROPN, CMP, TSH #### [facility] [address] [place] [address] Dr. Kathya Ryan EGFR-NON AF DJIBOUTIAN 41 mL/min/1.73m2 Critically low >=60 [facility] Comment on above: Performed By: #### H STROPN, CMP, TSH #### [facility] [address] [place] [address] Dr. Kathya Ryan Globulin (S) [Mass/Vol] 3.8 g/dL Normal [facility] Comment on above: Performed By: #### H STROPN, CMP, TSH #### [facility] [address] [place] [address] Dr. Kathya Ryan Glucose [Mass/Vol] 259 mg/dL Critically high 74-106 [facility] Comment on above: Performed By: #### H STROPN, CMP, TSH #### [facility] [address] [place] [address] Dr. Kathya Ryan Potassium [Moles/Vol] 4.1 mmol/L Normal 3.5-5.1 [facility] Comment on above: Performed By: #### H STROPN, CMP, TSH #### [facility] [address] [place] [address] Dr. Kathya Ryan Protein [Mass/Vol] 7.3 g/dL Normal 6.4-8.2 [facility] Comment on above: Performed By: #### H STROPN, CMP, TSH #### [facility] [address] [address] [address] Kathya Ryan Sodium [Moles/Vol] 135 mmol/L Critically low 136-145 Th e [facility] Comment on above: Performed By: #### H FARAZ MACIAS, TSH #### [facility] [address] [address] [address] Kathya Ryan Urea nitrogen [Mass/Vol] 15.0 mg/dL Normal 7.0-18.0 [facility] Comment on above: Performed By: #### H FARAZ MACIAS, TSH #### [facility] [address] [address] [address] Kathya Ryan Urea nitrogen/Creatinine [Mass ratio] 8.9 mg/mg Normal [facility] Comment on above: Performed By: #### H FARAZ MACIAS, TSH #### [facility] [address] [address] [address] Kathya Ryan PROTIMEon 10-02-2022 INR Coag (PPP) [Relative time] 1.00 {INR} Normal [facility] Comment on above: Performed By: #### P T, PTT ####[facility] [address] [address]Dr. Kathya Ryan INR GUIDELINES SEE BELOW Normal [facility] Comment on above: Result Comment: JONI RED INR: 2.0 - 3.0 CONDITIONS NOT LISTED BELOW 2.5 - 3.5 FOR PROSTHETIC HEART VALVE REPLACEMENT 2.5 - 3.5 RECURRENT THROMBOSIS Performed By: #### P T, PTT ####[facility] [address] [address]DrBriseyda Ryan PT Coag (PPP) [Time] 10.6 s Normal 9.0-11.6 [facility] Comment on above: Performed By: #### P T, PTT ####[facility] [address] [address]Dr. Kathya Ryan PTTon 10-02-2022 aPTT Coag (Bld) [Time] 26.9 s Normal 22.3-36.2 [facility] Comment on above: Performed By: #### P T, PTT ####[facility] [address] [address]Dr. Kathya Ryan TROPONIN, HIGH SENSITIVITYon 10-02-2022 HSTROP 4.2 pg/mL Normal 4.0-76.1 [facility] Comment on above: Result Comment: CUT- OFF POINTS HAVE BEEN ESTABLISHED BASED ON THE FOURTH UNIVERSAL DEFINITIONS OF MYOCARDIAL INFARCTION. THE UPPER REFERENCE LIMIT (URL) OF TROPONIN, DEFINED THE 99TH PERCENTILE OF cTnI DISTRIBUTION IN A REFERENCE POPULATION, HAS BEEN CONFIRMED THE DECISION THRESHOLD FOR AL DIAGNOSIS. Performed By: #### H STROJIMI, CMP, TSH ####[facility] [address] [address]Dr. Kathya Ryan TSHon 10-02-2022 TSH 2.502 uIU/mL Normal 0.358-3.740 [facility] Comment on above: Performed By: #### H STROJIMI, CMP, TSH ####[facility] [address] [address]Dr. Kathya Ryan URINE MICROSCOPIC ONLYon BACTERIA MODERATE Abnormal NONE SEEN [facility] Comment on above: Performed By: #### U MICRO, ERUR #### [facility] [address] [place] [address] Dr. Kathya Ryan Bacteria identified Cx Nom (U) INDICATED Normal [facility] Comment on above: Performed By: #### U MICRO, ERUR #### [facility] [address] [address] [address] Kathya Ryan CAST NONE SEEN Normal NONE SEEN [facility] Comment on above: Performed By: #### U MICRO, ERUR #### [facility] [address] [address] [address] Kathya Ryan Crystals LM Nom (Urine sed) NONE SEEN Normal NONE SEEN [facility] Comment on above: Performed By: #### U MICRO, ERUR #### [facility] [address] [place] [address] Dr. Kathya Ryan Epithelial cells LM Ql (Urine sed) RARE Normal NONE SEEN /RARE [facility] Comment on above: Performed By: #### U MICRO, ERUR #### [facility] [address] [address] [address] Kathya Ryan HYALINE CAST FEW Normal [facility] Comment on above: Performed By: #### U MICRO, ERUR #### [facility] [address] [address] [address] Kathya Ryan MUCOUS NONE SEEN Normal NONE SEEN [facility] Comment on above: Performed By: #### U MICRO, ERUR #### [facility] [address] [address] [address] Kathya Ryan RBC 10-20 Abnormal 0-2 [facility] Comment on above: Performed By: #### U MICRO, ERUR #### [facility] [address] [address] [address] Kathya Ryan WBC 5-10 Abnormal NONE SEEN [facility] Comment on above: Performed By: #### U MICRO, ERUR #### [facility] [address] [address] [address] Kathya Ryan XR CHEST 1 Von [...] by: LAY ROQUE Date: 2022-10-02 20:56 Normal [facility] XR KNEE RT 4V or >on [...] by: LAY ROQUE Date: 2022-10-02 20:59 Normal [facility] XR LSPINE 2_3 VIEWSon 2022 XR [...] LAY ROQUE Date: 2022-10-02 20:55 Normal [facility] XR PELVIS 1_2 VIEWSon 2022 XR PELVIS 1_2 VIEWS EXAM: XR PELVIS 1_2 VIEWS HISTORY: Fall COMPARISON: None. TECHNIQUE: Single view FINDINGS: No osseous lesion, fracture, dislocation or subluxation. Joint spaces are unremarkable for patient's age. No visualized effusion. No visualized soft tissue edema. IMPRESSION: Normal x-rays Electronically authenticated by: LAY ROQUE Date: 2022-10-02 21:04 Normal [facility] Glucose Glucometer (dC) [M ass/Vol]Ordered By: Lay Talbot on 03-15-2022 Glucose [Mass/Vol] 131 mg/dL [facility] Comment on above: Random Glucose Refer ence Range is dependent on time and content of last meal. Glucose of more than 200 mg/dL in a nonstressed, ambulatory subject supports the diagnosis of Diabetes Mellitus. Glucose Poct Glucometerson 0 03-15-2022 Glucose [Mass/Vol] 131 mg/dL Normal [facility] Comment on above: Result Comment: [place] Glucose Reference Range is dependent on time and content of last meal. Glucose of more than 200 mg/dL in a nonstressed, ambulatory subject supports the diagnosis of Diabetes Mellitus. PERFORMED BY: [facility] [address] [place] [address] PATHOLOGIST ONCOLOGIST CARINA HASSAN M.D. Performed By: #### G LUMIRANDA #### Point of Care testing , PSA SCREEN (MEDICARE)on 11-09 TPSA 3.110 ng/mL Normal <4.000 [facility] Comment on above: Result Comment: PSA Test Method: ECLIA/Urvashi e 601 Performed By: #### P MC #### [facility] [address], [place] [id number] Complete Blood Counton 09-20 Erythrocyte distribution width (RBC) [Ratio] 12.6 % Normal 11.0-15.0 [facility] Comment on above: Performed By: #### C MP, CBC, MG #### [facility] [address], [place] [id number] Hematocrit (Bld) [Volume fraction] 47.3 % Normal 38.5-50.0 [facility] Comment on above: Performed By: #### C MP, CBC, MG #### [facility] [address], [place] [id number] Hemoglobin (Bld) [Mass/Vol] 15.8 g/dL Normal 13.0-17.1 [facility] Comment on above: Performed By: #### C MP, CBC, MG #### [facility] [address], [place] [id number] MCH (RBC) [Entitic mass] 28.6 pg Normal 27.0-33.0 [facility] Comment on above: Performed By: #### C MP, CBC, MG #### [facility] [address], [place] [id number] MCHC (RBC) [Mass/Vol] 33.4 g/dL Normal 32.0-36.0 [facility] Comment on above: Performed By: #### C MP, CBC, MG #### [facility] [address], [place] [id number] MCV (RBC) [Entitic vol] 86 fL Normal 80-100 [facility] Comment on above: Performed By: #### C MP, CBC, MG #### [facility] [address], [place] [id number] Platelet mean volume (Bld) [Entitic vol] 8.90 fL Normal 7.50-12.50 [facility] Specialist Comment on above: Performed By: #### C MP, CBC, MG #### [facility] [address], [place] [id number] Platelets (Bld) [#/Vol] 258 10*3/uL Normal 140-400 [facility] Comment on above: Performed By: #### C MP, CBC, MG #### [facility] [address], [place] [id number] RBC (Bld) [#/Vol] 5.53 10*6/uL Normal 4.20-5.80 [facility] Specialist Comment on above: Performed By: #### C MP, CBC, MG #### [facility] [address], [place] [id number] RDW-SD 39.1 fL Normal 37.0-50.0 [facility] Comment on above: Performed By: #### C MP, CBC, MG #### [facility] [address], [place] [id number] WBC (Bld) [#/Vol] 8.2 10*3/uL Normal 3.8-11.0 [facility] Comment on above: Performed By: #### C MP, CBC, MG #### [facility] [address], [place] [id number] Comprehensive Metabolic Pane [facility] 09-20-2021 Albumin [Mass/Vol] 4.5 g/dL Normal 3.6-5.1 [facility] Comment on above: Performed By: #### C MP, CBC, MG #### [facility] [address], [place] [id number] Albumin/Globulin [Mass ratio] 1.6 {ratio} Normal 1.0-2.5 [facility] Comment on above: Performed By: #### C MP, CBC, MG #### [facility] [address], [place] [id number] ALP [Catalytic activity/Vol] 86 U/L Normal 40-129 [facility] Comment on above: Performed By: #### C MP, CBC, MG #### [facility] [address], [place] [id number] ALT [Catalytic activity/Vol] 58 U/L High 9-46 [facility] Comment on above: Result Comment: 07/11 Female reference range changed. Performed By: #### C MP, CBC, MG #### [facility] [address], [place] [id number] Anion gap [Moles/Vol] 17 mmol/L Normal 12-20 [facility] Comment on above: Result Comment: [place] ctive 08/16/2019 reference range changed. Performed By: #### C MP, CBC, MG #### [facility] [address], [place] [id number] AST [Catalytic activity/Vol] 51 U/L High 10-40 [facility] Comment on above: Performed By: #### C MP, CBC, MG #### [facility] [address], [place] [id number] Bilirubin [Mass/Vol] 0.52 mg/dL Normal 0.30-1.20 [facility] Comment on above: Performed By: #### C MP, CBC, MG #### [facility] [address], [place] [id number] BUN/CREA 12 Ratio Normal 6-22 [facility] Comment on above: Performed By: #### C MP, CBC, MG #### [facility] [address], [place] [id number] Calcium [Mass/Vol] 9.9 mg/dL Normal 8.6-10.2 [facility] Comment on above: Performed By: #### C MP, CBC, MG #### [facility] [address], [place] [id number] Chloride [Moles/Vol] 102 mmol/L Normal 98-107 [facility] Comment on above: Performed By: #### C MP, CBC, MG #### [facility] [address], [place] [id number] CO2 [Moles/Vol] 22 mmol/L Normal 20-31 [facility] Comment on above: Performed By: #### C MP, CBC, MG #### [facility] [address], [place] [id number] Creatinine [Mass/Vol] 1.2 mg/dL Normal 0.7-1.4 [facility] Comment on above: Performed By: #### C MP, CBC, MG #### [facility] [address], [place] [id number] eGFRAA 72 mL/min/1.73m2 Normal >60 [facility] Comment on above: Performed By: #### C MP, CBC, MG #### [facility] [address], [place] [id number] eGFRNAA 59 mL/min/1.73m2 Low >60 [facility] Comment on above: Performed By: #### C MP, CBC, MG #### [facility] [address], [place] [id number] Globulin (S) [Mass/Vol] 2.9 g/dL Normal 1.9-3.7 [facility] Comment on above: Performed By: #### C MP, CBC, MG #### [facility] [address], [place] [id number] Glucose [Mass/Vol] 117 mg/dL High 65-99 [facility] Comment on above: Result Comment: For FASTING Glucose --- ADA reference ranges: Normal 65-99 mg/dl Prediabetes 100-125 Diabetes >/= 126 Performed By: #### C MP, CBC, MG #### [facility] [address], [place] [id number] Potassium [Moles/Vol] 4.5 mmol/L Normal 3.5-5.5 [facility] Comment on above: Performed By: #### C MP, CBC, MG #### [facility] [address], [place] [id number] Protein [Mass/Vol] 7.4 g/dL Normal 6.1-8.1 [facility] Comment on above: Performed By: #### C MP, CBC, MG #### [facility] [address], [place] [id number] Sodium [Moles/Vol] 137 mmol/L Normal 135-146 [facility] Comment on above: Performed By: #### C MP, CBC, MG #### [facility] [address], [place] [id number] Urea nitrogen [Mass/Vol] 15 mg/dL Normal 7-25 [facility] Comment on above: Performed By: #### C MP, CBC, MG #### [facility] [address], [place] [id number] Hemoglobin A1Con 09-20-2021 EAG 142.72 Normal [facility] Comment on above: Performed By: #### A 1C #### [facility] [address], [place] [id number] HbA1c (Bld) [Mass fraction] 6.6 % High 4.0-6.0 [facility] Comment on above: Performed By: #### A 1C #### [facility] [address], [place] [id number] Magnesiumon 09-20-2021 Magnesium [Mass/Vol] 2.0 mg/dL Normal 1.5-2.3 [facility] Comment on above: Performed By: #### C MP, CBC, MG #### [facility] [address], [place] [id number] Vital Signs Date Time Vital Sign Value Performing Clinician Anne-Marie lackey 03-15-2022 09:24-0400 Diastolic blood pressure 82 mm[Hg] DO Lay Talbot Work Phone: [facility] 03-15-2022 09:24-0400 Heart rate 72 /min DO Lay Hykes Work Phone: [facility] 03-15-2022 09:24-0400 Respiratory rate 18 /min DO Lay Hykes Work Phone: [facility] 03-15-2022 09:24-0400 SaO2% (BldA) [Mass fraction] 97 % DO Lay Carmenkes Work Phone: [facility] 03-15-2022 09:24-0400 Systolic blood pressure 115 mm[Hg] DO Lay Hykes Work Phone: [facility] 03-15-2022 07:21-0400 Body height 171.45 cm DO Lay Hykes Work Phone: [facility] 03-15-2022 07:21-0400 Body temperature 98.5 [degF] DO Lay Carmenkes Work Phone: [facility] 03-15-2022 07:21-0400 Body weight 86.18 kg DO Lay Talbot Work Phone: [facility] Encounters Encounter Date Encounter Type Care [...] surgery center DO Lay Talbot Work Phone: [facility] Procedures Date Procedure Procedure Detail Performing Clinician Start: 03-15-2022 Screening colonoscopy D O Lay Talbot Work Phone: Plan of Treatment Date Care Activity Detail Author Start: 03-15-2022 [facility] Work Phone: Payers Date Payer Category Payer Medicaid [id number] 1958 Medicare [id number] 1958 Medicare [id number] 1955 Unknown [id number] 2.16.84 [id number] 1955 Unknown [id number] 2.16.84 [id number] 1955 Unknown [id number] 2.16.84 [id number] 1955 Unknown [id number] 2.16.84 [id number] 1955 Unknown [id number] 2.16.84 [id number] 1955 Unknown [id number] 2.16.84 [id number] Medicaid [id number] Self-pay Self Pay [id number] Unknown [employer] [id number] Social History Date Type Detail Facility Start: 03-15-2022 Tobacco smoking stat [facility] Never smoked tobacco (finding) [facility] Start: 1955 Sex Assigned At Male F [facility] Medical Equipment Procedure Code Equipment Code Equipment Origin al Text Equipment Identifier Dates Phacoemulsification of cataract with intraocular lens implantation Posterior-chamber intraocular lens, pseudophakic [id number] FDA Start: 01-27-2020 Phacoemulsification of cataract with intraocular lens implantation Posterior-chamber intraocular lens, pseudophakic [id number] FDA Start: 02-24-2020 Goals Date Patient Goal [...] authenticated by: RUFUS VALDEZ Date: 2022-10-02 11:10 [facility] History and physical note 03-15-2022 Note Date & Type Note Facility 03-15-2022 History and physi tara note Note Date/Time March 15, 2022 8:20am [facility] [address] [place] [address] Gastroenterology H&P Signed Patient: Lenora Tillman MR#: [id number] : 1955 Acct:[id number] Age/Sex: 66 / M Adm Date: 2 Loc: Room: Type: [facility] Attending Dr: Lay Talbot DO [...] by Lay Talbot Jr, DO> 03/15/22 0832 [facility] Work Phone: Procedure note 03-15-2022 Note Date & Type Note Facility 03-15-2022 Procedure note [facility] Evaluation note Note Date & Type Note Facility Evaluation note Diagnosis Onset Date Screening for colorectal cancer acute [facility] Work Phone: Hospital Discharge instructions [...] if you have any problems. -Office number [phone] [facility] Work Phone: Summary Purpose Family History No [...] section and content) DATE CREATED AUTHOR 11/21/2021 [facility] dical Specialist DATE CREATED AUTHOR AUTHOR'S ORGANIZ ATION 03/16/2022 [facility] DATE CREATED AUTHOR AUTHOR'S ORGANIZ ATION 12/14/[address] [facility] Care Teams (unrecognized sec tion and [...] BE BASED ON THE PRIMARY CLINICAL RECORDS. [employer] [facility]. provides no warranty or guarantee of the accuracy or completeness of information in this document.
[2023-09-15 09:14] LABS: Estimated Average Glucose 137 mg/dL; Glycohemoglobin A1C 6.4 % (4.5-6.2)
== END 2023-09-15 01:59 | disposition home or self-care (01) ==
LOC: LAB 01:58
PROVIDERS: PCP Family Medicine; Visit Provider Family Medicine
DX: E11.9 Type 2 diabetes mellitus without complications (principal)
CPT/HCPCS: 36415; 83036

== ENCOUNTER 2023-11-24 03:28 | Emergency (ER) | payer MEDICARE, MEDICAID, SELFPAY ==
[2023-11-24 03:29] VITALS: BP 165/120; PULSE 104; TEMP 37.2; O2SAT 95
--- NOTE | 2023-11-24 03:37 | ED.MALEGU1 ---
HPI - Male Genitourinary General Chief complaint: Urogenital-Male Stated complaint: POSTMASTER PROBLEM Time Seen by Provider: 11/24/23 03:28 Source: patient Mode of arrival: ambulance Limitations: no limitations History of Present Illness HPI Narrative: This 67-year-old male who has had a Bran catheter since August of this year is transferred from the [facility] where he currently resides for evaluation of for evaluation of Bran catheter malfunction. The catheter has not been draining urine since 8 PM last night. The patient complains of pain in his lower abdomen, there is blood around the urethral meatus and in the bran bag. He is not have a fever or back pain. According to the alf staff they tried to irrigate the Bran catheter but was unsuccessful and the physician wanted him sent to the emergency department. Related Data Allergies Allergy/AdvReac Type Severity Reaction Status Date / Time No Known Drug Allergies Allergy Verified 11/24/23 03:31 Review of Systems ROS Status of ROS 10 or more systems reviewed and unremarkable except as noted in history and below Exam Narrative Exam Narrative: Nurses note and vital signs reviewed and patient is not hypoxic. Blood pressure is elevated at 165/120 and he is tachycardic with pulse of 104 General: Non toxic adult male, no resp distress Skin: Warm, dry, no pallor noted. There is no rash noted. Head: Normocephalic, atraumatic Eye: Normal conjunctiva, no drainage, EOMI. PERRL Ears, Nose, Mouth, and Throat: oral mucosa is moist. Cardiovascular: Regular Rate and Rhythm Respiratory: Patient is in no distress, no accessory muscle use, lungs are clear to auscultation, no wheezing, rales or rhonchi GI: Normal bowel sounds, distended and tender over the lower abdomen and bladder : Bran catheter is in the urethral meatus with urine overflowing around the catheter and a small amount of blood present in the patient's brief and in the bran bag Musculoskeletal: The patient has no evidence of calf tenderness, no pitting edema, symmetrical pulses noted bilaterally Neurological: A&O x4, normal speech Psychiatric: Cooperative Constitutional Vital Signs, click to edit/add: Last Vital Signs Temp 99 F 11/24/23 03:29 Pulse 104 H 11/24/23 03:29 Resp 18 11/24/23 03:29 BP 165/120 H 11/24/23 03:29 Pulse Ox 95 11/24/23 03:29 O2 Del Method Room Air 11/24/23 03:29 Course Vital Signs Vital signs: Vital Signs Temperature 99 F 11/24/23 03:29 Pulse Rate 104 H 11/24/23 03:29 Respiratory Rate 18 11/24/23 03:29 Blood Pressure 165/120 H 11/24/23 03:29 Pulse Oximetry 95 11/24/23 03:29 Oxygen Delivery Method Room Air 11/24/23 03:29 Temperature 99 F 11/24/23 03:29 Pulse Rate 104 H 11/24/23 03:29 Respiratory Rate 18 11/24/23 03:29 Blood Pressure 165/120 H 11/24/23 03:29 Pulse Oximetry 95 11/24/23 03:29 Oxygen Delivery Method Room Air 11/24/23 03:29 MDM - Male Genitourinary MDM Narrative Medical decision making narrative: Bran was placed without difficulty by the nursing staff and he put out approx 600cc of bloody urine but had relief of his abdominal discomfort. The catheter was irrigated until light pink and clear and he was discharged back to the [facility]. Discharge Plan Discharge Stand Alone Forms: Portal Instructions Chief Complaint: Urogenital-Male Clinical Impression: Complication of Bran catheter Patient Disposition: Hospice - Medical Facility Time of Disposition Decision: 04:58 Discharge Location: [facility] Condition: Good Print Language: [place] Instructions: Bran Catheter Placement and Care (ED) Referrals: LILIBETH SPEARS [Primary Care Provider] - 1 week
--- NOTE | 2023-11-24 03:39 | PC.NURSE ---
patient to ED from [facility] after they were unable to irrigate bran catheter. Catheter was last known to be draining at 1999 on 11/23/2023. Patient states he is in pain, with significant bladder distension. There is a small amount of wetness and blood in his brief around penis.
--- OUTSIDE RECORDS SUMMARY | 2023-11-24 03:53 | XMS_ITS | CCD ---
Author Organization [facility] Care Team Providers Care [employer] Set Up Operator Name Role Phone Antione DO Lay Wagner Attending Provider CINDY Dow Primary Care Provider [phone] YVES ORNELAS Admitting Unavailable JOHNSON, YVES Attending Unavailable MISC, DR FRAZIER Primary Care Unavailable REGAN, DR MCELROY Admitting Unavailable REGAN, DR MCELROY Attending Unavailable REGAN, DR MCELROY Primary Care Unavailable REGAN, DR MCELROY Consulting Unavailable REGAN, DR MCELROY Admitting Unavailable REGAN, DR MCELROY Attending Unavailable REGAN, DR MCELROY Primary Care Unavailable REGAN, DR MCELROY Consulting Unavailable EDE, TIA Admitting Unavailable EDE, TIA Attending Unavailable REGAN, DR MCELROY Primary Care Unavailable ZIEBER, DR RUFUS Morales Consulting Unavailable SARA .GARFIELD Consulting UnavailTIA Melendez Consulting Unavailable REGAN, DR MCELROY Primary Care Unavailable EDE, TIA Admitting Unavailable EDE, TIA Attending Unavailable TIA MERA Consulting Unavailable KARIME MAYES Consulting Unavailable JAC GILL Consulting Unavailable REGAN, DR MCELROY Primary Care Unavailable SARA .GARFIELD Consulting Unavaildontae PETERSON .HERRERA Admitting Unavailable DIAB .HERRERA Attending Unavailable JAC GILL Consulting Unavailable LAY ROQUE Consulting Unavailable William Spears MD Primary Care Provider [phone] Medications Current Medications Medication Drug Class(es) Dates Sig (Normalized) Sig (Original) acetaminophen 325 mg oral tablet (2 sources) Start: 03-15-2022 take 650 mg by mouth every four hours Acetaminophen Active 650 MG PO Q4H March 15, 2022 12:00am acetaminophen (T ylenol) 325 MG tablet every 4 (four) hours. 0 Active [id number] 200 actuat albuterol 0.09 mg/actuat metered dose inhaler (1 source) beta2-Adrenergic Agonist Start: 03-15-2022 take 1 puff(s) by inhalation every four hours Albuterol Sulfate Active 2 PUFF INHALATION Q4H March 15, 2022 12:00am amLODIPine 5 mg oral tablet (2 sources) Dihydropyridine Calcium Channel Brenton Start: 01-21-2020 take 5 mg by mouth once daily in the morning Amlodipine Active 5 MG PO Every morning January 21, 2020 12:00am take 1 tablet by mouth in the mo rning amLODIPine (Norvasc) 10 MG tablet Take 10 mg by mouth in the morning. 0 Active aspirin 81 mg delayed release oral tablet (2 sources) Platelet Aggregation Inhibitor, Nonsteroidal Anti-inflammatory Drug Start: 03-15-2022 take 81 mg by mouth once daily Aspirin Active 81 MG PO Daily March 15, 2022 12:00am ASPIRIN 81 MG ch ewable tablet 1 (one) time each day at the same time. 0 Active atorvastatin 10 mg oral tablet (2 sources) HMG-CoA Reductase Inhibitor Start: 01-21-2020 take 10 mg by mouth once daily in the morning Atorvastatin Active 10 MG PO Every morning January 21, 2020 12:00am atorvastatin (Li pitor) 20 MG tablet 1 (one) time each day at the same time. 0 Active 24 hr buPROPion hydrochloride 300 mg extended release oral tablet (2 sources) Aminoketone Start: 01-21-2020 take 300 mg by [...] 12:00am docusate sodium 100 mg oral capsule (2 sources) Start: 03-15-2022 take 100 mg by mouth twice daily Docusate Sodium Active 100 MG PO Twice daily March 15, 2022 12:00am Colace 100 MG ca psule every 12 (twelve) hours. 0 Active escitalopram 10 mg oral tablet (2 sources) Serotonin Reuptake Inhibitor Start: 02-11-2023 escitalopram (Lexapr o) 10 MG tablet Start: 01-21-2020 take 20 mg by mouth once daily in the morning Escitalopram Oxalate Active 20 MG PO Every morning January 21, 2020 12:00am guaiFENesin 20 mg/ml oral solution (1 source) Start: 03-15-2022 take 200 mg by mouth every four hours Guaifenesin Active 200 MG PO Q4H March 15, 2022 12:00am lisinopril 10 mg oral tablet (2 sources) Angiotensin Converting Enzyme Inhibitor Start: 01-21-2020 take [...] hydrochloride 500 mg extended release oral tablet (3 sources) Biguanide Start: 01-21-2020 take 1000 mg by mouth twice daily Metformin Active 1000 MG PO Twice daily January 21, 2020 12:00am Start: 01-21-2020 End: 01-21-2020 Metformin Discontinued MG TA BLET January 21, 2020 12:00am January 21, 2020 2:59pm metFORMIN (Gluco phage) 1000 MG tablet every 12 (twelve) hours. 0 Active metoprolol tartrate 50 mg oral tablet (2 sources) beta-Adrenergic Brenton Start: 01-21-2020 take 50 mg by mouth once daily in the morning Metoprolol Tartrate Active 50 MG PO Every morning January 21, 2020 12:00am polyethylene glycol 3350 35316 mg powder for oral solution (1 source) Osmotic Laxative Start: 03-15-2022 Polyethylene Glycol 3350 (Miralax) 17 gram Powder In Packet Active 17 GM PO Daily March 15, 2022 12:00am tamsulosin hydrochloride 0.4 mg oral capsule (3 sources) alpha-Adrenergic Brenton Start: 02-06-2022 take 0.4 mg by mouth once daily Tamsulosin Active 0.4 MG PO Daily March 15, 2022 12:00am Start: 01-21-2020 End: 01-21-2020 Tamsulosin Discontinued MG P O January 21, 2020 12:00am January 21, 2020 2:59pm traZODone hydrochloride 50 mg oral tablet (2 sources) Serotonin Reuptake Inhibitor Start: 01-21-2020 take 50 [...] Onset: 11-05-2022 Episodic Other aftercare (1 source) 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; Translations: [INTERMEDIATE CURRENT USE OF ASPIRIN] Onset: 11-05-2022 Episodic Other aftercare (1 source) 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; Translations: [INTERMEDIATE USE ORAL HYPOGLYCEMIC DX] Onset: 11-05-2022 Episodic Other aftercare (1 source) Other usp (current) drug therapy; Translations: [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 THERAPY] Onset: 11-05-2022 Episodic Other [...] MARCUS UPPER LIMBS] Onset: 06-12-2022 Chronic Other nervous system disorders (1 source) Polyneuropathy; Translations: [Polyneuropathy, unspecified] Onset: 02-24-2023 02-24-2023 Chronic Other nervous system disorders (1 source) Bilateral carpal tunnel syndrome; Translations: [Carpal tunnel syndrome, bilateral upper limbs] Onset: 02-24-2023 02-24-2023 Chronic Other screening for suspected conditions (not [...] Classification Problem Date Documented Da te Episodic/Chronic Nutritional deficiencies (1 source) Folic acid deficiency; Translations: [Deficiency of other specified B group vitamins] Onset: 02-24-2023 02-24-2023 Episodic Spondylosis; intervertebral disc disorders; other back problems (2 sources) Low back pain; Translations: [Lumbar pain] Onset: 02-24-2023 02-24-2023 Episodic Unclassified (1 source) LOW BACK PAIN, UNSPECIFIED; Translations: [LOW BACK PAIN, UNSPECIFIED] Onset: 10-02-2022 Results Test Name Value Interpretation Reference Range Facility [facility] HEMOGLOBIN A1Con 024 Glucose [Mass/Vol] 137 mg/dL [facility] HbA1c (Bld) [Mass fraction] 6.4 % High 4.5 - 6.2 % [facility] Comment on above: ADA RECOMMENDED LIMI T 4.0 - 6.0 ADA THERAPEUTIC TARGET < 7.0 ACTION SUGGESTED > 7.0 Interpretation and review of laboratory results Abnormal [facility] CBC AUTO DIFFon 12-09-2022 BASO # 0.0 103/ul Normal 0.0-0.1 [facility] Comment on above: Performed By: #### C BC ####[facility] [address] [place], [place] [address]Dr. Kathya Ryan Basophils/100 WBC (Bld) 0.5 % Normal 0.2-2.0 [facility] Comment on above: Performed By: #### C BC ####[facility] [address] [place] [address]DrBriseyda Ryan EO # 0.3 103/ul Normal 0.0-0.7 [facility] Comment on above: Performed By: #### C BC ####[facility] Ukbew[address] [place], [place] [address]Dr. Kathya Ryan Eosinophils/100 WBC (Bld) 5.4 % Normal 0.9-7.0 [facility] Comment on above: Performed By: #### C BC ####[facility] [address] [place], [place] [address]Dr. Kathya Ryan Erythrocyte distribution width (RBC) [Ratio] 12.5 % Normal 11.0-15.0 [facility] Comment on above: Performed By: #### C BC ####[facility] R[address] [place], [place] [address]Dr. Kathya Ryan Hematocrit (Bld) [Volume fraction] 42.4 % Normal 42.0-54.0 [facility] Comment on above: Performed By: #### C BC ####[facility] [address] [place] [id number]. Kathya Ryan Hemoglobin (Bld) [Mass/Vol] 14.1 g/dL Normal 14.0-18.0 [facility] Comment on above: Performed By: #### C BC ####[facility] [address]qpm[address] [place] [id number]. Kathya Ryan IG # 0.02 10e3/ul Normal 0.00-0.03 [facility] Comment on above: Performed By: #### C BC ####[facility] P[address]ls[address] [place] [id number]. Kathya Ryan IG % 0.3 % Normal 0.0-0.5 [facility] Comment on above: Performed By: #### C BC ####[facility] [address] [place] [address]Dr. Kathya Ryan LYMPH # 1.3 103/ul Normal 1.2-3.8 [facility] Comment on above: Performed By: #### C BC ####[facility] G[address]avx[address]ef[address] [place] [id number]. Kathya Ryan Lymphocytes/100 WBC (Bld) 22.4 % Normal 20.5-60.0 [facility] Comment on above: Performed By: #### C BC ####[facility] [address]iz[address]qmw[address] [place] [id number]. Kathya Ryan MANUAL DIFF REQ NO Normal [facility] Comment on above: Performed By: #### C BC ####[facility] [address]us[address]xy[address] [place] [id number]. Kathya Ryan MCH (RBC) [Entitic mass] 30.5 pg Normal 25.9-34.0 [facility] Comment on above: Performed By: #### C BC ####[facility] Xguulhtmqx[address] [place] [id number]. Kathya Ryan MCHC (RBC) [Mass/Vol] 33.3 g/dL Normal 29.9-35.2 [facility] Comment on above: Performed By: #### C BC ####[facility] Rpkjeezmia[address] [place] [id number]. Kathya Ryan MCV (RBC) [Entitic vol] 91.8 fL Normal 80.0-94.0 [facility] Comment on above: Performed By: #### C BC ####[facility] Q[address] [place] [id number]. Kathya Ryan MONO # 0.7 103/ul Normal 0.3-0.8 [facility] Comment on above: Performed By: #### C BC ####[facility] Dyalklalsg[address] [place] [id number]. Kathya Ryan Monocytes/100 WBC (Bld) 12.2 % Critically high 1.7-12.0 [facility] Comment on above: Performed By: #### C BC ####[facility] [address] [place], [place] [address]Dr. Kathya Ryan NEUT # 3.5 103/ul Normal 1.4-6.5 [facility] Comment on above: Performed By: #### C BC ####[facility] [address]dk[address] [place] [id number]. Kathya Ryan Neutrophils/100 WBC (Bld) 59.2 % Normal 43.0-75.0 [facility] Comment on above: Performed By: #### C BC ####[facility] Zors[address]qan[address] [place] [id number]. Kathya Ryan Platelet mean volume (Bld) [Entitic vol] 9.1 fL Critically low 9.5-13.5 [facility] Comment on above: Performed By: #### C BC ####[facility] T[address]jem[address] [place] [id number]. Kathya Ryan PLT 211 103/ul Normal 150-450 [facility] Comment on above: Performed By: #### C BC ####[facility] Qjh[address]lbpgkj[address] [place] [id number]. Kathya Ryan RBC 4.62 106/ul Critically low 4.70-6.10 [facility] Comment on above: Performed By: #### C BC ####[facility] [address] [place], [place] [address]BeDr. Kathya Ryan WBC 5.9 103/ul Normal 4.0-11.0 [facility] Comment on above: Performed By: #### C BC ####[facility] [address]cpfigt[address] [place] [id number]. Kathya Ryan GLYCOHEMOGLOBIN A1Con 2022 ADA RECOMMENDATION SEE BELOW Normal [facility] Comment on above: Result Comment: ADA RECOMMENDED LIMIT 4.0 - 6.0 ADA THERAPEUTIC TARGET < 7.0 ACTION SUGGESTED > 7.0 Performed By: #### A 1C #### [facility] [address] [place] [address] [address] Kathya Ryan Glucose [Mass/Vol] 123 mg/dL Normal [facility] Comment on above: Performed By: #### A 1C #### [facility] [address] [place] [address] [address] Kathya Ryan HbA1c (Bld) [Mass fraction] 5.9 % Normal 4.5-6.2 [facility] Comment on above: Performed By: #### A 1C #### [facility] [address] [place] [address] [address] Kathya Ryan LIPID PROFILEon 12-09-2022 CHOL-HDL RATIO NORM SEE BELOW Normal [facility] Comment on above: Result Comment: 3.3 - 4.4 LOW RISK 4.4 - 7.1 AVERAGE RISK 7.1 - 11.0 MODERATE RISK >11.0 HIGH RISK Performed By: #### L IPID, CMP #### [facility] [address] [place] [address] [address] Kathya Ryan Cholesterol [Mass/Vol] 132 mg/dL Normal <=200 [facility] Comment on above: Performed By: #### L IPID, CMP #### [facility] [address] [place] [address] [address] Kathya Ryan Cholesterol in HDL [Mass/Vol] 29 mg/dL Critically low 40-60 [facility] Comment on above: Performed By: #### L IPID, CMP #### [facility] [address] [place] [address] [address] Kathya Ryan Cholesterol in LDL [Mass/Vol] 83.0 mg/dL Normal [facility] Comment on above: Performed By: #### L IPID, CMP #### [facility] [address] [place] [address] Dr. Kathya Ryan Cholesterol.total/Ch olesterol in HDL [Mass ratio] 4.6 {ratio} Normal [facility] Comment on above: Performed By: #### L IPID, CMP #### [facility] [address] [place] [address] [address] Kathya Ryan HDL NORMAL > or = 60 mg/dl - LO W CARDIOVASCULAR RISK <40 mg/dl - HIGH CARDIOVASCULAR RISK Normal [facility] Comment on above: Performed By: #### L IPID, CMP #### [facility] [address] [place] [address] Dr. Kathya Ryan LDL CALC NORMAL SEE BELOW Normal [facility] Comment on above: Result Comment: <100 mg/dl OPTIMAL 100 - 129 mg/dl NEAR OR ABOVE OPTIMAL 130 - 159 mg/dl BORDERLINE HIGH 160 - 189 mg/dl HIGH >190 mg/dl VERY HIGH Performed By: #### L IPID, CMP #### [facility] [address] [place] [address] Dr. Kathya Ryan Triglyceride [Mass/Vol] 102 mg/dL Normal <=150 [facility] Comment on above: Performed By: #### L IPID, CMP #### [facility] [address] [place] [address] [address] Kathya Ryan VLDL CALC 20.4 mg/dL Normal [facility] Comment on above: Performed By: #### L IPID, CMP #### [facility] [address] [place] [address] Dr. Kathya Ryan PROF 14(COMP METB)on 023 Albumin [Mass/Vol] 3.3 g/dL Critically low 3.4-5.0 [facility] Comment on above: Performed By: #### L IPID, CMP #### [facility] [address] [place] [address] Dr. Kathya Ryan Albumin/Globulin [Mass ratio] 0.9 {ratio} Normal [facility] Comment on above: Performed By: #### L IPID, CMP #### [facility] [address] [place] [address] [address] Kathya Ryan ALP [Catalytic activity/Vol] 71 U/L Normal 46-116 [facility] Comment on above: Performed By: #### L IPID, CMP #### [facility] [address] [place] [address] [address] Kathya Ryan ALT [Catalytic activity/Vol] 50 U/L Normal 16-63 [facility] Comment on above: Performed By: #### L IPID, CMP #### [facility] [address] [place] [address] Dr. Kathya Ryan Anion gap [Moles/Vol] 12.6 mmol/L Normal [facility] Comment on above: Performed By: #### L IPID, CMP #### [facility] [address] [place] [address] Dr. Kathya Ryan AST [Catalytic activity/Vol] 34 U/L Normal 15-37 [facility] Comment on above: Performed By: #### L IPID, CMP #### [facility] [address] [place] [address] Dr. Kathya Ryan Bilirubin [Mass/Vol] 0.4 mg/dL Normal 0.2-1.0 [facility] Comment on above: Performed By: #### L IPID, CMP #### [facility] [address] [place] [address] Dr. Kathya Ryan Calcium [Mass/Vol] 8.9 mg/dL Normal 8.5-10.1 [facility] Comment on above: Performed By: #### L IPID, CMP #### [facility] [address] [place] [address] Dr. Kathya Ryan Chloride [Moles/Vol] 106 mmol/L Normal 98-107 [facility] Comment on above: Performed By: #### L IPID, CMP #### [facility] [address] [place] [address] Dr. Kathya Ryan CO2 [Moles/Vol] 27.4 mmol/L Normal 21.0-32.0 [facility] Comment on above: Performed By: #### L IPID, CMP #### [facility] [address] [place] [address] [address] Kathya Ryan Creatinine [Mass/Vol] 1.45 mg/dL Critically high 0.70-1.30 [facility] Comment on above: Performed By: #### L IPID, CMP #### [facility] [address] [place] [address] [address] Kathya Ryan EGFR-AF SOUTH KOREAN 59 mL/min/1.73m2 Critically low >=60 [facility] Comment on above: Performed By: #### L IPID, CMP #### [facility] [address] [place] [address] [address] Kathya Ryan EGFR-NON AF [place]OREAN 49 mL/min/1.73m2 Critically low >=60 [facility] Comment on above: Performed By: #### L IPID, CMP #### [facility] [address] [place] [address] [address] Kathya Ryan Globulin (S) [Mass/Vol] 3.8 g/dL Normal [facility] Comment on above: Performed By: #### L IPID, CMP #### [facility] [address] [place] [address] [address] Kathya Ryan Glucose [Mass/Vol] 109 mg/dL Critically high 74-106 [facility] Comment on above: Performed By: #### L IPID, CMP #### [facility] [address] [place] [address] [address] Kathya Ryan Potassium [Moles/Vol] 3.9 mmol/L Normal 3.5-5.1 [facility] Comment on above: Performed By: #### L IPID, CMP #### [facility] [address] [place] [address] [address] Kathya Ryan Protein [Mass/Vol] 7.1 g/dL Normal 6.4-8.2 [facility] Comment on above: Performed By: #### L IPID, CMP #### [facility] [address] [place] [address] [address] Kathya Ryan Sodium [Moles/Vol] 142 mmol/L Normal 136-145 [facility] Comment on above: Performed By: #### L IPID, CMP #### [facility] [address] [place] [address] [address] Kathya Ryan Urea nitrogen [Mass/Vol] 17.0 mg/dL Normal 7.0-18.0 [facility] Comment on above: Performed By: #### L IPID, CMP #### [facility] [address] [place] [address] [address] Kathya Ryan Urea nitrogen/Creatinine [Mass ratio] 11.7 mg/mg Normal [facility] Comment on above: Performed By: #### L IPID, CMP #### [facility] [address] [place] [address] [address] Kathya Ryan FREE LIGHT CHAINS PLUS RATIO , URINEon 11-14-2022 Free [place] Lt Chains,Ur 86.11 mg/L Normal 1.17-86.46 [facility] Comment on above: Performed By: #### F REELIU ####[facility] [address] [place] [id number]. Kathya Ryan Free Lambda Lt Chains,Ur 11.37 mg/L Normal 0.27-15.21 [facility] Comment on above: Performed By: #### F REELIU ####[facility] [address] [place] [id number]. Kathya Ryan [place]/ Lambda Urine Ratio 7.57 Normal 1.83-14.26 [facility] Comment on above: Performed By: #### F REELIU ####[facility] R[address] [place] [phone]. Kathya Ryan CT CSPINE WO CONon CT [...] KARIME MAYES Date: 2022-11-04 00:29 Normal [facility] CT HEAD WO CONon 11-04-2022 [...] JAC GILL Date: 2022-11-04 00:28 Normal [facility] CBC AUTO DIFFon 10-02-2022 BASO # 0.1 103/ul Normal 0.0-0.1 [facility] Comment on above: Performed By: #### C BC ####[facility] [address] [place] [id number]. Kathya Ryan Basophils/100 WBC (Bld) 0.5 % Normal 0.2-2.0 [facility] Comment on above: Performed By: #### C BC ####[facility] [address] [place] [id number]. Kathya Ryan EO # 0.8 103/ul Critically high 0.0-0.7 [facility] Comment on above: Performed By: #### C BC ####[facility] [address] [place], [place] [address]Dr. Kathya Ryan Eosinophils/100 WBC (Bld) 7.6 % Critically high 0.9-7.0 [facility] Comment on above: Performed By: #### C BC ####[facility] [address] [place], [place] [address]Dr. Kathya Ryan Erythrocyte distribution width (RBC) [Ratio] 13.3 % Normal 11.0-15.0 [facility] Comment on above: Performed By: #### C BC ####[facility] [address] [place], [place] [address]Dr. Kathya Ryan Hematocrit (Bld) [Volume fraction] 39.7 % Critically low 42.0-54.0 [facility] Comment on above: Performed By: #### C BC ####[facility] [address] [place], [place] [address]Dr. Kathya Ryan Hemoglobin (Bld) [Mass/Vol] 13.4 g/dL Critically low 14.0-18.0 [facility] Comment on above: Performed By: #### C BC ####[facility] [address] [place] [id number]. Kathya Ryan IG # 0.04 10e3/ul Critically high 0.00-0.03 [facility] Comment on above: Performed By: #### C BC ####[facility] [address] [place], [place] [address]Dr. Kathya Ryan IG % 0.4 % Normal 0.0-0.5 [facility] Comment on above: Performed By: #### C BC ####[facility] [address]xyx[address] [place] [id number]. Kathya Connor LYMPH # 1.6 103/ul Normal 1.2-3.8 [facility] Comment on above: Performed By: #### C BC ####[facility] [address] [place] [id number]. Kathya Ryan Lymphocytes/100 WBC (Bld) 15.8 % Critically low 20.5-60.0 [facility] Comment on above: Performed By: #### C BC ####[facility] [address]ou[address] [place] [id number]. Kathya Ryan MANUAL DIFF REQ NO Normal [facility] Comment on above: Performed By: #### C BC ####[facility] [address]of[address] [place] [phone]. Kathya Ryan MCH (RBC) [Entitic mass] 29.8 pg Normal 25.9-34.0 [facility] Comment on above: Performed By: #### C BC ####[facility] Nsh[address]czjyj[address] [place] [phone]. Mireyajack Ryan MCHC (RBC) [Mass/Vol] 33.8 g/dL Normal 29.9-35.2 [facility] Comment on above: Performed By: #### C BC ####[facility] [address] [place] [phone]. Kathya Ryan MCV (RBC) [Entitic vol] 88.4 fL Normal 80.0-94.0 [facility] Comment on above: Performed By: #### C BC ####[facility] [address] [place] [address]Dr. Kathya Ryan MONO # 1.2 103/ul Critically high 0.3-0.8 [facility] Comment on above: Performed By: #### C BC ####[facility] [address]km[address] [place] [phone]. Kathya Ryan Monocytes/100 WBC (Bld) 12.1 % Critically high 1.7-12.0 [facility] Comment on above: Performed By: #### C BC ####[facility] [address]eug[address] [place] [phone]. Kathya Ryan NEUT # 6.4 103/ul Normal 1.4-6.5 [facility] Comment on above: Performed By: #### C BC ####[facility] [address] [place], [place] [address]Dq. Kathya Ryan Neutrophils/100 WBC (Bld) 63.6 % Normal 43.0-75.0 [facility] Comment on above: Performed By: #### C BC ####[facility] [address] [place] [phone]. Kathya Ryan Platelet mean volume (Bld) [Entitic vol] 8.8 fL Critically low 9.5-13.5 [facility] Comment on above: Performed By: #### C BC ####[facility] [address] [place] [phone]. Kathya Ryan PLT 237 103/ul Normal 150-450 [facility] Comment on above: Performed By: #### C BC ####[facility] U[address]lt[address] [place] [phone]. Kathya Ryan RBC 4.49 106/ul Critically low 4.70-6.10 [facility] Comment on above: Performed By: #### C BC ####[facility] Y[address]teeodmv[address] [place] [phone]. Kathya Ryan WBC 10.1 103/ul Normal 4.0-11.0 [facility] Comment on above: Performed By: #### C BC ####[facility] [address] [place], [place] [address]Dr. Kathya Ryan CT CSPINE WO CONon 3 CT CSPINE WO CON EXAMINATION: CT CSPINE [...] LAY ROQUE Date: 2022-10-02 20:33 Normal [facility] [facility] HEAD WO CONon 10-02-2022 CT HEAD [...] JAC GILL Date: 2022-10-02 20:41 Normal [facility] CULTURE URINEon 10-02-2022 CULTURE URINE Culture Observations : LIGHT GROWTH OF MIXED SKIN LUKASZ. NO POTENTIAL PATHOGENS SEEN. Normal [facility] Comment on above: Performed By: #### U RCX ####[facility] [id number] [place], [place] [address]WqBriseyda KEARNS URINE PROFILEon 3 Bilirubin Ql (U) Negative Normal NEGATIVE [facility] Comment on above: Performed By: #### U MICRO, ERUR #### [facility] [address] [address] [address] Kathya Ryan Clarity (U) CLEAR Normal CLEAR [facility] Comment on above: Performed By: #### U MICRO, ERUR #### [facility] [address] [address] [address] Kathya Ryan Color (U) YELLOW Normal YELLOW [facility] Comment on above: Performed By: #### U MICRO, ERUR #### [facility] [address] [address] [address] Kathya Ryan ERUAHD A micrscopic examination will be performed if indicated. Normal [facility] Comment on above: Performed By: #### U MICRO, ERUR #### [facility] [address] [place] [address] Dr. Kathya Ryan Glucose Ql (U) 500 mg/dl Abnormal NEGATIVE [facility] Comment on above: Performed By: #### U MICRO, ERUR #### [facility] [address] [address] [address] Kathya Ryan Hemoglobin Ql (U) SMALL Abnormal NEGATIVE [facility] Comment on above: Performed By: #### U MICRO, ERUR #### [facility] [address] [place] [address] Dr. Kathya Ryan Ketones Ql (U) TRACE Abnormal NEGATIVE [facility] Comment on above: Performed By: #### U MICRO, ERUR #### [facility] [address] [address] [address] Kathya Ryan LEUKOCYTES TRACE Abnormal NEGATIVE [facility] Comment on above: Performed By: #### U MICRO, ERUR #### [facility] [address] [address] [address] Kathya Ryan Nitrite Ql (U) Negative Normal NEGATIVE [facility] Comment on above: Performed By: #### U MICRO, ERUR #### [facility] [address] [place] [address] Dr. Kathya Ryan pH (U) 5.5 [pH] Normal 5-9 [facility] Comment on above: Performed By: #### U MICRO, ERUR #### [facility] [address] [address] [address] Kathya Ryan SPEC GRAVITY >=1.030 Abnormal 1.005-<=1.025 [facility] Comment on above: Performed By: #### U MICRO, ERUR #### [facility] [address] [address] [address] Kathya Ryan UA PROTEIN TRACE Normal NEGATIVE/ TRACE [facility] Comment on above: Performed By: #### U MICRO, ERUR #### [facility] [address] [address] [address] Kathya Ryan UR MICRO IND INDICATED Normal [facility] Comment on above: Performed By: #### U MICRO, ERUR #### [facility] [address] [place] [address] Dr. Kathya Ryan Urobilinogen Qn (U) 2.0 {Luanne'U}/dL Abnormal 0.2 - 1. 0 [facility] Comment on above: Performed By: #### U MICRO, ERUR #### [facility] [address] [place] [address] Dr. Kathya Ryan PROF 14(COMP METB)on 023 Albumin [Mass/Vol] 3.5 g/dL Normal 3.4-5.0 [facility] Comment on above: Performed By: #### H STROPN, CMP, TSH #### [facility] [address] [place] [address] Dr. Kathya Ryan Albumin/Globulin [Mass ratio] 0.9 {ratio} Normal [facility] Comment on above: Performed By: #### H STROPN, CMP, TSH #### [facility] [address] [place] [address] Dr. Kathya Ryan ALP [Catalytic activity/Vol] 108 U/L Normal 46-116 [facility] Comment on above: Performed By: #### H STROPN, CMP, TSH #### [facility] [address] [place] [address] Dr. Kathya Ryan ALT [Catalytic activity/Vol] 38 U/L Normal 16-63 [facility] Comment on above: Performed By: #### H STROPN, CMP, TSH #### [facility] [address] [address] [address] Kathya Ryan Anion gap [Moles/Vol] 11.4 mmol/L Normal [facility] Comment on above: Performed By: #### H STROPN, CMP, TSH #### [facility] [address] [address] [address] Kathya Ryan AST [Catalytic activity/Vol] 28 U/L Normal 15-37 [facility] Comment on above: Performed By: #### H STROPN, CMP, TSH #### [facility] [address] [address] [address] Kathya Ryan Bilirubin [Mass/Vol] 0.9 mg/dL Normal 0.2-1.0 [facility] Comment on above: Performed By: #### H STROPN, CMP, TSH #### [facility] [address] [address] [address] Kathya Ryan Calcium [Mass/Vol] 9.1 mg/dL Normal 8.5-10.1 [facility] Comment on above: Performed By: #### H STROPN, CMP, TSH #### [facility] [address] [address] [address] Kathya Ryan Chloride [Moles/Vol] 100 mmol/L Normal 98-107 [facility] Comment on above: Performed By: #### H STROPN, CMP, TSH #### [facility] [address] [address] [address] Kathya Ryan CO2 [Moles/Vol] 27.7 mmol/L Normal 21.0-32.0 [facility] Comment on above: Performed By: #### H STROPN, CMP, TSH #### [facility] [address] [address] [address] Kathya Ryan Creatinine [Mass/Vol] 1.69 mg/dL Critically high 0.70-1.30 [facility] Comment on above: Performed By: #### H STROPN, CMP, TSH #### [facility] [address] [address] [address] Kathya Ryan EGFR-AF SOUTH [place]OREAN 50 mL/min/1.73m2 Critically low >=60 [facility] Comment on above: Performed By: #### H STROPN, CMP, TSH #### [facility] [address] [address] [address] Kathya Ryan EGFR-NON AF [place]ORE[place] 41 mL/min/1.73m2 Critically low >=60 [facility] Comment on above: Performed By: #### H STROPN, CMP, TSH #### [facility] [address] [address] [address] Kathya Ryan Globulin (S) [Mass/Vol] 3.8 g/dL Normal [facility] Comment on above: Performed By: #### H STROJIMI, CMP, TSH #### [facility] [address] [address] [address] Kathya Ryan Glucose [Mass/Vol] 259 mg/dL Critically high 74-106 [facility] Comment on above: Performed By: #### H STROJIMI, CMP, TSH #### [facility] [address] [address] [address] Kathya Ryan Potassium [Moles/Vol] 4.1 mmol/L Normal 3.5-5.1 [facility] Comment on above: Performed By: #### H STROPN, CMP, TSH #### [facility] [address] [address] [address] Kathya Ryan Protein [Mass/Vol] 7.3 g/dL Normal 6.4-8.2 [facility] Comment on above: Performed By: #### H STROPN, CMP, TSH #### [facility] [address] [address] [address] Kathya Ryan Sodium [Moles/Vol] 135 mmol/L Critically low 136-145 [facility] Comment on above: Performed By: #### H STROPN, CMP, TSH #### [facility] [address] [address] [address] Kathya Ryan Urea nitrogen [Mass/Vol] 15.0 mg/dL Normal 7.0-18.0 [facility] Comment on above: Performed By: #### H STROPN, CMP, TSH #### [facility] [address] [address] [address] Kathya Ryan Urea nitrogen/Creatinine [Mass ratio] 8.9 mg/mg Normal [facility] Comment on above: Performed By: #### H STROPN, CMP, TSH #### [facility] [address] [address] [address] Kathya Ryan PROTIMEon 10-02-2022 INR Coag (PPP) [Relative time] 1.00 {INR} Normal [facility] Comment on above: Performed By: #### P T, PTT ####[facility] [address] [address]Dr. Kathya Ryan INR GUIDELINES SEE BELOW Normal [facility] Comment on above: Result Comment: JONI RED INR: 2.0 - 3.0 CONDITIONS NOT LISTED BELOW 2.5 - 3.5 FOR PROSTHETIC HEART VALVE REPLACEMENT 2.5 - 3.5 RECURRENT THROMBOSIS Performed By: #### P T, PTT ####[facility] [address] [address]Dr. Kathya Ryan PT Coag (PPP) [Time] 10.6 s Normal 9.0-11.6 [facility] Comment on above: Performed By: #### P T, PTT ####[facility] [address] [address]Dr. Kathya Ryan PTTon 10-02-2022 aPTT Coag (Bld) [Time] 26.9 s Normal 22.3-36.2 [facility] Comment on above: Performed By: #### P T, PTT ####[facility] [address] [address]DrBriseyda Ryan TROPONIN, HIGH SENSITIVITYon 10-02-2022 HSTROP 4.2 pg/mL Normal 4.0-76.1 [facility] Comment on above: Result Comment: CUT- OFF POINTS HAVE BEEN ESTABLISHED BASED ON THE FOURTH UNIVERSAL DEFINITIONS OF MYOCARDIAL INFARCTION. THE UPPER REFERENCE LIMIT (URL) OF TROPONIN, DEFINED THE 99TH PERCENTILE OF cTnI DISTRIBUTION IN A REFERENCE POPULATION, HAS BEEN CONFIRMED THE DECISION THRESHOLD FOR [place] DIAGNOSIS. Performed By: #### H STROPN, CMP, TSH ####[facility] [address] [id number]. Kathya Ryan TSHon 10-02-2022 TSH 2.502 uIU/mL Normal 0.358-3.740 [facility] Comment on above: Performed By: #### H STROPN, CMP, TSH ####[facility] [id number] [id number]. Kathya Ryan URINE MICROSCOPIC ONLYon BACTERIA MODERATE Abnormal NONE SEEN [facility] Comment on above: Performed By: #### U MICRO, ERUR #### [facility] [address] [place] [address] Dr. Kathya Ryan Bacteria identified Cx Nom (U) INDICATED Normal [facility] Comment on above: Performed By: #### U MICRO, ERUR #### [facility] [address] [place] [address] Dr. Kathya Ryan CAST NONE SEEN Normal NONE SEEN [facility] Comment on above: Performed By: #### U MICRO, ERUR #### [facility] [address] [place] [address] Dr. Kathya Ryan Crystals LM Nom (Urine sed) NONE SEEN Normal NONE SEEN [facility] Comment on above: Performed By: #### U MICRO, ERUR #### [facility] [address] [place] [address] Dr. Kathya Ryan Epithelial cells LM Ql (Urine sed) RARE Normal NONE SEEN /RARE [facility] Comment on above: Performed By: #### U MICRO, ERUR #### [facility] [address] [place] [address] Dr. Kathya Ryan HYALINE CAST FEW Normal [facility] Comment on above: Performed By: #### U MICRO, ERUR #### [facility] [address] [place] [address] Dr. Kathya Ryan MUCOUS NONE SEEN Normal NONE SEEN [facility] Comment on above: Performed By: #### U MICRO, ERUR #### [facility] [address] [place] [address] Dr. Kathya Ryan RBC 10-20 Abnormal 0-2 [facility] Comment on above: Performed By: #### U MICRO, ERUR #### [facility] [address] [address] [address] Kathya Ryan WBC 5-10 Abnormal NONE SEEN [facility] Comment on above: Performed By: #### U MICRO, ERUR #### [facility] [address] [address] [address] Kathya Ryan XR CHEST 1 Von [...] by: LAY ROQUE Date: 2022-10-02 20:56 Normal [facility] XR KNEE RT 4V or >on [...] LAY ROQUE Date: 2022-10-02 20:59 Normal [facility] XR LSPINE 2_3 VIEWSon 2022 XR LSPINE [...] LAY ROQUE Date: 2022-10-02 20:55 Normal [facility] XR PELVIS 1_2 VIEWSon 2022 XR PELVIS 1_2 VIEWS EXAM: XR PELVIS 1_2 VIEWS HISTORY: Fall COMPARISON: None. TECHNIQUE: Single view FINDINGS: No osseous lesion, fracture, dislocation or subluxation. Joint spaces are unremarkable for patient's age. No visualized effusion. No visualized soft tissue edema. IMPRESSION: Normal x-rays Electronically authenticated by: LAY ROQUE Date: 2022-10-02 21:04 Normal [facility] Glucose Glucometer (BldC) [M ass/Vol]Ordered By: Lay Talbot on 03-15-2022 Glucose [Mass/Vol] 131 mg/dL [facility] Comment on above: Random Glucose Refer ence Range is dependent on time and content of last meal. Glucose of more than 200 mg/dL in a nonstressed, ambulatory subject supports the diagnosis of Diabetes Mellitus. Glucose Poct Glucometerson 0 03-15-2022 Glucose [Mass/Vol] 131 mg/dL Normal [facility] Comment on above: Result Comment: [place] Glucose Reference Range is dependent on time and content of last meal. Glucose of more than 200 mg/dL in a nonstressed, ambulatory subject supports the diagnosis of Diabetes Mellitus. PERFORMED BY: [facility] [address] [place] [address] PATHOLOGIST UROLOGIC SURGEON CARINA HASSAN M.D. Performed By: #### G LULS #### Point of Care testing , PSA SCREEN (MEDICARE)on 11-09 TPSA 3.110 ng/mL Normal <4.000 [facility] Photovoltaic Technician Comment on above: Result Comment: PSA Test Method: ECLIA/Urvashi e 601 Performed By: #### P SA MC #### [facility] [address] [place], [place] [id number] Complete Blood Counton 09-20 Erythrocyte distribution width (RBC) [Ratio] 12.6 % Normal 11.0-15.0 [facility] [employer]olta[employer] Technician Comment on above: Performed By: #### C MP, CBC, MG #### [facility] [address] [place], [place] [id number] Hematocrit (Bld) [Volume fraction] 47.3 % Normal 38.5-50.0 [facility] Specialist Comment on above: Performed By: #### C MP, CBC, MG #### [facility] [address] [place], [place] [id number] Hemoglobin (Bld) [Mass/Vol] 15.8 g/dL Normal 13.0-17.1 [facility] Specialist Comment on above: Performed By: #### C MP, CBC, MG #### [facility] [address] [place], [place] [id number] MCH (RBC) [Entitic mass] 28.6 pg Normal 27.0-33.0 [facility] Specialist Comment on above: Performed By: #### C MP, CBC, MG #### [facility] [address] [place], [place] [id number] MCHC (RBC) [Mass/Vol] 33.4 g/dL Normal 32.0-36.0 [facility] Specialist Comment on above: Performed By: #### C MP, CBC, MG #### [facility] [address], [place] [id number] MCV (RBC) [Entitic vol] 86 fL Normal 80-100 [facility] Specialist Comment on above: Performed By: #### C MP, CBC, MG #### [facility] [address] [place], [place] [id number] Platelet mean volume (Bld) [Entitic vol] 8.90 fL Normal 7.50-12.50 [facility] Specialist Comment on above: Performed By: #### C MP, CBC, MG #### [facility] [address], [place] [id number] Platelets (Bld) [#/Vol] 258 10*3/uL Normal 140-400 [facility] Specialist Comment on above: Performed By: #### C MP, CBC, MG #### [facility] [address], [place] [id number] RBC (Bld) [#/Vol] 5.53 10*6/uL Normal 4.20-5.80 [facility] Specialist Comment on above: Performed By: #### C MP, CBC, MG #### [facility] [address], [place] [id number] RDW-SD 39.1 fL Normal 37.0-50.0 [facility] Photovoltaic Technician Comment on above: Performed By: #### C MP, CBC, MG #### [facility] [address], [place] [id number] WBC (Bld) [#/Vol] 8.2 10*3/uL Normal 3.8-11.0 [facility] Photovoltaic Technician Comment on above: Performed By: #### C MP, CBC, MG #### [facility] [address] [place], [place] [id number] Comprehensive Metabolic Pane yun 09-20-2021 Albumin [Mass/Vol] 4.5 g/dL Normal 3.6-5.1 [facility] Photovoltaic Technician Comment on above: Performed By: #### C MP, CBC, MG #### [facility] [address] [place], [place] [id number] Albumin/Globulin [Mass ratio] 1.6 {ratio} Normal 1.0-2.5 [facility] Photovoltaic Technician Comment on above: Performed By: #### C MP, CBC, MG #### [facility] [address] [place], [place] [id number] ALP [Catalytic activity/Vol] 86 U/L Normal 40-129 [facility] Photovoltaic Technician Comment on above: Performed By: #### C MP, CBC, MG #### [facility] [address] [place], [place] [id number] ALT [Catalytic activity/Vol] 58 U/L High 9-46 [facility] Photovoltaic Technician Comment on above: Result Comment: 07/11 Female reference range changed. Performed By: #### C MP, CBC, MG #### [facility] [address], [place] [id number] Anion gap [Moles/Vol] 17 mmol/L Normal 12-20 [facility] Photovoltaic Technician Comment on above: Result Comment: Effe ctive 08/16/2019 reference range changed. Performed By: #### C MP, CBC, MG #### [facility] [address], [place] [id number] AST [Catalytic activity/Vol] 51 U/L High 10-40 [facility] Photovoltaic Technician Comment on above: Performed By: #### C MP, CBC, MG #### [facility] [address], [place] [id number] Bilirubin [Mass/Vol] 0.52 mg/dL Normal 0.30-1.20 [facility] Comment on above: Performed By: #### C MP, CBC, MG #### [facility] [address], [place] [id number] BUN/CREA 12 Ratio Normal 6-22 [facility] Comment on above: Performed By: #### C MP, CBC, MG #### [facility] [address], [place] [id number] Calcium [Mass/Vol] 9.9 mg/dL Normal 8.6-10.2 [facility] Comment on above: Performed By: #### C MP, CBC, MG #### [facility] [address] [place], [place] [id number] Chloride [Moles/Vol] 102 mmol/L Normal 98-107 [facility] Comment on above: Performed By: #### C MP, CBC, MG #### [facility] [address], [place] [id number] CO2 [Moles/Vol] 22 mmol/L Normal 20-31 [facility] Comment on above: Performed By: #### C MP, CBC, MG #### [facility] [address], [place] [id number] Creatinine [Mass/Vol] 1.2 mg/dL Normal 0.7-1.4 [facility] Comment on above: Performed By: #### C MP, CBC, MG #### [facility] [address], [place] [id number] eGFRAA 72 mL/min/1.73m2 Normal >60 [facility] Comment on above: Performed By: #### C MP, CBC, MG #### [facility] [address], [place] [id number] eGFRNAA 59 mL/min/1.73m2 Low >60 [facility] Comment on above: Performed By: #### C MP, CBC, MG #### [facility] [address], [place] [id number] Globulin (S) [Mass/Vol] 2.9 g/dL Normal 1.9-3.7 [facility] Photovoltaic Technician Comment on above: Performed By: #### C MP, CBC, MG #### [facility] [address] [place], [place] [id number] Glucose [Mass/Vol] 117 mg/dL High 65-99 [facility] Photovoltaic Technician Comment on above: Result Comment: For FASTING Glucose --- ADA reference ranges: Normal 65-99 mg/dl Prediabetes 100-125 Diabetes >/= 126 Performed By: #### C MP, CBC, MG #### [facility] [address], [place] [id number] Potassium [Moles/Vol] 4.5 mmol/L Normal 3.5-5.5 [facility] Photovoltaic Technician Comment on above: Performed By: #### C MP, CBC, MG #### [facility] [address] [place], [place] [id number] Protein [Mass/Vol] 7.4 g/dL Normal 6.1-8.1 [facility] Photovoltaic Technician Comment on above: Performed By: #### C MP, CBC, MG #### [facility] [address], [place] [id number] Sodium [Moles/Vol] 137 mmol/L Normal 135-146 [facility] Photovoltaic Technician Comment on above: Performed By: #### C MP, CBC, MG #### [facility] [address], [place] [id number] Urea nitrogen [Mass/Vol] 15 mg/dL Normal 7-25 [facility] Photovoltaic Technician Comment on above: Performed By: #### C MP, CBC, MG #### [facility] [address], [place] [id number] Hemoglobin A1Con 09-20-2021 EAG 142.72 Normal [facility] Photovoltaic Technician Comment on above: Performed By: #### A 1C #### [facility] [address], [place] [id number] HbA1c (Bld) [Mass fraction] 6.6 % High 4.0-6.0 [facility] Photovoltaic Technician Comment on above: Performed By: #### A 1C #### [facility] [address], [place] [id number] Magnesiumon 09-20-2021 Magnesium [Mass/Vol] 2.0 mg/dL Normal 1.5-2.3 Mikayla ceron [place] Photovoltaic Technician Comment on above: Performed By: #### C MP, CBC, MG #### [facility] [address] [place], [place] [id number] Vital Signs Date Time Vital Sign Value Performing Clinician Faci lity 03-15-2022 09:24-0400 Diastolic blood pressure 82 mm[Hg] DO Lay Talbot Work Phone: [facility] 03-15-2022 09:24-0400 Heart rate 72 /min DO Lay Carmenkes Work Phone: [facility] 03-15-2022 09:24-0400 Respiratory rate 18 /min DO Lay Talbot Work Phone: [facility] 03-15-2022 09:24-0400 SaO2% (BldA) [Mass fraction] 97 % DO Lay Talbot Work Phone: [facility] 03-15-2022 09:24-0400 Systolic blood pressure 115 mm[Hg] DO Lay Carmenkes Work Phone: [facility] 03-15-2022 07:21-0400 Body height 171.45 cm DO Lay Talbot Work Phone: [facility] 03-15-2022 07:21-0400 Body temperature 98.5 [degF] DO Lay Talbot Work Phone: [facility] 03-15-2022 07:21-0400 Body weight 86.18 kg DO Lay Talbot Work Phone: [facility] Encounters Encounter Date Encounter Type Care Provider Facility Start: 09-15-2023 Clinisync Result Encounter William Spears MD Work Phone: [facility] Unsolicited Start: 09-15-2023 Clinisync Result Encounter William Spears MD Work Phone: [facility] Unsolicited Start: 12-09-2022 End: 12-09-[address] WILLIAM SPEARS Facility:[facility] Start: 11-13-2022 End: 11-13-[address] WILLIAM SPEARS Facility:[facility] Start: 11-04-2022 End: 11-04-[address] WILLIAM SPEARS Facility:[facility] Start: 10-02-2022 End: 10-03-[address] WILLIAM SPEARS Facility:[facility] Start: 10-02-2022 End: 10-02-2022 ambulatory TIA MERA Facility:[facility] Start: 06-12-2022 End: 06-13-2022 ambulatory YVES ORNELAS Facility:[facility] Start: 03-15-2022 End: 03-15-2022 Admission to same day surgery center DO Lay Talbot Work Phone: [facility] Procedures Date Procedure Procedure Detail Performing Clinician Start: 09-15-2023 MLR HEMOGLOBIN A1C Katie Spears MD Work Phone: Start: 03-15-2022 Screening colonoscopy D O Lay Talbot Work Phone: Plan of Treatment Date Care Activity Detail Author Start: 12-16-2023 End: 12-16-2023 Patient encounter procedure 12/16/2023 12:15 PM EDT Office Visit [facility] [address] [facility] [address] [place] [address] Yves Ornelas MD [address] [facility] [address] [id number] [facility] Start: 04-11-2023 Influenza vaccination Influenza Vaccine (#1) [facility] Start: 03-11-2023 Hemoglobin A1c measurement Diabetes: Hemoglobin A1C [facility] Start: 03-15-2022 [facility] Work Phone: Start: 1966 Glaucoma screening Diabetes: Retinopathy Screening [facility] Start: 1962 Pneumococcal Vaccine: 65+ Years (1 - PCV) Pneumococcal Vaccine: 65+ Years (1 - PCV) [facility] Start: 1956 Medicare Annual Wellness (AWV) Medicare Annual Wellness (AWV) [facility] Start: 1956 Screening for malignant neoplasm of colon [facility] Immunizations Immunization Date Immunization Notes Care Provider Judah packer 05-15-2020 influenza virus vacc ine, unspecified formulation William Spears MD Work Phone: [facility] Payers Date Payer Category Payer Medicare [employer] MED[employer]ARE REPLACEMENT [id number] 2022-Present [address] [address] [place] [address] [id number] 2022 Medicaid MEDICAID [facility] [id number] 2022-Present [phone] [address] [place] [address] Medicaid [id number] 1959 Medicaid [id number] 1959 Medicare [id number] 1959 Medicare [id number] 1956 Unknown [id number] 1956 Unknown [id number] 1956 Unknown [id number] 1956 Unknown [id number] 1956 Unknown [id number] 1956 Unknown [id number] Medicaid [id number] Self-pay Self Pay [id number] Unknown [employer] [id number] Social History Date Type Detail Facility Start: 03-15-2022 End: 02-25-2023 Tobacco smoking status NHIS Never smoked tobacco (finding) [facility] Start: 1955 Sex Assigned At Male [facility] Start: 02-25-2023 Alcohol intake Ex-drinker (finding) [facility] Start: 02-25-2023 History of Social function [facility] Start: 02-25-2023 Tobacco use panel [facility] Start: 1955 Sex Assigned At Not on file [facility] Medical Equipment Procedure Code Equipment Code Equipment Origin al Text Equipment Identifier Dates Phacoemulsification of cataract with intraocular lens implantation Posterior-chamber intraocular lens, pseudophakic ()[id number] FDA Start: 01-27-2020 Phacoemulsification of cataract with intraocular lens implantation Posterior-chamber intraocular lens, pseudophakic ()[id number] FDA Start: 02-24-2020 Goals Date Patient Goal [...] authenticated by: RUFUS VALDEZ Date: 2022-10-02 11:10 [facility] History and physical note 03-15-2022 Note Date & Type Note Facility 03-15-2022 History and physi tara note Note Date/Time March 15, 2022 8:20am [facility] [address] [place] [address] Gastroenterology H&P Signed Patient: Farhat Castle MR#: [id number] : 1955 Acct:[id number] Age/Sex: 66 / M Adm Date: 2 Loc: Room: Type: [facility] Attending Dr: Lay Talbot DO Copies to: DO Amie Garcia Jr, JUVENCIO-Willian~ Date of Service: 03/15/2022 Gastroenterology HPI History of Present Illness HPI: Mr. Castle is a 66 year old male for [...] by Lay Talbot Jr, DO> 03/15/22 0832 [facility] Work Phone: Procedure note 03-15-2022 Note Date & Type Note Facility 03-15-2022 Procedure [address] [facility] Evaluation note Note Date & Type Note Facility Evaluation note Diagnosis Onset Date Screening for colorectal cancer acute [facility] Work Phone: Hospital Discharge instructions Note Date [...] if you have any problems. -Office number [phone] [facility] Work Phone: Summary Purpose Family History Relationship Condition Age at Onset Recorded Date/T nile Not Specified Cerebrovascular accident (CVA) Unknown Type 2 diabetes mellitus Unknown father Chronic obstructive pulmonary disease Unk nown Advance Directives Advance Directive Response Recorded Date/ Time Advance Directives No January 20 3:32pm Chief Complaint and Reason for Visit Chief Complaint Screening Reason for Visit Screening for colore ctal cancer Additional Source Comments (unrecognized sect ion and content) No Status Records FoundNo Status Records FoundNo Status Records Found INFORMATION SOURCE (unrecogn ized section and content) DATE CREATED AUTHOR 11/21/2021 [facility] dical Specialist DATE CREATED AUTHOR AUTHOR'S ORGANIZ ATION 03/16/2022 [facility] DATE CREATED AUTHOR AUTHOR'S ORGANIZ ATION 12/14/[address] [facility] Care Teams (unrecognized sec tion and content) Team Status: Inactive Member Role Status Dates Lay Talbot DO Attending Provider Active Amie Dow VENDOR SPECIALIST-C Primary Care Provider Active Team Status: Active Member Role Status Dates Amie Dow VENDOR SPECIALIST-C Primary Care Provider Active [employer] Relationship Specialty Start Date End Date William Spears MD [address] [facility] [address] [place] [address] PCP - General Family Medicine 06/17/23 FOR RECORDS PERTAINING TO PATIENTS WHO ARE [...] BE BASED ON THE PRIMARY CLINICAL RECORDS. [employer] provides no warranty or guarantee of the accuracy or completeness of information in this document.
[2023-11-24] MEDS: WATER FOR IRRIGATION, STERILE 1,000 ML IRRIG.SOLN 1000 ML IRR (05:24)
[2023-11-24 05:53] VITALS: BP 130/100
== END 2023-11-24 05:55 | disposition home or self-care (01) ==
PROVIDERS: Emergency Provider Emergency Medicine; PCP Family Medicine
DX: T83.9XXA Unspecified complication of genitourinary prosthetic device, implant and graft, initial encounter (principal)
CPT/HCPCS: 51702; 99284

== ENCOUNTER 2023-12-10 00:40 | Outpatient (REF) | payer MEDICARE, MEDICAID, SELFPAY ==
--- OUTSIDE RECORDS SUMMARY | 2023-12-10 00:44 | XMS_ITS | CCD ---
Author Organization [facility] Care Team Providers Care Director Of Enterprise Strategy Name Role Phone Antione DO Lay Wagner Attending Provider CINDY Dow Primary Care Provider YVES ORNELAS Admitting Unavailable JOHNSON, YVES Attending [...] Unavailable William Spears MD Primary Care Provider [phone] Medications Current Medications Medication Drug Class(es) Dates Sig (Normalized) Sig (Original) acetaminophen 325 mg oral tablet (2 sources) Start: 03-15-2022 take 650 mg by mouth every four hours Acetaminophen Active 650 MG PO Q4H March 15, 2022 12:00am acetaminophen (T ylenol) 325 MG tablet every 4 (four) hours. 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2 % [facility] Comment on above: ADA RECOMMENDED LIMI T 4.0 - 6.0 ADA THERAPEUTIC TARGET < 7.0 ACTION SUGGESTED > 7.0 Interpretation and review of laboratory results Abnormal [facility] CBC AUTO DIFFon 12-09-2022 BASO # 0.0 103/ul Normal 0.0-0.1 [facility] Comment on above: Performed By: #### C BC ####[facility] [address] [place], [place] [address]Dr. Kathya Ryan Basophils/100 WBC (Bld) 0.5 % Normal 0.2-2.0 [facility] Comment on above: Performed By: #### C BC ####[facility] [address] [place] [address]DrBriseyda Ryan EO # 0.3 103/ul Normal 0.0-0.7 [facility] Comment on above: Performed By: #### C BC ####[facility] [address] [place], [place] [address]Dr. Kathya Ryan Eosinophils/100 WBC (Bld) 5.4 % Normal 0.9-7.0 [facility] Comment on above: Performed By: #### C BC ####[facility] [address] [place], [place] [address]Dr. Kathya Ryan Erythrocyte distribution width (RBC) [Ratio] 12.5 % Normal 11.0-15.0 [facility] Comment on above: Performed By: #### C BC ####[facility] [address] [place], [place] [address]Dr. Kathya Ryan Hematocrit (Bld) [Volume fraction] 42.4 % Normal 42.0-54.0 [facility] Comment on above: Performed By: #### C BC ####[facility] [address] [place] [address]Dr. Kathya Ryan Hemoglobin (Bld) [Mass/Vol] 14.1 g/dL Normal 14.0-18.0 [facility] Comment on above: Performed By: #### C BC ####[facility] [address] [place] [address]Dr. Kathay Ryan IG # 0.02 10e3/ul Normal 0.00-0.03 [facility] Comment on above: Performed By: #### C BC ####[facility] [address] [place] [address]Dr. Kathya Ryan IG % 0.3 % Normal 0.0-0.5 [facility] Comment on above: Performed By: #### C BC ####[facility] [address] [place] [address]Dr. aKthya Ryan LYMPH # 1.3 103/ul Normal 1.2-3.8 [facility] Comment on above: Performed By: #### C BC ####[facility] [address] [place] [address]Dr. Kathya Ryan Lymphocytes/100 WBC (Bld) 22.4 % Normal 20.5-60.0 [facility] Comment on above: Performed By: #### C BC ####[facility] [address] [place] [address]Dr. Kathya Ryan MANUAL DIFF REQ NO Normal [facility] Comment on above: Performed By: #### C BC ####[facility] [address] [place] [id number]. Kathya Ryan MCH (RBC) [Entitic mass] 30.5 pg Normal 25.9-34.0 [facility] Comment on above: Performed By: #### C BC ####[facility] [address] [place] [address]Dr. Kathya Ryan MCHC (RBC) [Mass/Vol] 33.3 g/dL Normal 29.9-35.2 [facility] Comment on above: Performed By: #### C BC ####[facility] [address] [place] [address]Dr. Kathya Ryan MCV (RBC) [Entitic vol] 91.8 fL Normal 80.0-94.0 [facility] Comment on above: Performed By: #### C BC ####[facility] [address] [place] [id number]. Kathya Ryan MONO # 0.7 103/ul Normal 0.3-0.8 [facility] Comment on above: Performed By: #### C BC ####[facility] [address] [place] [address]Dr. Kathya Ryan Monocytes/100 WBC (Bld) 12.2 % Critically high 1.7-12.0 [facility] Comment on above: Performed By: #### C BC ####[facility] [address] [place], [place] [address]Dr. Kathya Ryan NEUT # 3.5 103/ul Normal 1.4-6.5 [facility] Comment on above: Performed By: #### C BC ####[facility] [address] [place] [address]Dr. Kathya Ryan Neutrophils/100 WBC (Bld) 59.2 % Normal 43.0-75.0 [facility] Comment on above: Performed By: #### C BC ####[facility] [address] [place] [id number]. Kathya Ryan Platelet mean volume (Bld) [Entitic vol] 9.1 fL Critically low 9.5-13.5 [facility] Comment on above: Performed By: #### C BC ####[facility] [address] [place] [address]Dr. Kathya Ryan PLT 211 103/ul Normal 150-450 [facility] Comment on above: Performed By: #### C BC ####[facility] [address] [place] [id number]. Kathya Ryan RBC 4.62 106/ul Critically low 4.70-6.10 [facility] Comment on above: Performed By: #### C BC ####[facility] [address] [place], [place] [address]Dr. Kathya Ryan WBC 5.9 103/ul Normal 4.0-11.0 [facility] Comment on above: Performed By: #### C BC ####[facility] [address] [place] [id number]. Kathya Ryan GLYCOHEMOGLOBIN A1Con 2022 ADA RECOMMENDATION SEE BELOW Normal [facility] Comment on above: Result Comment: ADA RECOMMENDED LIMIT 4.0 - 6.0 ADA THERAPEUTIC TARGET < 7.0 ACTION SUGGESTED > 7.0 Performed By: #### A 1C #### [facility] [address] [address] [address] Kathya Ryan Glucose [Mass/Vol] 123 mg/dL Normal [facility] Comment on above: Performed By: #### A 1C #### [facility] [address] [address] [address] Kathya Ryan HbA1c (Bld) [Mass fraction] 5.9 % Normal 4.5-6.2 [facility] Comment on above: Performed By: #### A 1C #### [facility] [address] [address] [address] Kathya Ryan LIPID PROFILEon 12-09-2022 CHOL-HDL RATIO NORM SEE BELOW Normal [facility] Comment on above: Result Comment: 3.3 - 4.4 LOW RISK 4.4 - 7.1 AVERAGE RISK 7.1 - 11.0 MODERATE RISK >11.0 HIGH RISK Performed By: #### L IPID, CMP #### [facility] [address] [address] [address] Kathya Ryan Cholesterol [Mass/Vol] 132 mg/dL Normal <=200 [facility] Comment on above: Performed By: #### L IPID, CMP #### [facility] [address] [address] [address] Kathya Ryan Cholesterol in HDL [Mass/Vol] 29 mg/dL Critically low 40-60 [facility] Comment on above: Performed By: #### L IPID, CMP #### [facility] [address] [address] [address] Kathya Ryan Cholesterol in LDL [Mass/Vol] 83.0 mg/dL Normal [facility] Comment on above: Performed By: #### L IPID, CMP #### [facility] [address] [place] [address] Dr. Kathya Ryan Cholesterol.total/Ch olesterol in HDL [Mass ratio] 4.6 {ratio} Normal [facility] Comment on above: Performed By: #### L IPID, CMP #### [facility] [address] [address] [address] Kathya Ryan HDL NORMAL > or = 60 mg/dl - LO W CARDIOVASCULAR RISK <40 mg/dl - HIGH CARDIOVASCULAR RISK Normal [facility] Comment on above: Performed By: #### L IPID, CMP #### [facility] [address] [place] [address] Dr. Kathya Ryan LDL CALC NORMAL SEE BELOW Normal [facility] Comment on above: Result Comment: <100 mg/dl OPTIMAL 100 - 129 mg/dl NEAR OR ABOVE OPTIMAL 130 - 159 mg/dl BORDERLINE HIGH 160 - 189 mg/dl HIGH >190 mg/dl VERY HIGH Performed By: #### L IPID, CMP #### [facility] [address] [place] [address] Dr. Kathya Ryan Triglyceride [Mass/Vol] 102 mg/dL Normal <=150 [facility] Comment on above: Performed By: #### L IPID, CMP #### [facility] [address] [address] [address] Kathya Ryan VLDL CALC 20.4 mg/dL Normal [facility] Comment on above: Performed By: #### L IPID, CMP #### [facility] [address] [place] [address] Dr. Kathya Ryan PROF 14(COMP METB)on 023 Albumin [Mass/Vol] 3.3 g/dL Critically low 3.4-5.0 [facility] Comment on above: Performed By: #### L IPID, CMP #### [facility] [address] [place] [address] Dr. Kathya Ryan Albumin/Globulin [Mass ratio] 0.9 {ratio} Normal [facility] Comment on above: Performed By: #### L IPID, CMP #### [facility] [address] [address] [address] Kathya Ryan ALP [Catalytic activity/Vol] 71 U/L Normal 46-116 [facility] Comment on above: Performed By: #### L IPID, CMP #### [facility] [address] [address] [address] Kathya Ryan ALT [Catalytic activity/Vol] 50 U/L Normal 16-63 [facility] Comment on above: Performed By: #### L IPID, CMP #### [facility] [address] [place] [address] Dr. Kathya Ryan Anion gap [Moles/Vol] 12.6 mmol/L Normal [facility] Comment on above: Performed By: #### L IPID, CMP #### [facility] [address] [place] [address] Dr. Kathya Ryan AST [Catalytic activity/Vol] 34 U/L Normal 15-37 [facility] Comment on above: Performed By: #### L IPID, CMP #### [facility] [address] [place] [address] Dr. Kathya Ryan Bilirubin [Mass/Vol] 0.4 mg/dL Normal 0.2-1.0 [facility] Comment on above: Performed By: #### L IPID, CMP #### [facility] [address] [place] [address] Dr. Kathya Ryan Calcium [Mass/Vol] 8.9 mg/dL Normal 8.5-10.1 [facility] Comment on above: Performed By: #### L IPID, CMP #### [facility] [address] [place] [address] Dr. Kathya Ryan Chloride [Moles/Vol] 106 mmol/L Normal 98-107 [facility] Comment on above: Performed By: #### L IPID, CMP #### [facility] [address] [place] [address] Dr. Kathya Ryan CO2 [Moles/Vol] 27.4 mmol/L Normal 21.0-32.0 [facility] Comment on above: Performed By: #### L IPID, CMP #### [facility] [address] [address] [address] Kathya Ryan Creatinine [Mass/Vol] 1.45 mg/dL Critically high 0.70-1.30 [facility] Comment on above: Performed By: #### L IPID, CMP #### [facility] [address] [address] [address] Kathya Ryan EGFR-AF MALAWIAN 59 mL/min/1.73m2 Critically low >=60 [facility] Comment on above: Performed By: #### L IPID, CMP #### [facility] [address] [address] [address] Kathya Ryan EGFR-NON AF MALAWIAN 49 mL/min/1.73m2 Critically low >=60 [facility] Comment on above: Performed By: #### L IPID, CMP #### [facility] [address] [address] [address] Kathya Ryan Globulin (S) [Mass/Vol] 3.8 g/dL Normal [facility] Comment on above: Performed By: #### L IPID, CMP #### [facility] [address] [address] [address] Kathya Ryan Glucose [Mass/Vol] 109 mg/dL Critically high 74-106 [facility] Comment on above: Performed By: #### L IPID, CMP #### [facility] [address] [address] [address] Kathya Ryan Potassium [Moles/Vol] 3.9 mmol/L Normal 3.5-5.1 [facility] Comment on above: Performed By: #### L IPID, CMP #### [facility] [address] [address] [address] Kathya Ryan Protein [Mass/Vol] 7.1 g/dL Normal 6.4-8.2 [facility] Comment on above: Performed By: #### L IPID, CMP #### [facility] [address] [address] [address] Kathya Ryan Sodium [Moles/Vol] 142 mmol/L Normal 136-145 [facility] Comment on above: Performed By: #### L IPID, CMP #### [facility] [address] [address] [address] Kathya Ryan Urea nitrogen [Mass/Vol] 17.0 mg/dL Normal 7.0-18.0 [facility] Comment on above: Performed By: #### L IPID, CMP #### [facility] [address] [address] [address] Kathya Ryan Urea nitrogen/Creatinine [Mass ratio] 11.7 mg/mg Normal [facility] Comment on above: Performed By: #### L IPID, CMP #### [facility] [address] [address] [address] Kathya Ryan FREE LIGHT CHAINS PLUS RATIO , URINEon 11-14-2022 Free Octavia Lt Chains,Ur 86.11 mg/L Normal 1.17-86.46 [facility] Comment on above: Performed By: #### F REELIU ####[facility] [address] [place] [address]Dr. Kathya Ryan Free Lambda Lt Chains,Ur 11.37 mg/L Normal 0.27-15.21 [facility] Comment on above: Performed By: #### F REELIU ####[facility] [address] [place] [address]Dr. Kathya Ryan Octavia/ Lambda Urine Ratio 7.57 Normal 1.83-14.26 [facility] Comment on above: Performed By: #### F REELIU ####[facility] [address] [place] [address]Dr. Kathya Ryan CT CSPINE WO CONon CT [...] KARIME MAYES Date: 2022-11-04 00:29 Normal [facility] CT HEAD WO CONon 11-04-2022 CT HEAD [...] JAC GILL Date: 2022-11-04 00:28 Normal [facility] CBC AUTO DIFFon 10-02-2022 BASO # 0.1 103/ul Normal 0.0-0.1 [facility] Comment on above: Performed By: #### C BC ####[facility] [address] [place] [address]Dr. Kathya Ryan Basophils/100 WBC (Bld) 0.5 % Normal 0.2-2.0 [facility] Comment on above: Performed By: #### C BC ####[facility] [address] [place] [address]Dr. Kathya Ryan EO # 0.8 103/ul Critically high 0.0-0.7 [facility] Comment on above: Performed By: #### C BC ####[facility] [address] [place], [place] [address]Dr. Kathya Ryan Eosinophils/100 WBC (Bld) 7.6 % Critically high 0.9-7.0 [facility] Comment on above: Performed By: #### C BC ####[facility] [address] [place], [place] [address]Dr. Kathya Ryan Erythrocyte distribution width (RBC) [Ratio] 13.3 % Normal 11.0-15.0 [facility] Comment on above: Performed By: #### C BC ####[facility] [address] [place], [place] [address]Dr. Kathya Ryan Hematocrit (Bld) [Volume fraction] 39.7 % Critically low 42.0-54.0 [facility] Comment on above: Performed By: #### C BC ####[facility] [address] [place], [place] [address]Dr. Kathya Ryan Hemoglobin (Bld) [Mass/Vol] 13.4 g/dL Critically low 14.0-18.0 [facility] Comment on above: Performed By: #### C BC ####[facility] [address] [place] [address]Dr. Kathya Ryan IG # 0.04 10e3/ul Critically high 0.00-0.03 [facility] Comment on above: Performed By: #### C BC ####[facility] [address] [place], [place] [address]Dr. Kathya Ryan IG % 0.4 % Normal 0.0-0.5 [facility] Comment on above: Performed By: #### C BC ####[facility] [address] [place] [address]Dr. Kathya Connor LYMPH # 1.6 103/ul Normal 1.2-3.8 [facility] Comment on above: Performed By: #### C BC ####[facility] [address] [place] [address]Dr. Kathya Ryan Lymphocytes/100 WBC (Bld) 15.8 % Critically low 20.5-60.0 [facility] Comment on above: Performed By: #### C BC ####[facility] [address] [place] [address]Dr. Kathya Ryan MANUAL DIFF REQ NO Normal [facility] Comment on above: Performed By: #### C BC ####[facility] [address] [place] [address]Dr. Kathya Ryan MCH (RBC) [Entitic mass] 29.8 pg Normal 25.9-34.0 [facility] Comment on above: Performed By: #### C BC ####[facility] [address] [place] [address]Dr. Mireyajack Ryan MCHC (RBC) [Mass/Vol] 33.8 g/dL Normal 29.9-35.2 [facility] Comment on above: Performed By: #### C BC ####[facility] [address] [place] [address]Dr. Kathya Ryan MCV (RBC) [Entitic vol] 88.4 fL Normal 80.0-94.0 [facility] Comment on above: Performed By: #### C BC ####[facility] [address] [place] [address]Dr. Kathya Ryan MONO # 1.2 103/ul Critically high 0.3-0.8 [facility] Comment on above: Performed By: #### C BC ####[facility] [address] [place] [address]Dr. Kathya Ryan Monocytes/100 WBC (Bld) 12.1 % Critically high 1.7-12.0 [facility] Comment on above: Performed By: #### C BC ####[facility] [address] [place] [address]Dr. Kathya Ryan NEUT # 6.4 103/ul Normal 1.4-6.5 [facility] Comment on above: Performed By: #### C BC ####[facility] [address] [place], [place] [address]Ag. Kathya Ryan Neutrophils/100 WBC (Bld) 63.6 % Normal 43.0-75.0 [facility] Comment on above: Performed By: #### C BC ####[facility] [address] [place] [address]Dr. Kathya Ryan Platelet mean volume (Bld) [Entitic vol] 8.8 fL Critically low 9.5-13.5 [facility] Comment on above: Performed By: #### C BC ####[facility] [address] [place] [address]Dr. Kathya Ryan PLT 237 103/ul Normal 150-450 [facility] Comment on above: Performed By: #### C BC ####[facility] [address] [place] [address]Dr. Kathya Ryan RBC 4.49 106/ul Critically low 4.70-6.10 [facility] Comment on above: Performed By: #### C BC ####[facility] [address] [place] [address]Dr. Kathya Ryan WBC 10.1 103/ul Normal 4.0-11.0 [facility] Comment on above: Performed By: #### C BC ####[facility] [address] [place], [place] [address]Dr. Kathya Ryan CT CSPINE WO CONon 3 [...] LAY ROQUE Date: 2022-10-02 20:33 Normal [facility] CT HEAD WO CONon 10-02-2022 CT HEAD [...] JAC GILL Date: 2022-10-02 20:41 Normal [facility] CULTURE URINEon 10-02-2022 CULTURE URINE Culture Observations : LIGHT GROWTH OF MIXED SKIN LUKASZ. NO POTENTIAL PATHOGENS SEEN. Normal [facility] Comment on above: Performed By: #### U RCX ####[facility] [address] [place], [place] [address]QwBriseyda KEARNS URINE PROFILEon 3 Bilirubin Ql (U) Negative Normal NEGATIVE [facility] Comment on above: Performed By: #### U MICRO, ERUR #### [facility] [address] [address] [address] Kathya Ryan Clarity (U) CLEAR Normal CLEAR [facility] Comment on above: Performed By: #### U MICRO, ERUR #### [facility] [address] [address] [address] Kathya Ryan Color (U) YELLOW Normal YELLOW [facility] Comment on above: Performed By: #### U MICRO, ERUR #### [facility] [address] [address] [address] Kathya Ryan ERUAHD A micrscopic examination will be performed if indicated. Normal [facility] Comment on above: Performed By: #### U MICRO, ERUR #### [facility] [address] [place] [address] Dr. Kathya Ryan Glucose Ql (U) 500 mg/dl Abnormal NEGATIVE [facility] Comment on above: Performed By: #### U MICRO, ERUR #### [facility] [address] [address] [address] Kathya Ryan Hemoglobin Ql (U) SMALL Abnormal NEGATIVE [facility] Comment on above: Performed By: #### U MICRO, ERUR #### [facility] [address] [place] [address] Dr. Kathya Ryan Ketones Ql (U) TRACE Abnormal NEGATIVE [facility] Comment on above: Performed By: #### U MICRO, ERUR #### [facility] [address] [address] [address] Kathya Rayn LEUKOCYTES TRACE Abnormal NEGATIVE [facility] Comment on above: Performed By: #### U MICRO, ERUR #### [facility] [address] [address] [address] Kathya Ryan Nitrite Ql (U) Negative Normal NEGATIVE [facility] Comment on above: Performed By: #### U MICRO, ERUR #### [facility] [address] [place] [address] Dr. Kathya Ryan pH (U) 5.5 [pH] Normal 5-9 [facility] Comment on above: Performed By: #### U MICRO, ERUR #### [facility] [address] [address] [address] Kathya Ryan SPEC GRAVITY >=1.030 Abnormal 1.005-<=1.025 [facility] Comment on above: Performed By: #### U MICRO, ERUR #### [facility] [address] [address] [address] Kathya Ryan UA PROTEIN TRACE Normal NEGATIVE/ TRACE [facility] Comment on above: Performed By: #### U MICRO, ERUR #### [facility] [address] [address] [address] Kathya Ryan UR MICRO IND INDICATED Normal [facility] Comment on above: Performed By: #### U MICRO, ERUR #### [facility] [address] [place] [address] Dr. Kathya Ryan Urobilinogen Qn (U) 2.0 {Luanne'U}/dL Abnormal 0.2 - 1. 0 [facility] Comment on above: Performed By: #### U MICRO, ERUR #### [facility] [address] [place] [address] Dr. Kathya Ryan PROF 14(COMP METB)on 023 Albumin [Mass/Vol] 3.5 g/dL Normal 3.4-5.0 [facility] Comment on above: Performed By: #### H STROPN, CMP, TSH #### [facility] [address] [place] [address] Dr. Kathya Ryan Albumin/Globulin [Mass ratio] 0.9 {ratio} Normal [facility] Comment on above: Performed By: #### H STROPN, CMP, TSH #### [facility] [address] [place] [address] Dr. Kathya Ryan ALP [Catalytic activity/Vol] 108 U/L Normal 46-116 [facility] Comment on above: Performed By: #### H STROPN, CMP, TSH #### [facility] [address] [place] [address] Dr. Kahtya Ryan ALT [Catalytic activity/Vol] 38 U/L Normal 16-63 [facility] Comment on above: Performed By: #### H STROPN, CMP, TSH #### [facility] [address] [address] [address] Kathya Ryan Anion gap [Moles/Vol] 11.4 mmol/L Normal [facility] Comment on above: Performed By: #### H STROPN, CMP, TSH #### [facility] [address] [address] [address] Kathya Ryan AST [Catalytic activity/Vol] 28 U/L Normal 15-37 [facility] Comment on above: Performed By: #### H STROPN, CMP, TSH #### [facility] [facility] [address] [address] [address] Kathya Ryan Bilirubin [Mass/Vol] 0.9 mg/dL Normal 0.2-1.0 [facility] Comment on above: Performed By: #### H STROPN, CMP, TSH #### [facility] [address] [address] [address] Kathya Ryan Calcium [Mass/Vol] 9.1 mg/dL Normal 8.5-10.1 [facility] Comment on above: Performed By: #### H STROPN, CMP, TSH #### [facility] [address] [address] [address] Kathya Ryan Chloride [Moles/Vol] 100 mmol/L Normal 98-107 [facility] Comment on above: Performed By: #### H STROPN, CMP, TSH #### [facility] [address] [address] [address] Kathya Ryan CO2 [Moles/Vol] 27.7 mmol/L Normal 21.0-32.0 [facility] Comment on above: Performed By: #### H STROPN, CMP, TSH #### [facility] [address] [address] [address] Kathya Ryan Creatinine [Mass/Vol] 1.69 mg/dL Critically high 0.70-1.30 [facility] Comment on above: Performed By: #### H STROPN, CMP, TSH #### [facility] [address] [address] [address] Kathya Ryan EGFR-AF MALAWIAN 50 mL/min/1.73m2 Critically low >=60 [facility] Comment on above: Performed By: #### H STROPN, CMP, TSH #### [facility] [address] [address] [address] Kathya Ryan EGFR-NON AF MALAWIAN 41 mL/min/1.73m2 Critically low >=60 [facility] Comment on above: Performed By: #### H STROPN, CMP, TSH #### [facility] [address] [address] [address] Kathya Ryan Globulin (S) [Mass/Vol] 3.8 g/dL Normal [facility] Comment on above: Performed By: #### H STROJIMI, CMP, TSH #### [facility] [address] [address] [address] Kathya Ryan Glucose [Mass/Vol] 259 mg/dL Critically high 74-106 [facility] Comment on above: Performed By: #### H STROJIMI, CMP, TSH #### [facility] [address] [address] [address] Kathya Ryan Potassium [Moles/Vol] 4.1 mmol/L Normal 3.5-5.1 [facility] Comment on above: Performed By: #### H STROPN, CMP, TSH #### [facility] [address] [address] [address] Kathya Ryan Protein [Mass/Vol] 7.3 g/dL Normal 6.4-8.2 [facility] Comment on above: Performed By: #### H STROPN, CMP, TSH #### [facility] [address] [address] [address] Kathya Ryan Sodium [Moles/Vol] 135 mmol/L Critically low 136-145 [facility] Comment on above: Performed By: #### H STROPN, CMP, TSH #### [facility] [address] [address] [address] Kathya Ryan Urea nitrogen [Mass/Vol] 15.0 mg/dL Normal 7.0-18.0 [facility] Comment on above: Performed By: #### H STROPN, CMP, TSH #### [facility] [address] [address] [address] Kathya Ryan Urea nitrogen/Creatinine [Mass ratio] 8.9 mg/mg Normal [facility] Comment on above: Performed By: #### H STROPN, CMP, TSH #### [facility] [address] [address] [address] Kathya Ryan PROTIMEon 10-02-2022 INR Coag (PPP) [Relative time] 1.00 {INR} Normal [facility] Comment on above: Performed By: #### P T, PTT ####[facility] [address] [address]Dr. Kathya Ryan INR GUIDELINES SEE BELOW Normal [facility] Comment on above: Result Comment: JONI RED INR: 2.0 - 3.0 CONDITIONS NOT LISTED BELOW 2.5 - 3.5 FOR PROSTHETIC HEART VALVE REPLACEMENT 2.5 - 3.5 RECURRENT THROMBOSIS Performed By: #### P T, PTT ####[facility] [address] [address]Dr. Kathya Ryan PT Coag (PPP) [Time] 10.6 s Normal 9.0-11.6 [facility] Comment on above: Performed By: #### P T, PTT ####[facility] [address] [address]Dr. Kathya Ryan PTTon 10-02-2022 aPTT Coag (Bld) [Time] 26.9 s Normal 22.3-36.2 [facility] Comment on above: Performed By: #### P T, PTT ####[facility] [address] [address]DrBriseyda Ryan TROPONIN, HIGH SENSITIVITYon 10-02-2022 HSTROP 4.2 pg/mL Normal 4.0-76.1 [facility] Comment on above: Result Comment: CUT- OFF POINTS HAVE BEEN ESTABLISHED BASED ON THE FOURTH UNIVERSAL DEFINITIONS OF MYOCARDIAL INFARCTION. THE UPPER REFERENCE LIMIT (URL) OF TROPONIN, DEFINED THE 99TH PERCENTILE OF cTnI DISTRIBUTION IN A REFERENCE POPULATION, HAS BEEN CONFIRMED THE DECISION THRESHOLD FOR [place] DIAGNOSIS. Performed By: #### H STROPN, CMP, TSH ####[facility] [address] [id number]. Kathya Ryan TSHon 10-02-2022 TSH 2.502 uIU/mL Normal 0.358-3.[address] [facility] Comment on above: Performed By: #### H STROPN, CMP, TSH ####[facility] [address] [id number]. Kathya Ryan URINE MICROSCOPIC ONLYon BACTERIA MODERATE Abnormal NONE SEEN [facility] Comment on above: Performed By: #### U MICRO, ERUR #### [facility] [address] [place] [address] Dr. Kathya Ryan Bacteria identified Cx Nom (U) INDICATED Normal [facility] Comment on above: Performed By: #### U MICRO, ERUR #### [facility] [address] [place] [address] Dr. Kathya Ryan CAST NONE SEEN Normal NONE SEEN [facility] Comment on above: Performed By: #### U MICRO, ERUR #### [facility] [address] [place] [address] Dr. Kathya Ryan Crystals LM Nom (Urine sed) NONE SEEN Normal NONE SEEN [facility] Comment on above: Performed By: #### U MICRO, ERUR #### [facility] [address] [place] [address] Dr. Kathya Ryan Epithelial cells LM Ql (Urine sed) RARE Normal NONE SEEN /RARE [facility] Comment on above: Performed By: #### U MICRO, ERUR #### [facility] [address] [place] [address] Dr. Kathya Ryan HYALINE CAST FEW Normal [facility] Comment on above: Performed By: #### U MICRO, ERUR #### [facility] [address] [place] [address] Dr. Kathya Ryan MUCOUS NONE SEEN Normal NONE SEEN [facility] Comment on above: Performed By: #### U MICRO, ERUR #### [facility] [address] [place] [address] Dr. Kathya Ryan RBC 10-20 Abnormal 0-2 [facility] Comment on above: Performed By: #### U MICRO, ERUR #### [facility] [address] [address] [address] Kathya Ryan WBC 5-10 Abnormal NONE SEEN [facility] Comment on above: Performed By: #### U MICRO, ERUR #### [facility] [address] [address] [address] Kathya Ryan XR CHEST 1 Von [...] by: LAY ROQUE Date: 2022-10-02 20:56 Normal [facility] XR KNEE RT 4V or >on [...] LAY ROQUE Date: 2022-10-02 20:59 Normal [facility] XR LSPINE 2_3 VIEWSon 2022 XR LSPINE [...] LAY ROQUE Date: 2022-10-02 20:55 Normal [facility] XR PELVIS 1_2 VIEWSon 2022 XR PELVIS 1_2 VIEWS EXAM: XR PELVIS 1_2 VIEWS HISTORY: Fall COMPARISON: None. TECHNIQUE: Single view FINDINGS: No osseous lesion, fracture, dislocation or subluxation. Joint spaces are unremarkable for patient's age. No visualized effusion. No visualized soft tissue edema. IMPRESSION: Normal x-rays Electronically authenticated by: LAY ROQUE Date: 2022-10-02 21:04 Normal [facility] Glucose Glucometer (BldC) [M ass/Vol]Ordered By: Lay Talbot on 03-15-2022 Glucose [Mass/Vol] 131 mg/dL [facility] Comment on above: Random Glucose Refer ence Range is dependent on time and content of last meal. Glucose of more than 200 mg/dL in a nonstressed, ambulatory subject supports the diagnosis of Diabetes Mellitus. Glucose Poct Glucometerson 0 03-15-2022 Glucose [Mass/Vol] 131 mg/dL Normal [facility] Comment on above: Result Comment: [place] Glucose Reference Range is dependent on time and content of last meal. Glucose of more than 200 mg/dL in a nonstressed, ambulatory subject supports the diagnosis of Diabetes Mellitus. PERFORMED BY: [facility] [address] [place] [address] PATHOLOGIST HURRICANE TRACKER CARINA HASSAN M.D. Performed By: #### G LULS #### Point of Care testing , PSA SCREEN (MEDICARE)on 11-09 TPSA 3.110 ng/mL Normal <4.000 [facility] [employer] Comment on above: Result Comment: PSA Test Method: ECLIA/Urvashi e 601 Performed By: #### P SA MC #### [facility] [address] [place], [place] [id number] Complete Blood Counton 09-20 Erythrocyte distribution width (RBC) [Ratio] 12.6 % Normal 11.0-15.0 [facility] [employer] Comment on above: Performed By: #### C MP, CBC, MG #### [facility] [address] [place], [place] [id number] Hematocrit (Bld) [Volume fraction] 47.3 % Normal 38.5-50.0 [facility] Comment on above: Performed By: #### C MP, CBC, MG #### [facility] [address] [place], [place] [id number] Hemoglobin (Bld) [Mass/Vol] 15.8 g/dL Normal 13.0-17.1 [facility] Comment on above: Performed By: #### C MP, CBC, MG #### [facility] [address] [place], [place] [id number] MCH (RBC) [Entitic mass] 28.6 pg Normal 27.0-33.0 [facility] Comment on above: Performed By: #### C MP, CBC, MG #### [facility] [address] [place], [place] [id number] MCHC (RBC) [Mass/Vol] 33.4 g/dL Normal 32.0-36.0 [facility] Comment on above: Performed By: #### C MP, CBC, MG #### [facility] [address] [place], [place] [id number] MCV (RBC) [Entitic vol] 86 fL Normal 80-100 [facility] Comment on above: Performed By: #### C MP, CBC, MG #### [facility] [address] [place], [place] [id number] Platelet mean volume (Bld) [Entitic vol] 8.90 fL Normal 7.50-12.50 [facility] Comment on above: Performed By: #### C MP, CBC, MG #### [facility] [address] [place], [place] [id number] Platelets (Bld) [#/Vol] 258 10*3/uL Normal 140-400 [facility] Comment on above: Performed By: #### C MP, CBC, MG #### [facility] [address] [place], [place] [id number] RBC (Bld) [#/Vol] 5.53 10*6/uL Normal 4.20-5.[address] [facility] Comment on above: Performed By: #### C MP, CBC, MG #### [facility] [address] [place], [place] [id number] RDW-SD 39.1 fL Normal 37.0-50.0 [facility] [employer] Comment on above: Performed By: #### C MP, CBC, MG #### [facility] [address] [place], [place] [id number] WBC (Bld) [#/Vol] 8.2 10*3/uL Normal 3.8-11.0 [facility] [employer] Comment on above: Performed By: #### C MP, CBC, MG #### [facility] [address] [place], [place] [id number] Comprehensive Metabolic Pane yun 09-20-2021 Albumin [Mass/Vol] 4.5 g/dL Normal 3.6-5.1 [facility] [employer] Comment on above: Performed By: #### C MP, CBC, MG #### [facility] [address] [place], [place] [id number] Albumin/Globulin [Mass ratio] 1.6 {ratio} Normal 1.0-2.5 [facility] [employer] Comment on above: Performed By: #### C MP, CBC, MG #### [facility] [address] [place], [place] [id number] ALP [Catalytic activity/Vol] 86 U/L Normal 40-129 [facility] [employer] Comment on above: Performed By: #### C MP, CBC, MG #### [facility] [address] [place], [place] [id number] ALT [Catalytic activity/Vol] 58 U/L High 9-46 [facility] [employer] Comment on above: Result Comment: 07/11 Female reference range changed. Performed By: #### C MP, CBC, MG #### [facility] [address] [place], [place] [id number] Anion gap [Moles/Vol] 17 mmol/L Normal 12-20 [facility] [employer] Comment on above: Result Comment: Effe ctive 08/16/2019 reference range changed. Performed By: #### C MP, CBC, MG #### [facility] [address] [place], [place] [id number] AST [Catalytic activity/Vol] 51 U/L High 10-40 [facility] [employer] Comment on above: Performed By: #### C MP, CBC, MG #### [facility] [address] [place], [place] [id number] Bilirubin [Mass/Vol] 0.52 mg/dL Normal 0.30-1.20 [facility] Comment on above: Performed By: #### C MP, CBC, MG #### [facility] [address] [place], [place] [id number] BUN/CREA 12 Ratio Normal 6-22 [facility] Comment on above: Performed By: #### C MP, CBC, MG #### [facility] [address] [place], [place] [id number] Calcium [Mass/Vol] 9.9 mg/dL Normal 8.6-10.2 [facility] Comment on above: Performed By: #### C MP, CBC, MG #### [facility] [address] [place], [place] [id number] Chloride [Moles/Vol] 102 mmol/L Normal 98-107 [facility] Comment on above: Performed By: #### C MP, CBC, MG #### [facility] [address] [place], [place] [id number] CO2 [Moles/Vol] 22 mmol/L Normal 20-31 [facility] Comment on above: Performed By: #### C MP, CBC, MG #### [facility] [address] [place], [place] [id number] Creatinine [Mass/Vol] 1.2 mg/dL Normal 0.7-1.4 [facility] Comment on above: Performed By: #### C MP, CBC, MG #### [facility] [address] [place], [place] [id number] eGFRAA 72 mL/min/1.73m2 Normal >60 [facility] Comment on above: Performed By: #### C MP, CBC, MG #### [facility] [address] [place], [place] [id number] eGFRNAA 59 mL/min/1.73m2 Low >60 [facility] Comment on above: Performed By: #### C MP, CBC, MG #### [facility] [address] [place], [place] [id number] Globulin (S) [Mass/Vol] 2.9 g/dL Normal 1.9-3.7 [facility] [employer] Comment on above: Performed By: #### C MP, CBC, MG #### [facility] [address] [place], [place] [id number] Glucose [Mass/Vol] 117 mg/dL High 65-99 [facility] [employer] Comment on above: Result Comment: For FASTING Glucose --- ADA reference ranges: Normal 65-99 mg/dl Prediabetes 100-125 Diabetes >/= 126 Performed By: #### C MP, CBC, MG #### [facility] [address] [place], [place] [id number] Potassium [Moles/Vol] 4.5 mmol/L Normal 3.5-5.5 [facility] [employer] Comment on above: Performed By: #### C MP, CBC, MG #### [facility] [address] [place], [place] [id number] Protein [Mass/Vol] 7.4 g/dL Normal 6.1-8.1 [facility] [employer] Comment on above: Performed By: #### C MP, CBC, MG #### [facility] [address] [place], [place] [id number] Sodium [Moles/Vol] 137 mmol/L Normal 135-146 [facility] [employer] Comment on above: Performed By: #### C MP, CBC, MG #### [facility] [address] [place], [place] [id number] Urea nitrogen [Mass/Vol] 15 mg/dL Normal 7-25 [facility] [employer] Comment on above: Performed By: #### C MP, CBC, MG #### [facility] [address] [place], [place] [id number] Hemoglobin A1Con 09-20-2021 EAG 142.72 Normal [facility] [employer] Comment on above: Performed By: #### A 1C #### [facility] [address] [place], [place] [id number] HbA1c (Bld) [Mass fraction] 6.6 % High 4.0-6.0 [facility] [employer] Comment on above: Performed By: #### A 1C #### [facility] [address] [place], [place] [id number] Magnesiumon 09-20-2021 Magnesium [Mass/Vol] 2.0 mg/dL Normal 1.5-2.3 Mikayla ceron [place] [employer] Comment on above: Performed By: #### C MP, CBC, MG #### [facility] [address] [place], [place] [id number] Vital Signs Date Time Vital Sign Value Performing Clinician Faci lity 03-15-2022 09:24-0400 Diastolic blood pressure 82 mm[Hg] DO Lay Talbot Work Phone: [facility] 03-15-2022 09:24-0400 Heart rate 72 /min DO Lay Carmenkes Work Phone: [facility] 03-15-2022 09:24-0400 Respiratory rate 18 /min DO Lay Talbot Work Phone: [facility] 03-15-2022 09:24-0400 SaO2% (BldA) [Mass fraction] 97 % DO Lay Talbot Work Phone: [facility] 03-15-2022 09:24-0400 Systolic blood pressure 115 mm[Hg] DO Lay Carmenkes Work Phone: [facility] 03-15-2022 07:21-0400 Body height 171.45 cm DO Lay Talbot Work Phone: [facility] 03-15-2022 07:21-0400 Body temperature 98.5 [degF] DO Lay Talbot Work Phone: [facility] 03-15-2022 07:21-0400 Body weight 86.18 kg DO Lay Talbot Work Phone: [facility] Encounters Encounter Date Encounter Type Care Provider Facility Start: 09-15-2023 Clinisync Result Encounter William pSears MD Work Phone: [facility] Unsolicited [...] surgery center DO Lay Talbot Work Phone: [facility] Procedures Date Procedure Procedure Detail Performing Clinician Start: 09-15-2023 MLR HEMOGLOBIN A1C Katie Spears MD Work Phone: Start: 03-15-2022 Screening colonoscopy D O Lay Talbot Work Phone: Plan of Treatment Date Care Activity Detail Author Start: 12-16-2023 End: 12-16-2023 Patient encounter procedure 12/16/2023 12:15 PM EDT Office Visit [facility] [address] [facility] [address] [place] [address] Yves Ornelas MD [address] [facility] [address] [id number] [facility] Start: 04-11-2023 Influenza vaccination Influenza Vaccine (#1) [facility] Start: 03-11-2023 Hemoglobin A1c measurement Diabetes: Hemoglobin A1C [facility] Start: 03-15-2022 [facility] Work Phone: Start: 1966 Glaucoma screening Diabetes: Retinopathy Screening [facility] Start: 1962 Pneumococcal Vaccine: 65+ Years [...] HEALTH[employer] E MEDICARE [employer] MEDICARE REPLACEMENT [id number] 2022-Present [address] [address] [place] [address] [id number] 2022 Medicaid MEDICAID [facility] [id number] 2022-Present [phone] [address] [place] [address] Medicaid [id number] 1959 Medicaid [id number] 1959 Medicare [id number] 1959 Medicare [id number] 1956 Unknown [id number] 1956 Unknown [id number] 1956 Unknown [id number] 1956 Unknown [id number] 1956 Unknown [id number] 1956 Unknown [id number] Medicaid [id number] Self-pay Self Pay [id number] Unknown [employer] [id number] Social History Date Type Detail Facility Start: 03-15-2022 End: 02-25-2023 Tobacco smoking status NHIS Never smoked tobacco (finding) [facility] Start: 1955 Sex Assigned At Male F [facility] Start: 02-25-2023 Alcohol intake Ex-drinker (finding) [facility] Start: 02-25-2023 History of Social function [facility] Start: 02-25-2023 Tobacco use panel [facility] Start: 1955 Sex Assigned At Not on file N [facility] Medical Equipment Procedure Code Equipment Code Equipment Origin al Text Equipment Identifier Dates Phacoemulsification of cataract with intraocular lens implantation Posterior-chamber intraocular lens, pseudophakic ()[id number] FDA Start: 01-27-2020 Phacoemulsification of cataract with intraocular lens implantation Posterior-chamber intraocular lens, pseudophakic ()[id number] FDA Start: 02-24-2020 Goals Date Patient Goal [...] authenticated by: RUFUS VALDEZ Date: 2022-10-02 11:10 [facility] History and physical note 03-15-2022 Note Date & Type Note Facility 03-15-2022 History and physi tara note Note Date/Time March 15, 2022 8:20am [facility] [address] [place] [address] Gastroenterology H&P Signed Patient: Farhat Castle MR#: [id number] : 1955 Acct:[id number] Age/Sex: 66 / M Adm Date: 2 Loc: Room: Type: [facility] Attending Dr: Lay Talbot DO Copies [...] by Lay Talbot Jr, DO> 03/15/22 0832 [facility] Work Phone: Procedure note 03-15-2022 Note Date & Type Note Facility 03-15-2022 Procedure note [facility] Evaluation note Note Date & Type Note Facility Evaluation note Diagnosis Onset Date Screening for colorectal cancer acute [facility] Work Phone: Hospital Discharge instructions Note Date [...] if you have any problems. -Office number [phone] [facility] Work Phone: Summary Purpose Family History Relationship [...] section and content) DATE CREATED AUTHOR 11/21/2021 [facility] dical Specialist DATE CREATED AUTHOR AUTHOR'S ORGANIZ ATION 03/16/2022 [facility] DATE CREATED AUTHOR AUTHOR'S ORGANIZ ATION 12/14/2022 [facility] Care Teams (unrecognized sec tion and content) Team Status: Inactive Member Role Status Dates Lay Talbot DO Attending Provider Active Amie Dow DRIFT MINER-C Primary Care Provider Active Team Status: Active Member Role Status Dates Amie Dow DRIFT MINER-C Primary Care Provider Active Director Of Enterprise Strategy Relationship Specialty Start Date End Date William Spears MD [address] [facility] [address] [place] [address] PCP - General Family Medicine 06/17/23 FOR [...] BE BASED ON THE PRIMARY CLINICAL RECORDS. [employer] provides no warranty or guarantee of the accuracy or completeness of information in this document.
== END 2023-12-10 00:41 | disposition home or self-care (01) ==
LOC: LAB 00:40
PROVIDERS: PCP Family Medicine; Visit Provider Family Medicine
DX: E11.9 Type 2 diabetes mellitus without complications (principal)
CPT/HCPCS: 36415; 82746

== ENCOUNTER 2023-12-15 03:27 | Outpatient (REF) | payer MEDICARE, MEDICAID, SELFPAY ==
--- OUTSIDE RECORDS SUMMARY | 2023-12-15 03:34 | XMS_ITS | CCD ---
Author Organization [facility] Care Team Providers Care Dean Of Admissions Name Role Phone Antione DO Lay Wagner Attending Provider [phone] CINDY Dow Primary Care Provider YVES [...] Unavailable William Spears MD Primary Care Provider [phone] Medications Current Medications Medication Drug Class(es) Dates Sig (Normalized) Sig (Original) acetaminophen 325 mg oral tablet (2 sources) Start: 03-15-2022 take 650 mg by mouth every four hours Acetaminophen Active 650 MG PO Q4H March 15, 2022 12:00am acetaminophen (T ylenol) 325 MG tablet every 4 (four) hours. 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; 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] Onset: 11-05-2022 Episodic Other [...] HEMOGLOBIN A1Con 024 Glucose [Mass/Vol] 137 mg/dL [facility] HbA1c (Bld) [Mass fraction] 6.4 % High 4.5 - 6.2 % [facility] Comment on above: ADA RECOMMENDED LIMI T 4.0 - 6.0 ADA THERAPEUTIC TARGET < 7.0 ACTION SUGGESTED > 7.0 Interpretation and review of laboratory results Abnormal [facility] CBC AUTO DIFFon 12-09-2022 BASO # 0.0 103/ul Normal 0.0-0.1 [facility] Comment on above: Performed By: #### C BC ####[facility] [address] [place], [place] [address]Dr. Kathya Ryan Basophils/100 WBC (Bld) 0.5 % Normal 0.2-2.0 [facility] Comment on above: Performed By: #### C BC ####[facility] [address] [place] [address]DrBriseyda Ryan EO # 0.3 103/ul Normal 0.0-0.7 [facility] Comment on above: Performed By: #### C BC ####[facility] We[address]ln[address] [place], [place] [address]Dr. Kathya Ryan Eosinophils/100 WBC (Bld) 5.4 % Normal 0.9-7.0 [facility] Comment on above: Performed By: #### C BC ####[facility] L[address]vx[address] [place], [place] [address]Dr. Kathya Ryan Erythrocyte distribution width (RBC) [Ratio] 12.5 % Normal 11.0-15.0 [facility] Comment on above: Performed By: #### C BC ####[facility] I[address] [place], [place] [address]Dr. Kathya Rayn Hematocrit (Bld) [Volume fraction] 42.4 % Normal 42.0-54.0 [facility] Comment on above: Performed By: #### C BC ####[facility] [address] [place] [id number]. Kathya Ryan Hemoglobin (Bld) [Mass/Vol] 14.1 g/dL Normal 14.0-18.0 [facility] Comment on above: Performed By: #### C BC ####[facility] [address] [place] [id number]. Kathya Ryan IG # 0.02 10e3/ul Normal 0.00-0.03 [facility] Comment on above: Performed By: #### C BC ####[facility] Wvexrjaxik50[address] [place] [id number]. Kathya Ryan IG % 0.3 % Normal 0.0-0.5 [facility] Comment on above: Performed By: #### C BC ####[facility] Trav[address] [place] [address]Dr. Kathya Ryan LYMPH # 1.3 103/ul Normal 1.2-3.8 [facility] Comment on above: Performed By: #### C BC ####[facility] X[address]msfborwc9460 [place] [id number]. Kathya Ryan Lymphocytes/100 WBC (Bld) 22.4 % Normal 20.5-60.0 [facility] Comment on above: Performed By: #### C BC ####[facility] [address] [place] [id number]. Kathya Ryan MANUAL DIFF REQ NO Normal [facility] Comment on above: Performed By: #### C BC ####[facility] Qwywtginpv6824 [place] [id number]. Kathya Ryan MCH (RBC) [Entitic mass] 30.5 pg Normal 25.9-34.0 [facility] Comment on above: Performed By: #### C BC ####[facility] [address]uf[address] [place] [id number]. Kathya Ryan MCHC (RBC) [Mass/Vol] 33.3 g/dL Normal 29.9-35.2 [facility] Comment on above: Performed By: #### C BC ####[facility] [address]ya[address] [place] [id number]. Kathya Ryan MCV (RBC) [Entitic vol] 91.8 fL Normal 80.0-94.0 [facility] Comment on above: Performed By: #### C BC ####[facility] Jenmbqcufi[address] [place] [id number]. Kathya Ryan MONO # 0.7 103/ul Normal 0.3-0.8 [facility] Comment on above: Performed By: #### C BC ####[facility] [address]edo[address] [place] [id number]. Kathya Ryan Monocytes/100 WBC (Bld) 12.2 % Critically high 1.7-12.0 [facility] Comment on above: Performed By: #### C BC ####[facility] [address] [place], [place] [address]Dr. Kathya Ryan NEUT # 3.5 103/ul Normal 1.4-6.5 [facility] Comment on above: Performed By: #### C BC ####[facility] [address]fc[address] [place] [id number]. Kathya Ryan Neutrophils/100 WBC (Bld) 59.2 % Normal 43.0-75.0 [facility] Comment on above: Performed By: #### C BC ####[facility] [address] [place] [id number]. Kathya Ryan Platelet mean volume (Bld) [Entitic vol] 9.1 fL Critically low 9.5-13.5 [facility] Comment on above: Performed By: #### C BC ####[facility] [address]pa[address] [place] [id number]. Kathya Ryan PLT 211 103/ul Normal 150-450 [facility] Comment on above: Performed By: #### C BC ####[facility] [address] [place] [phone]. Kathya Ryan RBC 4.62 106/ul Critically low 4.70-6.10 [facility] Comment on above: Performed By: #### C BC ####[facility] Znwrgnmmsn5515 [place], [place] [address]NgDr. Kathya Ryan WBC 5.9 103/ul Normal 4.0-11.0 [facility] Comment on above: Performed By: #### C BC ####[facility] [address] [place] [id number]. Kathya Ryan GLYCOHEMOGLOBIN A1Con 2022 ADA RECOMMENDATION SEE BELOW Normal [facility] Comment on above: Result Comment: ADA RECOMMENDED LIMIT 4.0 - 6.0 ADA THERAPEUTIC TARGET < 7.0 ACTION SUGGESTED > 7.0 Performed By: #### A 1C #### [facility] [address] [place] [address] [address] Kathya Ryan Glucose [Mass/Vol] 123 mg/dL Normal [facility] Comment on above: Performed By: #### A 1C #### [facility] [address] [place] [address] [address] Kathya Ryan HbA1c (Bld) [Mass fraction] 5.9 % Normal 4.5-6.2 [facility] Comment on above: Performed By: #### A 1C #### [facility] [address] [place] [address] [address] Kathya Ryan LIPID PROFILEon 12-09-2022 CHOL-HDL RATIO NORM SEE BELOW Normal [facility] Comment on above: Result Comment: 3.3 - 4.4 LOW RISK 4.4 - 7.1 AVERAGE RISK 7.1 - 11.0 MODERATE RISK >11.0 HIGH RISK Performed By: #### L IPID, CMP #### [facility] [address] [place] [address] [address] Kathya Ryan Cholesterol [Mass/Vol] 132 mg/dL Normal <=200 [facility] Comment on above: Performed By: #### L IPID, CMP #### [facility] [address] [place] [address] [address] Kathya Ryan Cholesterol in HDL [Mass/Vol] 29 mg/dL Critically low 40-60 [facility] Comment on above: Performed By: #### L IPID, CMP #### [facility] [address] [place] [address] [address] Kathya Ryan Cholesterol in LDL [Mass/Vol] 83.0 mg/dL Normal [facility] Comment on above: Performed By: #### L IPID, CMP #### [facility] [address] [place] [address] Dr. Kathya Ryan Cholesterol.total/Ch olesterol in HDL [Mass ratio] 4.6 {ratio} Normal [facility] Comment on above: Performed By: #### L IPID, CMP #### [facility] [address] [place] [address] [address] Kathya Ryan HDL NORMAL > or = 60 mg/dl - LO W CARDIOVASCULAR RISK <40 mg/dl - HIGH CARDIOVASCULAR RISK Normal [facility] Comment on above: Performed By: #### L IPID, CMP #### [facility] [address] [place] [address] Dr. Kathya Ryan LDL CALC NORMAL SEE BELOW Normal [facility] Comment on above: Result Comment: <100 mg/dl OPTIMAL 100 - 129 mg/dl NEAR OR ABOVE OPTIMAL 130 - 159 mg/dl BORDERLINE HIGH 160 - 189 mg/dl HIGH >190 mg/dl VERY HIGH Performed By: #### L IPID, CMP #### [facility] [address] [place] [address] Dr. Kathya Ryan Triglyceride [Mass/Vol] 102 mg/dL Normal <=150 [facility] Comment on above: Performed By: #### L IPID, CMP #### [facility] [address] [place] [address] [address] Kathya Ryan VLDL CALC 20.4 mg/dL Normal [facility] Comment on above: Performed By: #### L IPID, CMP #### [facility] [address] [place] [address] Dr. Kathya Ryan PROF 14(COMP METB)on 023 Albumin [Mass/Vol] 3.3 g/dL Critically low 3.4-5.0 [facility] Comment on above: Performed By: #### L IPID, CMP #### [facility] [address] [place] [address] Dr. Kathya Ryan Albumin/Globulin [Mass ratio] 0.9 {ratio} Normal [facility] Comment on above: Performed By: #### L IPID, CMP #### [facility] [address] [place] [address] [address] Kathya Ryan ALP [Catalytic activity/Vol] 71 U/L Normal 46-116 [facility] Comment on above: Performed By: #### L IPID, CMP #### [facility] [address] [place] [address] [address] Kathya Ryan ALT [Catalytic activity/Vol] 50 U/L Normal 16-63 [facility] Comment on above: Performed By: #### L IPID, CMP #### [facility] [address] [place] [address] Dr. Kathya Ryan Anion gap [Moles/Vol] 12.6 mmol/L Normal [facility] Comment on above: Performed By: #### L IPID, CMP #### [facility] [address] [place] [address] Dr. Kathya Ryan AST [Catalytic activity/Vol] 34 U/L Normal 15-37 [facility] Comment on above: Performed By: #### L IPID, CMP #### [facility] [address] [place] [address] Dr. Kathya Ryan Bilirubin [Mass/Vol] 0.4 mg/dL Normal 0.2-1.0 [facility] Comment on above: Performed By: #### L IPID, CMP #### [facility] [address] [place] [address] Dr. Kathya Ryan Calcium [Mass/Vol] 8.9 mg/dL Normal 8.5-10.1 [facility] Comment on above: Performed By: #### L IPID, CMP #### [facility] [address] [place] [address] Dr. Kathya Ryan Chloride [Moles/Vol] 106 mmol/L Normal 98-107 [facility] Comment on above: Performed By: #### L IPID, CMP #### [facility] [address] [place] [address] Dr. Kathya Ryan CO2 [Moles/Vol] 27.4 mmol/L Normal 21.0-32.0 [facility] Comment on above: Performed By: #### L IPID, CMP #### [facility] [address] [place] [address] [address] Kathya Ryan Creatinine [Mass/Vol] 1.45 mg/dL Critically high 0.70-1.30 [facility] Comment on above: Performed By: #### L IPID, CMP #### [facility] [address] [place] [address] [address] Ktahya Ryan EGFR-AF GUAMANIAN 59 mL/min/1.73m2 Critically low >=60 [facility] Comment on above: Performed By: #### L IPID, CMP #### [facility] [address] [place] [address] [address] Kathya Ryan EGFR-NON AF GUAMANIAN 49 mL/min/1.73m2 Critically low >=60 [facility] Comment on above: Performed By: #### L IPID, CMP #### [facility] [address] [place] [address] [address] Kathya Ryan Globulin (S) [Mass/Vol] 3.8 g/dL Normal [facility] Comment on above: Performed By: #### L IPID, CMP #### [facility] [address] [place] [address] [address] Kathya Ryan Glucose [Mass/Vol] 109 mg/dL Critically high 74-106 [facility] Comment on above: Performed By: #### L IPID, CMP #### [facility] [address] [place] [address] [address] Kathya Ryan Potassium [Moles/Vol] 3.9 mmol/L Normal 3.5-5.1 [facility] Comment on above: Performed By: #### L IPID, CMP #### [facility] [address] [place] [address] [address] Kathya Ryan Protein [Mass/Vol] 7.1 g/dL Normal 6.4-8.2 [facility] Comment on above: Performed By: #### L IPID, CMP #### [facility] [address] [place] [address] [address] Kathya Ryan Sodium [Moles/Vol] 142 mmol/L Normal 136-145 [facility] Comment on above: Performed By: #### L IPID, CMP #### [facility] [address] [place] [address] [address] Kathya Ryan Urea nitrogen [Mass/Vol] 17.0 mg/dL Normal 7.0-18.0 [facility] Comment on above: Performed By: #### L IPID, CMP #### [facility] [address] [place] [address] [address] Kathya Ryan Urea nitrogen/Creatinine [Mass ratio] 11.7 mg/mg Normal [facility] Comment on above: Performed By: #### L IPID, CMP #### [facility] [address] [place] [address] [address] Kathya Ryan FREE LIGHT CHAINS PLUS RATIO , URINEon 11-14-2022 Free [place] Lt Chains,Ur 86.11 mg/L Normal 1.17-86.46 [facility] Comment on above: Performed By: #### F REELIU ####[facility] [address] [place] [id number]. Kathya Ryan Free Lambda Lt Chains,Ur 11.37 mg/L Normal 0.27-15.21 [facility] Comment on above: Performed By: #### F REELIU ####[facility] [address] [place] [id number]. Kathya Ryan [place]/ Lambda Urine Ratio 7.57 Normal 1.83-14.26 [facility] Comment on above: Performed By: #### F REELIU ####[facility] Adjbux[address] [place] [id number]. Kathya Ryan CT CSPINE WO CONon CT [...] KARIME MAYES Date: 2022-11-04 00:29 Normal [facility] CT HEAD WO CONon 11-04-2022 CT HEAD [...] JAC GILL Date: 2022-11-04 00:28 Normal [facility] CBC AUTO DIFFon 10-02-2022 BASO # 0.1 103/ul Normal 0.0-0.1 [facility] Comment on above: Performed By: #### C BC ####[facility] [address]cvtrre[address] [place] [id number]. Kathya Ryan Basophils/100 WBC (Bld) 0.5 % Normal 0.2-2.0 [facility] Comment on above: Performed By: #### C BC ####[facility] [address] [place] [id number]. Kathya Ryan EO # 0.8 103/ul Critically high 0.0-0.7 [facility] Comment on above: Performed By: #### C BC ####[facility] [address] [place], [place] [address]Dr. Kathya Ryan Eosinophils/100 WBC (Bld) 7.6 % Critically high 0.9-7.0 [facility] Comment on above: Performed By: #### C BC ####[facility] [address] [place], [place] [address]Dr. Kathya Ryan Erythrocyte distribution width (RBC) [Ratio] 13.3 % Normal 11.0-15.0 [facility] Comment on above: Performed By: #### C BC ####[facility] [address] [place], [place] [address]Dr. Kathya Ryan Hematocrit (Bld) [Volume fraction] 39.7 % Critically low 42.0-54.0 [facility] Comment on above: Performed By: #### C BC ####[facility] [address] [place], [place] [address]Dr. Kathya Ryan Hemoglobin (Bld) [Mass/Vol] 13.4 g/dL Critically low 14.0-18.0 [facility] Comment on above: Performed By: #### C BC ####[facility] [address] [place] [phone]. Kathya Ryan IG # 0.04 10e3/ul Critically high 0.00-0.03 [facility] Comment on above: Performed By: #### C BC ####[facility] [address] [place], [place] [address]Dr. Kathya Ryan IG % 0.4 % Normal 0.0-0.5 [facility] Comment on above: Performed By: #### C BC ####[facility] [address]wc[address]xf[address] [place] [id number]. Kathya Connor LYMPH # 1.6 103/ul Normal 1.2-3.8 [facility] Comment on above: Performed By: #### C BC ####[facility] Otffsyaxcw71[address] [place] [id number]. Kathya Ryan Lymphocytes/100 WBC (Bld) 15.8 % Critically low 20.5-60.0 [facility] Comment on above: Performed By: #### C BC ####[facility] Qnzns[address]xa[address] [place] [id number]. Kathya Ryan MANUAL DIFF REQ NO Normal [facility] Comment on above: Performed By: #### C BC ####[facility] [address]kb[address]xq[address] [place] [id number]. Kathya Ryan MCH (RBC) [Entitic mass] 29.8 pg Normal 25.9-34.0 [facility] Comment on above: Performed By: #### C BC ####[facility] [address]tmxf[address]emh[address] [place] [phone]. Mireyajack Ryan MCHC (RBC) [Mass/Vol] 33.8 g/dL Normal 29.9-35.2 [facility] Comment on above: Performed By: #### C BC ####[facility] Sqvrtsbjhe[address] [place] [id number]. Kathya Ryan MCV (RBC) [Entitic vol] 88.4 fL Normal 80.0-94.0 [facility] Comment on above: Performed By: #### C BC ####[facility] [address] [place] [address]Dr. Kathya Ryan MONO # 1.2 103/ul Critically high 0.3-0.8 [facility] Comment on above: Performed By: #### C BC ####[facility] Ormoemjlut[address] [place] [phone]. Kathya Ryan Monocytes/100 WBC (Bld) 12.1 % Critically high 1.7-12.0 [facility] Comment on above: Performed By: #### C BC ####[facility] Kmtjoyxyzt[address] [place] [phone]. Kathya Ryan NEUT # 6.4 103/ul Normal 1.4-6.5 [facility] Comment on above: Performed By: #### C BC ####[facility] [address]shre[address] [place], [place] [address]Go. Kathya Ryan Neutrophils/100 WBC (Bld) 63.6 % Normal 43.0-75.0 [facility] Comment on above: Performed By: #### C BC ####[facility] Nndkoglhtz4[address] [place] [phone]. Kathya Ryan Platelet mean volume (Bld) [Entitic vol] 8.8 fL Critically low 9.5-13.5 [facility] Comment on above: Performed By: #### C BC ####[facility] S[address]qhbfud[address] [place] [id number]. Kathya Ryan PLT 237 103/ul Normal 150-450 [facility] Comment on above: Performed By: #### C BC ####[facility] Zjezwvvbid[address] [place] [phone]. Kathya Ryan RBC 4.49 106/ul Critically low 4.70-6.10 [facility] Comment on above: Performed By: #### C BC ####[facility] [address]opjmxmv[address] [place] [phone]. Kathya Ryan WBC 10.1 103/ul Normal 4.0-11.0 [facility] Comment on above: Performed By: #### C BC ####[facility] [address] [place], [place] [address]Dr. Kathya Ryan CT CSPINE WO CONon 3 [...] LAY ROQUE Date: 2022-10-02 20:33 Normal [facility] CT HEAD WO CONon 10-02-2022 CT HEAD [...] JAC GILL Date: 2022-10-02 20:41 Normal [facility] CULTURE URINEon 10-02-2022 CULTURE URINE Culture Observations : LIGHT GROWTH OF MIXED SKIN LUKASZ. NO POTENTIAL PATHOGENS SEEN. Normal [facility] Comment on above: Performed By: #### U RCX ####[facility] Auf[address]ylpezx[address] [place], [place] [address]OhBriseyda KEARNS URINE PROFILEon 3 Bilirubin Ql (U) Negative Normal NEGATIVE [facility] Comment on above: Performed By: #### U MICRO, ERUR #### [facility] [address] [place] [address] [address] Kathya Ryan Clarity (U) CLEAR Normal CLEAR [facility] Comment on above: Performed By: #### U MICRO, ERUR #### [facility] [address] [place] [address] [address] Kathya Ryan Color (U) YELLOW Normal YELLOW [facility] Comment on above: Performed By: #### U MICRO, ERUR #### [facility] [address] [place] [address] [address] Kathya Ryan ERUAHD A micrscopic examination will be performed if indicated. Normal [facility] Comment on above: Performed By: #### U MICRO, ERUR #### [facility] [address] [place] [address] Dr. Kathya Ryan Glucose Ql (U) 500 mg/dl Abnormal NEGATIVE [facility] Comment on above: Performed By: #### U MICRO, ERUR #### [facility] [address] [place] [address] [address] Kathya Ryan Hemoglobin Ql (U) SMALL Abnormal NEGATIVE [facility] Comment on above: Performed By: #### U MICRO, ERUR #### [facility] [address] [place] [address] Dr. Kathya Ryan Ketones Ql (U) TRACE Abnormal NEGATIVE [facility] Comment on above: Performed By: #### U MICRO, ERUR #### [facility] [address] [place] [address] [address] Kathya Ryan LEUKOCYTES TRACE Abnormal NEGATIVE [facility] Comment on above: Performed By: #### U MICRO, ERUR #### [facility] [address] [place] [address] [address] Kathya Ryan Nitrite Ql (U) Negative Normal NEGATIVE [facility] Comment on above: Performed By: #### U MICRO, ERUR #### [facility] [address] [place] [address] Dr. Kathya Ryan pH (U) 5.5 [pH] Normal 5-9 [facility] Comment on above: Performed By: #### U MICRO, ERUR #### [facility] [address] [place] [address] [address] Kathya Ryan SPEC GRAVITY >=1.030 Abnormal 1.005-<=1.025 [facility] Comment on above: Performed By: #### U MICRO, ERUR #### [facility] [address] [place] [address] [address] Kathya Ryan UA PROTEIN TRACE Normal NEGATIVE/ TRACE [facility] Comment on above: Performed By: #### U MICRO, ERUR #### [facility] [address] [place] [address] [address] Kathya Ryan UR MICRO IND INDICATED Normal [facility] Comment on above: Performed By: #### U MICRO, ERUR #### [facility] [address] [place] [address] Dr. Kathya Ryan Urobilinogen Qn (U) 2.0 {Luanne'U}/dL Abnormal 0.2 - 1. 0 [facility] Comment on above: Performed By: #### U MICRO, ERUR #### [facility] [address] [place] [address] Dr. Kathya Ryan PROF 14(COMP METB)on 023 Albumin [Mass/Vol] 3.5 g/dL Normal 3.4-5.0 [facility] Comment on above: Performed By: #### H STROPN, CMP, TSH #### [facility] [address] [place] [address] Dr. Kathya Ryan Albumin/Globulin [Mass ratio] 0.9 {ratio} Normal [facility] Comment on above: Performed By: #### H STROPN, CMP, TSH #### [facility] [address] [place] [address] Dr. Kathya Ryan ALP [Catalytic activity/Vol] 108 U/L Normal 46-116 [facility] Comment on above: Performed By: #### H STROPN, CMP, TSH #### [facility] [address] [place] [address] Dr. Kathya Ryan ALT [Catalytic activity/Vol] 38 U/L Normal 16-63 [facility] Comment on above: Performed By: #### H STROPN, CMP, TSH #### [facility] [address] [place] [address] [address] Kathya Ryan Anion gap [Moles/Vol] 11.4 mmol/L Normal [facility] Comment on above: Performed By: #### H STROPN, CMP, TSH #### [facility] [address] [place] [address] [address] Kathya Ryan AST [Catalytic activity/Vol] 28 U/L Normal 15-37 [facility] Comment on above: Performed By: #### H STROPN, CMP, TSH #### [facility] [address] [address] [address] Kathya Ryan Bilirubin [Mass/Vol] 0.9 mg/dL Normal 0.2-1.0 [facility] Comment on above: Performed By: #### H STROPN, CMP, TSH #### [facility] [address] [address] [address] Kathya Ryan Calcium [Mass/Vol] 9.1 mg/dL Normal 8.5-10.1 [facility] Comment on above: Performed By: #### H STROPN, CMP, TSH #### [facility] [address] [address] [address] Kathya Ryan Chloride [Moles/Vol] 100 mmol/L Normal 98-107 [facility] Comment on above: Performed By: #### H STROPN, CMP, TSH #### [facility] [address] [address] [address] Kathya Ryan CO2 [Moles/Vol] 27.7 mmol/L Normal 21.0-32.0 [facility] Comment on above: Performed By: #### H STROPN, CMP, TSH #### [facility] [address] [address] [address] Kathya Ryan Creatinine [Mass/Vol] 1.69 mg/dL Critically high 0.70-1.30 [facility] Comment on above: Performed By: #### H STROPN, CMP, TSH #### [facility] [address] [address] [address] Kathya Ryan EGFR-AF GUAMANIAN 50 mL/min/1.73m2 Critically low >=60 [facility] Comment on above: Performed By: #### H STROPN, CMP, TSH #### [facility] [address] [address] [address] Kathya Ryan EGFR-NON AF GUAMANIAN 41 mL/min/1.73m2 Critically low >=60 [facility] Comment on above: Performed By: #### H STROPN, CMP, TSH #### [facility] [address] [address] [address] Kathya Ryan Globulin (S) [Mass/Vol] 3.8 g/dL Normal [facility] Comment on above: Performed By: #### H STROJIMI, CMP, TSH #### [facility] [address] [address] [address] Kathya Ryan Glucose [Mass/Vol] 259 mg/dL Critically high 74-106 [facility] Comment on above: Performed By: #### H STROJIMI, CMP, TSH #### [facility] [address] [address] [address] Kathya Ryan Potassium [Moles/Vol] 4.1 mmol/L Normal 3.5-5.1 [facility] Comment on above: Performed By: #### H STROPN, CMP, TSH #### [facility] [address] [address] [address] Kathya Ryan Protein [Mass/Vol] 7.3 g/dL Normal 6.4-8.2 [facility] Comment on above: Performed By: #### H STROPN, CMP, TSH #### [facility] [address] [address] [address] Ktahya Ryan Sodium [Moles/Vol] 135 mmol/L Critically low 136-145 [facility] Comment on above: Performed By: #### H STROPN, CMP, TSH #### [facility] [address] [address] [address] Kathya Ryan Urea nitrogen [Mass/Vol] 15.0 mg/dL Normal 7.0-18.0 [facility] Comment on above: Performed By: #### H STROPN, CMP, TSH #### [facility] [address] [address] [address] Kathya Ryan Urea nitrogen/Creatinine [Mass ratio] 8.9 mg/mg Normal [facility] Comment on above: Performed By: #### H STROPN, CMP, TSH #### [facility] [address] [address] [address] Kathya Ryna PROTIMEon 10-02-2022 INR Coag (PPP) [Relative time] 1.00 {INR} Normal [facility] Comment on above: Performed By: #### P T, PTT ####[facility] [id number] [address]Dr. Kathya Ryan INR GUIDELINES SEE BELOW Normal [facility] Comment on above: Result Comment: JONI RED INR: 2.0 - 3.0 CONDITIONS NOT LISTED BELOW 2.5 - 3.5 FOR PROSTHETIC HEART VALVE REPLACEMENT 2.5 - 3.5 RECURRENT THROMBOSIS Performed By: #### P T, PTT ####[facility] [id number] [address]Dr. Kathya Ryan PT Coag (PPP) [Time] 10.6 s Normal 9.0-11.6 [facility] Comment on above: Performed By: #### P T, PTT ####[facility] [id number] [address]Dr. Kathya Ryan PTTon 10-02-2022 aPTT Coag (Bld) [Time] 26.9 s Normal 22.3-36.2 [facility] Comment on above: Performed By: #### P T, PTT ####[facility] [id number] [address]DrBriseyda Ryan TROPONIN, HIGH SENSITIVITYon 10-02-2022 HSTROP 4.2 pg/mL Normal 4.0-76.1 [facility] Comment on above: Result Comment: CUT- OFF POINTS HAVE BEEN ESTABLISHED BASED ON THE FOURTH UNIVERSAL DEFINITIONS OF MYOCARDIAL INFARCTION. THE UPPER REFERENCE LIMIT (URL) OF TROPONIN, DEFINED THE 99TH PERCENTILE OF cTnI DISTRIBUTION IN A REFERENCE POPULATION, HAS BEEN CONFIRMED THE DECISION THRESHOLD FOR [place] DIAGNOSIS. Performed By: #### H STROPN, CMP, TSH ####[facility] [id number] [id number][address] Kathya Ryan TSHon 10-02-2022 TSH 2.502 uIU/mL Normal 0.358-3.740 [facility] Comment on above: Performed By: #### H STROPN, CMP, TSH ####[facility] [id number] [id number] Kathya Ryan URINE MICROSCOPIC ONLYon BACTERIA MODERATE Abnormal NONE SEEN [facility] Comment on above: Performed By: #### U MICRO, ERUR #### [facility] [address] [place] [address] Dr. Kathya Ryan Bacteria identified Cx Nom (U) INDICATED Normal [facility] Comment on above: Performed By: #### U MICRO, ERUR #### [facility] [address] [place] [address] Dr. Kathya Ryan CAST NONE SEEN Normal NONE SEEN [facility] Comment on above: Performed By: #### U MICRO, ERUR #### [facility] [address] [place] [address] Dr. Kathya Ryan Crystals LM Nom (Urine sed) NONE SEEN Normal NONE SEEN [facility] Comment on above: Performed By: #### U MICRO, ERUR #### [facility] [address] [place] [address] Dr. Kathya Ryan Epithelial cells LM Ql (Urine sed) RARE Normal NONE SEEN /RARE [facility] Comment on above: Performed By: #### U MICRO, ERUR #### [facility] [address] [place] [address] Dr. Kathya Ryan HYALINE CAST FEW Normal [facility] Comment on above: Performed By: #### U MICRO, ERUR #### [facility] [address] [place] [address] Dr. Kathya Ryan MUCOUS NONE SEEN Normal NONE SEEN [facility] Comment on above: Performed By: #### U MICRO, ERUR #### [facility] [address] [place] [address] Dr. Kathya Ryan RBC 10-20 Abnormal 0-2 [facility] Comment on above: Performed By: #### U MICRO, ERUR #### [facility] [address] [address] [address] Kathya Ryan WBC 5-10 Abnormal NONE SEEN [facility] Comment on above: Performed By: #### U MICRO, ERUR #### [facility] [address] [address] [address] Kathya Ryan XR CHEST 1 Von [...] by: LAY ROQUE Date: 2022-10-02 20:56 Normal [facility] XR KNEE RT 4V or >on 023 [...] LAY ROQUE Date: 2022-10-02 20:59 Normal [facility] XR LSPINE 2_3 VIEWSon 2022 XR LSPINE [...] No visualized acute abnormality Electronically authenticated by: LYA ROQUE Date: 2022-10-02 20:55 Normal [facility] XR PELVIS 1_2 VIEWSon 2022 XR PELVIS 1_2 VIEWS EXAM: XR PELVIS 1_2 VIEWS HISTORY: Fall COMPARISON: None. TECHNIQUE: Single view FINDINGS: No osseous lesion, fracture, dislocation or subluxation. Joint spaces are unremarkable for patient's age. No visualized effusion. No visualized soft tissue edema. IMPRESSION: Normal x-rays Electronically authenticated by: LAY ROQUE Date: 2022-10-02 21:04 Normal [facility] Glucose Glucometer (BldC) [M ass/Vol]Ordered By: Lay Talbot on 03-15-2022 Glucose [Mass/Vol] 131 mg/dL [facility] Comment on above: Random Glucose Refer ence Range is dependent on time and content of last meal. Glucose of more than 200 mg/dL in a nonstressed, ambulatory subject supports the diagnosis of Diabetes Mellitus. Glucose Poct Glucometerson 0 03-15-2022 Glucose [Mass/Vol] 131 mg/dL Normal [facility] Comment on above: Result Comment: [place] Glucose Reference Range is dependent on time and content of last meal. Glucose of more than 200 mg/dL in a nonstressed, ambulatory subject supports the diagnosis of Diabetes Mellitus. PERFORMED BY: [facility] [address] [place] [address] PATHOLOGIST [employer]XIDE FURNACE TENDER CARINA HASSAN M.D. Performed By: #### G LULS #### Point of Care testing , PSA SCREEN (MEDICARE)on 11-09 TPSA 3.110 ng/mL Normal <4.000 [facility] Comment on above: Result Comment: PSA Test Method: ECLIA/Urvashi e 601 Performed By: #### P SA MC #### [facility] [address] [place], [place] [id number] Complete Blood Counton 09-20 Erythrocyte distribution width (RBC) [Ratio] 12.6 % Normal 11.0-15.0 [facility] Comment on above: Performed By: #### C MP, CBC, MG #### [facility] [address] [place], [place] [id number] Hematocrit (Bld) [Volume fraction] 47.3 % Normal 38.5-50.[address] [facility] Comment on above: Performed By: #### C MP, CBC, MG #### [facility] [address] [place], [place] [id number] Hemoglobin (Bld) [Mass/Vol] 15.8 g/dL Normal 13.0-17.[address] [facility] Comment on above: Performed By: #### C MP, CBC, MG #### [facility] [address] [place], [place] [id number] MCH (RBC) [Entitic mass] 28.6 pg Normal 27.0-33.[address] [facility] Comment on above: Performed By: #### C MP, CBC, MG #### [facility] [address] [place], [place] [id number] MCHC (RBC) [Mass/Vol] 33.4 g/dL Normal 32.0-36.[address] [facility] Comment on above: Performed By: #### C MP, CBC, MG #### [facility] [address] [place], [place] [id number] MCV (RBC) [Entitic vol] 86 fL Normal 80-[address] [facility] Comment on above: Performed By: #### C MP, CBC, MG #### [facility] [address] [place], [place] [id number] Platelet mean volume (Bld) [Entitic vol] 8.90 fL Normal 7.50-12.50 [facility] Comment on above: Performed By: #### C MP, CBC, MG #### [facility] [address] [place], [place] [id number] Platelets (Bld) [#/Vol] 258 10*3/uL Normal 140-[address] [facility] Specialist Comment on above: Performed By: #### C MP, CBC, MG #### [facility] [address] [place], [place] [id number] RBC (Bld) [#/Vol] 5.53 10*6/uL Normal 4.20-5.80 [facility] Special[facility] Comment on above: Performed By: #### C MP, CBC, MG #### [facility] [address] [place], [place] [id number] RDW-SD 39.1 fL Normal 37.0-50.0 [facility] Comment on above: Performed By: #### C MP, CBC, MG #### [facility] [address] [place], [place] [id number] WBC (Bld) [#/Vol] 8.2 10*3/uL Normal 3.8-11.0 [facility] Comment on above: Performed By: #### C MP, CBC, MG #### [facility] [address] [place], [place] [id number] Comprehensive Metabolic Pane yun 09-20-2021 Albumin [Mass/Vol] 4.5 g/dL Normal 3.6-5.1 [facility] Comment on above: Performed By: #### C MP, CBC, MG #### [facility] [address] [place], [place] [id number] Albumin/Globulin [Mass ratio] 1.6 {ratio} Normal 1.0-2.5 [facility] Comment on above: Performed By: #### C MP, CBC, MG #### [facility] [address] [place], [place] [id number] ALP [Catalytic activity/Vol] 86 U/L Normal 40-129 [facility] Comment on above: Performed By: #### C MP, CBC, MG #### [facility] [address] [place], [place] [id number] ALT [Catalytic activity/Vol] 58 U/L High 9-46 [facility] Comment on above: Result Comment: 07/11 Female reference range changed. Performed By: #### C MP, CBC, MG #### [facility] [address] [place], [place] [id number] Anion gap [Moles/Vol] 17 mmol/L Normal 12-20 [facility] Comment on above: Result Comment: Effe ctive 08/16/2019 reference range changed. Performed By: #### C MP, CBC, MG #### [facility] [address] [place], [place] [id number] AST [Catalytic activity/Vol] 51 U/L High 10-40 [facility] Comment on above: Performed By: #### C MP, CBC, MG #### [facility] [address] [place], [place] [id number] Bilirubin [Mass/Vol] 0.52 mg/dL Normal 0.30-1.20 [facility] Comment on above: Performed By: #### C MP, CBC, MG #### [facility] [address] [place], [place] [id number] BUN/CREA 12 Ratio Normal 6-22 [facility] Comment on above: Performed By: #### C MP, CBC, MG #### [facility] [address] [place], [place] [id number] Calcium [Mass/Vol] 9.9 mg/dL Normal 8.6-10.2 [facility] Comment on above: Performed By: #### C MP, CBC, MG #### [facility] [address] [place], [place] [id number] Chloride [Moles/Vol] 102 mmol/L Normal 98-107 [facility] Comment on above: Performed By: #### C MP, CBC, MG #### [facility] [address] [place], [place] [id number] CO2 [Moles/Vol] 22 mmol/L Normal 20-31 [facility] Comment on above: Performed By: #### C MP, CBC, MG #### [facility] [address] [place], [place] [id number] Creatinine [Mass/Vol] 1.2 mg/dL Normal 0.7-1.4 [facility] Comment on above: Performed By: #### C MP, CBC, MG #### [facility] [address] [place], [place] [id number] eGFRAA 72 mL/min/1.73m2 Normal >60 [facility] Comment on above: Performed By: #### C MP, CBC, MG #### [facility] [address] [place], [place] [id number] eGFRNAA 59 mL/min/1.73m2 Low >60 [facility] Comment on above: Performed By: #### C MP, CBC, MG #### [facility] [address] [place], [place] [id number] Globulin (S) [Mass/Vol] 2.9 g/dL Normal 1.9-3.7 [facility] Comment on above: Performed By: #### C MP, CBC, MG #### [facility] [address] [place], [place] [id number] Glucose [Mass/Vol] 117 mg/dL High 65-99 [facility] Comment on above: Result Comment: For FASTING Glucose --- ADA reference ranges: Normal 65-99 mg/dl Prediabetes 100-125 Diabetes >/= 126 Performed By: #### C MP, CBC, MG #### [facility] [address] [place], [place] [id number] Potassium [Moles/Vol] 4.5 mmol/L Normal 3.5-5.5 [facility] Comment on above: Performed By: #### C MP, CBC, MG #### [facility] [address] [place], [place] [id number] Protein [Mass/Vol] 7.4 g/dL Normal 6.1-8.1 [facility] Comment on above: Performed By: #### C MP, CBC, MG #### [facility] [address] [place], [place] [id number] Sodium [Moles/Vol] 137 mmol/L Normal 135-146 [facility] Comment on above: Performed By: #### C MP, CBC, MG #### [facility] [address] [place], [place] [id number] Urea nitrogen [Mass/Vol] 15 mg/dL Normal 7-25 [facility] Comment on above: Performed By: #### C MP, CBC, MG #### [facility] [address] [place], [place] [id number] Hemoglobin A1Con 09-20-2021 EAG 142.72 Normal [facility] Comment on above: Performed By: #### A 1C #### [facility] [address] [place], [place] [id number] HbA1c (Bld) [Mass fraction] 6.6 % High 4.0-6.0 [facility] Comment on above: Performed By: #### A 1C #### [facility] [address] [place], [place] [id number] Magnesiumon 09-20-2021 Magnesium [Mass/Vol] 2.0 mg/dL Normal 1.5-2.3 [facility] [place] [facility] Comment on above: Performed By: #### C MP, CBC, MG #### [facility] [address] [place], [place] [id number] Vital Signs Date Time Vital Sign Value Performing Clinician Faci lity 03-15-2022 09:24-0400 Diastolic blood pressure 82 mm[Hg] DO Lay Talbot Work Phone: [facility] 03-15-2022 09:24-0400 Heart rate 72 /min DO Lay Carmenkes Work Phone: [facility] 03-15-2022 09:24-0400 Respiratory rate 18 /min DO Lay Talbot Work Phone: [facility] 03-15-2022 09:24-0400 SaO2% (BldA) [Mass fraction] 97 % DO Lay Talbot Work Phone: [facility] 03-15-2022 09:24-0400 Systolic blood pressure 115 mm[Hg] DO Lay Carmenkes Work Phone: [facility] 03-15-2022 07:21-0400 Body height 171.45 cm DO Lay Talbot Work Phone: [facility] 03-15-2022 07:21-0400 Body temperature 98.5 [degF] DO Lay Talbot Work Phone: [facility] 03-15-2022 07:21-0400 Body weight 86.18 kg DO Lay Talbot Work Phone: [facility] Encounters Encounter Date Encounter Type [...] surgery center DO Lay Talbot Work Phone: [facility] Procedures Date Procedure Procedure Detail Performing Clinician Start: 09-15-2023 MLR HEMOGLOBIN A1C Katie Spears MD Work Phone: Start: 03-15-2022 Screening colonoscopy D O Lay Talbot Work Phone: Plan of Treatment Date Care Activity Detail Author Start: 12-16-2023 End: 12-16-2023 Patient encounter procedure 12/16/2023 12:15 PM EDT Office Visit [facility] [address] [facility] [address] [place] [address] Yves Ornelas MD [address] [facility] [address] [id number] [facility] Start: 04-11-2023 Influenza vaccination Influenza Vaccine (#1) [facility] Start: 03-11-2023 Hemoglobin A1c measurement Diabetes: Hemoglobin A1C [facility] Start: 03-15-2022 [facility] Work Phone: Start: 1966 Glaucoma screening Diabetes: Retinopathy Screening [facility] Start: 1962 Pneumococcal Vaccine: 65+ Years [...] HEALTH[employer] E MEDICARE [employer] MEDICARE REPLACEMENT [id number] 2022-Present [address] [address] [place] [address] [id number] 2022 Medicaid MEDICAID [facility] [id number] 2022-Present [phone] [address] [place] [address] Medicaid [id number] 1959 Medicaid [id number] 1959 Medicare [id number] 1959 Medicare [id number] 1956 Unknown [id number] 1956 Unknown [id number] 1956 Unknown [id number] 1956 Unknown [id number] 1956 Unknown [id number] 1956 Unknown [id number] Medicaid [id number] Self-pay Self Pay [id number] Unknown [employer] [id number] Social History Date Type Detail Facility Start: 03-15-2022 End: 02-25-2023 Tobacco smoking status NHIS Never smoked tobacco (finding) [facility] Start: 1955 Sex Assigned At Male [facility] Start: 02-25-2023 Alcohol intake Ex-drinker (finding) [facility] Start: 02-25-2023 History of Social function [facility] Start: 02-25-2023 Tobacco use panel [facility] Start: 1955 Sex Assigned At Not on file [facility] Medical Equipment Procedure Code Equipment Code Equipment Origin al Text Equipment Identifier Dates Phacoemulsification of cataract with intraocular lens implantation Posterior-chamber intraocular lens, pseudophakic ()[id number] FDA Start: 01-27-2020 Phacoemulsification of cataract with intraocular lens implantation Posterior-chamber intraocular lens, pseudophakic ()[id number] FDA Start: 02-24-2020 Goals Date Patient Goal [...] authenticated by: RUFUS VALDEZ Date: 2022-10-02 11:10 [facility] History and physical note 03-15-2022 Note Date & Type Note Facility 03-15-2022 History and physi tara note Note Date/Time March 15, 2022 8:20am [facility] [address] [place] [address] Gastroenterology H&P Signed Patient: Farhat Castle MR#: [id number] : 1955 Acct:[id number] Age/Sex: 66 / M Adm Date: 2 Loc: Room: Type: [facility] Attending Dr: Lay Talbot DO Copies [...] by Lay Talbot Jr, DO> 03/15/22 0832 [facility] Work Phone: Procedure note 03-15-2022 Note Date & Type Note Facility 03-15-2022 Procedure note [facility] Evaluation note Note Date & Type Note Facility Evaluation note Diagnosis Onset Date Screening for colorectal cancer acute [facility] Work Phone: Hospital Discharge instructions Note [...] if you have any problems. -Office number [phone] [facility] Work Phone: Summary Purpose Family History [...] section and content) DATE CREATED AUTHOR 11/21/2021 [facility] dical Specialist DATE CREATED AUTHOR AUTHOR'S ORGANIZ ATION 03/16/2022 [facility] DATE CREATED AUTHOR AUTHOR'S ORGANIZ ATION 12/14/2022 [facility] Care Teams (unrecognized sec tion and content) Team Status: Inactive Member Role Status Dates Lay Talbot DO Attending Provider Active Amie Dow CHILD PSYCHOLOGIST-C Primary Care Provider Active Team Status: Active Member Role Status Dates Amie Dow CHILD PSYCHOLOGIST-C Primary Care Provider Active Dean Of Admissions Relationship Specialty Start Date End Date William Spears MD [address] [facility] [address] [place] [address] PCP - General Family Medicine 06/17/23 FOR [...] BE BASED ON THE PRIMARY CLINICAL RECORDS. [employer] provides no warranty or guarantee of the accuracy or completeness of information in this document.
[2023-12-15 08:15] LABS: Basophils Absolute Auto 0.1 10^3/uL (0.0-0.1); Basophils Percent Auto 0.4 % (0.2-2.0); Eosinophils Absolute Auto 0.3 10^3/uL (0.0-0.7); Eosinophils Percent Auto 2.2 % (0.9-7.0); Hematocrit 38.5 % (42.0-54.0); Hemoglobin 12.3 g/dL (14.0-18.0); Immature Granulocytes Abs Auto 0.05 10^3/uL (0.00-0.03); Immature Granulocytes Pct Auto 0.4 % (0.0-0.5); Lymphocytes Absolute Auto 1.7 10^3/uL (1.2-3.8); Lymphocytes Percent Auto 14.7 % (20.5-60.0); Mean Corpuscular HGB Conc 31.9 g/dL (29.9-35.2); Mean Corpuscular Hemoglobin 28.7 pg (25.9-34.0); Mean Corpuscular Volume 89.7 fL (80.0-94.0); Mean Platelet Volume 9.4 fL (9.5-13.5); Monocytes Absolute Auto 1.3 10^3/uL (0.3-0.8); Monocytes Percent Auto 11.4 % (1.7-12.0); Neutrophils Absolute Auto 8.2 10^3/uL (1.4-6.5); Neutrophils Percent Auto 70.9 % (43.0-75.0); Platelet Count 219 10^3/uL (150-450); Red Blood Count 4.29 10^6/uL (4.70-6.10); Red Cell Distribution Width 13.5 % (11.0-15.0); White Blood Count 11.5 10^3/uL (4.0-11.0)
[2023-12-15 09:17] LABS: Estimated Average Glucose 189 mg/dL; Glycohemoglobin A1C 8.2 % (4.5-6.2)
[2023-12-15 09:49] LABS: Alanine Aminotransferase 32 U/L (16-63); Albumin Globulin Ratio 0.8; Albumin Level 3.3 g/dL (3.4-5.0); Alkaline Phosphatase 76 U/L (46-116); Anion Gap 13.5; Aspartate Amino Transferase 17 U/L (15-37); BUN Creatinine Ratio 11.6; Bilirubin Total 0.7 mg/dL (0.2-1.0); Calcium 9.8 mg/dL (8.5-10.1); Carbon Dioxide 28.8 mmol/L (21.0-32.0); Chloride 100 mmol/L (98-107); Estimated GFR (African America 37 (>=60); Estimated GFR (Non-African Ame 31 (>=60); Globulin 4.3 g/dL; Glucose 236 mg/dL (74-106); Potassium 4.3 mmol/L (3.5-5.1); Sodium 138 mmol/L (136-145); Total Protein 7.6 g/dL (6.4-8.2)
[2023-12-15 10:01] LABS: Chol HDL Ratio 3.5; Cholesterol 152 mg/dL (<=200); HDL Cholesterol 43 mg/dL (40-60); LDL Cholesterol Calculated 84.2 mg/dL; Triglycerides 124 mg/dL (<=150); VLDL CHOLESTEROL 24.8 mg/dL
== END 2023-12-15 03:28 | disposition home or self-care (01) ==
LOC: LAB 03:27
PROVIDERS: PCP Family Medicine; Visit Provider Family Medicine
DX: G62.9 Polyneuropathy, unspecified (principal); G60.9 Hereditary and idiopathic neuropathy, unspecified; E11.8 Type 2 diabetes mellitus with unspecified complications
CPT/HCPCS: 36415; 80053; 80061; 82746; 83036; 85025

== ENCOUNTER 2024-01-14 02:06 | Outpatient (REF) | payer MEDICARE, MEDICAID, SELFPAY ==
--- OUTSIDE RECORDS SUMMARY | 2024-01-14 02:11 | XMS_ITS ---
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 Name Role Phone Antione DO Lay Wagner Attending Provider [phone] CINDY Dow Primary Care Provider [phone] YVES ORNELAS Admitting Unavailable JOHNSON, YVES Attending [...] RUFUS Morales Consulting Unavailable SARA .GARFIELD Consulting Unavailabl e TIA MERA Consulting Unavailable REGAN, DR MCELROY Primary Care Unavailable EDE, TIA Admitting Unavailable EDE, TIA Attending Unavailable EDE, TIA Consulting Unavailable KARIME MAYES Consulting Unavailable JAC GILL Consulting Unavailable REGAN, DR MCELROY Primary Care Unavailable SARA .GARFIELD Consulting Unavailabl e DIAB ., HERRERA Admitting Unavailable DIAB ., HERRERA Attending Unavailable JAC GILL Consulting Unavailable LAY ROQUE Consulting Unavailable William Spears MD Primary Care Provider Encounters Encounter Date Encounter Type Care Provider [...] surgery center DO Lay Talbot Work Phone: [facility] Medical Equipment Procedure Code Equipment Code Equipment Origin al Text Equipment Identifier Dates Phacoemulsification of cataract with intraocular lens implantation Posterior-chamber intraocular lens, pseudophakic ()[id number] [id number] FDA Start: 01-27-2020 Phacoemulsification of cataract with intraocular lens implantation Posterior-chamber intraocular lens, pseudophakic ()[id number] [facility] Start: 02-24-2020 Goals Date Patient Goal Desired Activity /State Immunizations Immunization Date Immunization Notes Care Provider Fa [facility] 05-15-2020 influenza virus vacc ine, unspecified formulation William Spears MD Work Phone: [facility] Healthcare Medications Current Medications Medication Drug Class(es) Dates Sig (Normalized) Sig (Original) acetaminophen 325 mg oral tablet (2 sources) Start: 03-15-2022 take 650 mg by mouth every four hours Acetaminophen Active 650 MG PO Q4H March 15, 2022 12:00am acetaminophen (T ylenol) 325 MG tablet every 4 (four) hours. 0 Active [id number] 200 actuat albuterol 0.09 mg/actuat metered dose [...] January 21, 2020 12:00am polyethylene glycol 3350 [id number] mg powder for oral solution (1 source) [...] 21, 2020 12:00am March 15, 2022 7:04am Payers Date Payer Category Payer Medicare [employer] MEDICARE REPLACEMENT [id number] 2022-Present [address] [address] [place] [address] [id number] 2022 Medicaid MEDICAID [facility] [id number] 2022-Present [phone] [address] [place] [address] Medicaid [id number] 1959 Medicaid [id number] 1959 Medicare [id number] 1959 Medicare [id number] 1955 Unknown [id number] 1955 Unknown [id number] 1955 Unknown [id number] 1955 Unknown [id number] 1955 Unknown [id number] 1955 Unknown [id number] Medicaid [id number] Self-pay Self Pay [id number] Unknown [employer] [id number] Plan of Treatment Date Care Activity Detail Author Start: 12-16-2023 End: 12-16-2023 Patient encounter procedure 12/16/2023 12:15 PM EDT Office Visit [facility] [address] [place] [address] Yves Ornelas MD [address] [facility] [address] [place], [place] [id number] [facility] Start: 04-11-2023 Influenza vaccination Influenza Vaccine (#1) [facility] Start: 03-11-2023 Hemoglobin A1c measurement Diabetes: Hemoglobin A1C [facility] Start: 03-15-[address] 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; 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] Onset: 11-05-2022 Episodic Other aftercare (1 source) jail (current) use of oral hypoglycemic drugs; Translations: [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 DESIGN MANAGER USE ORAL HYPOGLYCEMIC DX] Onset: 11-05-2022 Episodic Other aftercare (1 source) Other terminal operator (current) drug therapy; Translations: [OTH ENGINEERING DESIGN MANAGER CURRENT DRUG THERAPY] Onset: 11-05-2022 Episodic Other [...] Translations: [LOW BACK PAIN, UNSPECIFIED] Onset: 10-02-2022 Procedures Date Procedure Procedure Detail Performing Clinician Start: 09-15-2023 MLR HEMOGLOBIN A1C Katie Spears MD Work Phone: Start: 03-15-2022 Screening colonoscopy Cammie Talbot Work Phone: Results Test Name Value Interpretation Reference Range Facility MLR HEMOGLOBIN A1Con 024 Glucose [Mass/Vol] 137 mg/dL [facility] HbA1c (Bld) [Mass fraction] 6.4 % High 4.5 - 6.2 % [facility] Comment on above: ADA RECOMMENDED LIMI T 4.0 - 6.0 ADA THERAPEUTIC TARGET < 7.0 ACTION SUGGESTED > 7.0 Interpretation and review of laboratory results Abnormal [facility] CBC AUTO DIFFon 12-09-2022 BASO # 0.0 103/ul Normal 0.0-0.1 [facility] Comment on above: Performed By: #### C ####[facility] [address] [place] [address]Dr. Kathya Ryan Basophils/100 WBC (Bld) 0.5 % Normal 0.2-2.0 [facility] Comment on above: Performed By: #### C BC ####[facility] [address] [place], [place] [address]Dr. Kathya Ryan EO # 0.3 103/ul Normal 0.0-0.7 [facility] Comment on above: Performed By: #### C BC ####[facility] [address] [place], [place] [address]Dr. Kathya Ryan Eosinophils/100 WBC (Bld) 5.4 % Normal 0.9-7.0 [facility] Comment on above: Performed By: #### C BC ####[facility] [address] [place], [place] [address]Dr. Kathya Ryan Erythrocyte distribution width (RBC) [Ratio] 12.5 % Normal 11.0-15.0 [facility] Comment on above: Performed By: #### C BC ####[facility] [address] [place], [place] [address]Dr. Kathya Ryan Hematocrit (Bld) [Volume fraction] 42.4 % Normal 42.0-54.0 [facility] Comment on above: Performed By: #### C BC ####[facility] [address] [place], [place] [address]Dr. Kathya Ryan Hemoglobin (Bld) [Mass/Vol] 14.1 g/dL Normal 14.0-18.0 [facility] Comment on above: Performed By: #### C BC ####[facility] [address] [place], [place] [address]Dr. Kathya Ryan IG # 0.02 10e3/ul Normal 0.00-0.03 [facility] Comment on above: Performed By: #### C BC ####[facility] [address] [place], [place] [address]Dr. Kathya Ryan IG % 0.3 % Normal 0.0-0.5 [facility] Comment on above: Performed By: #### C BC ####[facility] [address] [place], [place] [address]Dr. Kathya Ryan LYMPH # 1.3 103/ul Normal 1.2-3.8 [facility] Comment on above: Performed By: #### C BC ####[facility] [address] [place] [address]Dr. Kathya Ryan Lymphocytes/100 WBC (Bld) 22.4 % Normal 20.5-60.0 [facility] Comment on above: Performed By: #### C BC ####[facility] [address] [place] [address]Dr. Kathya Ryan MANUAL DIFF REQ NO Normal [facility] Comment on above: Performed By: #### C BC ####[facility] [address] [place] [address]Dr. Kathya Ryan MCH (RBC) [Entitic mass] 30.5 pg Normal 25.9-34.0 [facility] Comment on above: Performed By: #### C BC ####[facility] [address] [place] [address]Dr. Kathya Ryan MCHC (RBC) [Mass/Vol] 33.3 g/dL Normal 29.9-35.2 [facility] Comment on above: Performed By: #### C BC ####[facility] [address] [place], [place] [address]DrBriseyda Ryan MCV (RBC) [Entitic vol] 91.8 fL Normal 80.0-94.0 [facility] Comment on above: Performed By: #### C BC ####[facility] [address] [place] [address]DrBriseyda Ryan MONO # 0.7 103/ul Normal 0.3-0.8 [facility] Comment on above: Performed By: #### C BC ####[facility] [address] [place], [place] [address]DrBriseyda Ryan Monocytes/100 WBC (Bld) 12.2 % Critically high 1.7-12.0 [facility] Comment on above: Performed By: #### C BC ####[facility] [address] [place], [place] [address]Dr. Kathya Ryan NEUT # 3.5 103/ul Normal 1.4-6.5 [facility] Comment on above: Performed By: #### C BC ####[facility] [address] [place] [address]Dr. Mireyajack Connor Neutrophils/100 WBC (Bld) 59.2 % Normal 43.0-75.0 [facility] Comment on above: Performed By: #### C BC ####[facility] [address] [place] [address]Dr. Kathya Ryan Platelet mean volume (Bld) [Entitic vol] 9.1 fL Critically low 9.5-13.5 [facility] Comment on above: Performed By: #### C BC ####[facility] [address] [place] [address]DrBriseyda Ryan PLT 211 103/ul Normal 150-450 [facility] Comment on above: Performed By: #### C BC ####[facility] [address] [place] [address]DrBriseyda Ryan RBC 4.62 106/ul Critically low 4.70-6.10 [facility] Comment on above: Performed By: #### C BC ####[facility] [address] [place] [address]DrBriseyda Ryan WBC 5.9 103/ul Normal 4.0-11.0 [facility] Comment on above: Performed By: #### C BC ####[facility] [address] [place] [id number] Ryan GLYCOHEMOGLOBIN A1Con 2022 ADA RECOMMENDATION SEE BELOW Normal [facility] Comment on above: Result Comment: ADA RECOMMENDED LIMIT 4.0 - 6.0 ADA THERAPEUTIC TARGET < 7.0 ACTION SUGGESTED > 7.0 Performed By: #### A 1C #### [facility] Laboratory [address] [address] [address] Kathya Ryan Glucose [Mass/Vol] 123 mg/dL Normal [facility] Comment on above: Performed By: #### A 1C #### [facility] Laboratory [address] [place] [address] Dr. Kathya Ryan HbA1c (Bld) [Mass fraction] 5.9 % Normal 4.5-6.2 [facility] Comment on above: Performed By: #### A 1C #### [facility] Laboratory [address] [place] [address] Dr. Kahtya Ryan LIPID PROFILEon 12-09-2022 CHOL-HDL RATIO NORM SEE BELOW Normal [facility] Comment on above: Result Comment: 3.3 - 4.4 LOW RISK 4.4 - 7.1 AVERAGE RISK 7.1 - 11.0 MODERATE RISK >11.0 HIGH RISK Performed By: #### L IPID, CMP #### [facility] Laboratory [address] [place] [address] Dr. Kathya Ryan Cholesterol [Mass/Vol] 132 mg/dL Normal <=200 [facility] Comment on above: Performed By: #### L IPID, CMP #### [facility] Laboratory [address] [place] [address] Dr. Kathya Ryan Cholesterol in HDL [Mass/Vol] 29 mg/dL Critically low 40-60 [facility] Comment on above: Performed By: #### L IPID, CMP #### [facility] Laboratory [address] [place] [address] Dr. Kathya Ryan Cholesterol in LDL [Mass/Vol] 83.0 mg/dL Normal [facility] Comment on above: Performed By: #### L IPID, CMP #### [facility] Laboratory [address] [place] [address] Dr. Kathya Ryan Cholesterol.total/Ch olesterol in HDL [Mass ratio] 4.6 {ratio} Normal [facility] Comment on above: Performed By: #### L IPID, CMP #### [facility] Laboratory [address] [place] [address] Dr. Kathya Ryan HDL NORMAL > or = 60 mg/dl - LO W CARDIOVASCULAR RISK <40 mg/dl - HIGH CARDIOVASCULAR RISK Normal [facility] Comment on above: Performed By: #### L IPID, CMP #### [facility] Laboratory [address] [place] [address] Dr. Kathya Ryan LDL CALC NORMAL SEE BELOW Normal [facility] Comment on above: Result Comment: <100 mg/dl OPTIMAL 100 - 129 mg/dl NEAR OR ABOVE OPTIMAL 130 - 159 mg/dl BORDERLINE HIGH 160 - 189 mg/dl HIGH >190 mg/dl VERY HIGH Performed By: #### L IPID, CMP #### [facility] [address] [address] [address] Kathya Ryan Triglyceride [Mass/Vol] 102 mg/dL Normal <=150 [facility] Comment on above: Performed By: #### L IPID, CMP #### [facility] Laboratory [address] [address] [address] Kathya Ryan VLDL CALC 20.4 mg/dL Normal [facility] Comment on above: Performed By: #### L IPID, CMP #### [facility] Laboratory [address] [address] [address] Kathya Ryan PROF 14(COMP METB)on 023 Albumin [Mass/Vol] 3.3 g/dL Critically low 3.4-5.0 [facility] Comment on above: Performed By: #### L IPID, CMP #### [facility] Laboratory [address] [address] [address] Kathya Ryan Albumin/Globulin [Mass ratio] 0.9 {ratio} Normal [facility] Comment on above: Performed By: #### L IPID, CMP #### [facility] Laboratory [address] [address] [address] Kathya Ryan ALP [Catalytic activity/Vol] 71 U/L Normal 46-116 [facility] Comment on above: Performed By: #### L IPID, CMP #### [facility] [address] [address] [address] Kathya Ryan ALT [Catalytic activity/Vol] 50 U/L Normal 16-63 [facility] Comment on above: Performed By: #### L IPID, CMP #### [facility] Laboratory [address] [address] [address] Kathya Ryan Anion gap [Moles/Vol] 12.6 mmol/L Normal [facility] Comment on above: Performed By: #### L IPID, CMP #### [facility] Laboratory [address] [address] [address] Kathya Ryan AST [Catalytic activity/Vol] 34 U/L Normal 15-37 [facility] Comment on above: Performed By: #### L IPID, CMP #### [facility] Laboratory [address] [address] [address] Kathya Ryan Bilirubin [Mass/Vol] 0.4 mg/dL Normal 0.2-1.0 [facility] Comment on above: Performed By: #### L IPID, CMP #### [facility] [address] [address] [address] Kathya Ryan Calcium [Mass/Vol] 8.9 mg/dL Normal 8.5-10.1 [facility] Comment on above: Performed By: #### L IPID, CMP #### [facility] [address] [address] [address] Kathya Ryan Chloride [Moles/Vol] 106 mmol/L Normal 98-107 [facility] Comment on above: Performed By: #### L IPID, CMP #### [facility] [address] [address] [address] Kathya Ryan CO2 [Moles/Vol] 27.4 mmol/L Normal 21.0-32.0 [facility] Comment on above: Performed By: #### L IPID, CMP #### [facility] [address] [address] [address] Kathya Ryna Creatinine [Mass/Vol] 1.45 mg/dL Critically high 0.70-1.30 [facility] Comment on above: Performed By: #### L IPID, CMP #### [facility] [address] [address] [address] Kathya Ryan EGFR-AF FRENCH 59 mL/min/1.73m2 Critically low >=60 [facility] Comment on above: Performed By: #### L IPID, CMP #### [facility] Laboratory [address] [address] [address] Kathya Ryan EGFR-NON AF FRENCH 49 mL/min/1.73m2 Critically low >=60 [facility] Comment on above: Performed By: #### L IPID, CMP #### [facility] [address] [address] [address] Kathya Ryan Globulin (S) [Mass/Vol] 3.8 g/dL Normal [facility] Comment on above: Performed By: #### L IPID, CMP #### [facility] [address] [address] [address] Kathya Ryan Glucose [Mass/Vol] 109 mg/dL Critically high 74-106 T [facility] Comment on above: Performed By: #### L IPID, CMP #### [facility] Laboratory [address] [place] [address] Dr. Kathya Ryan Potassium [Moles/Vol] 3.9 mmol/L Normal 3.5-5.1 [facility] Comment on above: Performed By: #### L IPID, CMP #### [facility] Laboratory [address] [place] [address] Dr. Kathya Ryan Protein [Mass/Vol] 7.1 g/dL Normal 6.4-8.2 [facility] Comment on above: Performed By: #### L IPID, CMP #### [facility] Laboratory [address] [place] [address] Dr. Kathya Ryan Sodium [Moles/Vol] 142 mmol/L Normal 136-145 [facility] Comment on above: Performed By: #### L IPID, CMP #### [facility] Laboratory [address] [place] [address] Dr. Kathya Ryan Urea nitrogen [Mass/Vol] 17.0 mg/dL Normal 7.0-18.0 [facility] Comment on above: Performed By: #### L IPID, CMP #### [facility] Laboratory [address] [place] [address] Dr. Kathya Ryan Urea nitrogen/Creatinine [Mass ratio] 11.7 mg/mg Normal [facility] Comment on above: Performed By: #### L IPID, CMP #### [facility] Laboratory [address] [place] [address] Dr. Kathya Ryan FREE LIGHT CHAINS PLUS RATIO , URINEon 11-14-2022 Free [place] Lt Chains,Ur 86.11 mg/L Normal 1.17-86.46 [facility] Comment on above: Performed By: #### F KEIKOU ####[facility] [address] [place], [place] [address]Vg. Kathya Ryan Free Lambda Lt Chains,Ur 11.37 mg/L Normal 0.27-15.21 [facility] Comment on above: Performed By: #### F KEIKOU ####[facility] [address] [place], [place] [address]St. Kathya Ryan [place]/ Lambda Urine Ratio 7.57 Normal 1.83-14.26 [facility] Comment on above: Performed By: #### F FIDEL ####[facility] [address] [place], [place] [address]It. Kathya Ryan CT CSPINE WO CONon CT [...] fracture or subluxation. Electronically authenticated by: KARIME SAID Date: 2022-11-04 00:29 Normal [facility] CT HEAD WO CONon 11-04-2022 CT HEAD [...] JAC GILL Date: 2022-11-04 00:28 Normal [facility] CBC AUTO DIFFon 10-02-2022 BASO # 0.1 103/ul Normal 0.0-0.1 [facility] Comment on above: Performed By: #### C BC ####[facility] [address] [place] [address]Dr. Kathya Ryan Basophils/100 WBC (Bld) 0.5 % Normal 0.2-2.0 [facility] Comment on above: Performed By: #### C BC ####[facility] [address] [place] [address]Dr. Kathya Ryan EO # 0.8 103/ul Critically high 0.0-0.7 [facility] Comment on above: Performed By: #### C BC ####[facility] [address] [place] [address]Dr. Kathya Ryan Eosinophils/100 WBC (Bld) 7.6 % Critically high 0.9-7.0 [facility] Comment on above: Performed By: #### C BC ####[facility] [address] [place] [address]Dr. Kathya Ryan Erythrocyte distribution width (RBC) [Ratio] 13.3 % Normal 11.0-15.0 [facility] Comment on above: Performed By: #### C BC ####[facility] [address] [place] [address]Dr. Kathya Ryan Hematocrit (Bld) [Volume fraction] 39.7 % Critically low 42.0-54.0 [facility] Comment on above: Performed By: #### C BC ####[facility] [address] [place] [address]Dr. Kathya Ryan Hemoglobin (Bld) [Mass/Vol] 13.4 g/dL Critically low 14.0-18.0 [facility] Comment on above: Performed By: #### C BC ####[facility] [address] [place], [place] [address]Dr. Mireyajack Ryan IG # 0.04 10e3/ul Critically high 0.00-0.03 [facility] Comment on above: Performed By: #### C BC ####[facility] [address] [place], [place] [address]Dr. Kathya Ryan IG % 0.4 % Normal 0.0-0.5 [facility] Comment on above: Performed By: #### C BC ####[facility] [address] [place], [place] [address]DrBriseyda Kathya Ryan LYMPH # 1.6 103/ul Normal 1.2-3.8 [facility] Comment on above: Performed By: #### C BC ####[facility] [address] [place], [place] [address]DrBriseyda Kathya Ryan Lymphocytes/100 WBC (Bld) 15.8 % Critically low 20.5-60.0 [facility] Comment on above: Performed By: #### C BC ####[facility] [address] [place], [place] [address]DrBriseyda Kathya Connor MANUAL DIFF REQ NO Normal [facility] Comment on above: Performed By: #### C BC ####[facility] [address] [place], [place] [address]DrBriseyda Ryan MCH (RBC) [Entitic mass] 29.8 pg Normal 25.9-34.0 [facility] Comment on above: Performed By: #### C BC ####[facility] [address] [place] [address]Dr. Kathya Connor MCHC (RBC) [Mass/Vol] 33.8 g/dL Normal 29.9-35.2 [facility] Comment on above: Performed By: #### C BC ####[facility] [address] [place] [address]Dr. Kathya Ryan MCV (RBC) [Entitic vol] 88.4 fL Normal 80.0-94.0 [facility] Comment on above: Performed By: #### C BC ####[facility] [address] [place], [place] [address]Dr. Kathya Ryan MONO # 1.2 103/ul Critically high 0.3-0.8 [facility] [facility] Comment on above: Performed By: #### C BC ####[facility] [address] [place], [place] [address]Dr. Kathya Ryan Monocytes/100 WBC (Bld) 12.1 % Critically high 1.7-12.0 [facility] Comment on above: Performed By: #### C BC ####[facility] [address] [place], [place] [address]Dr. Kathya Ryan NEUT # 6.4 103/ul Normal 1.4-6.5 [facility] Comment on above: Performed By: #### C BC ####[facility] [address] [place], [place] [address]Dr. Kathya Ryan Neutrophils/100 WBC (Bld) 63.6 % Normal 43.0-75.0 [facility] Comment on above: Performed By: #### C BC ####[facility] [address] [place], [place] [address]Dr. Kathya Ryan Platelet mean volume (Bld) [Entitic vol] 8.8 fL Critically low 9.5-13.5 [facility] Comment on above: Performed By: #### C BC ####[facility] [id number] [place] [id number]. Kathya Ryan PLT 237 103/ul Normal 150-450 [facility] Comment on above: Performed By: #### C BC ####[facility] [address] [place], [place] [address]Am. Kathya Ryan RBC 4.49 106/ul Critically low 4.70-6.10 The [facility] Comment on above: Performed By: #### C BC ####[facility] [address] [place], [place] [address]Kr. Kathya Ryan WBC 10.1 103/ul Normal 4.0-11.0 [facility] Comment on above: Performed By: #### C BC ####[facility] [address] [place], [place] [address]G[address]. [address] CSPINE WO CONon 3 [...] LAY ROQUE Date: 2022-10-02 20:33 Normal The [facility] CT HEAD WO CONon 10-02-2022 CT HEAD [...] JAC GILL Date: 2022-10-02 20:41 Normal The [facility] CULTURE URINEon 10-02-2022 CULTURE URINE Culture Observations : LIGHT GROWTH OF MIXED SKIN LUKASZ. NO POTENTIAL PATHOGENS SEEN. Normal [facility] Comment on above: Performed By: #### U RCX ####[facility] [address] [place] [address]Dr. Kathya Ryan ER URINE PROFILEon 3 Bilirubin Ql (U) Negative Normal NEGATIVE [facility] Comment on above: Performed By: #### U MICRO, ERUR #### [facility] Laboratory [address] [place] [address] Dr. Kathya Ryan Clarity (U) CLEAR Normal CLEAR [facility] Comment on above: Performed By: #### U MICRO, ERUR #### [facility] Laboratory [address] [address] [address] Kathya Ryan Color (U) YELLOW Normal YELLOW [facility] Comment on above: Performed By: #### U MICRO, ERUR #### [facility] Laboratory [address] [address] [address] Kathya CRAMER A micrscopic examination will be performed if indicated. Normal [facility] Comment on above: Performed By: #### U MICRO, ERUR #### [facility] Laboratory [address] [address] [address] Kathya Ryan Glucose Ql (U) 500 mg/dl Abnormal NEGATIVE [facility] Comment on above: Performed By: #### U MICRO, ERUR #### [facility] Laboratory [address] [address] [address] Kathya Ryan Hemoglobin Ql (U) SMALL Abnormal NEGATIVE [facility] Comment on above: Performed By: #### U MICRO, ERUR #### [facility] Laboratory [address] [address] [address] Kathya Ryan Ketones Ql (U) TRACE Abnormal NEGATIVE [facility] Comment on above: Performed By: #### U MICRO, ERUR #### [facility] Laboratory [address] [place] [address] Dr. Kathya Ryan LEUKOCYTES TRACE Abnormal NEGATIVE [facility] Comment on above: Performed By: #### U MICRO, ERUR #### [facility] Laboratory [address] [place] [address] Dr. Kathya Ryan Nitrite Ql (U) Negative Normal NEGATIVE [facility] Comment on above: Performed By: #### U MICRO, ERUR #### [facility] Laboratory [address] [place] [address] Dr. Kathya Ryan pH (U) 5.5 [pH] Normal 5-9 [facility] Comment on above: Performed By: #### U MICRO, ERUR #### [facility] Laboratory [address] [place] [address] Dr. Kathya Ryan SPEC GRAVITY >=1.030 Abnormal 1.005-<=1.025 [facility] Comment on above: Performed By: #### U MICRO, ERUR #### [facility] Laboratory [address] [place] [address] Dr. Kathya Ryan UA PROTEIN TRACE Normal NEGATIVE/ TRACE The [facility] Comment on above: Performed By: #### U MICRO, ERUR #### [facility] Laboratory [address] [place] [address] Dr. Kathya Ryan UR MICRO IND INDICATED Normal [facility] Comment on above: Performed By: #### U MICRO, ERUR #### [facility] Laboratory [address] [place] [address] Dr. Kathya Ryan Urobilinogen Qn (U) 2.0 {Luanne'U}/dL Abnormal 0.2 - 1. 0 [facility] Comment on above: Performed By: #### U MICRO, ERUR #### [facility] Laboratory [address] [address] [address] Kathya Ryan PROF 14(COMP METB)on 023 Albumin [Mass/Vol] 3.5 g/dL Normal 3.4-5.0 [facility] Comment on above: Performed By: #### H STROPN, CMP, TSH #### [facility] Laboratory [address] [address] [address] Kathya Ryan Albumin/Globulin [Mass ratio] 0.9 {ratio} Normal [facility] Comment on above: Performed By: #### H STROPN, CMP, TSH #### [facility] Laboratory [address] [place] [address] Dr. Kathya Ryan ALP [Catalytic activity/Vol] 108 U/L Normal 46-116 [facility] Comment on above: Performed By: #### H STROPN, CMP, TSH #### [facility] Laboratory [address] [place] [address] Dr. Kathya Ryan ALT [Catalytic activity/Vol] 38 U/L Normal 16-63 [facility] Comment on above: Performed By: #### H STROPN, CMP, TSH #### [facility] Laboratory [address] [place] [address] Dr. Kathya Ryan Anion gap [Moles/Vol] 11.4 mmol/L Normal [facility] Comment on above: Performed By: #### H STROPN, CMP, TSH #### [facility] Laboratory [address] [place] [address] Dr. Kathya Ryan AST [Catalytic activity/Vol] 28 U/L Normal 15-37 [facility] Comment on above: Performed By: #### H STROPN, CMP, TSH #### [facility] Laboratory [address] [address] [address] Kathya Ryan Bilirubin [Mass/Vol] 0.9 mg/dL Normal 0.2-1.0 [facility] Comment on above: Performed By: #### H STROPN, CMP, TSH #### [facility] Laboratory [address] [address] [address] Kathya Ryan Calcium [Mass/Vol] 9.1 mg/dL Normal 8.5-10.1 [facility] Comment on above: Performed By: #### H STROPN, CMP, TSH #### [facility] Laboratory [address] [address] [address] Kathya Ryan Chloride [Moles/Vol] 100 mmol/L Normal 98-107 [facility] Comment on above: Performed By: #### H STROPN, CMP, TSH #### [facility] Laboratory [address] [address] [address] Kathya Ryan CO2 [Moles/Vol] 27.7 mmol/L Normal 21.0-32.0 [facility] Comment on above: Performed By: #### H STROPN, CMP, TSH #### [facility] Laboratory [address] [address] [address] Kathya Ryan Creatinine [Mass/Vol] 1.69 mg/dL Critically high 0.70-1.30 [facility] Comment on above: Performed By: #### H STROPN, CMP, TSH #### [facility] Laboratory [address] [address] [address] Kathya Ryan EGFR-AF FRENCH 50 mL/min/1.73m2 Critically low >=60 [facility] Comment on above: Performed By: #### H STROPN, CMP, TSH #### [facility] Laboratory [address] [address] [address] Kathya Ryan EGFR-NON AF FRENCH 41 mL/min/1.73m2 Critically low >=60 [facility] Comment on above: Performed By: #### H STROPN, CMP, TSH #### [facility] Laboratory [address] [address] [address] Kathya Ryan Globulin (S) [Mass/Vol] 3.8 g/dL Normal [facility] Comment on above: Performed By: #### H STROPN, CMP, TSH #### [facility] Laboratory [address] [address] [address] Kathya Ryan Glucose [Mass/Vol] 259 mg/dL Critically high 74-106 [facility] Comment on above: Performed By: #### H STROJIMI, CMP, TSH #### [facility] Laboratory [address] [address] [address] Kathya Ryan Potassium [Moles/Vol] 4.1 mmol/L Normal 3.5-5.1 [facility] Comment on above: Performed By: #### H GILBERTO, CMP, TSH #### [facility] Laboratory [address] [address] [address] Kathya Ryan Protein [Mass/Vol] 7.3 g/dL Normal 6.4-8.2 [facility] Comment on above: Performed By: #### H GILBERTO CMP, TSH #### [facility] Laboratory [address] [address] [address] Kathya Ryan Sodium [Moles/Vol] 135 mmol/L Critically low 136-145 [facility] Comment on above: Performed By: #### H GILBERTO CMP, TSH #### [facility] Laboratory [address] [address] [address] Kathya Ryan Urea nitrogen [Mass/Vol] 15.0 mg/dL Normal 7.0-18.0 [facility] Comment on above: Performed By: #### H GILBERTO CMP, TSH #### [facility] Laboratory [address] [address] [address] Kathya Ryan Urea nitrogen/Creatinine [Mass ratio] 8.9 mg/mg Normal [facility] Comment on above: Performed By: #### H GILBERTO CMP, TSH #### [facility] Laboratory [address] [address] [address] Kathya Ryan PROTIMEon 10-02-2022 INR Coag (PPP) [Relative time] 1.00 {INR} Normal [facility] Comment on above: Performed By: #### P T, PTT ####[facility] [address] [place] [address]Dr. Kathya Ryan INR GUIDELINES SEE BELOW Normal [facility] Comment on above: Result Comment: JONI RED INR: 2.0 - 3.0 CONDITIONS NOT LISTED BELOW 2.5 - 3.5 FOR PROSTHETIC HEART VALVE REPLACEMENT 2.5 - 3.5 RECURRENT THROMBOSIS Performed By: #### P T, PTT ####[facility] [address] [place] [address]Dr. Kathya Ryan PT Coag (PPP) [Time] 10.6 s Normal 9.0-11.6 [facility] Comment on above: Performed By: #### P T, PTT ####[facility] [address] [place] [address]Dr. Kathya Ryan PTTon 10-02-2022 aPTT Coag (Bld) [Time] 26.9 s Normal 22.3-36.2 [facility] Comment on above: Performed By: #### P T, PTT ####[facility] [address] [place] [address]Dr. Kathya Ryan TROPONIN, HIGH SENSITIVITYon 10-02-2022 HSTROP 4.2 pg/mL Normal 4.0-76.1 [facility] Comment on above: Result Comment: CUT- OFF POINTS HAVE BEEN ESTABLISHED BASED ON THE FOURTH UNIVERSAL DEFINITIONS OF MYOCARDIAL INFARCTION. THE UPPER REFERENCE LIMIT (URL) OF TROPONIN, DEFINED THE 99TH PERCENTILE OF cTnI DISTRIBUTION IN A REFERENCE POPULATION, HAS BEEN CONFIRMED THE DECISION THRESHOLD FOR DE DIAGNOSIS. Performed By: #### H FARAZ MACIAS, TSH ####[facility] [address] [place] [address]Dr. Kathya Ryan TSHon 10-02-2022 TSH 2.502 uIU/mL Normal 0.358-3.740 [facility] Comment on above: Performed By: #### H GILBERTO CMP, TSH ####[facility] [address] [place] [id number]. Kathya Ryan URINE MICROSCOPIC ONLYon BACTERIA MODERATE Abnormal NONE SEEN The [facility] Comment on above: Performed By: #### U MICRO, ERUR #### [facility] Laboratory [address] [address] [address] Kathya Ryan Bacteria identified Cx Nom (U) INDICATED Normal [facility] Comment on above: Performed By: #### U MICRO, ERUR #### [facility] Laboratory [address] [address] [address] Kathya Ryan CAST NONE SEEN Normal NONE SEEN The [facility] Comment on above: Performed By: #### U MICRO, ERUR #### [facility] Laboratory [address] [place] [address] Dr. Kathya Ryan Crystals LM Nom (Urine sed) NONE SEEN Normal NONE SEEN [facility] Comment on above: Performed By: #### U MICRO, ERUR #### [facility] Laboratory [address] [place] [address] Dr. Kathya Ryan Epithelial cells LM Ql (Urine sed) RARE Normal NONE SEEN /RARE The [facility] Comment on above: Performed By: #### U MICRO, ERUR #### [facility] Laboratory [address] [place] [address] Dr. Kathya Ryan HYALINE CAST FEW Normal [facility] Comment on above: Performed By: #### U MICRO, ERUR #### [facility] Laboratory [address] [place] [address] Dr. Kathya Ryan MUCOUS NONE SEEN Normal NONE SEEN [facility] Comment on above: Performed By: #### U MICRO, ERUR #### [facility] Laboratory [address] [place] [address] Dr. Kathya Ryan RBC 10-20 Abnormal 0-2 [facility] Comment on above: Performed By: #### U MICRO, ERUR #### [facility] Laboratory [address] [place] [address] Dr. Kathya Ryan WBC 5-10 Abnormal NONE SEEN [facility] Comment on above: Performed By: #### U MICRO, ERUR #### [facility] Laboratory [address] [place] [address] Dr. Kathya Ryan XR CHEST 1 Von [...] LAY ROQUE Date: 2022-10-02 20:56 Normal The [facility] XR KNEE RT 4V or >on 023 [...] LAY ROQUE Date: 2022-10-02 20:59 Normal The [facility] XR LSPINE 2_3 VIEWSon 2022 XR LSPINE [...] LAY ROQUE Date: 2022-10-02 20:55 Normal The [facility] XR PELVIS 1_2 VIEWSon 2022 XR PELVIS 1_2 VIEWS EXAM: XR PELVIS 1_2 VIEWS HISTORY: Fall COMPARISON: None. TECHNIQUE: Single view FINDINGS: No osseous lesion, fracture, dislocation or subluxation. Joint spaces are unremarkable for patient's age. No visualized effusion. No visualized soft tissue edema. IMPRESSION: Normal x-rays Electronically authenticated by: LAY ROQUE Date: 2022-10-02 21:04 Normal [facility] Glucose Glucometer (BldC) [M ass/Vol]Ordered By: Lay Talbot on 03-15-2022 Glucose [Mass/Vol] 131 mg/dL [facility] Comment on above: Random Glucose Refer ence Range is dependent on time and content of last meal. Glucose of more than 200 mg/dL in a nonstressed, ambulatory subject supports the diagnosis of Diabetes Mellitus. Glucose Poct Glucometerson 0 03-15-2022 Glucose [Mass/Vol] 131 mg/dL Normal [facility] Comment on above: Result Comment: [facility] Glucose Reference Range is dependent on time and content of last meal. Glucose of more than 200 mg/dL in a nonstressed, ambulatory subject supports the diagnosis of Diabetes Mellitus. PERFORMED BY: [facility] [address] [place] [address] PATHOLOGIST [employer] MANAGER CARINA HASSAN M.D. Performed By: #### G BALJIT #### Point of Care testing , PSA SCREEN (MEDICARE)on 11-09 TPSA 3.110 ng/mL Normal <4.000 [facility] Comment on above: Result Comment: PSA Test Method: ECLIA/Urvashi e 601 Performed By: #### P MC #### [facility] [address] [place], [place] [id number] Complete Blood Counton 09-20 Erythrocyte distribution width (RBC) [Ratio] 12.6 % Normal 11.0-15.0 [facility] Comment on above: Performed By: #### C MP, CBC, MG #### [facility] [address] [place], [place] [id number] Hematocrit (Bld) [Volume fraction] 47.3 % Normal 38.5-50.0 [facility] Comment on above: Performed By: #### C MP, CBC, MG #### [facility] [address] [place], [place] [id number] Hemoglobin (Bld) [Mass/Vol] 15.8 g/dL Normal 13.0-17.1 [facility] Comment on above: Performed By: #### C MP, CBC, MG #### [facility] [address] [place], [place] [id number] MCH (RBC) [Entitic mass] 28.6 pg Normal 27.0-33.0 [facility] Comment on above: Performed By: #### C MP, CBC, MG #### [facility] [address] [place], [place] [id number] MCHC (RBC) [Mass/Vol] 33.4 g/dL Normal 32.0-36.0 [facility] Comment on above: Performed By: #### C MP, CBC, MG #### [facility] [address] [place], [place] [id number] MCV (RBC) [Entitic vol] 86 fL Normal 80-100 [facility] Comment on above: Performed By: #### C MP, CBC, MG #### [facility] [address] [place], [place] [id number] Platelet mean volume (Bld) [Entitic vol] 8.90 fL Normal 7.50-12.50 [facility] Comment on above: Performed By: #### C MP, CBC, MG #### [facility] [address] [place], [place] [id number] Platelets (Bld) [#/Vol] 258 10*3/uL Normal 140-400 [facility] Comment on above: Performed By: #### C MP, CBC, MG #### [facility] [address] [place], [place] [id number] RBC (Bld) [#/Vol] 5.53 10*6/uL Normal 4.20-5.80 [facility] Comment on above: Performed By: #### C MP, CBC, MG #### [facility] [address] [place], [place] [id number] RDW-SD 39.1 fL Normal 37.0-50.0 [facility] Comment on above: Performed By: #### C MP, CBC, MG #### [facility] [address] [place], [place] [id number] WBC (Bld) [#/Vol] 8.2 10*3/uL Normal 3.8-11.0 [facility] Comment on above: Performed By: #### C MP, CBC, MG #### [facility] [address] [place], [place] [id number] Comprehensive Metabolic Pane yun 09-20-2021 Albumin [Mass/Vol] 4.5 g/dL Normal 3.6-5.1 [facility] Comment on above: Performed By: #### C MP, CBC, MG #### [facility] [address] [place], [place] [id number] Albumin/Globulin [Mass ratio] 1.6 {ratio} Normal 1.0-2.5 [facility] Comment on above: Performed By: #### C MP, CBC, MG #### [facility] [address] [place], [place] [id number] ALP [Catalytic activity/Vol] 86 U/L Normal 40-129 [facility] Comment on above: Performed By: #### C MP, CBC, MG #### [facility] [address] [place], [place] [id number] ALT [Catalytic activity/Vol] 58 U/L High 9-46 [facility] Comment on above: Result Comment: 07/11 Female reference range changed. Performed By: #### C MP, CBC, MG #### [facility] [address] [place], [place] [id number] Anion gap [Moles/Vol] 17 mmol/L Normal 12-20 [facility] Comment on above: Result Comment: Effe ctive 08/16/2019 reference range changed. Performed By: #### C MP, CBC, MG #### [facility] [address] [place], [place] [id number] AST [Catalytic activity/Vol] 51 U/L High 10-40 [facility] Comment on above: Performed By: #### C MP, CBC, MG #### [facility] [address] [place], [place] [id number] Bilirubin [Mass/Vol] 0.52 mg/dL Normal 0.30-1.20 [facility] Comment on above: Performed By: #### C MP, CBC, MG #### [facility] [address] [place], [place] [id number] BUN/CREA 12 Ratio Normal 6-22 [facility] Comment on above: Performed By: #### C MP, CBC, MG #### [facility] [address] [place], [place] [id number] Calcium [Mass/Vol] 9.9 mg/dL Normal 8.6-10.2 [facility] [place] [facility] Comment on above: Performed By: #### C MP, CBC, MG #### [facility] [address] [place], [place] [id number] Chloride [Moles/Vol] 102 mmol/L Normal 98-107 [facility] Comment on above: Performed By: #### C MP, CBC, MG #### [facility] [address] [place], [place] [id number] CO2 [Moles/Vol] 22 mmol/L Normal 20-31 [facility] Comment on above: Performed By: #### C MP, CBC, MG #### [facility] [address] [place], [place] [id number] Creatinine [Mass/Vol] 1.2 mg/dL Normal 0.7-1.4 [facility] Comment on above: Performed By: #### C MP, CBC, MG #### [facility] [address] [place], [place] [id number] eGFRAA 72 mL/min/1.73m2 Normal >60 [facility] Comment on above: Performed By: #### C MP, CBC, MG #### [facility] [address], [place] [id number] eGFRNAA 59 mL/min/1.73m2 Low >60 [facility] Comment on above: Performed By: #### C MP, CBC, MG #### [facility] [address] [place], [place] [id number] Globulin (S) [Mass/Vol] 2.9 g/dL Normal 1.9-3.7 [facility] Comment on above: Performed By: #### C MP, CBC, MG #### [facility] [address] [place], [place] [id number] Glucose [Mass/Vol] 117 mg/dL High 65-99 [facility] [place] [facility] Comment on above: Result Comment: For FASTING Glucose --- ADA reference ranges: Normal 65-99 mg/dl Prediabetes 100-125 Diabetes >/= 126 Performed By: #### C MP, CBC, MG #### [facility] [address] [place], [place] [id number] Potassium [Moles/Vol] 4.5 mmol/L Normal 3.5-5.5 [facility] Comment on above: Performed By: #### C MP, CBC, MG #### [facility] [address] [place], [place] [id number] Protein [Mass/Vol] 7.4 g/dL Normal 6.1-8.1 Everardo castorena [place] [employer] Comment on above: Performed By: #### C MP, CBC, MG #### [facility] [address] [place], [place] [id number] Sodium [Moles/Vol] 137 mmol/L Normal 135-146 Everardo castorena [place] [employer] Comment on above: Performed By: #### C MP, CBC, MG #### [facility] [address], [place] [id number] Urea nitrogen [Mass/Vol] 15 mg/dL Normal 7-25 [facility] [employer] Comment on above: Performed By: #### C MP, CBC, MG #### [facility] [address], [place] [id number] Hemoglobin A1Con 09-20-2021 EAG 142.72 Normal [facility] [employer] Comment on above: Performed By: #### A 1C #### [facility] [address], [place] [id number] HbA1c (Bld) [Mass fraction] 6.6 % High 4.0-6.0 [facility] [employer] Comment on above: Performed By: #### A 1C #### [facility] [address], [place] [id number] Magnesiumon 09-20-2021 Magnesium [Mass/Vol] 2.0 mg/dL Normal 1.5-2.3 [facility] [employer] Comment on above: Performed By: #### C MP, CBC, MG #### [facility] [address], [place] [id number] Social History Date Type Detail Facility Start: 02-25-2023 Alcohol intake Ex-drinker (finding) [facility] Start: 02-25-2023 History of Social function [facility] Start: 02-25-2023 Tobacco use panel [facility] Start: 03-15-2022 End: 02-25-2023 Tobacco smoking status NHIS Never smoked tobacco (finding) [facility] Start: 1955 Sex Assigned At Male F [facility] Start: 1955 Sex Assigned At Not on file N [facility] Vital Signs Date Time Vital Sign Value Performing Clinician Faci lity 03-15-2022 09:24-0400 Diastolic blood pressure 82 mm[Hg] DO Lay Talbot Work Phone: [facility] 03-15-2022 09:24-0400 Heart rate 72 /min DO Lay Talbot Work Phone: [facility] 03-15-2022 09:24-0400 Respiratory rate 18 /min DO Lay Talbot Work Phone: [facility] 03-15-2022 09:24-0400 SaO2% (BldA) [Mass fraction] 97 % DO Lay Talbot Work Phone: [facility] 03-15-2022 09:24-0400 Systolic blood pressure 115 mm[Hg] DO Lay Talbot Work Phone: [facility] 03-15-2022 07:21-0400 Body height 171.45 cm DO Lay Talbot Work Phone: [facility] 03-15-2022 07:21-0400 Body temperature 98.5 [degF] DO Lay Talbot Work Phone: [facility] 03-15-2022 07:21-0400 Body weight 86.18 kg DO Lay Talbot Work Phone: [facility] Clinical Note 10-02-2022 Note Date & Type [...] by: RUFUS VALDEZ Date: 2022-10-02 11:10 [facility] History and physical note 03-15-2022 Note Date & Type Note Facility 03-15-2022 History and physi tara note Note Date/Time March 15, 2022 8:20am [facility] [address] [place] [address] Gastroenterology H&P Signed Patient: Farhat Castle MR#: [id number] : 1955 Acct:[id number] Age/Sex: 66 / M Adm Date: 2 Loc: Room: Type: [facility] Attending Dr: Lay Talbot DO [...] by Lay Talbot Jr, DO> 03/15/[address] [facility] Work Phone: Procedure note 03-15-2022 Note Date & Type Note Facility 03-15-2022 Procedure note [facility] Evaluation note Note Date & Type Note Facility Evaluation note Diagnosis Onset Date Screening for colorectal cancer acute [facility] Work Phone: Hospital Discharge instructions [...] if you have any problems. -Office number [phone] [facility] Work Phone: Summary Purpose Family History Relationship [...] section and content) DATE CREATED AUTHOR 11/21/2021 [facility] dical Specialist DATE CREATED AUTHOR AUTHOR'S ORGANIZ ATION 03/16/2022 [facility] DATE CREATED AUTHOR AUTHOR'S ORGANIZ ATION 12/14/2022 [facility] Care Teams (unrecognized sec tion and content) Team Status: Inactive Member Role Status Dates Lay Talbot DO Attending Provider Active Amie Dow P[employer]EM[employer] TECHNICIAN-C Primary Care Provider Active Team Status: Active Member Role Status Dates Amie Dow POWER LINEMAN TECHNICIAN-C Primary Care Provider Active [employer] Techn[employer] Relationship Specialty Start Date End Date William Spears MD [address] [facility] [address] [place] [address] PCP - General Family Medicine 06/17/23 FOR [...] BE BASED ON THE PRIMARY CLINICAL RECORDS. [employer] provides no warranty or guarantee of the accuracy or completeness of information in this document.
[2024-01-15 14:10] LABS: Albumin 3.4 g/dL (2.9-4.4); Alpha-1-Globulin 0.2 g/dL (0.0-0.4); Alpha-2-Globulin 0.8 g/dL (0.4-1.0); Gamma Globulin 1.4 g/dL (0.4-1.8); Protein, Total 6.8 g/dL (6.0-8.5)
[2024-01-16 15:09] LABS: Albumin, U 17.9 % (.); Alpha-1-Globulin, U 0.9 % (.); Alpha-2-Globulin, U 5.4 % (.); Beta Globulin, U 64.5 % (.); Gamma Globulin, U 11.3 % (.); M-Spike, % Comment: % (Not Observed); Protein,Total,Urine 52.4 mg/dL (Not Estab.)
== END 2024-01-14 02:07 | disposition home or self-care (01) ==
LOC: LAB 02:06
PROVIDERS: PCP Family Medicine; Visit Provider Family Medicine
DX: G56.03 Carpal tunnel syndrome, bilateral upper limbs (principal)
CPT/HCPCS: 36415; 84155; 84165

== ENCOUNTER 2024-01-18 23:25 | Outpatient (REF) | payer MEDICARE, MEDICAID, SELFPAY ==
--- OUTSIDE RECORDS SUMMARY | 2024-01-19 02:17 | XMS_ITS | CCD ---
Author Organization [facility] Care Team Providers Care Mica Miner Name Role Phone Kermitelda DO Lay Wagner Attending Provider CINDY Dow Primary Care Provider [phone] YVES ORNELAS Admitting Unavailable JOHNSON, YVES Attending Unavailable MISC, DR FRAZIER Primary Care Unavailable REGAN, DR MCELROY Admitting Unavailable REGAN, DR MCELROY Attending Unavailable REGAN, DR MCELROY Primary Care Unavailable REGAN, DR MCELROY Consulting Unavailable REGAN, DR MECLROY Admitting Unavailable REGAN, DR MCELROY Attending Unavailable REGAN, DR MCELROY Primary Care Unavailable REGAN, DR MCELROY Consulting Unavailable EDE, TIA Admitting Unavailable TIA MERA Attending Unavailable REGAN, DR MCELROY Primary Care Unavailable ZIEBER, DR RUFUS Morales Consulting Unavailable GIGICHCLAUDIA ., GARFIELD ONEAL Consulting UnavailTIA Melendez Consulting Unavailable REGAN, DR MCELROY Primary Care Unavailable EDE, TIA Admitting Unavailable EDE, TIA Attending Unavailable TIA MERA Consulting Unavailable GERBER, KARIME Consulting Unavailable JAC GILL Consulting Unavailable REGAN, DR MCELROY Primary Care Unavailable GIGICHCLAUDIA ., GARFIELD ONEAL Consulting Unavailabl e DIAB ., HERRREA Admitting Unavailable DIAB ., HERRERA Attending Unavailable JAC GILL Consulting Unavailable LAY ROQUE Consulting Unavailable William Spears MD Primary Care Provider YVES ORNELAS Attending Unavailable Medications Current Medications Medication Drug Class(es) Dates Sig (Normalized) Sig (Original) acetaminophen 325 mg oral tablet (2 sources) Start: 03-15-2022 take 650 mg by mouth every four hours Acetaminophen Active 650 MG PO Q4H March 15, 2022 12:00am acetaminophen (T ylenol) 325 MG tablet every 4 (four) hours. 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; Translations: [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 DRUG THERAPY] Onset: 11-05-2022 Episodic Other [...] HEMOGLOBIN A1Con 024 Glucose [Mass/Vol] 137 mg/dL [facility] HbA1c (Bld) [Mass fraction] 6.4 % High 4.5 - 6.2 % [facility] Comment on above: ADA RECOMMENDED LIMI T 4.0 - 6.0 ADA THERAPEUTIC TARGET < 7.0 ACTION SUGGESTED > 7.0 Interpretation and review of laboratory results Abnormal [facility] CBC AUTO DIFFon 12-09-2022 BASO # 0.0 103/ul Normal 0.0-0.1 [facility] Comment on above: Performed By: #### C BC ####[facility] [address]gl[address] [place], [place] [address]Dr. Kathya Ryan Basophils/100 WBC (Bld) 0.5 % Normal 0.2-2.0 [facility] Comment on above: Performed By: #### C BC ####[facility] [address] [place], [place] [address]DrBriseyda Ryan EO # 0.3 103/ul Normal 0.0-0.7 [facility] Comment on above: Performed By: #### C BC ####[facility] [address] [place], [place] [address]DrBriseyda Ryan Eosinophils/100 WBC (Bld) 5.4 % Normal 0.9-7.0 [facility] Comment on above: Performed By: #### C BC ####[facility] [address] [place], [place] [address]DrBriseyda Ryan Erythrocyte distribution width (RBC) [Ratio] 12.5 % Normal 11.0-15.0 [facility] Comment on above: Performed By: #### C BC ####[facility] [address] [place], [place] [address]DrBriseyda Ryan Hematocrit (Bld) [Volume fraction] 42.4 % Normal 42.0-54.0 [facility] Comment on above: Performed By: #### C BC ####[facility] [address] [place] [address]DrBriseyda Ryan Hemoglobin (Bld) [Mass/Vol] 14.1 g/dL Normal 14.0-18.0 [facility] Comment on above: Performed By: #### C BC ####[facility] [address] [place] [address]DrBriseyda Ryan IG # 0.02 10e3/ul Normal 0.00-0.03 [facility] Comment on above: Performed By: #### C BC ####[facility] [address] [place], [place] [address]DrBriseyda Ryan IG % 0.3 % Normal 0.0-0.5 [facility] Comment on above: Performed By: #### C BC ####[facility] Yzz[address] [place], [place] [address]DrBriseyda Ryan LYMPH # 1.3 103/ul Normal 1.2-3.8 [facility] Comment on above: Performed By: #### C BC ####[facility] [address] [place], [place] [address]DrBriseyda Ryan Lymphocytes/100 WBC (Bld) 22.4 % Normal 20.5-60.0 [facility] Comment on above: Performed By: #### C BC ####[facility] [address] [place], [place] [address]DrBriseyda Ryan MANUAL DIFF REQ NO Normal [facility] Comment on above: Performed By: #### C BC ####[facility] [address] [place] [id number] Ryan MCH (RBC) [Entitic mass] 30.5 pg Normal 25.9-34.0 [facility] Comment on above: Performed By: #### C BC ####[facility] [address] [place] [id number] Ryan MCHC (RBC) [Mass/Vol] 33.3 g/dL Normal 29.9-35.2 [facility] Comment on above: Performed By: #### C BC ####[facility] [address] [place] [address]DrBriseyda Kathya Connor MCV (RBC) [Entitic vol] 91.8 fL Normal 80.0-94.0 [facility] Comment on above: Performed By: #### C BC ####[facility] [address] [place] [address]DrBriseyda Ryan MONO # 0.7 103/ul Normal 0.3-0.8 [facility] Comment on above: Performed By: #### C BC ####[facility] [address] [place] [address]DrBriseyda Ryan Monocytes/100 WBC (Bld) 12.2 % Critically high 1.7-12.0 [facility] Comment on above: Performed By: #### C BC ####[facility] [address] [place], [place] [address]DrBriseyda Ryan NEUT # 3.5 103/ul Normal 1.4-6.5 [facility] Comment on above: Performed By: #### C BC ####[facility] [address] [place], [place] [address]DrBriseyda Ryan Neutrophils/100 WBC (Bld) 59.2 % Normal 43.0-75.0 [facility] Comment on above: Performed By: #### C BC ####[facility] [address] [place], [place] [address]DrBriseyda Ryan Platelet mean volume (Bld) [Entitic vol] 9.1 fL Critically low 9.5-13.5 [facility] Comment on above: Performed By: #### C BC ####[facility] [address] [place], [place] [address]DrBriseyda Ryan PLT 211 103/ul Normal 150-450 [facility] Comment on above: Performed By: #### C BC ####[facility] [address] [place] [id number] Ryan RBC 4.62 106/ul Critically low 4.70-6.10 [facility] Comment on above: Performed By: #### C BC ####[facility] [address] [place] [address]Dr. Kathya Ryan WBC 5.9 103/ul Normal 4.0-11.0 [facility] Comment on above: Performed By: #### C BC ####[facility] [address] [place] [id number]. Kathya Ryan GLYCOHEMOGLOBIN A1Con 2022 ADA RECOMMENDATION SEE BELOW Normal [facility] Comment on above: Result Comment: ADA RECOMMENDED LIMIT 4.0 - 6.0 ADA THERAPEUTIC TARGET < 7.0 ACTION SUGGESTED > 7.0 Performed By: #### A 1C #### [facility] [address] [address] [address] Kathya Ryan Glucose [Mass/Vol] 123 mg/dL Normal [facility] Comment on above: Performed By: #### A 1C #### [facility] [address] [address] [address] Kathya Ryan HbA1c (Bld) [Mass fraction] 5.9 % Normal 4.5-6.2 [facility] Comment on above: Performed By: #### A 1C #### [facility] [address] [address] [address] Kathya Ryan LIPID PROFILEon 12-09-2022 CHOL-HDL RATIO NORM SEE BELOW Normal [facility] Comment on above: Result Comment: 3.3 - 4.4 LOW RISK 4.4 - 7.1 AVERAGE RISK 7.1 - 11.0 MODERATE RISK >11.0 HIGH RISK Performed By: #### L IPID, CMP #### [facility] [address] [address] [address] Kathya Ryan Cholesterol [Mass/Vol] 132 mg/dL Normal <=200 [facility] Comment on above: Performed By: #### L IPID, CMP #### [facility] [address] [address] [address] Kathya Ryan Cholesterol in HDL [Mass/Vol] 29 mg/dL Critically low 40-60 [facility] Comment on above: Performed By: #### L IPID, CMP #### [facility] [address] [address] [address] Kathya Ryan Cholesterol in LDL [Mass/Vol] 83.0 mg/dL Normal [facility] Comment on above: Performed By: #### L IPID, CMP #### [facility] [address] [place] [address] Dr. Kathya Ryan Cholesterol.total/Ch olesterol in HDL [Mass ratio] 4.6 {ratio} Normal [facility] Comment on above: Performed By: #### L IPID, CMP #### [facility] [address] [address] [address] Kathya Ryan HDL NORMAL > or = 60 mg/dl - LO W CARDIOVASCULAR RISK <40 mg/dl - HIGH CARDIOVASCULAR RISK Normal [facility] Comment on above: Performed By: #### L IPID, CMP #### [facility] [address] [place] [address] Dr. Kathya Ryan LDL CALC NORMAL SEE BELOW Normal [facility] Comment on above: Result Comment: <100 mg/dl OPTIMAL 100 - 129 mg/dl NEAR OR ABOVE OPTIMAL 130 - 159 mg/dl BORDERLINE HIGH 160 - 189 mg/dl HIGH >190 mg/dl VERY HIGH Performed By: #### L IPID, CMP #### [facility] [address] [place] [address] Dr. Kathya Ryan Triglyceride [Mass/Vol] 102 mg/dL Normal <=150 [facility] Comment on above: Performed By: #### L IPID, CMP #### [facility] [address] [place] [address] Dr. Kathya Ryan VLDL CALC 20.4 mg/dL Normal [facility] Comment on above: Performed By: #### L IPID, CMP #### [facility] [address] [place] [address] Dr. Kathya Ryan PROF 14(COMP METB)on 023 Albumin [Mass/Vol] 3.3 g/dL Critically low 3.4-5.0 Th [facility] Comment on above: Performed By: #### L IPID, CMP #### [facility] [address] [address] [address] Kathya Ryan Albumin/Globulin [Mass ratio] 0.9 {ratio} Normal [facility] Comment on above: Performed By: #### L IPID, CMP #### [facility] [address] [address] [address] Kathya Ryan ALP [Catalytic activity/Vol] 71 U/L Normal 46-116 [facility] Comment on above: Performed By: #### L IPID, CMP #### [facility] [address] [address] [address] Kathya Ryan ALT [Catalytic activity/Vol] 50 U/L Normal 16-63 [facility] Comment on above: Performed By: #### L IPID, CMP #### [facility] [address] [address] [address] Kathya Ryan Anion gap [Moles/Vol] 12.6 mmol/L Normal [facility] Comment on above: Performed By: #### L IPID, CMP #### [facility] [address] [address] [address] Kathya Ryan AST [Catalytic activity/Vol] 34 U/L Normal 15-37 [facility] Comment on above: Performed By: #### L IPID, CMP #### [facility] [address] [address] [address] Kathya Ryan Bilirubin [Mass/Vol] 0.4 mg/dL Normal 0.2-1.0 [facility] Comment on above: Performed By: #### L IPID, CMP #### [facility] [address] [address] [address] Kathya Ryan Calcium [Mass/Vol] 8.9 mg/dL Normal 8.5-10.1 [facility] Comment on above: Performed By: #### L IPID, CMP #### [facility] [address] [address] [address] Kathya Ryan Chloride [Moles/Vol] 106 mmol/L Normal 98-107 [facility] Comment on above: Performed By: #### L IPID, CMP #### [facility] [address] [address] [address] Kathya Ryan CO2 [Moles/Vol] 27.4 mmol/L Normal 21.0-32.0 [facility] Comment on above: Performed By: #### L IPID, CMP #### [facility] [address] [address] [address] Kathya Ryan Creatinine [Mass/Vol] 1.45 mg/dL Critically high 0.70-1.30 [facility] Comment on above: Performed By: #### L IPID, CMP #### [facility] [address] [address] [address] Kathya Ryan EGFR-AF [place] 59 mL/min/1.73m2 Critically low >=60 [facility] Comment on above: Performed By: #### L IPID, CMP #### [facility] [address] [place] [address] Dr. Kathya Ryan EGFR-NON AF [place] 49 mL/min/1.73m2 Critically low >=60 [facility] Comment on above: Performed By: #### L IPID, CMP #### [facility] [address] [address] [address] Kathya Ryan Globulin (S) [Mass/Vol] 3.8 g/dL Normal [facility] Comment on above: Performed By: #### L IPID, CMP #### [facility] [address] [address] [address] Kathya Ryan Glucose [Mass/Vol] 109 mg/dL Critically high 74-106 [facility] Comment on above: Performed By: #### L IPID, CMP #### [facility] [address] [address] [address] Kathya Ryan Potassium [Moles/Vol] 3.9 mmol/L Normal 3.5-5.1 [facility] Comment on above: Performed By: #### L IPID, CMP #### [facility] [address] [address] [address] Kathya Ryan Protein [Mass/Vol] 7.1 g/dL Normal 6.4-8.2 [facility] Comment on above: Performed By: #### L IPID, CMP #### [facility] [address] [address] [address] Kathya Ryan Sodium [Moles/Vol] 142 mmol/L Normal 136-145 [facility] Comment on above: Performed By: #### L IPID, CMP #### [facility] [address] [address] [address] Kathya Ryan Urea nitrogen [Mass/Vol] 17.0 mg/dL Normal 7.0-18.0 [facility] Comment on above: Performed By: #### L IPID, CMP #### [facility] [address] [address] [address] Kathya Ryan Urea nitrogen/Creatinine [Mass ratio] 11.7 mg/mg Normal [facility] Comment on above: Performed By: #### L IPID, CMP #### [facility] [address] [address] [address] Kathya Ryan FREE LIGHT CHAINS PLUS RATIO , URINEon 11-14-2022 Free [place] Lt Chains,Ur 86.11 mg/L Normal 1.17-86.46 [facility] Comment on above: Performed By: #### F FIDEL ####[facility] [address] [place] [address]DrBriseyda Ryan Free [place]ambda Lt Chains,Ur 11.37 mg/L Normal 0.27-15.21 [facility] Comment on above: Performed By: #### F FIDEL ####[facility] [address] [place] [id number] Ryan [place]/ Lambda Urine Ratio 7.57 Normal 1.83-14.26 [facility] Comment on above: Performed By: #### F FIDEL ####[facility] [address] [place] [address] Kath[address] Ryan CT CSPINE WO CONon CT [...] KARIME MAYES Date: 2022-11-04 00:29 Normal [facility] CT HEAD WO CONon [...] JAC GILL Date: 2022-11-04 00:28 Normal [facility] CBC AUTO DIFFon 10-02-2022 BASO # 0.1 103/ul Normal 0.0-0.1 [facility] Comment on above: Performed By: #### C BC ####[facility] [address] [place] [address]Dr. Kathya Ryan Basophils/100 WBC (Bld) 0.5 % Normal 0.2-2.0 [facility] Comment on above: Performed By: #### C BC ####[facility] [address] [place] [address]Dr. Kathya Ryan EO # 0.8 103/ul Critically high 0.0-0.7 [facility] Comment on above: Performed By: #### C BC ####[facility] [address] [place] [address]Dr. Kathya Ryan Eosinophils/100 WBC (Bld) 7.6 % Critically high 0.9-7.0 [facility] Comment on above: Performed By: #### C BC ####[facility] [address] [place], [place] [address]Dr. Kathya Ryan Erythrocyte distribution width (RBC) [Ratio] 13.3 % Normal 11.0-15.0 [facility] Comment on above: Performed By: #### C BC ####[facility] [address] [place], [place] [address]Dr. Kathya Ryan Hematocrit (Bld) [Volume fraction] 39.7 % Critically low 42.0-54.0 [facility] Comment on above: Performed By: #### C BC ####[facility] [address] [place], [place] [address]Dr. Kathya Ryan Hemoglobin (Bld) [Mass/Vol] 13.4 g/dL Critically low 14.0-18.0 [facility] Comment on above: Performed By: #### C BC ####[facility] [address] [place], [place] [address]Dr. Kathya Ryan IG # 0.04 10e3/ul Critically high 0.00-0.03 [facility] Comment on above: Performed By: #### C BC ####[facility] [address] [place], [place] [address]Dr. Kathya Ryan IG % 0.4 % Normal 0.0-0.5 [facility] Comment on above: Performed By: #### C BC ####[facility] [address] [place] [address]Dr. Kathya Ryan LYMPH # 1.6 103/ul Normal 1.2-3.8 [facility] Comment on above: Performed By: #### C BC ####[facility] [address] [place] [address]Dr. Kathya Ryan Lymphocytes/100 WBC (Bld) 15.8 % Critically low 20.5-60.0 [facility] Comment on above: Performed By: #### C BC ####[facility] [address] [place] [address]Dr. Kathya Ryan MANUAL DIFF REQ NO Normal [facility] Comment on above: Performed By: #### C BC ####[facility] [address] [place], [place] [address]Dr. Kathya Ryan MCH (RBC) [Entitic mass] 29.8 pg Normal 25.9-34.0 [facility] Comment on above: Performed By: #### C BC ####[facility] [address] [place], [place] [address]Dr. Kathya Ryan MCHC (RBC) [Mass/Vol] 33.8 g/dL Normal 29.9-35.2 [facility] Comment on above: Performed By: #### C BC ####[facility] [address] [place], [place] [address]Dr. Kathya Ryan MCV (RBC) [Entitic vol] 88.4 fL Normal 80.0-94.0 [facility] Comment on above: Performed By: #### C BC ####[facility] [address] [place], [place] [address]Dr. Kathya Ryan MONO # 1.2 103/ul Critically high 0.3-0.8 [facility] Comment on above: Performed By: #### C BC ####[facility] [address] [place] [address]Dr. Kathya Ryan Monocytes/100 WBC (Bld) 12.1 % Critically high 1.7-12.0 [facility] Comment on above: Performed By: #### C BC ####[facility] [address] [place] [address]Dr. Kathya Ryan NEUT # 6.4 103/ul Normal 1.4-6.5 [facility] Comment on above: Performed By: #### C BC ####[facility] [address] [place] [address]Dr. Kathya Ryan Neutrophils/100 WBC (Bld) 63.6 % Normal 43.0-75.0 [facility] Comment on above: Performed By: #### C BC ####[facility] [address] [place] [address]Dr. Kathya Ryan Platelet mean volume (Bld) [Entitic vol] 8.8 fL Critically low 9.5-13.5 [facility] Comment on above: Performed By: #### C BC ####[facility] [address] [place], [place] [address]Dr. Kathya Ryan PLT 237 103/ul Normal 150-450 [facility] Comment on above: Performed By: #### C BC ####[facility] [address] [place], [place] [address]Dr. Kathya Ryan RBC 4.49 106/ul Critically low 4.70-6.10 [facility] Comment on above: Performed By: #### C BC ####[facility] [address]ix[address] [place], [place] [address]Dr. Kathya Ryan WBC 10.1 103/ul Normal 4.0-11.0 [facility] Comment on above: Performed By: #### C BC ####[facility] [address] [place], [place] [address]Dr. Kathya Ryan CT CSPINE WO CONon 3 [...] LAY ROQUE Date: 2022-10-02 20:33 Normal [facility] CT HEAD WO CONon 10-02-2022 [...] JAC GILL Date: 2022-10-02 20:41 Normal [facility] CULTURE URINEon 10-02-2022 CULTURE URINE Culture Observations : LIGHT GROWTH OF MIXED SKIN LUKASZ. NO POTENTIAL PATHOGENS SEEN. Normal [facility] Comment on above: Performed By: #### U RCX ####[facility] [address] [place], [place] [address]KwBriseyda Gomesjack Connor KEARNS URINE PROFILEon 3 Bilirubin Ql (U) Negative Normal NEGATIVE [facility] Comment on above: Performed By: #### U MICRO, ERUR #### [facility] [address] [address] [address] Kathya Ryan Clarity (U) CLEAR Normal CLEAR [facility] Comment on above: Performed By: #### U MICRO, ERUR #### [facility] [address] [address] [address] Kathya Ryan Color (U) YELLOW Normal YELLOW [facility] Comment on above: Performed By: #### U MICRO, ERUR #### [facility] [address] [address] [address] Kathya Ryan ERUAHD A micrscopic examination will be performed if indicated. Normal [facility] Comment on above: Performed By: #### U MICRO, ERUR #### [facility] [address] [place] [address] Dr. Kathya Ryan Glucose Ql (U) 500 mg/dl Abnormal NEGATIVE [facility] Comment on above: Performed By: #### U MICRO, ERUR #### [facility] [address] [address] [address] Kathya Ryan Hemoglobin Ql (U) SMALL Abnormal NEGATIVE [facility] Comment on above: Performed By: #### U MICRO, ERUR #### [facility] [address] [place] [address] Dr. Kathya Ryan Ketones Ql (U) TRACE Abnormal NEGATIVE [facility] Comment on above: Performed By: #### U MICRO, ERUR #### [facility] [address] [address] [address] Kathya Ryan LEUKOCYTES TRACE Abnormal NEGATIVE [facility] Comment on above: Performed By: #### U MICRO, ERUR #### [facility] [address] [address] [address] Kathya Ryan Nitrite Ql (U) Negative Normal NEGATIVE [facility] Comment on above: Performed By: #### U MICRO, ERUR #### [facility] [address] [address] [address] Kathya Ryan pH (U) 5.5 [pH] Normal 5-9 [facility] Comment on above: Performed By: #### U MICRO, ERUR #### [facility] [address] [address] [address] Kathya Ryan SPEC GRAVITY >=1.030 Abnormal 1.005-<=1.025 [facility] Comment on above: Performed By: #### U MICRO, ERUR #### [facility] [address] [address] [address] Kathya Ryan UA PROTEIN TRACE Normal NEGATIVE/ TRACE [facility] Comment on above: Performed By: #### U MICRO, ERUR #### [facility] [address] [place] [address] Dr. Kathya Ryan UR MICRO IND INDICATED Normal [facility] Comment on above: Performed By: #### U MICRO, ERUR #### [facility] [address] [place] [address] Dr. Kathya Ryan Urobilinogen Qn (U) 2.0 {Luanne'U}/dL Abnormal 0.2 - 1. 0 [facility] Comment on above: Performed By: #### U MICRO, ERUR #### [facility] [address] [place] [address] Dr. Kathya Ryan PROF 14(COMP METB)on 023 Albumin [Mass/Vol] 3.5 g/dL Normal 3.4-5.0 [facility] Comment on above: Performed By: #### H STROPN, CMP, TSH #### [facility] [address] [place] [address] Dr. Kathya Ryan Albumin/Globulin [Mass ratio] 0.9 {ratio} Normal [facility] Comment on above: Performed By: #### H STROPN, CMP, TSH #### [facility] [address] [place] [address] Dr. Kathya Ryan ALP [Catalytic activity/Vol] 108 U/L Normal 46-116 [facility] Comment on above: Performed By: #### H STROPN, CMP, TSH #### [facility] [address] [place] [address] Dr. Kathya Ryan ALT [Catalytic activity/Vol] 38 U/L Normal 16-63 [facility] Comment on above: Performed By: #### H STROPN, CMP, TSH #### [facility] [address] [place] [address] Dr. Kathya Ryan Anion gap [Moles/Vol] 11.4 mmol/L Normal [facility] Comment on above: Performed By: #### H STROPN, CMP, TSH #### [facility] [address] [address] [address] Kathya Ryan AST [Catalytic activity/Vol] 28 U/L Normal 15-37 [facility] Comment on above: Performed By: #### H STROPN, CMP, TSH #### [facility] [address] [place] [address] Dr. Kathya Ryan Bilirubin [Mass/Vol] 0.9 mg/dL Normal 0.2-1.0 [facility] Comment on above: Performed By: #### H STROPN, CMP, TSH #### [facility] [address] [place] [address] Dr. Kathya Ryan Calcium [Mass/Vol] 9.1 mg/dL Normal 8.5-10.1 [facility] Comment on above: Performed By: #### H STROPN, CMP, TSH #### [facility] [address] [place] [address] Dr. Kathya Ryan Chloride [Moles/Vol] 100 mmol/L Normal 98-107 [facility] Comment on above: Performed By: #### H STROPN, CMP, TSH #### [facility] [address] [place] [address] Dr. Kathya Ryan CO2 [Moles/Vol] 27.7 mmol/L Normal 21.0-32.0 [facility] Comment on above: Performed By: #### H STROPN, CMP, TSH #### [facility] [address] [place] [address] Dr. Kathya Ryan Creatinine [Mass/Vol] 1.69 mg/dL Critically high 0.70-1.30 [facility] Comment on above: Performed By: #### H STROPN, CMP, TSH #### [facility] [address] [address] [address] Kathya Ryan EGFR-AF [place] 50 mL/min/1.73m2 Critically low >=60 [facility] Comment on above: Performed By: #### H STROPN, CMP, TSH #### [facility] [address] [address] [address] Kathya Ryan EGFR-NON AF [place] 41 mL/min/1.73m2 Critically low >=60 [facility] Comment on above: Performed By: #### H STROPN, CMP, TSH #### [facility] [address] [address] [address] Kathya Ryan Globulin (S) [Mass/Vol] 3.8 g/dL Normal [facility] Comment on above: Performed By: #### H STROPN, CMP, TSH #### [facility] [address] [address] [address] Kathya Ryna Glucose [Mass/Vol] 259 mg/dL Critically high 74-106 [facility] Comment on above: Performed By: #### H STROPN, CMP, TSH #### [facility] [address] [address] [address] Kathya Ryan Potassium [Moles/Vol] 4.1 mmol/L Normal 3.5-5.1 [facility] Comment on above: Performed By: #### H STROPN, CMP, TSH #### [facility] [address] [address] [address] Kathya Ryan Protein [Mass/Vol] 7.3 g/dL Normal 6.4-8.2 [facility] Comment on above: Performed By: #### H STROPN, CMP, TSH #### [facility] [address] [address] [address] Kathya Ryan Sodium [Moles/Vol] 135 mmol/L Critically low 136-145 [facility] Comment on above: Performed By: #### H STROPN, CMP, TSH #### [facility] [address] [address] [address] Kathya Ryan Urea nitrogen [Mass/Vol] 15.0 mg/dL Normal 7.0-18.0 [facility] Comment on above: Performed By: #### H STROPN, CMP, TSH #### [facility] [address] [address] [address] Kathya Ryan Urea nitrogen/Creatinine [Mass ratio] 8.9 mg/mg Normal [facility] Comment on above: Performed By: #### H STROPN, CMP, TSH #### [facility] [address] [address] [address] Kathya Ryan PROTIMEon 10-02-2022 INR Coag (PPP) [Relative time] 1.00 {INR} Normal [facility] Comment on above: Performed By: #### P T, PTT ####[facility] [id number] [address]Dr. Kathya Ryan INR GUIDELINES SEE BELOW Normal [facility] Comment on above: Result Comment: JONI RED INR: 2.0 - 3.0 CONDITIONS NOT LISTED BELOW 2.5 - 3.5 FOR PROSTHETIC HEART VALVE REPLACEMENT 2.5 - 3.5 RECURRENT THROMBOSIS Performed By: #### P T, PTT ####[facility] [id number] [address]Dr. Kathya Ryan PT Coag (PPP) [Time] 10.6 s Normal 9.0-11.6 [facility] Comment on above: Performed By: #### P T, PTT ####[facility] [id number] [address]Dr. Kathya Ryan PTTon 10-02-2022 aPTT Coag (Bld) [Time] 26.9 s Normal 22.3-36.2 [facility] Comment on above: Performed By: #### P T, PTT ####[facility] [id number] [address]Dr. Kathya Ryan TROPONIN, HIGH SENSITIVITYon 10-02-2022 HSTROP 4.2 pg/mL Normal 4.0-76.1 [facility] Comment on above: Result Comment: CUT- OFF POINTS HAVE BEEN ESTABLISHED BASED ON THE FOURTH UNIVERSAL DEFINITIONS OF MYOCARDIAL INFARCTION. THE UPPER REFERENCE LIMIT (URL) OF TROPONIN, DEFINED THE 99TH PERCENTILE OF cTnI DISTRIBUTION IN A REFERENCE POPULATION, HAS BEEN CONFIRMED THE DECISION THRESHOLD FOR IN DIAGNOSIS. Performed By: #### H FARAZ MACIAS, TSH ####[facility] [id number] [address]Dr. Kathya Ryan TSHon 10-02-2022 TSH 2.502 uIU/mL Normal 0.358-3.740 [facility] Comment on above: Performed By: #### H FARAZ MACIAS, TSH ####[facility] [id number] [id number] Ryan URINE MICROSCOPIC ONLYon BACTERIA MODERATE Abnormal NONE SEEN [facility] Comment on above: Performed By: #### U MICRO, ERUR #### [facility] [address] [place] [address] Dr. Kathya Ryan Bacteria identified Cx Nom (U) INDICATED Normal [facility] Comment on above: Performed By: #### U MICRO, ERUR #### [facility] [address] [address] [address] Kathya Ryan CAST NONE SEEN Normal NONE SEEN [facility] Comment on above: Performed By: #### U MICRO, ERUR #### [facility] [address] [address] [address] Kathya Ryan Crystals LM Nom (Urine sed) NONE SEEN Normal NONE SEEN [facility] Comment on above: Performed By: #### U MICRO, ERUR #### [facility] [address] [place] [address] Dr. Kathya Ryan Epithelial cells LM Ql (Urine sed) RARE Normal NONE SEEN /RARE [facility] Comment on above: Performed By: #### U MICRO, ERUR #### [facility] [address] [address] [address] Kathya Ryan HYALINE CAST FEW Normal [facility] Comment on above: Performed By: #### U MICRO, ERUR #### [facility] [address] [place] [address] Dr. Kathya Ryan MUCOUS NONE SEEN Normal NONE SEEN [facility] Comment on above: Performed By: #### U MICRO, ERUR #### [facility] [address] [place], [place] [address] Dr. Kathya Ryan RBC 10-20 Abnormal 0-2 [facility] Comment on above: Performed By: #### U MICRO, ERUR #### [facility] [address] [address] [address] Kathya Ryan WBC 5-10 Abnormal NONE SEEN [facility] Comment on above: Performed By: #### U MICRO, ERUR #### [facility] [address] [address] [address] Kathya Ryan XR CHEST 1 Von [...] LAY ROQUE Date: 2022-10-02 20:56 Normal [facility] XR KNEE RT 4V or [...] LAY ROQUE Date: 2022-10-02 20:59 Normal [facility] XR LSPINE 2_3 VIEWSon 2022 [...] LAY ROQUE Date: 2022-10-02 20:55 Normal [facility] XR PELVIS 1_2 VIEWSon 2022 XR PELVIS 1_2 VIEWS EXAM: XR PELVIS 1_2 VIEWS HISTORY: Fall COMPARISON: None. TECHNIQUE: Single view FINDINGS: No osseous lesion, fracture, dislocation or subluxation. Joint spaces are unremarkable for patient's age. No visualized effusion. No visualized soft tissue edema. IMPRESSION: Normal x-rays Electronically authenticated by: LAY ROQUE Date: 2022-10-02 21:04 Normal [facility] Glucose Glucometer (BldC) [M ass/Vol]Ordered By: Lay Talbot on 03-15-2022 Glucose [Mass/Vol] 131 mg/dL [facility] Comment on above: Random Glucose Refer ence Range is dependent on time and content of last meal. Glucose of more than 200 mg/dL in a nonstressed, ambulatory subject supports the diagnosis of Diabetes Mellitus. Glucose Poct Glucometerson 0 03-15-2022 Glucose [Mass/Vol] 131 mg/dL Normal [facility] Comment on above: Result Comment: [place] om Glucose Reference Range is dependent on time and content of last meal. Glucose of more than 200 mg/dL in a nonstressed, ambulatory subject supports the diagnosis of Diabetes Mellitus. PERFORMED BY: [facility] [address] [place] [address] PATHOLOGIST DOCKET SPECIALIST CARINA HASSAN M.D. Performed By: #### G BALJIT #### Point of Care testing , PSA SCREEN (MEDICARE)on 11-09 TPSA 3.110 ng/mL Normal <4.000 [facility] [employer] Comment on above: Result Comment: PSA Test Method: ECLIA/Urvashi e 601 Performed By: #### P MC #### [facility] [address], [place] [id number] Complete Blood Counton 09-20 Erythrocyte distribution width (RBC) [Ratio] 12.6 % Normal 11.0-15.0 [facility] [employer] Comment on above: Performed By: #### C MP, CBC, MG #### [facility] [address], [place] [id number] Hematocrit (Bld) [Volume fraction] 47.3 % Normal 38.5-50.0 [facility] Comment on above: Performed By: #### C MP, CBC, MG #### [facility] [address] [place], [place] [id number] Hemoglobin (Bld) [Mass/Vol] 15.8 g/dL Normal 13.0-17.1 [facility] Comment on above: Performed By: #### C MP, CBC, MG #### [facility] [address] [place], [place] [id number] MCH (RBC) [Entitic mass] 28.6 pg Normal 27.0-33.0 [facility] Comment on above: Performed By: #### C MP, CBC, MG #### [facility] [address] [place], [place] [id number] MCHC (RBC) [Mass/Vol] 33.4 g/dL Normal 32.0-36.0 [facility] Comment on above: Performed By: #### C MP, CBC, MG #### [facility] [address] [place], [place] [id number] MCV (RBC) [Entitic vol] 86 fL Normal 80-100 [facility] Comment on above: Performed By: #### C MP, CBC, MG #### [facility] [address], [place] [id number] Platelet mean volume (Bld) [Entitic vol] 8.90 fL Normal 7.50-12.50 [facility] Comment on above: Performed By: #### C MP, CBC, MG #### [facility] [address] [place], [place] [id number] Platelets (Bld) [#/Vol] 258 10*3/uL Normal 140-400 [facility] Comment on above: Performed By: #### C MP, CBC, MG #### [facility] [address] [place], [place] [id number] RBC (Bld) [#/Vol] 5.53 10*6/uL Normal 4.20-5.[address] [facility] Comment on above: Performed By: #### C MP, CBC, MG #### [facility] [address], [place] [id number] RDW-SD 39.1 fL Normal 37.0-50.0 [facility] [employer] Comment on above: Performed By: #### C MP, CBC, MG #### [facility] [address] [place], [place] [id number] WBC (Bld) [#/Vol] 8.2 10*3/uL Normal 3.8-11.0 [facility] [employer] Comment on above: Performed By: #### C MP, CBC, MG #### [facility] [address], [place] [id number] Comprehensive Metabolic Pane yun 09-20-2021 Albumin [Mass/Vol] 4.5 g/dL Normal 3.6-5.1 [facility] [employer] Comment on above: Performed By: #### C MP, CBC, MG #### [facility] [address], [place] [id number] Albumin/Globulin [Mass ratio] 1.6 {ratio} Normal 1.0-2.5 [facility] [employer] Comment on above: Performed By: #### C MP, CBC, MG #### [facility] [address], [place] [id number] ALP [Catalytic activity/Vol] 86 U/L Normal 40-129 [facility] [employer] Comment on above: Performed By: #### C MP, CBC, MG #### [facility] [address], [place] [id number] ALT [Catalytic activity/Vol] 58 U/L High 9-46 [facility] [employer] Comment on above: Result Comment: 07/11 Female reference range changed. Performed By: #### C MP, CBC, MG #### [facility] [address], [place] [id number] Anion gap [Moles/Vol] 17 mmol/L Normal 12-20 [facility] [employer] Comment on above: Result Comment: Effe ctive 08/16/2019 reference range changed. Performed By: #### C MP, CBC, MG #### [facility] [address], [place] [id number] AST [Catalytic activity/Vol] 51 U/L High 10-40 [facility] Comment on above: Performed By: #### C MP, CBC, MG #### [facility] [address], [place] [id number] Bilirubin [Mass/Vol] 0.52 mg/dL Normal 0.30-1.20 [facility] Comment on above: Performed By: #### C MP, CBC, MG #### [facility] [address], [place] [id number] BUN/CREA 12 Ratio Normal 6-22 [facility] Comment on above: Performed By: #### C MP, CBC, MG #### [facility] [address], [place] [id number] Calcium [Mass/Vol] 9.9 mg/dL Normal 8.6-10.2 [facility] Comment on above: Performed By: #### C MP, CBC, MG #### [facility] [address], [place] [id number] Chloride [Moles/Vol] 102 mmol/L Normal 98-107 [facility] Comment on above: Performed By: #### C MP, CBC, MG #### [facility] [address], [place] [id number] CO2 [Moles/Vol] 22 mmol/L Normal 20-31 [facility] Comment on above: Performed By: #### C MP, CBC, MG #### [facility] [address], [place] [id number] Creatinine [Mass/Vol] 1.2 mg/dL Normal 0.7-1.4 [facility] Comment on above: Performed By: #### C MP, CBC, MG #### [facility] [address], [place] [id number] eGFRAA 72 mL/min/1.73m2 Normal >60 [facility] Comment on above: Performed By: #### C MP, CBC, MG #### [facility] [address], [place] [id number] eGFRNAA 59 mL/min/1.73m2 Low >60 [facility] Comment on above: Performed By: #### C MP, CBC, MG #### [facility] [address] [place], [place] [id number] Globulin (S) [Mass/Vol] 2.9 g/dL Normal 1.9-3.7 [facility] Comment on above: Performed By: #### C MP, CBC, MG #### [facility] [address], [place] [id number] Glucose [Mass/Vol] 117 mg/dL High 65-99 [facility] Specialist Comment on above: Result Comment: For FASTING Glucose --- ADA reference ranges: Normal 65-99 mg/dl Prediabetes 100-125 Diabetes >/= 126 Performed By: #### C MP, CBC, MG #### [facility] [address], [place] [id number] Potassium [Moles/Vol] 4.5 mmol/L Normal 3.5-5.5 [facility] [employer] Comment on above: Performed By: #### C MP, CBC, MG #### [facility] [address], [place] [id number] Protein [Mass/Vol] 7.4 g/dL Normal 6.1-8.1 [facility] [employer] Comment on above: Performed By: #### C MP, CBC, MG #### [facility] [address], [place] [id number] Sodium [Moles/Vol] 137 mmol/L Normal 135-146 [facility] [employer] Comment on above: Performed By: #### C MP, CBC, MG #### [facility] [address], [place] [id number] Urea nitrogen [Mass/Vol] 15 mg/dL Normal 7-25 [facility] Comment on above: Performed By: #### C MP, CBC, MG #### [facility] [address], [place] [id number] Hemoglobin A1Con 09-20-2021 EAG 142.72 Normal [facility] Comment on above: Performed By: #### A 1C #### [facility] [address], [place] [id number] HbA1c (Bld) [Mass fraction] 6.6 % High 4.0-6.0 [facility] Comment on above: Performed By: #### A 1C #### [facility] [address], [place] [id number] Magnesiumon 09-20-2021 Magnesium [Mass/Vol] 2.0 mg/dL Normal 1.5-2.3 [facility] [place] [employer] Comment on above: Performed By: #### C MP, CBC, MG #### [facility] [address], [place] [id number] Vital Signs Date Time Vital Sign Value Performing Clinician Anne-Marie lackey 03-15-2022 09:24-0400 Diastolic blood pressure 82 mm[Hg] DO Lay Talbot Work Phone: [facility] 03-15-2022 09:24-0400 Heart rate 72 /min DO Lay Carmenkes Work Phone: [facility] 03-15-2022 09:24-0400 Respiratory rate 18 /min DO Lay Talbot Work Phone: [facility] 03-15-2022 09:24-0400 SaO2% (BldA) [Mass fraction] 97 % DO Lay Talbot Work Phone: [facility] 03-15-2022 09:24-0400 Systolic blood pressure 115 mm[Hg] DO Lay Talbot Work Phone: [facility] 03-15-2022 07:21-0400 Body height 171.45 cm DO Lay Talbot Work Phone: [facility] 03-15-2022 07:21-0400 Body temperature 98.5 [degF] DO Lay Talbot Work Phone: [facility] 03-15-2022 07:21-0400 Body weight 86.18 kg DO Lay Talbot Work Phone: [facility] Encounters Encounter Date Encounter Type Care Provider Facility Start: 01-13-2024 End: 01-13-2024 ambulatory YVES D BEJ Not Available Start: 09-15-2023 Clinisync Result Encounter William Spears [...] surgery center DO Lay Talbot Work Phone: [facility] Procedures Date Procedure Procedure Detail Performing Clinician Start: 09-15-2023 MLR HEMOGLOBIN A1C Katie Spears MD Work Phone: Start: 03-15-2022 Screening colonoscopy D O Lay Talbot Work Phone: Plan of Treatment Date Care Activity Detail Author Start: 12-16-2023 End: 12-16-2023 Patient encounter procedure 12/16/2023 12:15 PM EDT [facility] [address] [facility] [address] [place] [address] Yves Ornelas MD [address] [facility] [address] [place] [address] [facility] Start: 04-11-2023 Influenza vaccination Influenza Vaccine (#1) [facility] Start: 03-11-2023 Hemoglobin A1c measurement Diabetes: Hemoglobin A1C [facility] Start: 03-15-[address] [facility] Work Phone: Start: 1966 Glaucoma screening Diabetes: Retinopathy Screening [facility] Start: 1962 Pneumococcal Vaccine: 65+ Years (1 - PCV) Pneumococcal Vaccine: 65+ Years (1 - PCV) [facility] Start: 1955 Medicare Annual Wellness (AWV) Medicare Annual Wellness (AWV) [facility] Start: 1955 Screening for malignant neoplasm of colon [facility] Immunizations Immunization Date Immunization Notes Care Provider Judah packer 05-15-2020 influenza virus vacc ine, unspecified formulation William Spears MD Work Phone: [facility] Payers Date Payer Category Payer Medicare [employer] MEDICARE REPLACEMENT [id number] 2022-Present [address] [address] [place] [address] [id number] 2022 Medicaid MEDICAID [facility] [id number] 2022-Present [phone] [address] [place] [address] Medicaid [id number] 1959 Medicaid [id number] 1959 Medicare [id number] 1959 Medicare [id number] 1956 Unknown [id number] 1956 Unknown [id number] 1956 Unknown [id number] 1956 Unknown [id number] 1956 Unknown [id number] 1956 Unknown [id number] 1956 Unknown [id number] Medicaid [id number] Self-pay Self Pay [id number] Unknown [employer] [id number] Social History Date Type Detail Facility Start: 03-15-2022 End: 02-25-2023 Tobacco smoking status NHIS Never smoked tobacco (finding) [facility] Start: 1955 Sex Assigned At Male F [facility] Start: 02-25-2023 Alcohol intake Ex-drinker (finding) [facility] Start: 02-25-2023 History of Social function [facility] Start: 02-25-2023 Tobacco use panel [facility] Start: 1955 Sex Assigned At Not on file [facility] Medical Equipment Procedure Code Equipment Code Equipment Origin al Text Equipment Identifier Dates Phacoemulsification of cataract with intraocular lens implantation Posterior-chamber intraocular lens, pseudophakic ()[id number] FDA Start: 01-27-2020 Phacoemulsification of cataract with intraocular lens implantation Posterior-chamber intraocular lens, pseudophakic ()[id number] FDA Start: 02-24-2020 Goals Date Patient Goal [...] by: RUFUS VALDEZ Date: 2022-10-02 11:10 [facility] History and physical note 03-15-2022 Note Date & Type Note Facility 03-15-2022 History and physi tara note Note Date/Time March 15, 2022 8:20am [facility] [address] [place] [address] Gastroenterology H&P Signed Patient: Lenora Tillman MR#: [id number] : 1955 Acct:[id number] Age/Sex: 66 / M Adm Date: 2 Loc: Room: Type: [facility] Attending Dr: Lay Talbot DO [...] By: <Electronically signed by Lay Talbot Jr, > 03/15/[address] [facility] Work Phone: Procedure note 03-15-2022 Note Date & Type Note Facility 03-15-2022 Procedure note [facility] Evaluation note Note Date & Type Note Facility Evaluation note Diagnosis Onset Date Screening for colorectal cancer acute [facility] Work Phone: Hospital Discharge instructions Note [...] if you have any problems. -Office number [phone] [facility] Work Phone: Summary Purpose Family History [...] Records FoundNo Status Records FoundNo Status Records FoundNo Status Records Found INFORMATION SOURCE (unrecogn ized section and content) DATE CREATED AUTHOR 11/21/2021 [facility] dical Specialist DATE CREATED AUTHOR AUTHOR'S ORGANIZ ATION 03/16/2022 [facility] DATE CREATED AUTHOR AUTHOR'S ORGANIZ ATION [facility]/14[facility]2022 [facility] DATE CREATED AUTHOR AUTHOR'S ORGANIZ ATION 01/14/2024 [facility] d[facility] Specialists EPIC Care Teams (unrecognized sec tion and content) Team Status: Inactive Member Role Status Dates Lay Talbot DO Attending Provider Active Amie Dow NP-C Primary Care Provider Active Team Status: Active Member Role Status Dates Amie Dow RN LABOR AND DELIVERY-C Primary Care Provider Active Mica Miner Relationship Specialty Start Date End Date William Spears MD [address] [place] [phone] PCP - General Family Medicine 06/17/23 FOR [...] BE BASED ON THE PRIMARY CLINICAL RECORDS. [facility] [employer] [facility]. provides no warranty or guarantee of the accuracy or completeness of information in this document.
[2024-01-19 10:35] LABS: Clarity Urine CLOUDY (CLEAR); Color Urine DK. RED (YELLOW)
[2024-01-19 10:47] LABS: Bacteria Urine LARGE #/HPF (NONE SEEN); Bilirubin Urine COLOR INTERFERENCE (NEGATIVE); Blood Urine COLOR INTERFERENCE (NEGATIVE); Cast Seen? NONE SEEN #/LPF (NONE SEEN); Crystals Seen? None Seen #/HPF (None Seen); Glucose Urine UA COLOR INTERFERENCE mg/dL (NEGATIVE); Ketones Urine COLOR INTERFERENCE mg/dL (NEGATIVE); Leukocyte Esterase Urine COLOR INTERFERENCE (NEGATIVE); Mucus Urine NONE SEEN (NONE SEEN); Nitrite Urine COLOR INTERFERENCE (NEGATIVE); Protein Urine COLOR INTERFERENCE mg/dL (NEG/TRACE); RBC Urine >100 #/HPF (0-2); Squamous Epithelial Cell Urine RARE #/LPF (NONE/RARE); Urine Culture Indicated YES; Urine Microscopic Indicated YES; Urobilinogen Urine COLOR INTERFERENCE EU/dL (0.2-1.0); pH Urine COLOR INTERFERENCE (5.0-9.0)
== END 2024-01-18 23:26 | disposition home or self-care (01) ==
LOC: LAB 23:25
PROVIDERS: PCP Family Medicine; Visit Provider Family Medicine
DX: R31.9 Hematuria, unspecified (principal)
CPT/HCPCS: 81001; 87086; 87150; 87186

== ENCOUNTER 2024-03-15 13:45 | Outpatient (REF) | payer MEDICARE, MEDICAID, SELFPAY ==
--- OUTSIDE RECORDS SUMMARY | 2024-03-15 14:06 | XMS_ITS | CCD ---
Author Organization [facility] Care Team Providers Care Label Sewer Name Role Phone DO Antione Lay Wagner Attending Provider CINDY Dow Primary Care Provider YVES BAY Admitting Unavailable JOHNSON, YVES Attending Unavailable MISC, [...] ZIEBER, DR RUFUS Morales Consulting Unavailable SARA ., GARFIELD ONEAL Consulting UnavailTIA Melendez Consulting Unavailable REGAN, DR MCELROY Primary Care Unavailable EDE, TIA Admitting Unavailable EDE, TIA Attending Unavailable EDE, TIA Consulting Unavailable KARIME MAYES Consulting Unavailable JAC GILL Consulting Unavailable REGAN, DR MCELROY Primary Care Unavailable SARA ., GARFIELD ONEAL Consulting Unavaildontae e DIAB .HERRERA Admitting Unavailable DIAB ., HERRERA Attending Unavailable JAC GILL Consulting Unavailable LAY ROQUE Consulting Unavailable William Spears MD Primary Care Provider [phone] YVES BAY Attending Unavailable Medications Current Medications Medication Drug Class(es) Dates Sig (Normalized) Sig (Original) acetaminophen 325 mg oral tablet (2 sources) Start: 03-15-2022 take 650 mg by mouth every four hours Acetaminophen Active 650 MG PO Q4H March 15, 2022 12:00am acetaminophen (T ylenol) 325 MG tablet every 4 (four) hours. 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) drug therapy; Translations: [OTH PENITENTIARY CURRENT DRUG THERAPY] Onset: 11-05-2022 Episodic Other [...] Test Name Value Interpretation Reference Range Facility [facility] HEMOGLOBIN A1Con 024 Glucose [Mass/Vol] 137 mg/dL [facility] HbA1c (Bld) [Mass fraction] 6.4 % High 4.5 - 6.2 % [facility] Comment on above: ADA RECOMMENDED LIMI T 4.0 - 6.0 ADA THERAPEUTIC TARGET < 7.0 ACTION SUGGESTED > 7.0 Interpretation and review of laboratory results Abnormal [facility] CBC AUTO DIFFon 12-09-2022 BASO # 0.0 103/ul Normal 0.0-0.1 [facility] Comment on above: Performed By: #### C BC ####[facility] [address] [place], [place] [address]Dr. Kathya Ryan Basophils/100 WBC (Bld) 0.5 % Normal 0.2-2.0 [facility] Comment on above: Performed By: #### C BC ####[facility] [address] [place] [address]DrBriseyda Ryan EO # 0.3 103/ul Normal 0.0-0.7 [facility] Comment on above: Performed By: #### C BC ####[facility] Emiat[address] [place], [place] [address]Dr. Kathya Ryan Eosinophils/100 WBC (Bld) 5.4 % Normal 0.9-7.0 [facility] Comment on above: Performed By: #### C BC ####[facility] Kbfpu[address] [place], [place] [address]Dr. Kathya Ryan Erythrocyte distribution width (RBC) [Ratio] 12.5 % Normal 11.0-15.0 [facility] Comment on above: Performed By: #### C BC ####[facility] V[address]wr[address] [place], [place] [address]Dr. Kathya Ryan Hematocrit (Bld) [Volume fraction] 42.4 % Normal 42.0-54.0 [facility] Comment on above: Performed By: #### C BC ####[facility] [address] [place] [id number]. Kathya Ryan Hemoglobin (Bld) [Mass/Vol] 14.1 g/dL Normal 14.0-18.0 [facility] Comment on above: Performed By: #### C BC ####[facility] [address] [place] [id number]. Kathya Ryan IG # 0.02 10e3/ul Normal 0.00-0.03 [facility] Comment on above: Performed By: #### C BC ####[facility] [address] [place] [id number]. Kathya Ryan IG % 0.3 % Normal 0.0-0.5 [facility] Comment on above: Performed By: #### C BC ####[facility] [address] [place] [address]Dr. Kathya Connor LYMPH # 1.3 103/ul Normal 1.2-3.8 [facility] Comment on above: Performed By: #### C BC ####[facility] [address] [place] [id number]. Kathya Connor Lymphocytes/100 WBC (Bld) 22.4 % Normal 20.5-60.0 [facility] Comment on above: Performed By: #### C BC ####[facility] [address] [place] [id number]. Mireyajack Ryan MANUAL DIFF REQ NO Normal [facility] Comment on above: Performed By: #### C BC ####[facility] [address] [place] [id number]. Kathya Ryan MCH (RBC) [Entitic mass] 30.5 pg Normal 25.9-34.0 [facility] Comment on above: Performed By: #### C BC ####[facility] [address] [place] [id number]. Kathya Connor MCHC (RBC) [Mass/Vol] 33.3 g/dL Normal 29.9-35.2 [facility] Comment on above: Performed By: #### C BC ####[facility] [address]bi[address] [place] [id number]. Kathya Ryan MCV (RBC) [Entitic vol] 91.8 fL Normal 80.0-94.0 [facility] Comment on above: Performed By: #### C BC ####[facility] [address] [place] [id number]. Kathya Ryan MONO # 0.7 103/ul Normal 0.3-0.8 [facility] Comment on above: Performed By: #### C BC ####[facility] [address] [place] [id number]. Kathya Ryan Monocytes/100 WBC (Bld) 12.2 % Critically high 1.7-12.0 [facility] Comment on above: Performed By: #### C BC ####[facility] Z[address] [place], [place] [id number]. Kathya Ryan NEUT # 3.5 103/ul Normal 1.4-6.5 [facility] Comment on above: Performed By: #### C BC ####[facility] Labksbnrfy[address] [place] [id number]. Kathya Ryan Neutrophils/100 WBC (Bld) 59.2 % Normal 43.0-75.0 [facility] Comment on above: Performed By: #### C BC ####[facility] [address] [place] [id number]. Kathya Ryan Platelet mean volume (Bld) [Entitic vol] 9.1 fL Critically low 9.5-13.5 [facility] Comment on above: Performed By: #### C BC ####[facility] [address] [place] [id number]. Kathya Ryan PLT 211 103/ul Normal 150-450 [facility] Comment on above: Performed By: #### C BC ####[facility] [address]te[address] [place] [id number]. Kathya Ryan RBC 4.62 106/ul Critically low 4.70-6.10 [facility] Comment on above: Performed By: #### C BC ####[facility] [address] [place], [place] [address]Dr. Kathya Ryan WBC 5.9 103/ul Normal 4.0-11.0 [facility] Comment on above: Performed By: #### C BC ####[facility] [address] [place], [place] [address]WkDr. Kathya Ryan GLYCOHEMOGLOBIN A1Con 2022 ADA RECOMMENDATION SEE BELOW Normal [facility] Comment on above: Result Comment: ADA RECOMMENDED LIMIT 4.0 - 6.0 ADA THERAPEUTIC TARGET < 7.0 ACTION SUGGESTED > 7.0 Performed By: #### A 1C #### [facility] [address] [place] [address] [address] Kathya Ryan Glucose [Mass/Vol] 123 mg/dL Normal [facility] Comment on above: Performed By: #### A 1C #### [facility] [address] [place] [address] [address] Kathya Ryan HbA1c (Bld) [Mass fraction] 5.9 % Normal 4.5-6.2 [facility] Comment on above: Performed By: #### A 1C #### [facility] [address] [place] [address] Dr. Kathya Ryan LIPID PROFILEon 12-09-2022 CHOL-HDL RATIO NORM SEE BELOW Normal [facility] Comment on above: Result Comment: 3.3 - 4.4 LOW RISK 4.4 - 7.1 AVERAGE RISK 7.1 - 11.0 MODERATE RISK >11.0 HIGH RISK Performed By: #### L IPID, CMP #### [facility] [address] [place] [address] [address] Kathya Ryan Cholesterol [Mass/Vol] 132 mg/dL Normal <=200 [facility] Comment on above: Performed By: #### L IPID, CMP #### [facility] [address] [place] [address] [address] Kathya Ryan Cholesterol in HDL [Mass/Vol] 29 mg/dL Critically low 40-60 [facility] Comment on above: Performed By: #### L IPID, CMP #### [facility] [address] [place] [address] [address] Kathya Ryan Cholesterol in LDL [Mass/Vol] 83.0 mg/dL Normal [facility] Comment on above: Performed By: #### L IPID, CMP #### [facility] [address] [place] [address] [address] Kathya Ryan Cholesterol.total/Ch olesterol in HDL [Mass ratio] 4.6 {ratio} Normal [facility] Comment on above: Performed By: #### L IPID, CMP #### [facility] [address] [place] [address] [address] Kathya Ryan HDL NORMAL > or = 60 mg/dl - LO W CARDIOVASCULAR RISK <40 mg/dl - HIGH CARDIOVASCULAR RISK Normal [facility] Comment on above: Performed By: #### L IPID, CMP #### [facility] [address] [place] [address] Dr. Kathya Ryan LDL CALC NORMAL SEE BELOW Normal [facility] Comment on above: Result Comment: <100 mg/dl OPTIMAL 100 - 129 mg/dl NEAR OR ABOVE OPTIMAL 130 - 159 mg/dl BORDERLINE HIGH 160 - 189 mg/dl HIGH >190 mg/dl VERY HIGH Performed By: #### L IPID, CMP #### [facility] [address] [place] [address] Dr. Kathya Ryan Triglyceride [Mass/Vol] 102 mg/dL Normal <=150 [facility] Comment on above: Performed By: #### L IPID, CMP #### [facility] [address] [place] [address] [address] Kathya Ryan VLDL CALC 20.4 mg/dL Normal [facility] Comment on above: Performed By: #### L IPID, CMP #### [facility] [address] [place] [address] Dr. Kathya Ryan PROF 14(COMP METB)on 023 Albumin [Mass/Vol] 3.3 g/dL Critically low 3.4-5.0 Th e [facility] Comment on above: Performed By: #### L IPID, CMP #### [facility] [address] [place] [address] [address] Kathya Ryan Albumin/Globulin [Mass ratio] 0.9 {ratio} Normal [facility] Comment on above: Performed By: #### L IPID, CMP #### [facility] [address] [place] [address] [address] Kathya Ryan ALP [Catalytic activity/Vol] 71 U/L Normal 46-116 [facility] Comment on above: Performed By: #### L IPID, CMP #### [facility] [address] [place] [address] [address] Kathya Ryan ALT [Catalytic activity/Vol] 50 U/L Normal 16-63 [facility] Comment on above: Performed By: #### L IPID, CMP #### [facility] [address] [place] [address] Dr. Kathya Ryan Anion gap [Moles/Vol] 12.6 mmol/L Normal [facility] Comment on above: Performed By: #### L IPID, CMP #### [facility] [address] [place] [address] Dr. Kathya Ryan AST [Catalytic activity/Vol] 34 U/L Normal 15-37 [facility] Comment on above: Performed By: #### L IPID, CMP #### [facility] [address] [place] [address] Dr. Kathya Ryan Bilirubin [Mass/Vol] 0.4 mg/dL Normal 0.2-1.0 [facility] Comment on above: Performed By: #### L IPID, CMP #### [facility] [address] [place] [address] Dr. Kathya Ryan Calcium [Mass/Vol] 8.9 mg/dL Normal 8.5-10.1 [facility] Comment on above: Performed By: #### L IPID, CMP #### [facility] [address] [place] [address] Dr. Kathya Ryan Chloride [Moles/Vol] 106 mmol/L Normal 98-107 [facility] Comment on above: Performed By: #### L IPID, CMP #### [facility] [address] [place] [address] Dr. Kathya Ryan CO2 [Moles/Vol] 27.4 mmol/L Normal 21.0-32.0 [facility] Comment on above: Performed By: #### L IPID, CMP #### [facility] [address] [place] [address] [address] Kathya Ryan Creatinine [Mass/Vol] 1.45 mg/dL Critically high 0.70-1.30 [facility] Comment on above: Performed By: #### L IPID, CMP #### [facility] [address] [place] [address] [address] Kathya Ryan EGFR-AF ESTONIAN 59 mL/min/1.73m2 Critically low >=60 [facility] Comment on above: Performed By: #### L IPID, CMP #### [facility] [address] [place] [address] [address] Kathya Ryan EGFR-NON AF ESTONIAN 49 mL/min/1.73m2 Critically low >=60 [facility] Comment on above: Performed By: #### L IPID, CMP #### [facility] [address] [place] [address] [address] Kathya Ryan Globulin (S) [Mass/Vol] 3.8 g/dL Normal [facility] Comment on above: Performed By: #### L IPID, CMP #### [facility] [address] [place] [address] [address] Kathya Ryan Glucose [Mass/Vol] 109 mg/dL Critically high 74-106 [facility] Comment on above: Performed By: #### L IPID, CMP #### [facility] [address] [place] [address] [address] Kathya Ryan Potassium [Moles/Vol] 3.9 mmol/L Normal 3.5-5.1 [facility] Comment on above: Performed By: #### L IPID, CMP #### [facility] [address] [place] [address] [address] Kathya Ryan Protein [Mass/Vol] 7.1 g/dL Normal 6.4-8.2 [facility] Comment on above: Performed By: #### L IPID, CMP #### [facility] [address] [place] [address] [address] Kathya Ryan Sodium [Moles/Vol] 142 mmol/L Normal 136-145 [facility] Comment on above: Performed By: #### L IPID, CMP #### [facility] [address] [place] [address] [address] Kathya Ryan Urea nitrogen [Mass/Vol] 17.0 mg/dL Normal 7.0-18.0 [facility] Comment on above: Performed By: #### L IPID, CMP #### [facility] [address] [place] [address] [address] Kathya Ryan Urea nitrogen/Creatinine [Mass ratio] 11.7 mg/mg Normal [facility] Comment on above: Performed By: #### L IPID, CMP #### [facility] [address] [place] [address] [address] Kathya Ryan FREE LIGHT CHAINS PLUS RATIO , URINEon 11-14-2022 Free [place] Lt Chains,Ur 86.11 mg/L Normal 1.17-86.46 [facility] Comment on above: Performed By: #### F REELIU ####[facility] [address] [place] [id number] Ryan Free [place]ambda Lt Chains,Ur 11.37 mg/L Normal 0.27-15.21 [facility] Comment on above: Performed By: #### F KAVITALIU ####[facility] [address] [place] [id number] Ryan [place]/ Lambda Urine Ratio 7.57 Normal 1.83-14.26 [facility] Comment on above: Performed By: #### F REELIU ####[facility] [address] [place] [id number]. Kathya Ryan CT CSPINE WO CONon CT [...] KARIME MAYES Date: 2022-11-04 00:29 Normal [facility] CT HEAD WO CONon 11-04-2022 CT [...] JAC GILL Date: 2022-11-04 00:28 Normal [facility] CBC AUTO DIFFon 10-02-2022 BASO # 0.1 103/ul Normal 0.0-0.1 [facility] Comment on above: Performed By: #### C BC ####[facility] [address] [place] [id number]. Kathya Ryan Basophils/100 WBC (Bld) 0.5 % Normal 0.2-2.0 [facility] Comment on above: Performed By: #### C BC ####[facility] [address] [place] [address]Dr. Kathya Ryan EO # 0.8 103/ul Critically high 0.0-0.7 [facility] Comment on above: Performed By: #### C BC ####[facility] [address] [place] [address]Dr. Kathya Ryan Eosinophils/100 WBC (Bld) 7.6 % Critically high 0.9-7.0 [facility] Comment on above: Performed By: #### C BC ####[facility] [address] [place], [place] [address]Dr. Kathya Ryan Erythrocyte distribution width (RBC) [Ratio] 13.3 % Normal 11.0-15.0 [facility] Comment on above: Performed By: #### C BC ####[facility] [address] [place], [place] [address]Dr. Kathya Ryan Hematocrit (Bld) [Volume fraction] 39.7 % Critically low 42.0-54.0 [facility] Comment on above: Performed By: #### C BC ####[facility] [address] [place], [place] [address]Dr. Kathya Ryan Hemoglobin (Bld) [Mass/Vol] 13.4 g/dL Critically low 14.0-18.0 [facility] Comment on above: Performed By: #### C BC ####[facility] [address] [place] [id number]. Kathya Ryan IG # 0.04 10e3/ul Critically high 0.00-0.03 [facility] Comment on above: Performed By: #### C BC ####[facility] [address] [place], [place] [address]Dr. Kathya Ryan IG % 0.4 % Normal 0.0-0.5 [facility] Comment on above: Performed By: #### C BC ####[facility] [address] [place] [address]Dr. Kathya Ryan LYMPH # 1.6 103/ul Normal 1.2-3.8 [facility] Comment on above: Performed By: #### C BC ####[facility] [address]ty[address] [place] [address]Dr. Kathya Ryan Lymphocytes/100 WBC (Bld) 15.8 % Critically low 20.5-60.0 [facility] Comment on above: Performed By: #### C BC ####[facility] [address] [place] [address]Dr. Kathya Ryan MANUAL DIFF REQ NO Normal [facility] Comment on above: Performed By: #### C BC ####[facility] [address] [place] [address]Dr. Kathya Ryan MCH (RBC) [Entitic mass] 29.8 pg Normal 25.9-34.0 [facility] Comment on above: Performed By: #### C BC ####[facility] Bj[address]fekpf[address] [place] [address]Dr. Kathya Ryan MCHC (RBC) [Mass/Vol] 33.8 g/dL Normal 29.9-35.2 [facility] Comment on above: Performed By: #### C BC ####[facility] K[address]kmhrv[address] [place] [address]Dr. Kathya Ryan MCV (RBC) [Entitic vol] 88.4 fL Normal 80.0-94.0 [facility] Comment on above: Performed By: #### C BC ####[facility] X[address]ad[address] [place] [address]Dr. Kathya Ryan MONO # 1.2 103/ul Critically high 0.3-0.8 [facility] Comment on above: Performed By: #### C BC ####[facility] [address]tybuldrlg[address] [place] [address]Dr. Kathya Ryan Monocytes/100 WBC (Bld) 12.1 % Critically high 1.7-12.0 [facility] Comment on above: Performed By: #### C BC ####[facility] Y[address] [place], [place] [address]Xk. Kathya Ryan NEUT # 6.4 103/ul Normal 1.4-6.5 [facility] Comment on above: Performed By: #### C BC ####[facility] Iqjnlntqev[address] [place], [place] [address]Tz. Kathya Ryan Neutrophils/100 WBC (Bld) 63.6 % Normal 43.0-75.0 [facility] Comment on above: Performed By: #### C BC ####[facility] Hgsekouyiv[address] [place] [id number]. Kathya Ryan Platelet mean volume (Bld) [Entitic vol] 8.8 fL Critically low 9.5-13.5 [facility] Comment on above: Performed By: #### C BC ####[facility] [address]aw[address] [place] [address]Dr. Kathya Ryan PLT 237 103/ul Normal 150-450 [facility] Comment on above: Performed By: #### C BC ####[facility] [address]rmlnf[address] [place] [address]Dr. Kathya Ryan RBC 4.49 106/ul Critically low 4.70-6.10 [facility] Comment on above: Performed By: #### C BC ####[facility] Ji[address]ubckxj[address] [place] [address]Dr. Kathya Ryan WBC 10.1 103/ul Normal 4.0-11.0 [facility] Comment on above: Performed By: #### C BC ####[facility] [address] [place] [id number]. Kathya Ryan CT CSPINE WO CONon 3 [...] LAY ROQUE Date: 2022-10-02 20:33 Normal [facility] CT HEAD WO CONon 10-02-2022 CT [...] JAC GILL Date: 2022-10-02 20:41 Normal [facility] CULTURE URINEon 10-02-2022 CULTURE URINE Culture Observations : LIGHT GROWTH OF MIXED SKIN LUKASZ. NO POTENTIAL PATHOGENS SEEN. Normal [facility] Comment on above: Performed By: #### U RCX ####[facility] [address] [place], [place] [address]Qg. Kathya KEARNS URINE PROFILEon 3 Bilirubin Ql (U) Negative Normal NEGATIVE [facility] Comment on above: Performed By: #### U MICRO, ERUR #### [facility] [address] [address] [address] Kathya Ryan Clarity (U) CLEAR Normal CLEAR [facility] Comment on above: Performed By: #### U MICRO, ERUR #### [facility] [address] [address] [address] Kathya Ryan Color (U) YELLOW Normal YELLOW [facility] Comment on above: Performed By: #### U MICRO, ERUR #### [facility] [address] [address] [address] Kathya Ryan ERUAHD A micrscopic examination will be performed if indicated. Normal [facility] Comment on above: Performed By: #### U MICRO, ERUR #### [facility] [address] [place] [address] Dr. Kathya Ryan Glucose Ql (U) 500 mg/dl Abnormal NEGATIVE [facility] Comment on above: Performed By: #### U MICRO, ERUR #### [facility] [address] [place] [address] Dr. Kathya Ryan Hemoglobin Ql (U) SMALL Abnormal NEGATIVE [facility] Comment on above: Performed By: #### U MICRO, ERUR #### [facility] [address] [place] [address] Dr. Kathya Ryan Ketones Ql (U) TRACE Abnormal NEGATIVE [facility] Comment on above: Performed By: #### U MICRO, ERUR #### [facility] [address] [address] [address] Kathya Ryan LEUKOCYTES TRACE Abnormal NEGATIVE [facility] Comment on above: Performed By: #### U MICRO, ERUR #### [facility] [address] [address] [address] Kathya Ryan Nitrite Ql (U) Negative Normal NEGATIVE [facility] Comment on above: Performed By: #### U MICRO, ERUR #### [facility] [address] [place] [address] Dr. Kathya Ryan pH (U) 5.5 [pH] Normal 5-9 [facility] Comment on above: Performed By: #### U MICRO, ERUR #### [facility] [address] [address] [address] Kathya Ryan SPEC GRAVITY >=1.030 Abnormal 1.005-<=1.025 [facility] Comment on above: Performed By: #### U MICRO, ERUR #### [facility] [address] [address] [address] Kathya Ryan UA PROTEIN TRACE Normal NEGATIVE/ TRACE [facility] Comment on above: Performed By: #### U MICRO, ERUR #### [facility] [address] [address] [address] Kathya Ryan UR MICRO IND INDICATED Normal [facility] Comment on above: Performed By: #### U MICRO, ERUR #### [facility] [address] [place] [address] Dr. Kathya Ryan Urobilinogen Qn (U) 2.0 {Luanne'U}/dL Abnormal 0.2 - 1. 0 [facility] Comment on above: Performed By: #### U MICRO, ERUR #### [facility] [address] [place] [address] Dr. Kathya Ryan PROF 14(COMP METB)on 023 Albumin [Mass/Vol] 3.5 g/dL Normal 3.4-5.0 [facility] Comment on above: Performed By: #### H STROPN, CMP, TSH #### [facility] [address] [address] [address] Kathya Ryan Albumin/Globulin [Mass ratio] 0.9 {ratio} Normal [facility] Comment on above: Performed By: #### H STROPN, CMP, TSH #### [facility] [address] [address] [address] Kathya Ryan ALP [Catalytic activity/Vol] 108 U/L Normal 46-116 [facility] Comment on above: Performed By: #### H STROPN, CMP, TSH #### [facility] [address] [address] [address] Kathya Ryan ALT [Catalytic activity/Vol] 38 U/L Normal 16-63 [facility] Comment on above: Performed By: #### H STROPN, CMP, TSH #### [facility] [address] [address] [address] Kathya Ryan Anion gap [Moles/Vol] 11.4 mmol/L Normal [facility] Comment on above: Performed By: #### H STROPN, CMP, TSH #### [facility] [address] [address] [address] Kathya Ryan AST [Catalytic activity/Vol] 28 U/L Normal 15-37 [facility] Comment on above: Performed By: #### H STROPN, CMP, TSH #### [facility] [address] [address] [address] Kathya Ryan Bilirubin [Mass/Vol] 0.9 mg/dL Normal 0.2-1.0 [facility] Comment on above: Performed By: #### H STROPN, CMP, TSH #### [facility] [address] [address] [address] Kathya Ryan Calcium [Mass/Vol] 9.1 mg/dL Normal 8.5-10.1 [facility] Comment on above: Performed By: #### H STROPN, CMP, TSH #### [facility] [address] [address] [address] Kathya Ryan Chloride [Moles/Vol] 100 mmol/L Normal 98-107 [facility] Comment on above: Performed By: #### H STROPN, CMP, TSH #### [facility] [address] [address] [address] Kathya Ryan CO2 [Moles/Vol] 27.7 mmol/L Normal 21.0-32.0 [facility] Comment on above: Performed By: #### H STROPN, CMP, TSH #### [facility] [address] [address] [address] Kathya Ryan Creatinine [Mass/Vol] 1.69 mg/dL Critically high 0.70-1.30 [facility] Comment on above: Performed By: #### H STROPN, CMP, TSH #### [facility] [address] [address] [address] Kathya Ryan EGFR-AF ESTONIAN 50 mL/min/1.73m2 Critically low >=60 [facility] Comment on above: Performed By: #### H STROPN, CMP, TSH #### [facility] [address] [address] [address] Kathya Ryan EGFR-NON AF ESTONIAN 41 mL/min/1.73m2 Critically low >=60 [facility] Comment on above: Performed By: #### H STROPN, CMP, TSH #### [facility] [address] [place] [address] Dr. Kathya Ryan Globulin (S) [Mass/Vol] 3.8 g/dL Normal [facility] Comment on above: Performed By: #### H STROPN, CMP, TSH #### [facility] [address] [address] [address] Kathya Ryan Glucose [Mass/Vol] 259 mg/dL Critically high 74-106 T [facility] Comment on above: Performed By: #### H STROPN, CMP, TSH #### [facility] [address] [address] [address] Kathya Ryan Potassium [Moles/Vol] 4.1 mmol/L Normal 3.5-5.1 [facility] Comment on above: Performed By: #### H STROPN, CMP, TSH #### [facility] [address] [address] [address] Kathya Ryan Protein [Mass/Vol] 7.3 g/dL Normal 6.4-8.2 [facility] Comment on above: Performed By: #### H STROPN, CMP, TSH #### [facility] [address] [address] [address] Kathya Ryan Sodium [Moles/Vol] 135 mmol/L Critically low 136-145 [facility] Comment on above: Performed By: #### H STROPN, CMP, TSH #### [facility] [address] [address] [address] Kathya Ryan Urea nitrogen [Mass/Vol] 15.0 mg/dL Normal 7.0-18.0 [facility] Comment on above: Performed By: #### H STROPN, CMP, TSH #### [facility] [address] [address] [address] Kathya Ryan Urea nitrogen/Creatinine [Mass ratio] 8.9 mg/mg Normal [facility] Comment on above: Performed By: #### H STROPN, CMP, TSH #### [facility] [address] [address] [address] Kathya Ryan PROTIMEon 10-02-2022 INR Coag (PPP) [Relative time] 1.00 {INR} Normal [facility] Comment on above: Performed By: #### P T, PTT ####[facility] [address] [address]Dr. Kathya Ryan INR GUIDELINES SEE BELOW Normal [facility] Comment on above: Result Comment: JONI RED INR: 2.0 - 3.0 CONDITIONS NOT LISTED BELOW 2.5 - 3.5 FOR PROSTHETIC HEART VALVE REPLACEMENT 2.5 - 3.5 RECURRENT THROMBOSIS Performed By: #### P T, PTT ####[facility] [address] [address]Dr. Kathya Ryan PT Coag (PPP) [Time] 10.6 s Normal 9.0-11.6 [facility] Comment on above: Performed By: #### P T, PTT ####[facility] [address] [address]Dr. Kathya Ryan PTTon 10-02-2022 aPTT Coag (Bld) [Time] 26.9 s Normal 22.3-36.2 [facility] Comment on above: Performed By: #### P T, PTT ####[facility] [address] [address]Dr. Kathya Ryan TROPONIN, HIGH SENSITIVITYon 10-02-2022 HSTROP 4.2 pg/mL Normal 4.0-76.1 [facility] Comment on above: Result Comment: CUT- OFF POINTS HAVE BEEN ESTABLISHED BASED ON THE FOURTH UNIVERSAL DEFINITIONS OF MYOCARDIAL INFARCTION. THE UPPER REFERENCE LIMIT (URL) OF TROPONIN, DEFINED THE 99TH PERCENTILE OF cTnI DISTRIBUTION IN A REFERENCE POPULATION, HAS BEEN CONFIRMED THE DECISION THRESHOLD FOR MD DIAGNOSIS. Performed By: #### H STROJIMI, CMP, TSH ####[facility] [address] [id number] Kathya Ryan TSHon 10-02-2022 TSH 2.502 uIU/mL Normal 0.358-3.740 [facility] Comment on above: Performed By: #### H STROPN, CMP, TSH ####[facility] [address] [id number] Kathya Ryan URINE MICROSCOPIC ONLYon BACTERIA MODERATE Abnormal NONE SEEN [facility] Comment on above: Performed By: #### U MICRO, ERUR #### [facility] [address] [place] [address] Dr. Kathya Ryan Bacteria identified Cx Nom (U) INDICATED Normal [facility] Comment on above: Performed By: #### U MICRO, ERUR #### [facility] [address] [place] [address] Dr. Kathya Ryan CAST NONE SEEN Normal NONE SEEN [facility] Comment on above: Performed By: #### U MICRO, ERUR #### [facility] [address] [address] [address] Kathya Ryan Crystals LM Nom (Urine sed) NONE SEEN Normal NONE SEEN [facility] Comment on above: Performed By: #### U MICRO, ERUR #### [facility] [address] [place] [address] Dr. Kathya Ryan Epithelial cells LM Ql (Urine sed) RARE Normal NONE SEEN /RARE [facility] Comment on above: Performed By: #### U MICRO, ERUR #### [facility] [address] [address] [address] Kathya Ryan HYALINE CAST FEW Normal [facility] Comment on above: Performed By: #### U MICRO, ERUR #### [facility] [address] [place] [address] Dr. Kathya Ryan MUCOUS NONE SEEN Normal NONE SEEN [facility] Comment on above: Performed By: #### U MICRO, ERUR #### [facility] [address] [address] [address] Kathya Ryan RBC 10-20 Abnormal 0-2 [facility] Comment on above: Performed By: #### U MICRO, ERUR #### [facility] [address] [address] [address] Kathya Ryan WBC 5-10 Abnormal NONE SEEN [facility] Comment on above: Performed By: #### U MICRO, ERUR #### [facility] [address] [address] [address] Kathya Ryan XR CHEST 1 Von [...] by: LAY ROQUE Date: 2022-10-02 20:[address] [facility] XR KNEE RT 4V or >on [...] by: LAY ROQUE Date: 2022-10-02 20:[address] [facility] XR LSPINE 2_3 VIEWSon 2022 XR [...] LAY ROQUE Date: 2022-10-02 20:55 Normal [facility] XR PELVIS 1_2 VIEWSon 2022 XR PELVIS 1_2 VIEWS EXAM: XR PELVIS 1_2 VIEWS HISTORY: Fall COMPARISON: None. TECHNIQUE: Single view FINDINGS: No osseous lesion, fracture, dislocation or subluxation. Joint spaces are unremarkable for patient's age. No visualized effusion. No visualized soft tissue edema. IMPRESSION: Normal x-rays Electronically authenticated by: LAY ROQUE Date: 2022-10-02 21:[address] [facility] Glucose Glucometer (BldC) [M ass/Vol]Ordered By: Lay Talbot on 03-15-2022 Glucose [Mass/Vol] 131 mg/dL [facility] Comment on above: Random Glucose Refer ence Range is dependent on time and content of last meal. Glucose of more than 200 mg/dL in a nonstressed, ambulatory subject supports the diagnosis of Diabetes Mellitus. Glucose Poct Glucometerson 0 03-15-2022 Glucose [Mass/Vol] 131 mg/dL Normal [facility] Comment on above: Result Comment: [place] Glucose Reference Range is dependent on time and content of last meal. Glucose of more than 200 mg/dL in a nonstressed, ambulatory subject supports the diagnosis of Diabetes Mellitus. PERFORMED BY: [facility] [address] [place] [address] PATHOLOGIST SECY CARINA HASSAN M.D. Performed By: #### G LULS #### Point of Care testing , PSA SCREEN (MEDICARE)on 11-09 TPSA 3.110 ng/mL Normal <4.000 [facility] [employer] Comment on above: Result Comment: PSA Test Method: ECLIA/Urvashi e 601 Performed By: #### P SA #### [facility] [address] [place], [place] [id number] Complete Blood Counton 09-20 Erythrocyte distribution width (RBC) [Ratio] 12.6 % Normal 11.0-15.0 [facility] [employer] Comment on above: Performed By: #### C MP, CBC, MG #### [facility] [address], [place] [id number] Hematocrit (Bld) [Volume fraction] 47.3 % Normal 38.5-50.0 [facility] Comment on above: Performed By: #### C MP, CBC, MG #### [facility] [address] [place], [place] [id number] Hemoglobin (Bld) [Mass/Vol] 15.8 g/dL Normal 13.0-17.1 [facility] Comment on above: Performed By: #### C MP, CBC, MG #### [facility] [address] [place], [place] [id number] MCH (RBC) [Entitic mass] 28.6 pg Normal 27.0-33.0 [facility] Comment on above: Performed By: #### C MP, CBC, MG #### [facility] [address] [place], [place] [id number] MCHC (RBC) [Mass/Vol] 33.4 g/dL Normal 32.0-36.0 [facility] Comment on above: Performed By: #### C MP, CBC, MG #### [facility] [address] [place], [place] [id number] MCV (RBC) [Entitic vol] 86 fL Normal 80-100 [facility] Comment on above: Performed By: #### C MP, CBC, MG #### [facility] [address] [place], [place] [id number] Platelet mean volume (Bld) [Entitic vol] 8.90 fL Normal 7.50-12.[address] [facility] Specialist Comment on above: Performed By: #### C MP, CBC, MG #### [facility] [address] [place], [place] [id number] Platelets (Bld) [#/Vol] 258 10*3/uL Normal 140-400 [facility] Comment on above: Performed By: #### C MP, CBC, MG #### [facility] [address] [place], [place] [id number] RBC (Bld) [#/Vol] 5.53 10*6/uL Normal 4.20-5.80 [facility] Specialist Comment on above: Performed By: #### C MP, CBC, MG #### [facility] [address] [place], [place] [id number] RDW-SD 39.1 fL Normal 37.0-50.0 [facility] [employer] Comment on above: Performed By: #### C MP, CBC, MG #### [facility] [address] [place], [place] [id number] WBC (Bld) [#/Vol] 8.2 10*3/uL Normal 3.8-11.0 [facility] [employer] Comment on above: Performed By: #### C MP, CBC, MG #### [facility] [address] [place], [place] [id number] Comprehensive Metabolic Pane yun 09-20-2021 Albumin [Mass/Vol] 4.5 g/dL Normal 3.6-5.1 [facility] [employer] Comment on above: Performed By: #### C MP, CBC, MG #### [facility] [address] [place], [place] [id number] Albumin/Globulin [Mass ratio] 1.6 {ratio} Normal 1.0-2.5 [facility] [employer] Comment on above: Performed By: #### C MP, CBC, MG #### [facility] [address] [place], [place] [id number] ALP [Catalytic activity/Vol] 86 U/L Normal 40-129 [facility] [employer] Comment on above: Performed By: #### C MP, CBC, MG #### [facility] [address] [place], [place] [id number] ALT [Catalytic activity/Vol] 58 U/L High 9-46 [facility] [employer] Comment on above: Result Comment: 07/11 Female reference range changed. Performed By: #### C MP, CBC, MG #### [facility] [address] [place], [place] [id number] Anion gap [Moles/Vol] 17 mmol/L Normal 12-20 [facility] [employer] Comment on above: Result Comment: Effe ctive 08/16/2019 reference range changed. Performed By: #### C MP, CBC, MG #### [facility] [address] [place], [place] [id number] AST [Catalytic activity/Vol] 51 U/L High 10-40 [facility] [employer] Comment on above: Performed By: #### C MP, CBC, MG #### [facility] [address] [place], [place] [id number] Bilirubin [Mass/Vol] 0.52 mg/dL Normal 0.30-1.20 [facility] Comment on above: Performed By: #### C MP, CBC, MG #### [facility] [address] [place], [place] [id number] BUN/CREA 12 Ratio Normal 6-22 [facility] Comment on above: Performed By: #### C MP, CBC, MG #### [facility] [address] [place], [place] [id number] Calcium [Mass/Vol] 9.9 mg/dL Normal 8.6-10.2 [facility] Comment on above: Performed By: #### C MP, CBC, MG #### [facility] [address] [place], [place] [id number] Chloride [Moles/Vol] 102 mmol/L Normal 98-107 [facility] Comment on above: Performed By: #### C MP, CBC, MG #### [facility] [address] [place], [place] [id number] CO2 [Moles/Vol] 22 mmol/L Normal 20-31 [facility] Comment on above: Performed By: #### C MP, CBC, MG #### [facility] [address] [place], [place] [id number] Creatinine [Mass/Vol] 1.2 mg/dL Normal 0.7-1.4 [facility] Comment on above: Performed By: #### C MP, CBC, MG #### [facility] [address] [place], [place] [id number] eGFRAA 72 mL/min/1.73m2 Normal >60 [facility] Comment on above: Performed By: #### C MP, CBC, MG #### [facility] [address] [place], [place] [id number] eGFRNAA 59 mL/min/1.73m2 Low >60 [facility] Comment on above: Performed By: #### C MP, CBC, MG #### [facility] [address] [place], [place] [id number] Globulin (S) [Mass/Vol] 2.9 g/dL Normal 1.9-3.7 [facility] Comment on above: Performed By: #### C MP, CBC, MG #### [facility] [address] [place], [place] [id number] Glucose [Mass/Vol] 117 mg/dL High 65-99 [facility] Specialist Comment on above: Result Comment: For FASTING Glucose --- ADA reference ranges: Normal 65-99 mg/dl Prediabetes 100-125 Diabetes >/= 126 Performed By: #### C MP, CBC, MG #### [facility] [address] [place], [place] [id number] Potassium [Moles/Vol] 4.5 mmol/L Normal 3.5-5.5 [facility] Comment on above: Performed By: #### C MP, CBC, MG #### [facility] [address] [place], [place] [id number] Protein [Mass/Vol] 7.4 g/dL Normal 6.1-8.1 [facility] [employer] Comment on above: Performed By: #### C MP, CBC, MG #### [facility] [address] [place], [place] [id number] Sodium [Moles/Vol] 137 mmol/L Normal 135-146 [facility] [employer] Comment on above: Performed By: #### C MP, CBC, MG #### [facility] [address] [place], [place] [id number] Urea nitrogen [Mass/Vol] 15 mg/dL Normal 7-25 [facility] [employer] Comment on above: Performed By: #### C MP, CBC, MG #### [facility] [address] [place], [place] [id number] Hemoglobin A1Con 09-20-2021 EAG 142.72 Normal [facility] Specialist Comment on above: Performed By: #### A 1C #### [facility] [address] [place], [place] [id number] HbA1c (Bld) [Mass fraction] 6.6 % High 4.0-6.0 [facility] Comment on above: Performed By: #### A 1C #### [facility] [address] [place], [place] [id number] Magnesiumon 09-20-2021 Magnesium [Mass/Vol] 2.0 mg/dL Normal 1.5-2.3 Mikayla ceron [place] [employer] Comment on above: Performed By: #### C MP, CBC, MG #### [facility] [address] [place], [place] [id number] Vital Signs Date Time Vital Sign Value Performing Clinician Faci lity 03-15-2022 09:24-0400 Diastolic blood pressure 82 mm[Hg] DO Lay Talbot Work Phone: [facility] 03-15-2022 09:24-0400 Heart rate 72 /min DO Lay WeYAPkes Work Phone: [facility] 03-15-2022 09:24-0400 Respiratory rate 18 /min DO Lay Carmenkes Work Phone: [facility] 03-15-2022 09:24-0400 SaO2% (BldA) [Mass fraction] 97 % DO Lay Talbot Work Phone: [facility] 03-15-2022 09:24-0400 Systolic blood pressure 115 mm[Hg] DO Lay Carmenkes Work Phone: [facility] 03-15-2022 07:21-0400 Body height 171.45 cm DO Lay Carmenkes Work Phone: [facility] 03-15-2022 07:21-0400 Body temperature 98.5 [degF] DO Lay Talbot Work Phone: [facility] 03-15-2022 07:21-0400 Body weight 86.18 kg DO Lay Carmenkes Work Phone: [facility] Encounters Encounter Date Encounter Type Care [...] Facility:[facility]1 Start: 06-12-2022 End: 06-13-2022 ambulatory YVES ABY Facility:[facility] Start: 03-15-2022 End: 03-15-2022 Admission to same day surgery center DO Lay Talbot Work Phone: [facility] Procedures Date Procedure Procedure Detail Performing Clinician Start: 09-15-2023 MLR HEMOGLOBIN A1C Katie Spears MD Work Phone: Start: 03-15-2022 Screening colonoscopy D O Lay Talbot Work Phone: Plan of Treatment Date Care Activity Detail Author Start: 12-16-2023 End: 12-16-2023 Patient encounter procedure 12/16/2023 12:15 PM EDT Office Visit [facility] [address] [facility] [address] [place] [address] Yves Bay MD [address] [facility] [address] [place] [address] [facility] Start: 04-11-2023 Influenza vaccination Influenza Vaccine (#1) [facility] Start: 03-11-2023 Hemoglobin A1c measurement Diabetes: Hemoglobin A1C [facility] Start: 03-15-2022 [facility] Work Phone: Start: 1966 Glaucoma screening Diabetes: Retinopathy Screening [facility] Start: 1962 Pneumococcal Vaccine: 65+ Years [...] HEALTH[employer] E MEDICARE [employer] MEDICARE REPLACEMENT [id number] 2022-Present [address] [address] [place] [address] [id number] 2022 Medicaid MEDICAID [facility] [id number] 2022-Present [phone] [address] [place] [address] Medicaid [id number] 1959 Medicaid [id number] 1959 Medicare [id number] 1959 Medicare [id number] 1956 Unknown [id number] 1956 Unknown [id number] 1956 Unknown [id number] 1956 Unknown [id number] 1956 Unknown [id number] 1956 Unknown [id number] 1956 Unknown [id number] Medicaid [id number] Self-pay Self Pay [id number] Unknown [employer] [id number] Social History Date Type Detail Facility Start: 03-15-2022 End: 02-25-2023 Tobacco smoking status NHIS Never smoked tobacco (finding) [facility] Start: 1955 Sex Assigned At Male F [facility] Start: 02-25-2023 Alcohol intake Ex-drinker (finding) [facility] Start: 02-25-2023 History of Social function [facility] Start: 02-25-2023 Tobacco use panel [facility] Start: 1955 Sex Assigned At Not on file [place] [facility] Medical Equipment Procedure Code Equipment Code Equipment Origin al Text Equipment Identifier Dates Phacoemulsification of cataract with intraocular lens implantation Posterior-chamber intraocular lens, pseudophakic [id number] FDA Start: 01-27-2020 Phacoemulsification of cataract with intraocular lens implantation Posterior-chamber intraocular lens, pseudophakic [id number] FDA Start: 02-24-2020 Goals Date Patient Goal [...] authenticated by: RUFUS VALDEZ Date: 2022-10-02 11:10 [facility] History and physical note 03-15-2022 Note Date & Type Note Facility 03-15-2022 History and physi tara note Note Date/Time March 15, 2022 8:20am [facility] [address] [place] [address] Gastroenterology H&P Signed Patient: Lenora Castle MR#: [id number] : 1955 Acct:[id number] Age/Sex: 66 / M Adm Date: 2 Loc: Room: Type: [facility] Attending Dr: Lay Talbot DO Copies [...] by Lay Talbot Jr, DO> 03/15/22 0832 [facility] Work Phone: Procedure note 03-15-2022 Note Date & Type Note Facility 03-15-2022 Procedure note [facility] Evaluation note Note Date & Type Note Facility Evaluation note Diagnosis Onset Date Screening for colorectal cancer acute [facility] Work Phone: Hospital Discharge instructions Note [...] if you have any problems. -Office number [phone] [facility] Work Phone: Summary Purpose Family History [...] section and content) DATE CREATED AUTHOR 11/21/2021 [facility] dical Specialist DATE CREATED AUTHOR AUTHOR'S ORGANIZ ATION 03/16/2022 [facility] DATE CREATED AUTHOR AUTHOR'S ORGANIZ ATION 12/14/2022 [facility] DATE CREATED AUTHOR AUTHOR'S ORGANIZ ATION 01/14/2024 [facility] dical Specialists EPIC Care Teams (unrecognized sec tion and content) Team Status: Inactive Member Role Status Dates Lay Talbot DO Attending Provider Active CINDY Santiago Primary Care Provider Active Team Status: Active Member Role Status Dates Amie Dow NP-C Primary Care Provider Active 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 [facility]. provides no warranty or guarantee of the accuracy or completeness of information in this document.
[2024-03-15 14:45] LABS: Estimated Average Glucose 206 mg/dL; Glycohemoglobin A1C 8.8 % (4.5-6.2)
== END 2024-03-15 13:46 | disposition home or self-care (01) ==
LOC: LAB 13:45
PROVIDERS: PCP Family Medicine; Visit Provider Family Medicine
DX: E11.8 Type 2 diabetes mellitus with unspecified complications (principal)
CPT/HCPCS: 36415; 83036

== ENCOUNTER 2024-05-12 02:44 | Outpatient (RCR) | payer MEDICARE, MEDICAID, SELFPAY ==
[2024-05-12 10:24] LABS: Basophils Absolute Auto 0.1 10^3/uL (0.0-0.1); Basophils Percent Auto 0.9 % (0.2-2.0); Eosinophils Absolute Auto 0.2 10^3/uL (0.0-0.7); Eosinophils Percent Auto 2.3 % (0.9-7.0); Hematocrit 39.6 % (42.0-54.0); Hemoglobin 13.1 g/dL (14.0-18.0); Immature Granulocytes Abs Auto 0.02 10^3/uL (0.00-0.03); Immature Granulocytes Pct Auto 0.3 % (0.0-0.5); Lymphocytes Absolute Auto 0.9 10^3/uL (1.2-3.8); Lymphocytes Percent Auto 13.6 % (20.5-60.0); Mean Corpuscular HGB Conc 33.1 g/dL (29.9-35.2); Mean Corpuscular Volume 87.6 fL (80.0-94.0); Mean Platelet Volume 9.2 fL (9.5-13.5); Monocytes Absolute Auto 1.1 10^3/uL (0.3-0.8); Monocytes Percent Auto 16.9 % (1.7-12.0); Neutrophils Absolute Auto 4.3 10^3/uL (1.4-6.5); Platelet Count 183 10^3/uL (150-450); Red Blood Count 4.52 10^6/uL (4.70-6.10); Red Cell Distribution Width 13.2 % (11.0-15.0); White Blood Count 6.5 10^3/uL (4.0-11.0)
[2024-05-12 11:14] LABS: Alanine Aminotransferase 22 U/L (16-63); Albumin Globulin Ratio 0.8; Albumin Level 3.2 g/dL (3.4-5.0); Alkaline Phosphatase 81 U/L (46-116); Aspartate Amino Transferase 17 U/L (15-37); BUN Creatinine Ratio 10.9; Bilirubin Total 0.8 mg/dL (0.2-1.0); Calcium 9.3 mg/dL (8.5-10.1); Chloride 97 mmol/L (98-107); Chol HDL Ratio 3.4; Cholesterol 95 mg/dL (<=200); Estimated GFR (African America 33 (>=60 mL/min/1.73m^2); Estimated GFR (Non-African Ame 27 (>=60 mL/min/1.73m^2); Glucose 297 mg/dL (74-106); HDL Cholesterol 28 mg/dL (40-60); Potassium 4.1 mmol/L (3.5-5.1); Sodium 132 mmol/L (136-145); Total Protein 7.2 g/dL (6.4-8.2); Triglycerides 167 mg/dL (<=150); VLDL CHOLESTEROL 33.4 mg/dL
[2024-05-12 11:53] LABS: Anion Gap 16.9; Carbon Dioxide 22.2 mmol/L (21.0-32.0)
[2024-05-19 08:56] LABS: Basophils Absolute Auto 0.1 10^3/uL (0.0-0.1); Basophils Percent Auto 0.5 % (0.2-2.0); Eosinophils Absolute Auto 0.7 10^3/uL (0.0-0.7); Eosinophils Percent Auto 4.5 % (0.9-7.0); Hematocrit 41.5 % (42.0-54.0); Hemoglobin 13.8 g/dL (14.0-18.0); Immature Granulocytes Abs Auto 0.07 10^3/uL (0.00-0.03); Immature Granulocytes Pct Auto 0.5 % (0.0-0.5); Lymphocytes Percent Auto 12.8 % (20.5-60.0); Mean Corpuscular HGB Conc 33.3 g/dL (29.9-35.2); Mean Corpuscular Hemoglobin 29.1 pg (25.9-34.0); Mean Corpuscular Volume 87.6 fL (80.0-94.0); Mean Platelet Volume 9.4 fL (9.5-13.5); Monocytes Absolute Auto 1.6 10^3/uL (0.3-0.8); Monocytes Percent Auto 10.3 % (1.7-12.0); Neutrophils Absolute Auto 11.1 10^3/uL (1.4-6.5); Neutrophils Percent Auto 71.4 % (43.0-75.0); Platelet Count 296 10^3/uL (150-450); Red Blood Count 4.74 10^6/uL (4.70-6.10); Red Cell Distribution Width 13.5 % (11.0-15.0); White Blood Count 15.4 10^3/uL (4.0-11.0)
[2024-05-19 09:52] LABS: Anion Gap 17.7; BUN Creatinine Ratio 18.1; Calcium 9.3 mg/dL (8.5-10.1); Carbon Dioxide 17.8 mmol/L (21.0-32.0); Chloride 104 mmol/L (98-107); Estimated GFR (African America 25 (>=60 mL/min/1.73m^2); Estimated GFR (Non-African Ame 20 (>=60 mL/min/1.73m^2); Glucose 204 mg/dL (74-106); Potassium 4.5 mmol/L (3.5-5.1); Sodium 135 mmol/L (136-145)
== END 2024-08-10 23:59 | disposition home or self-care (01) ==
LOC: LAB 02:44
PROVIDERS: PCP Family Medicine; Visit Provider Nurse Practitioner Family
DX: I12.9 Hypertensive chronic kidney disease with stage 1 through stage 4 chronic kidney disease, or unspecified chronic kidney disease (principal); F10.10 Alcohol abuse, uncomplicated; E86.0 Dehydration; N18.9 Chronic kidney disease, unspecified; R11.10 Vomiting, unspecified
CPT/HCPCS: 36415; 80048; 80053; 80061; 82306; 85025